=== PATIENT | female | born 1940 | race Caucasian/White ===

== ENCOUNTER → 2016-12-24 | Outpatient (CLI) | payer OTHER ==
[2016-02-04 18:23] VITALS: BP 144/59
--- NOTE | 2016-12-25 07:38 | VAS ---
HISTORY: Lower extremity cramps, restless leg syndrome Study: Bilateral ABIs Comparison: None Findings: MILE on the right 0.84. MILE on the left 0.82. These values are abnormal correlation with bilateral lo wer extremity arterial Doppler evaluation is recommended. IMPRESSION: Abnormal ABIs bilaterally. Correlation with bilateral lower extremity arterial Doppler evaluation is recommended. Reported By:
== END ==
LOC: RAD 14:42
PROVIDERS: ATTEND Nurse Practitioner Family
DX: R25.2 Cramp and spasm (principal); G25.81 Restless legs syndrome; G58.8 Other specified mononeuropathies
CPT/HCPCS: 93923

== ENCOUNTER 2017-02-03 12:54 | Observation (INO) | payer OTHER ==
[2017-02-03] MEDS ORDERED: ZOFRAN INJ 4 MG VIAL IVP PRN (13:28)
[2017-02-03] MEDS ORDERED: NS 1000 ML 1,000 ML IV SCH (14:00)
[2017-02-03 14:01] VITALS: BMI 26.4
[2017-02-03 14:14] LABS: BASOPHILS % (AUTO) 0.3 % (0.2-1.0); EOSINOPHILS # (AUTO) 0.3 x10^3/uL (0.0-0.2); EOSINOPHILS % (AUTO) 5.6 % (0.9-2.9); HEMATOCRIT 28.5 % (36.0-47.0); HEMOGLOBIN 9.4 g/dL (12.0-16.0); LYMPHOCYTES # (AUTO) 1.5 X10^3/uL (1.3-2.9); LYMPHOCYTES % (AUTO) 27.3 % (21.0-51.0); MEAN CORPUSCULAR HEMOGLOBIN 27.3 pg (27.0-34.0); MEAN CORPUSCULAR HGB CONC 33.1 g/dL (33.0-35.0); MEAN CORPUSCULAR VOLUME 82.4 fL (80.0-100.0); MEAN PLATELET VOLUME 7.2 fL (7.4-11.0); MONOCYTES # (AUTO) 0.5 x10^3/uL (0.3-0.8); MONOCYTES % (AUTO) 8.6 % (0.0-13.0); NEUTROPHILS # (AUTO) 3.2 x10^3/uL (2.2-4.8); NEUTROPHILS % (AUTO) 58.2 % (42.0-75.0); PLATELET COUNT 316 X10^3/uL (150.0-450.0); RED BLOOD COUNT 3.46 X10^6/uL (3.5-5.4); RED CELL DISTRIBUTION WIDTH 16.9 % (11.6-16.5); WHITE BLOOD COUNT 5.5 X10^3/uL (3.6-10.0)
[2017-02-03 14:25] LABS: ALANINE AMINOTRANSFERASE 20 Units/L (12-78); ALBUMIN 2.8 g/dL (3.4-5.0); ALKALINE PHOSPHATASE 85 Units/L (46-116); ASPARTATE AMINO TRANSFERASE 17 Units/L (15-37); BLOOD UREA NITROGEN 24 mg/dL (7-18); CALCIUM 8.9 mg/dL (8.5-10.1); CARBON DIOXIDE 28.5 mmol/L (21-32); CHLORIDE 105 mmol/L (98-107); COR CA(FOR HYPOALB) 9.9 mg/dL (8.5-10.1); CREATININE 1.12 mg/dL (0.55-1.02); SODIUM 140 mmol/L (136-145); TOTAL PROTEIN 6.4 g/dL (6.4-8.2); eGFR BLACK RACES > 60 (>60); eGFR NON BLACK RACES 51 (>60)
[2017-02-03] MEDS ORDERED: HumuLIN R SUBCUT PRN (14:41)
--- NOTE | 2017-02-03 14:46 | DR.H&P ---
H&P - History & Physical for Day of: H&P Date: 02/03/17 - Chief Complaint Chief Complaint: AMS, WEAKNESS, FALLS, N/V CANNOT EAT. INTRACTABLE LEFT HIP AND LOWER BACK PAIN - Allergies Allergies/Adverse Reactions: Allergies Allergy/AdvReac Type Severity Reaction Status Date / Time No Known Drug Allergies Allergy Verified 02/03/17 14:34 - History of Present Illness History of Present Illness: the patient is a 76-year-old white female who was a direct admit from Dr. Rodriguez's office after failing to improve with outpatient therapy for treatment of nausea and vomiting and for several weeks on and off. Patient also has increased weakness family reports dehydration and multiple falls. Patient presented to the office one day ago with intractable hip and back pain patient was treated with IM Toradol injection for pain without relief. Family members report patient has been confused with increased weakness visual and auditory hallucinations. Patient has a past medical history of diabetes coronary artery disease hypertension severe arthritis and neuropathy. Plan to admit patient for further evaluation of chronic nausea vomiting and treat with IV fluids for gentle hydration plan to obtain a CT of the head to rule out CVA and radiology studies to assess intractable lumbar spine pain and left hip pain following fall.the patient has bilateral lower extremity pitting edema despite taking HCTZ. Patient also reports increased shortness of breath on exertion. We will start patient on PPI therapy obtain chest x-ray and EKG on admission and repeat a.m. labs. Patient will receive sliding scale insulin coverage and blood pressure monitoring. - Past Medical History Past Medical History: Anxiety, Diabetes, Dyslipidemia, Hypertension, Hypothyroidism - Past Surgical History Surgical History: Angioplasty/Stents, , Hysterectomy - Family History Family Medical History: Diabetes Mellitus, Coronary Artery Disease, Heart Failure - Social History Does patient currently use any type of tobacco product: No Have you used tobacco products in the last 12 months: No Type of Tobacco Use: None Does any household member use tobacco: No Alcohol Use: None Drug Use: None - Medications Home Medications: Cyclobenzaprine HCl [Flexeril] 5 mg PO TID PRN 02/03/17 [History Confirmed 02/03] Folic Acid [Folic Acid Tab 1 mg] 1 mg PO DAILY 02/03/17 [History Confirmed 02/03] Gabapentin [Neurontin Tab 600 mg] 600 mg PO BID 02/03/17 [History Confirmed ] Hydrochlorothiazide [Hydrochlorothiazide 25 mg Tab] 25 mg PO QAM 02/03/17 [ History Confirmed 02/03/17] Hydrocodone-Acet 10/325 mg [Hawks 10/325 Tab] 1 tab PO Q6H PRN 02/03/17 [ History Confirmed 02/03/17] Hydroxyzine HCl 25 mg Tab [ATARAX *] 25 mg PO Q8H PRN 02/03/17 [History Confirmed 02/03/17] Levothyroxine Sodium [Levo-T] 1 tab PO DAILY 02/03/17 [History Confirmed ] Losartan Potassium 100 mg PO DAILY 02/03/17 [History Confirmed 02/03/17] Ropinirole HCl [Requip] 0.5 mg PO BID 02/03/17 [History Confirmed 02/03/17] - Review of Systems Constitutional: Weakness Eyes: No Symptoms Reported ENT: No Symptoms Reported Respiratory: Shortness of Breath Cardiovascular: Edema Gastrointestinal: Nausea, Vomiting Genitourinary: Frequency Musculoskeletal: Back Pain, Leg Pain Skin: Ecchymosis Neurological: Weakness, Confusion - Physical Exam Vital Signs: Blood Pressure 144/59 Oriented: Person Eyes: Normal Ear: Normal, Left Throat: Normal Respiratory: RLL Diminished, LLL Diminished Cardiovascular: Normal, Edema : Normal Auscultation: Bowel Sounds: Normal Tenderness: RUQ, Epigastric Skin: Decreased Turgur Musculoskeletal: Left, Hip, Back:Lumbar, Motor Deficit, Instability Speech Pattern: Clear, Appropriate - Assessment/Plan (1) Altered mental state Qualifiers: Altered mental status type: disorientation Qualified Code(s): R41.0 - Disorientation, unspecified Status: Acute Plan: ADMIT, EKG, CXR UA CBC CMP BLOOD CULTURES CT HEAD ON ADMISSION, CT ABD PELVIS. PPI therapy obtain chest x-ray and EKG on admission and repeat a.m. labs. Patient will receive sliding scale insulin coverage and blood pressure monitoring. (2) Falls Status: Acute (3) Hip pain Status: Acute (4) Lower back pain Status: Acute (5) N&V (nausea and vomiting) Status: Acute (6) Dehydration Status: Acute
--- NOTE | 2017-02-03 15:19 | RAD ---
HISTORY: Altered mental status and multiple falls Study: Portable AP chest Comparison: May 25, 2016 Findings: The trachea is midline. The cardiac silhouette is unremarkable. The lungs are clear without focal i nfiltrate or effusion. The bony thorax is unremarkable. IMPRESSION: 1. No acute cardiopulmonary disease. Reported By:
--- NOTE | 2017-02-03 15:19 | RAD ---
HISTORY: Fall, left hip pain Study: Left hip AP, frog-leg, AP pelvis Comparison: None Findings: A single frontal view of the pelvis demonstrates the pelvic ring to be intact. No evidence for acute cortical disruption or dislocation of the hip can be observed. Frog leg views of the hip fails to d emonstrate evidence for fracture or significant joint abnormality. Impression: 1. Negative exam. Reported By:
[2017-02-03] MEDS ORDERED: ATARAX SYRUP BTL 10MG/5ML PO PRN (19:40)
[2017-02-03] MEDS ORDERED: NORCO 10/325 TAB PO PRN (19:40)
[2017-02-03] MEDS ORDERED: FLEXERIL TAB 10 MG PO PRN (19:40)
[2017-02-03] MEDS ORDERED: SNACK - Diabetic Appropriate PO SCH (20:00)
[2017-02-03] MEDS ORDERED: NS 100 ML IV 100 ML IV ONE (20:16)
[2017-02-03] MEDS: NEURONTIN TAB 600 MG PO SCH ×2 (20:51→21:00)
[2017-02-03] MEDS: REQUIP PO SCH (20:52)
--- NOTE | 2017-02-03 22:27 | CT ---
CT abdomen and pelvis with contrast Indication: Abdominal pain with intractable nausea and vomiting Technique: Helical images through the abdomen and pelvis without contrast. Coronal and sagittal refor mats provided. Findings: Review of bone windows shows no destructive osseous lesion. Spine and pelvis DJD noted. Charles ited images through lower chest demonstrate no acute abnormality. Coronary artery calcifications and mild cardiomegaly noted. Abdomen: The gallbladder is collapsed. The liver, spleen and adrenal glands are within normal limits. No acute pancreas abnormality seen. Vascular plaque noted. The stomach and small bowel are normal. No acute colonic abnormality seen. Appendix is not visualized without pericecal inflammatory change. Pelvis: Urinary bladder is from normal. Trace free fluid in the pelvis noted. Uterus is absent. No ad nexal region lesion seen. The rectum is normal. Kidneys show no hydroureteronephrosis. Impression: No acute abnormality. Mild cardiomegaly, spine degenerative change, vascular plaque and o ther incidental findings as above. Reported By:
[2017-02-04 06:20] LABS: BASOPHILS % (AUTO) 0.4 % (0.2-1.0); EOSINOPHILS # (AUTO) 0.3 x10^3/uL (0.0-0.2); EOSINOPHILS % (AUTO) 5.1 % (0.9-2.9); HEMATOCRIT 27.4 % (36.0-47.0); HEMOGLOBIN 9.4 g/dL (12.0-16.0); LYMPHOCYTES # (AUTO) 1.7 X10^3/uL (1.3-2.9); LYMPHOCYTES % (AUTO) 31.8 % (21.0-51.0); MEAN CORPUSCULAR HEMOGLOBIN 27.9 pg (27.0-34.0); MEAN CORPUSCULAR HGB CONC 34.2 g/dL (33.0-35.0); MEAN CORPUSCULAR VOLUME 81.5 fL (80.0-100.0); MEAN PLATELET VOLUME 7.2 fL (7.4-11.0); MONOCYTES # (AUTO) 0.5 x10^3/uL (0.3-0.8); MONOCYTES % (AUTO) 9.3 % (0.0-13.0); NEUTROPHILS # (AUTO) 2.9 x10^3/uL (2.2-4.8); NEUTROPHILS % (AUTO) 53.4 % (42.0-75.0); PLATELET COUNT 300 X10^3/uL (150.0-450.0); RED BLOOD COUNT 3.36 X10^6/uL (3.5-5.4); RED CELL DISTRIBUTION WIDTH 16.6 % (11.6-16.5); WHITE BLOOD COUNT 5.3 X10^3/uL (3.6-10.0)
[2017-02-04 06:49] LABS: ALANINE AMINOTRANSFERASE 17 Units/L (12-78); ALBUMIN 2.3 g/dL (3.4-5.0); ALKALINE PHOSPHATASE 74 Units/L (46-116); ASPARTATE AMINO TRANSFERASE 16 Units/L (15-37); BLOOD UREA NITROGEN 15 mg/dL (7-18); CALCIUM 8.4 mg/dL (8.5-10.1); CARBON DIOXIDE 26.3 mmol/L (21-32); CHLORIDE 109 mmol/L (98-107); COR CA(FOR HYPOALB) 9.8 mg/dL (8.5-10.1); COR NA(FOR HYPERGLY) 143 mmol/L (136-145); CREATININE 0.99 mg/dL (0.55-1.02); MAGNESIUM 1.3 mg/dL (1.7-2.9); SODIUM 142 mmol/L (136-145); TOTAL PROTEIN 5.6 g/dL (6.4-8.2); eGFR BLACK RACES > 60 (>60); eGFR NON BLACK RACES 58 (>60)
[2017-02-04] MEDS: REQUIP PO SCH ×2 (07:58→11:23)
[2017-02-04] MEDS: HYDROCHLOROTHIAZIDE 25 MG TAB PO SCH ×2 (07:58→11:22)
[2017-02-04] MEDS: NEURONTIN TAB 600 MG PO SCH ×2 (07:58→11:22)
[2017-02-04] MEDS ORDERED: ATARAX TAB 25 MG PO PRN (08:53)
[2017-02-04] MEDS ORDERED: NORCO 10/325 TAB PO PRN (08:53)
[2017-02-04] MEDS ORDERED: PHARMACY CONSULT - DOSE _____ XX SCH (09:00)
[2017-02-04] MEDS ORDERED: SYNTHROID 75 mcg TAB PO SCH ×3 (09:00→16:30)
[2017-02-04] MEDS ORDERED: PATIENT'S HOME MEDICATION (Losartan Potassium [Losartan Potassium] 100 MG) PO SCH (09:00)
[2017-02-04] MEDS ORDERED: PATIENT'S HOME MEDICATION (Ropinirole Hcl [Requip] 0.5 MG) PO SCH (09:00)
[2017-02-04] MEDS ORDERED: COZAAR PO SCH ×2 (09:00→10:00)
[2017-02-04] MEDS ORDERED: DEXFERRUM or INFED 25 MG in NS 100 ML IV 100 ML IV ONE (09:00)
[2017-02-04] MEDS ORDERED: FOLIC ACID TAB 1 MG PO SCH ×2 (09:00)
--- NOTE | 2017-02-04 10:29 | RAD ---
History: Left knee pain after fall last week. Study: AP and lateral left knee Comparison: July 18, 2015 Findings: There is no interval change. There are moderate osteophyte formation about all of the joint space compartments, especially severe about the femoral patellar joint space. There is chondrocalcin osis. There is no fracture or dislocation. There is a moderate joint effusion. Impression: 1. Moderate joint effusion 2. Tricompartment osteoarthritis Reported By:
[2017-02-04] MEDS ORDERED: DEXFERRUM or INFED 975 MG in NS 500 ML IV 500 ML IV ONE (11:00)
--- NOTE | 2017-02-04 11:07 | MRI ---
STUDY: MRI OF THE LUMBAR SPINE HISTORY: Chronic low back pain. Recent fall. Comparison: Lumbar spine radiographs from April 27, 2016. CT abdomen and pelvis from January. Technique: Multiplanar multi-sequence MRI of the lumbar spine was performed. Sagittal T1, sagittal T 2, and STIR images, axial T1, and axial T2 images were obtained. Findings: Sagittal images: Vertebral body heights and alignment are within normal limits. There is multilevel d egenerative disk disease and degenerative endplate change. Marrow signal is otherwise age-appropriate . Several Schmorl's nodes are identified. The conus medullaris is normal appearance terminating at th e level of L1/2. Axial images: T11-- T12: Normal. T12 -- L1: Normal. L1 -- L2: There is a shallow disc bulge. There is bilateral facet arthropathy and ligamentum flavum i nfolding. The central canal and neural foramina are adequate at this level. L2 -- L3: There is a shallow disc bulge, bilateral facet arthropathy and ligamentum flavum infolding. The central canal and neural foramina are adequate at this level. L3 -- L4: There is a broad-based disc bulge, bilateral facet arthropathy and ligamentum flavum infold ing. The combination of these findings results in severe central canal stenosis. The right neural for amen is adequate. There is mild left neural foraminal stenosis. L4 -- L5: There is a broad-based disc bulge, bilateral facet arthropathy and ligamentum flavum infold ing. The combination of these findings results in severe central canal stenosis. The neural foramina are adequate at this level. L5 -- S1: There is a broad-based disc bulge, bilateral facet arthropathy and ligamentum flavum infold ing. Central canal and left neural foramina are adequate. There is mild right neural foraminal stenos is. IMPRESSION: 1. Multilevel lumbar spondylosis. 2. Severe central canal stenosis at L3/4 and L4/5. Reported By:
[2017-02-04] MEDS ORDERED: TORADOL 30 MG VIAL IVP NR (13:13)
[2017-02-04 15:32] VITALS: BP 139/66
[2017-02-04] MEDS ORDERED: REQUIP PO SCH (21:00)
== END 2017-02-04 16:30 | disposition home or self-care (01) | DRG 948 ==
LOC: MED/SURG 12:54 → OBS 13:19
PROVIDERS: ADMIT Internal Medicine; ATTEND Internal Medicine
DX: R41.0 Disorientation, unspecified (principal); E86.0 Dehydration; R29.6 Repeated falls; R11.2 Nausea with vomiting, unspecified; R53.1 Weakness; M54.5 Low back pain; M25.552 Pain in left hip; Z91.81 History of falling; I25.10 Atherosclerotic heart disease of native coronary artery without angina pectoris; I10 Essential (primary) hypertension; R06.02 Shortness of breath; W19.XXXA Unspecified fall, initial encounter; E03.8 Other specified hypothyroidism; M13.89 Other specified arthritis, multiple sites; M48.06 Spinal stenosis, lumbar region; M47.896 Other spondylosis, lumbar region; B95.1 Streptococcus, group B, as the cause of diseases classified elsewhere; D64.89 Other specified anemias; E11.65 Type 2 diabetes mellitus with hyperglycemia
CPT/HCPCS: 36415; 71010; 72148; 73501; 73560; 74177; 80053; 82607; 82728; 82746; 83540; 83735; 84466; 85025; 87040; 87086; 87088; 87186; 93005; 93010; A4222; G0378; J1750; J1885

== ENCOUNTER 2017-05-06 07:54 | Day surgery (SDC) | payer OTHER ==
[2017-05-06] MEDS ORDERED: D5 LR 1000 ML 1,000 ML IV ONE (07:58)
[2017-05-06] MEDS ORDERED: DIPRIVAN VIAL 20 ML ONE (10:28)
[2017-05-06 11:07] VITALS: BP 164/70
== END 2017-05-06 10:10 | disposition home or self-care (01) ==
LOC: SURG1 07:54
PROVIDERS: ATTEND Internal Medicine Gastroenterology
PROC: 0DB68ZX Excision of Stomach, Via Natural or Artificial Opening Endoscopic, Diagnostic (ICD-10-PCS; principal; 2017-05-06 11:00)
PROC: 0DB18ZX Excision of Upper Esophagus, Via Natural or Artificial Opening Endoscopic, Diagnostic (ICD-10-PCS; principal; 2017-05-06 11:00)
PROC: 0D757ZZ Dilation of Esophagus, Via Natural or Artificial Opening (ICD-10-PCS; principal; 2017-05-06 11:00)
PROC: 0DJ08ZZ Inspection of Upper Intestinal Tract, Via Natural or Artificial Opening Endoscopic (ICD-10-PCS; principal; 2017-05-06 11:00)
DX: R13.19 Other dysphagia (principal); R10.13 Epigastric pain; R11.2 Nausea with vomiting, unspecified; Z87.19 Personal history of other diseases of the digestive system; K22.2 Esophageal obstruction; K22.4 Dyskinesia of esophagus; K29.60 Other gastritis without bleeding
CPT/HCPCS: 99100; A4217; J3490; J7120

== ENCOUNTER → 2017-05-27 | Outpatient (CLI) | payer OTHER ==
[2017-05-06 11:07] VITALS: BP 164/70
== END ==
LOC: LAB 13:07
PROVIDERS: ATTEND Internal Medicine Gastroenterology
DX: K64.0 First degree hemorrhoids (principal)
CPT/HCPCS: 82270

== ENCOUNTER 2017-08-14 18:38 | Inpatient (IN) | payer OTHER ==
[2017-08-14 18:42] VITALS: BMI 24.3
[2017-08-14 19:08] LABS: BILIRUBIN,URINE NEGATIVE (NEGATIVE); BLOOD/HEMOGLOBIN,URINE 3+ (NEGATIVE); GLUCOSE, URINE NEGATIVE (NEGATIVE); KETONES,URINE NEGATIVE (NEGATIVE); LEUKOCYTE ESTERASE ,URINE 3+ (NEGATIVE); NITRITES,URINE NEGATIVE (NEGATIVE); PROTEIN,URINE 4+ (NEGATIVE); UROBILINOGEN,URINE NORMAL (NORMAL)
[2017-08-14 19:26] LABS: APPEARANCE,URINE CLOUDY (CLEAR); BACTERIA,URINE 2+ /HPF (NEGATIVE); COLOR,URINE YELLOW (YELLOW); SQUAMOUS EPITHELIAL CELL,UR RARE /HPF (NEGATIVE)
--- NOTE | 2017-08-14 19:36 | DR.GENAD ---
HPI - PCP Primary Care Physician: roxana - Complaint/Symptoms Chief Complaint Doctors Comments: Patient presents with a history of altered mental status and has been vomiting since this morning. She has been alternating between chills and cold. Chief Complaint:: patients family stated she has been having ams day and this morning she had been vomiting - Source History Provided: Patient - Mode of Arrival Mode of Arrival: Wheelchair - Timing Onset of Chief Complaint: 08/14/17 PMH - PMH Past Medical History: Yes Past Medical History: Anxiety, Diabetes, Dyslipidemia, Hypertension, Hypothyroidism Past Surgical History: Yes Surgical History: Unknown - Family History History of Family Medical Conditions: Yes Family Medical History: Diabetes Mellitus, Coronary Artery Disease, Heart Failure - Social History Does patient currently use any type of tobacco product: No Have you used tobacco products in the last 12 months: No Type of Tobacco Use: None Does any household member use tobacco: No Alcohol Use: None Do you use any recreational Drugs:: No Lives With: Alone Lives Where: Home - infectious screening In the last 2 months have you had wt loss of >10#?: NO Have you had fever, night sweats or hemotysis?: No Have you traveled outside the country in the last 6 months?: No Isolation: Standard ROS - Review of Systems Eyes: No Symptoms Reported ENTM: No Symptoms Reported Respiratoy: No Symptoms Reported Cardiovascular: No Symptoms Reported Gastrointestinal/Abdominal: No Symptoms Reported Genitourinary: No Symptoms Reported Neurological: No Symptoms Reported Musculoskeletal: No Symptoms Reported Integumentary: No Symptoms Reported Hematologic/Lymphatic: No Symptoms Reported Endocrine: No Symptoms Reported Psychiatric: No Symptoms Reported All Other Systems: Reviewed and Negative PE - Vital Signs Vitals: Temperature 102.8 F Pulse Rate [Left Brachial] 108 Pulse Rate 98 Respiratory Rate 16 Blood Pressure [Left Arm] 166/70 Blood Pressure [Right Arm] 139/66 Blood Pressure 141/70 O2 Sat by Pulse Oximetry 99 - General Limitations: No Limitations General Appearance: Alert, In No Apparent Distress - Head Head Exam: Normal Inspection, Atraumatic - Eyes Eye exam: Normal Appearance, PERRL, EOMI - ENT ENT Exam: Normal Exam External Ear Exam: Normal External Inspection TM/Canal Exam: Bilateral Normal Nose Exam: Normal Nose Exam Mouth Exam: Normal Inspection Throat Exam: Normal Inspection - Neck Neck Exam: Normal Inspection - Chest Chest Inspection: Normal Inspection - Respiratory Respiratory Exam: Normal Lung Sounds Bilat Respiratory Exam: Bilateral Clear to Auscultation - Cardiovascular Cardiovascular Exam: Regular Rate, Normal Rhythm - Abdominal Exam Abdominal Exam: Normal Inspection, Normal Bowel Sounds Abdominal Tenderness: negative: RUQ, RLQ, LUQ, LLQ, Epigastrium, Suprapubic, Diffuse, Mild, Moderate, Severe, Other - Extremities Extremities Exam: Normal Inspection, Full ROM - Back Back Exam: Normal Inspection, Tenderness - Neurologic Neurological Exam: Alert, Oriented X3, CN II-XII Intact - Psychiatric Psychiatric Exam: Normal Affect, Normal Mood - Skin Skin Exam: Warm, Dry, Intact Course - Reevaluation 1st: Unchanged - Consultation Called: 21:30 ROR - Labs Reviewed Result Diagrams: 08/14/17 20:05 08/14/17 20:05 Laboratory: WBC 9.2 X10^3/uL (3.6-10.0) 08/14/17 20:05 RBC 3.54 X10^6/uL (3.5-5.4) 08/14/17 20:05 Hgb 10.7 g/dL (12.0-16.0) L 08/14/17 20:05 Hct 31.0 % (36.0-47.0) L 08/14/17 20:05 MCV 87.6 fL (80.0-100.0) 08/14/17 20:05 MCH 30.3 pg (27.0-34.0) 08/14/17 20:05 MCHC 34.6 g/dL (33.0-35.0) 08/14/17 20:05 RDW 13.7 % (11.6-16.5) 08/14/17 20:05 Plt Count 253 X10^3/uL (150.0-450.0) 08/14/17 20:05 Plt Count Comment Adequate (ADEQUATE) 08/14/17 20:05 MPV 7.0 fL (7.4-11.0) L 08/14/17 20:05 Neut % (Auto) 91.0 % (42.0-75.0) H 08/14/17 20:05 Lymph % (Auto) 6.3 % (21.0-51.0) L 08/14/17 20:05 [place] % (Auto) 2.0 % (0.0-13.0) 08/14/17 20:05 Eos % (Auto) 0.2 % (0.9-2.9) L 08/14/17 20:05 Baso % (Auto) 0.5 % (0.2-1.0) 08/14/17 20:05 Neut # (Auto) 8.4 x10^3/uL (2.2-4.8) H 08/14/17 20:05 Lymph # (Auto) 0.6 X10^3/uL (1.3-2.9) L 08/14/17 20:05 [place] # (Auto) 0.2 x10^3/uL (0.3-0.8) L 08/14/17 20:05 Eos # (Auto) 0.0 x10^3/uL (0.0-0.2) 08/14/17 20:05 Baso # (Auto) 0.0 X10^3/uL (0.0-0.1) 08/14/17 20:05 Absolute Nucleated RBC 0.0 /100WBC 08/14/17 20:05 Total Counted 100 08/14/17 20:05 Neutrophils % (Manual) 84 % (39-76) H 08/14/17 20:05 Band Neutrophils % 6 % (0-10) 08/14/17 20:05 Lymphocytes % (Manual) 8 % (13-43) L 08/14/17 20:05 Monocytes % (Manual) 2 % (4-9) L 08/14/17 20:05 Plt Morphology Comment Normal (NORMAL) 08/14/17 20:05 RBC Morphology Normal (NORMAL) 08/14/17 20:05 Sodium 137 mmol/L (136-145) 08/14/17 20:05 Corrected Sodium 139 mmol/L (136-145) 08/14/17 20:05 Potassium 3.7 mmol/L (3.5-5.1) 08/14/17 20:05 Chloride 99 mmol/L (98-107) 08/14/17 20:05 Carbon Dioxide 28.1 mmol/L (21-32) 08/14/17 20:05 BUN 18 mg/dL (7-18) 08/14/17 20:05 Creatinine 1.51 mg/dL (0.55-1.02) H 08/14/17 20:05 Est GFR (MDRD) Af Amer 43 (>60) L 08/14/17 20:05 Est GFR (MDRD) Non-Af 36 (>60) L 08/14/17 20:05 Glucose 169 mg/dL (65-99) H 08/14/17 20:05 Lactic Acid 1.3 mmol/L (0.4-2.0) 08/14/17 20:05 Calcium 8.3 mg/dL (8.5-10.1) L 08/14/17 20:05 Corrected Calcium 8.9 mg/dL (8.5-10.1) 08/14/17 20:05 Total Bilirubin 0.50 mg/dL (0.2-1.0) 08/14/17 20:05 AST 19 Units/L (15-37) 08/14/17 20:05 ALT 21 Units/L (12-78) 08/14/17 20:05 Alkaline Phosphatase 93 Units/L (46-116) 08/14/17 20:05 C-Reactive Protein 70.20 mg/L (0-3.0) H 08/14/17 20:05 Total Protein 7.2 g/dL (6.4-8.2) 08/14/17 20:05 Albumin 3.3 g/dL (3.4-5.0) L 08/14/17 20:05 Globulin 3.9 g/dL (2.5-4.5) 08/14/17 20:05 Albumin/Globulin Ratio 0.8 Ratio (1.1-2.1) L 08/14/17 20:05 Specimen Type Clean catch urine 08/14/17 19:00 Urine Color Yellow (YELLOW) 08/14/17 19:00 Urine Appearance Cloudy (CLEAR) 08/14/17 19:00 Urine pH 6.0 (5.0 - 8.0) 08/14/17 19:00 Ur Specific [place] 1.015 (1.000-1.030) 08/14/17 19:00 Urine Protein 4+ (NEGATIVE) 08/14/17 19:00 Urine Glucose (UA) Negative (NEGATIVE) 08/14/17 19:00 Urine Ketones Negative (NEGATIVE) 08/14/17 19:00 Urine Occult Blood 3+ (NEGATIVE) 08/14/17 19:00 Urine Nitrite Negative (NEGATIVE) 03/31/18 19:00 Urine Bilirubin Negative (NEGATIVE) 08/14/17 19:00 Urine Urobilinogen Normal (NORMAL) 08/14/17 19:00 Ur Leukocyte Esterase 3+ (NEGATIVE) 08/14/17 19:00 Urine RBC 10-20 /HPF (NONE SEEN) 08/14/17 19:00 Urine WBC Tntc /HPF (NONE SEEN) 08/14/17 19:00 Ur Squamous Epith Cells Rare /HPF (NEGATIVE) 08/14/17 19:00 Urine Bacteria 2+ /HPF (NEGATIVE) 08/14/17 19:00 Ur Culture Indicated? Yes/culture set up 08/14/17 19:00 - Diagnosis Discharge Problem: Pyelonephritis - Discharge Plan Condition: Stable - Follow ups/Referrals Follow ups/Referrals: CHRISTOPHER GONZALEZ [Primary Care Provider] - 3 days - Instructions
[2017-08-14] MEDS ORDERED: NS 1000 ML 1,000 ML IV ONE (19:53)
[2017-08-14] MEDS ORDERED: TORADOL 30 MG VIAL IVP ONE (19:53)
[2017-08-14] MEDS ORDERED: NS 1000 ML 1,000 ML ONE ×2 (19:55→22:23)
[2017-08-14] MEDS ORDERED: TORADOL 30 MG VIAL ONE (19:55)
[2017-08-14] MEDS ORDERED: ZOFRAN INJ 4 MG VIAL IVP ONE (20:10)
[2017-08-14] MEDS ORDERED: AMPICILLIN VIAL 1 GM ONE (20:14)
[2017-08-14] MEDS ORDERED: NS 100 ML IV + SPIKE MINIBAG* 100 ML IV ONE (20:14)
[2017-08-14] MEDS ORDERED: ZOFRAN INJ 4 MG VIAL ONE (20:14)
[2017-08-14 20:19] LABS: BASOPHILS % (AUTO) 0.5 % (0.2-1.0); EOSINOPHILS % (AUTO) 0.2 % (0.9-2.9); HEMOGLOBIN 10.7 g/dL (12.0-16.0); LYMPHOCYTES # (AUTO) 0.6 X10^3/uL (1.3-2.9); LYMPHOCYTES % (AUTO) 6.3 % (21.0-51.0); MEAN CORPUSCULAR HEMOGLOBIN 30.3 pg (27.0-34.0); MEAN CORPUSCULAR HGB CONC 34.6 g/dL (33.0-35.0); MEAN CORPUSCULAR VOLUME 87.6 fL (80.0-100.0); MONOCYTES # (AUTO) 0.2 x10^3/uL (0.3-0.8); NEUTROPHILS # (AUTO) 8.4 x10^3/uL (2.2-4.8); PLATELET COUNT 253 X10^3/uL (150.0-450.0); RED BLOOD COUNT 3.54 X10^6/uL (3.5-5.4); RED CELL DISTRIBUTION WIDTH 13.7 % (11.6-16.5); WHITE BLOOD COUNT 9.2 X10^3/uL (3.6-10.0)
[2017-08-14 20:29] LABS: ALBUMIN 3.3 g/dL (3.4-5.0); C-REACTIVE PROTEIN 70.2 mg/L (0-3.0); CALCIUM 8.3 mg/dL (8.5-10.1); CARBON DIOXIDE 28.1 mmol/L (21-32); COR CA(FOR HYPOALB) 8.9 mg/dL (8.5-10.1); CREATININE 1.51 mg/dL (0.55-1.02); TOTAL PROTEIN 7.2 g/dL (6.4-8.2)
[2017-08-14 20:36] LABS: LACTIC ACID 1.3 mmol/L (0.4-2.0)
[2017-08-14 20:52] LABS: BAND NEUTROPHILS % 6 % (0-10); PLATELET MORPHOLOGY COMMENT NORMAL (NORMAL)
[2017-08-14] MEDS ORDERED: AMPICILLIN VIAL 1 GM 1 GM in NS 50 ML IV + SPIKE MINIBAG* 50 ML IV SCH (21:00)
--- NOTE | 2017-08-14 21:36 | RAD ---
Chest AP portable Indication: Vomiting. Altered mental status. Findings: There is no pneumothorax or effusion. There is no consolidation. Heart size is prominent. Impression: Cardiomegaly without other acute chest process. Reported By:
[2017-08-14] MEDS ORDERED: TYLENOL 325 MG TAB PO PRN (21:47)
[2017-08-14] MEDS ORDERED: GENTAMICIN INJ 80 MG in NS 100 ML IV 100 ML IV ONE (22:06)
[2017-08-14] MEDS ORDERED: TYLENOL 500 MG TAB EXTRA STRENGTH PO PRN (22:06)
[2017-08-14] MEDS ORDERED: ATARAX TAB 25 MG PO PRN (22:23)
[2017-08-14] MEDS ORDERED: GENTAMICIN INJ ONE (22:23)
[2017-08-14] MEDS ORDERED: NEURONTIN TAB 600 MG PO PRN (22:23)
[2017-08-14] MEDS ORDERED: NS 100 ML IV 100 ML IV ONE (22:24)
[2017-08-14] MEDS: NS 1000 ML 1,000 ML IV SCH (22:31)
[2017-08-14] MEDS: GENTAMICIN INJ 80 MG in NS 100 ML IV 100 ML IV SCH (22:32)
[2017-08-15] MEDS ORDERED: GENTAMICIN INJ ONE ×2 (04:14→20:47)
[2017-08-15] MEDS ORDERED: NS 100 ML IV + SPIKE MINIBAG* 100 ML IV ONE ×4 (04:21→20:57)
[2017-08-15] MEDS ORDERED: AMPICILLIN VIAL 1 GM ONE ×4 (04:21→20:48)
[2017-08-15] MEDS: NORCO 10/325 TAB PO PRN ×3 (04:22→20:26)
[2017-08-15] MEDS: AMPICILLIN VIAL 1 GM 1 GM in NS 50 ML IV + SPIKE MINIBAG* 50 ML IV SCH ×4 (04:32→21:22)
[2017-08-15] MEDS ORDERED: GLUCOPHAGE ONE ×2 (05:33→16:04)
[2017-08-15] MEDS: REGLAN TAB 5 MG PO SCH ×4 (06:42→20:26)
[2017-08-15] MEDS: GLUCOPHAGE PO SCH ×2 (06:43→16:08)
[2017-08-15] MEDS: SYNTHROID 75 mcg TAB PO SCH (06:43)
[2017-08-15] MEDS: NS 1000 ML 1,000 ML IV SCH ×2 (06:43→15:08)
[2017-08-15 07:34] LABS: BASOPHILS % (AUTO) 0.3 % (0.2-1.0); EOSINOPHILS % (AUTO) 0.1 % (0.9-2.9); HEMATOCRIT 27.4 % (36.0-47.0); HEMOGLOBIN 9.6 g/dL (12.0-16.0); LYMPHOCYTES # (AUTO) 0.6 X10^3/uL (1.3-2.9); LYMPHOCYTES % (AUTO) 6.4 % (21.0-51.0); MEAN CORPUSCULAR HEMOGLOBIN 30.7 pg (27.0-34.0); MEAN CORPUSCULAR VOLUME 87.5 fL (80.0-100.0); MEAN PLATELET VOLUME 7.1 fL (7.4-11.0); MONOCYTES # (AUTO) 0.8 x10^3/uL (0.3-0.8); MONOCYTES % (AUTO) 8.3 % (0.0-13.0); NEUTROPHILS # (AUTO) 7.7 x10^3/uL (2.2-4.8); NEUTROPHILS % (AUTO) 84.9 % (42.0-75.0); PLATELET COUNT 204 X10^3/uL (150.0-450.0); RED BLOOD COUNT 3.13 X10^6/uL (3.5-5.4); RED CELL DISTRIBUTION WIDTH 13.6 % (11.6-16.5); WHITE BLOOD COUNT 9.1 X10^3/uL (3.6-10.0)
[2017-08-15 07:45] LABS: ALBUMIN 2.5 g/dL (3.4-5.0); CALCIUM 7.4 mg/dL (8.5-10.1); CARBON DIOXIDE 25.8 mmol/L (21-32); COR CA(FOR HYPOALB) 8.6 mg/dL (8.5-10.1); CREATININE 1.36 mg/dL (0.55-1.02); TOTAL PROTEIN 5.7 g/dL (6.4-8.2)
[2017-08-15] MEDS ORDERED: POTASSIUM CHL 40 MEQ/NS 0.45% 500 ML IV PRN (07:54)
[2017-08-15] MEDS ORDERED: POTASSIUM CHLORIDE LIQ 20 MEQ UDC PO PRN (07:54)
[2017-08-15] MEDS ORDERED: POTASSIUM CHL 60 MEQ/NS 0.45% 500 ML IV PRN (07:54)
[2017-08-15] MEDS ORDERED: K-RIDER 10 MEQ/NS 100 ML 10 MEQ/100 ML BAG IV PRN (07:54)
[2017-08-15] MEDS ORDERED: PATIENT'S HOME MEDICATION (Metformin Hcl [Metformin Hcl] 1 TAB) PO SCH (09:00)
[2017-08-15] MEDS ORDERED: PATIENT'S HOME MEDICATION (Losartan Potassium [Losartan Potassium] 100 MG) PO SCH (09:00)
[2017-08-15] MEDS: COZAAR PO SCH (09:47)
[2017-08-15] MEDS: FOLIC ACID TAB 1 MG PO SCH (09:47)
[2017-08-15] MEDS: NORVASC TAB 5 MG PO SCH (09:48)
[2017-08-15] MEDS: ZANTAC PO SCH (09:48)
[2017-08-15] MEDS: LASIX PO SCH (09:48)
[2017-08-15] MEDS: LIPITOR TAB 20 MG PO SCH (09:48)
[2017-08-15] MEDS: HYDROCHLOROTHIAZIDE 25 MG TAB PO SCH (09:48)
[2017-08-15] MEDS: PROzac PO SCH (09:49)
[2017-08-15] MEDS: TERBINAFINE HCL PO SCH (10:00)
--- NOTE | 2017-08-15 10:14 | DR.H&P ---
H&P - History & Physical for Day of: H&P Date: 08/14/17 - Chief Complaint Chief Complaint: AMS, N/V - Allergies Allergies/Adverse Reactions: Allergies Allergy/AdvReac Type Severity Reaction Status Date / Time No Known Drug Allergies Allergy Verified 02/03/17 14:34 - History of Present Illness History of Present Illness: 76 WF ER ADMISSION, WITH CO AMS, CONFUSION, GENERALIZED WEAKNESS. 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 PT HAS HAD N/V. PT FAMILY STATES SHE HAS BEEN HAVING CO INTRACTABLE LOWER BACK PAIN, LOWER BACK PAIN LAST NIGHT WAS INTRACTABLE. PT HAS PMH, OA, GERD, DM, CAD. - Past Medical History Past Medical History: Anxiety, Diabetes, Dyslipidemia, Hypertension, Hypothyroidism - Past Surgical History Surgical History: , Hysterectomy - Family History Family Medical History: Diabetes Mellitus, Coronary Artery Disease, Heart Failure - Social History Does patient currently use any type of tobacco product: No Have you used tobacco products in the last 12 months: No Type of Tobacco Use: None Does any household member use tobacco: No Alcohol Use: None Drug Use: None - Medications Home Medications: Amlodipine Besylate [NORVASC 5 MG *] 1 tab PO DAILY 08/14/17 [History Confirmed 08/14/17] Atorvastatin Calcium 20 mg PO DAILY 08/14/17 [History Confirmed 08/14/17] Fluoxetine HCl [FLUOXETINE 10 MG *] 1 cap PO DAILY 08/14/17 [History Confirmed 08/14/17] Furosemide [Furosemide] 1 tab PO DAILY 08/14/17 [History Confirmed 08/14/17] Metformin HCl [Metformin HCl] 1 tab PO BID 08/14/17 [History Confirmed 08/14/17] Metoclopramide HCl [Metoclopramide HCl] 1 tab PO ACHS 08/14/17 [History Confirmed 08/14/17] Ranitidine HCl [Ranitidine HCl] 1 tab PO BID 08/14/17 [History Confirmed ] Terbinafine HCl [Terbinafine HCl] 1 tab PO DAILY 08/14/17 [History Confirmed ] - Review of Systems Constitutional: Weakness, Malaise Eyes: No Symptoms Reported ENT: No Symptoms Reported Respiratory: SOB with Excertion Cardiovascular: Light Headedness Gastrointestinal: Nausea, Vomiting, Abdominal Pain Genitourinary: No Symptoms Reported Musculoskeletal: Back Pain Skin: No Symptoms Reported Neurological: Weakness, Confusion - Physical Exam Vital Signs: Temperature 100.5 F Pulse Rate [Left Brachial] 85 Pulse Rate 98 Respiratory Rate 18 Blood Pressure [Left Arm] 115/57 Blood Pressure [Right Arm] 139/66 Blood Pressure 141/70 O2 Sat by Pulse Oximetry 94 Oriented: Person Eyes: Normal Ear: Normal Nose: Normal Throat: Normal Respiratory: RLL Diminished, LLL Diminished Cardiovascular: Normal : Normal Auscultation: Bowel Sounds: Normal Palpation: Normal Tenderness: RLQ, LUQ, LLQ, Other (BILATERAL CVA TENDERNESS) Skin: Decreased Turgur, Wound Musculoskeletal: Back:Thoracic, Back:Lumbar Psychiatric: Anxiety Affect: Anxious Speech Pattern: Clear - Assessment/Plan (1) Altered mental state Qualifiers: Altered mental status type: disorientation Qualified Code(s): R41.0 - Disorientation, unspecified Status: Acute Plan: ADMIT, CT BRAIN, MONITOR. ADMISSION, LABS, IV ATBX, CULTURES. CT ABD PELVIS, IV HYDRATION, ELECTROLYTE REPLACEMENT. RESUME HOME MEDS. SSI, BS MONITORING (2) Pyelonephritis Status: Acute (3) Dehydration Status: Acute (4) N&V (nausea and vomiting) Status: Acute (5) Dehydration Status: Acute
[2017-08-15] MEDS ORDERED: K-DUR TAB 20 MEQ PO ONE (11:00)
[2017-08-15] MEDS: MAGNESIUM SULFATE 1 GM/100 mL PREMIX 1 GM/100 ML BAG IV PRN ×5 (11:35→23:57)
--- NOTE | 2017-08-15 12:26 | CT ---
CT HEAD WITHOUT CONTRAST CLINICAL HISTORY: 76-year-old female with altered mental status. COMPARISON: CT head 02/04/2016. TECHNIQUE: Multiple, non-contrasted axial CT images were obtained from the skull base to the cranial vertex. Coronal and sagittal reformats were performed. FINDINGS: There are no abnormal intra- or extra-axial fluid collections, midline shift, or mass effec t. Phan-white differentiation is normal. Global cortical involutional changes are present that are ad vanced for the patient's stated age. The ventricular system is mildly enlarged but commensurate with the degree of sulcal prominence. Periventricular and supraventricular white matter hypodensity is pre sent that is nonspecific in appearance, but most likely to represent microvascular ischemic changes. Atherosclerotic vascular calcification is present within the carotid siphons and distal vertebral art eries. The imaged paranasal sinuses, mastoid air cells, and tympanic spaces are clear. Bilateral lens implan ts IMPRESSION: 1. No definite evidence of an acute intracranial process. If clinical concern persists for acute str fernie, consider MRI/MRA brain. 2. Moderate microvascular white matter ischemic changes, with associated volume loss. Reported By:
--- NOTE | 2017-08-15 13:11 | CT ---
CT ABDOMEN AND PELVIS WITHOUT CONTRAST CLINICAL HISTORY: 76-year-old female with altered mental status. COMPARISON: None. TECHNIQUE: Multiple contiguous computed tomographic axial images of the abdomen and pelvis were obtai shandra without the use of oral or intravenous contrast. Images were reformatted in the coronal and sagit dennis planes. FINDINGS: The lung bases demonstrate no evidence of focal air-space opacification, pleural effusion, pneumothor ax, or suspicious pulmonary nodules. The imaged inferior mediastinum and heart are normal in appeara nce without evidence of pericardial effusion. The liver, gallbladder, pancreas, and spleen are within normal limits for noncontrast imaging. Adrenal glands are unremarkable bilaterally. Mild right renal edema with moderate perinephric stranding and trace non organized fluid with mild pr oximal hydroureter with mild dilatation of the remaining ureter with a small focal region of strictur e/peristalsis just distal to the UPJ. Mildly atrophic left kidney with mild perinephric stranding. There are no nephroureteral stones or or ganized perinephric fluid collections. Ureters follow a normal course to a partially distended urinar y bladder. Status post hysterectomy. Vaginal cuff and adnexa are unremarkable. Pelvic phleboliths are present. The appendix is normal in appearance. The bowel is without obstruction or inflammation and there is no free fluid or free air within the peritoneal cavity. There are no pathologically enlarged lymph n odes in the abdomen or pelvis. Moderate atherosclerotic calcification of the aorta and its branches. Soft tissues are normal. The osseous structures are intact without fracture or malalignment. IMPRESSION: 1. Mildly edematous right kidney with moderate perinephric stranding and scattered non organized nadeen nephric fluid. There is peristalsis versus stricture of the proximal ureter just distal to the UVJ wi th mild proximal hydroureter and mild dilatation of the remaining ureter. Correlate clinically for ur inary tract infection/pyelonephritis. Neoplastic process not excluded. Consider urologic consultation . 2. No other acute intra-abdominal or intrapelvic process. Reported By:
[2017-08-15] MEDS ORDERED: NS 100 ML IV 100 ML IV ONE (20:47)
[2017-08-15] MEDS: GENTAMICIN INJ 80 MG in NS 100 ML IV 100 ML IV SCH (22:42)
[2017-08-16] MEDS: NS 1000 ML 1,000 ML IV SCH ×3 (00:08→15:54)
[2017-08-16] MEDS: MAGNESIUM SULFATE 1 GM/100 mL PREMIX 1 GM/100 ML BAG IV PRN (01:30)
[2017-08-16] MEDS ORDERED: GLUCOPHAGE ONE ×2 (05:00→15:51)
[2017-08-16 05:27] LABS: BASOPHILS % (AUTO) 0.3 % (0.2-1.0); EOSINOPHILS # (AUTO) 0.1 x10^3/uL (0.0-0.2); EOSINOPHILS % (AUTO) 0.9 % (0.9-2.9); HEMATOCRIT 29.2 % (36.0-47.0); HEMOGLOBIN 9.8 g/dL (12.0-16.0); LYMPHOCYTES % (AUTO) 8.7 % (21.0-51.0); MEAN CORPUSCULAR HEMOGLOBIN 29.8 pg (27.0-34.0); MEAN CORPUSCULAR HGB CONC 33.7 g/dL (33.0-35.0); MEAN CORPUSCULAR VOLUME 88.6 fL (80.0-100.0); MEAN PLATELET VOLUME 7.4 fL (7.4-11.0); MONOCYTES # (AUTO) 0.7 x10^3/uL (0.3-0.8); MONOCYTES % (AUTO) 6.4 % (0.0-13.0); NEUTROPHILS # (AUTO) 9.2 x10^3/uL (2.2-4.8); NEUTROPHILS % (AUTO) 83.7 % (42.0-75.0); PLATELET COUNT 203 X10^3/uL (150.0-450.0); RED CELL DISTRIBUTION WIDTH 13.8 % (11.6-16.5)
[2017-08-16 05:36] LABS: ALBUMIN 2.4 g/dL (3.4-5.0); CALCIUM 7.6 mg/dL (8.5-10.1); CARBON DIOXIDE 26.3 mmol/L (21-32); COR CA(FOR HYPOALB) 8.9 mg/dL (8.5-10.1); CREATININE 1.32 mg/dL (0.55-1.02); TOTAL PROTEIN 6.1 g/dL (6.4-8.2)
[2017-08-16] MEDS: REGLAN TAB 5 MG PO SCH ×4 (05:51→20:40)
[2017-08-16] MEDS: SYNTHROID 75 mcg TAB PO SCH (06:05)
[2017-08-16] MEDS: GLUCOPHAGE PO SCH ×2 (06:05→16:12)
[2017-08-16] MEDS ORDERED: NS 100 ML IV 0 ML IV ONE (06:09)
[2017-08-16] MEDS: TOBRAMYCIN SULFATE 100 MG in NS 100 ML IV 97.5 ML IV SCH (06:31)
[2017-08-16] MEDS: FOLIC ACID TAB 1 MG PO SCH (08:01)
[2017-08-16] MEDS: NORVASC TAB 5 MG PO SCH (08:01)
[2017-08-16] MEDS: HYDROCHLOROTHIAZIDE 25 MG TAB PO SCH (08:01)
[2017-08-16] MEDS: LASIX PO SCH (08:01)
[2017-08-16] MEDS: LIPITOR TAB 20 MG PO SCH (08:01)
[2017-08-16] MEDS: COZAAR PO SCH (08:01)
[2017-08-16] MEDS: ROCEPHIN 1 GM IV PREMIX 1 GM/50 ML IV.SOLN. IV SCH (08:01)
[2017-08-16] MEDS: PROzac PO SCH (08:01)
[2017-08-16] MEDS ORDERED: COLACE CAP 100 MG PO PRN (08:03)
[2017-08-16] MEDS ORDERED: MILK OF MAGNESIA PO PRN (08:03)
[2017-08-16] MEDS: NORCO 10/325 TAB PO PRN ×2 (08:04→17:06)
[2017-08-16] MEDS: TERBINAFINE HCL PO SCH (09:29)
[2017-08-16] MEDS: ZANTAC PO SCH (09:30)
[2017-08-16] MEDS ORDERED: ZOFRAN INJ 4 MG VIAL IVP PRN (12:36)
[2017-08-16 14:09] LABS: AMYLASE 31 Units/L (25-115); LIPASE 64 Units/L (73-393)
[2017-08-16] MEDS: PEPCID 20 MG IV PREMIX* 20 MG/50 ML BAG IV SCH (20:41)
[2017-08-17] MEDS: NS 1000 ML 1,000 ML IV SCH ×3 (00:15→14:33)
[2017-08-17] MEDS: NORCO 10/325 TAB PO PRN ×3 (02:15→20:20)
[2017-08-17 05:29] LABS: BASOPHILS % (AUTO) 0.3 % (0.2-1.0); EOSINOPHILS # (AUTO) 0.2 x10^3/uL (0.0-0.2); EOSINOPHILS % (AUTO) 2.3 % (0.9-2.9); HEMATOCRIT 26.1 % (36.0-47.0); HEMOGLOBIN 9.1 g/dL (12.0-16.0); LYMPHOCYTES # (AUTO) 1.1 X10^3/uL (1.3-2.9); LYMPHOCYTES % (AUTO) 14.3 % (21.0-51.0); MEAN CORPUSCULAR HEMOGLOBIN 30.8 pg (27.0-34.0); MEAN CORPUSCULAR HGB CONC 34.9 g/dL (33.0-35.0); MEAN CORPUSCULAR VOLUME 88.2 fL (80.0-100.0); MEAN PLATELET VOLUME 7.7 fL (7.4-11.0); MONOCYTES # (AUTO) 0.8 x10^3/uL (0.3-0.8); MONOCYTES % (AUTO) 9.8 % (0.0-13.0); NEUTROPHILS # (AUTO) 5.7 x10^3/uL (2.2-4.8); NEUTROPHILS % (AUTO) 73.3 % (42.0-75.0); PLATELET COUNT 180 X10^3/uL (150.0-450.0); RED BLOOD COUNT 2.96 X10^6/uL (3.5-5.4); RED CELL DISTRIBUTION WIDTH 13.8 % (11.6-16.5); WHITE BLOOD COUNT 7.8 X10^3/uL (3.6-10.0)
[2017-08-17] MEDS ORDERED: GLUCOPHAGE ONE ×2 (05:32→17:08)
[2017-08-17 05:45] LABS: ALANINE AMINOTRANSFERASE 16 Units/L (12-78); ALBUMIN 2.2 g/dL (3.4-5.0); ALKALINE PHOSPHATASE 84 Units/L (46-116); ASPARTATE AMINO TRANSFERASE 20 Units/L (15-37); BLOOD UREA NITROGEN 18 mg/dL (7-18); CALCIUM 7.1 mg/dL (8.5-10.1); CARBON DIOXIDE 23.4 mmol/L (21-32); CHLORIDE 105 mmol/L (98-107); COR CA(FOR HYPOALB) 8.5 mg/dL (8.5-10.1); CREATININE 1.17 mg/dL (0.55-1.02); SODIUM 137 mmol/L (136-145); TOTAL PROTEIN 5.7 g/dL (6.4-8.2); eGFR BLACK RACES 58 (>60); eGFR NON BLACK RACES 48 (>60)
[2017-08-17] MEDS: REGLAN TAB 5 MG PO SCH ×4 (05:51→20:19)
[2017-08-17] MEDS: SYNTHROID 75 mcg TAB PO SCH (06:01)
[2017-08-17] MEDS: GLUCOPHAGE PO SCH ×2 (06:01→17:17)
[2017-08-17] MEDS: COZAAR PO SCH (08:43)
[2017-08-17] MEDS: FOLIC ACID TAB 1 MG PO SCH (08:43)
[2017-08-17] MEDS: LIPITOR TAB 20 MG PO SCH (08:44)
[2017-08-17] MEDS: HYDROCHLOROTHIAZIDE 25 MG TAB PO SCH (08:44)
[2017-08-17] MEDS: LASIX PO SCH (08:44)
[2017-08-17] MEDS: TERBINAFINE HCL PO SCH (08:45)
[2017-08-17] MEDS: PEPCID 20 MG IV PREMIX* 20 MG/50 ML BAG IV SCH ×2 (08:45→20:19)
[2017-08-17] MEDS: TOBRAMYCIN SULFATE 100 MG in NS 100 ML IV 97.5 ML IV SCH (08:45)
[2017-08-17] MEDS: PROzac PO SCH (08:45)
[2017-08-17] MEDS: ROCEPHIN 1 GM IV PREMIX 1 GM/50 ML IV.SOLN. IV SCH (08:45)
[2017-08-17] MEDS: NORVASC TAB 5 MG PO SCH (08:45)
[2017-08-17] MEDS: ZANTAC PO SCH (08:46)
--- NOTE | 2017-08-17 10:31 | US ---
HISTORY: Abdominal pain. Study: Right upper quadrant abdominal ultrasound. Comparison: CT dated 08/15/2017. Technique: Multiple zheng scale and color flow Doppler images of the right upper quadrant were obtaine d. Findings: The liver is normal in echotexture and size. No focal intraparenchymal mass or intrahepati c biliary ductal dilatation can be observed. There is a tiny echogenic focus without posterior shado wing in the gallbladder neck region possibly reflecting a gallbladder polyp or small stone.. The comm on bile duct is unremarkable measuring 5 mm in diameter. No pericholecystic fluid or gallbladder wal l thickening can be observed. The right kidney appears normal in size without focal parenchymal mass or nephrolithiasis. The right kidney measures 11.1 x 5.0 x 5.4 cm. No hydronephrosis or perirenal fluid can be observed. The inc luded portions of the pancreas and IVC are grossly unremarkable. IMPRESSION: There is a 4 mm polyp versus stone within the region of the gallbladder neck. There is no sonographic evidence of acute cholecystitis. Reported By:
--- NOTE | 2017-08-17 13:07 | NM ---
HISTORY: Abdominal pain Study: Nuclear medicine biliary scan with ejection fraction Comparison: None Technique: Patient received intravenous injection of 5.5 mCi technetium 99 M Choletec. Findings: Sequential images of the right upper quadrant demonstrated good visualization of the hepatic parenchy ma, visualization of the biliary tree and gallbladder, and passage of tracer into the duodenum. The p atient received a fatty meal. After the fatty meal the upper abdomen was image and a gallbladder ejec tion fraction calculated. Gallbladder ejection fraction was slightly low at 32%. IMPRESSION: Gallbladder ejection fraction 32% (normal greater than 35%) Reported By:
--- NOTE | 2017-08-17 13:51 | PCM.PROG ---
Progress Note - Progress Note for Day of Date: 08/17/17 - Subjective Subjective: 76 WF ER ADMISSION ON 08/14 WITH ABDOMINAL PAIN, N/V AND LOWER BACK PAIN. PT HAD UTI, CT REVEALED ACUTE PYELONEPHRITIS, PT CURRENTLY ON IV ATBX, PT BLOOD CULTURES POSITIVE FOR ECOLI. PT NPO FOR HIDA SCAN AND GB US THIS. PT HAD POOR APPETITE AND WAVES OF NAUSEA FOR SEVERAL WEEKS WITH RANDOM VOIMTING AND WEIGHT LOSS PER PT AND FAMILY. PT CO WEAKNESS THIS AM AND FEELING VERY SLEEPY. - Past Medical Family Social History Past Med/Fam/Surg Hx: No changes since H&P Allergies: Allergies No Known Drug Allergies Allergy (Verified 02/03/17 14:34) - Review of Systems ROS: No change since H&P - Vital Signs and I&O's Vital Signs: Temperature 98.6 F Pulse Rate [Left Brachial] 78 Pulse Rate 98 Respiratory Rate 20 Blood Pressure [Left Arm] 139/65 Blood Pressure [Right Arm] 139/66 Blood Pressure 141/70 O2 Sat by Pulse Oximetry 95 Intake and Output: Intake & Output 08/15/17 08/16/17 08/17/17 08/18/17 11:59 11:59 11:59 11:59 Intake Total [phone] Balance [phone] - Physical Exam Oriented: Person Eyes: Normal Ear: Normal Nose: Normal Throat: Normal Respiratory: Diminished Cardiovascular: Normal : Normal Auscultation: Bowel Sounds: Increased Tenderness: RUQ, RLQ, Epigastric, Other (BILATERAL CVA TENDERNESS) Skin: Decreased Turgur, Wound Musculoskeletal: Back:Thoracic, Back:Lumbar Psychiatric: Anxiety Affect: Anxious Speech Pattern: Clear, Appropriate - Laboratory and Diagnostics Result Diagrams: 08/17/17 05:05 08/17/17 05:05 Labs: 08/14/17 20:05 Blood Blood Culture - Final Escherichia Coli 08/14/17 20:00 Blood Blood Culture - Final Escherichia Coli 08/14/17 19:00 Urine,Clean Catch Urine Culture - Final Escherichia Coli Laboratory WBC 7.8 X10^3/uL (3.6-10.0) 08/17/17 05:05 RBC 2.96 X10^6/uL (3.5-5.4) L 08/17/17 05:05 Hgb 9.1 g/dL (12.0-16.0) L 08/17/17 05:05 Hct 26.1 % (36.0-47.0) L 08/17/17 05:05 MCV 88.2 fL (80.0-100.0) 08/17/17 05:05 MCH 30.8 pg (27.0-34.0) 08/17/17 05:05 MCHC 34.9 g/dL (33.0-35.0) 08/17/17 05:05 RDW 13.8 % (11.6-16.5) 08/17/17 05:05 Plt Count 180 X10^3/uL (150.0-450.0) 08/17/17 05:05 Plt Count Comment Adequate (ADEQUATE) 08/14/17 20:05 MPV 7.7 fL (7.4-11.0) 08/17/17 05:05 Neut % (Auto) 73.3 % (42.0-75.0) 08/17/17 05:05 Lymph % (Auto) 14.3 % (21.0-51.0) L 08/17/17 05:05 [place] % (Auto) 9.8 % (0.0-13.0) 08/17/17 05:05 Eos % (Auto) 2.3 % (0.9-2.9) 08/17/17 05:05 Baso % (Auto) 0.3 % (0.2-1.0) 08/17/17 05:05 Neut # (Auto) 5.7 x10^3/uL (2.2-4.8) H 08/17/17 05:05 Lymph # (Auto) 1.1 X10^3/uL (1.3-2.9) L 08/17/17 05:05 [place] # (Auto) 0.8 x10^3/uL (0.3-0.8) 08/17/17 05:05 Eos # (Auto) 0.2 x10^3/uL (0.0-0.2) 08/17/17 05:05 Baso # (Auto) 0.0 X10^3/uL (0.0-0.1) 08/17/17 05:05 Absolute Nucleated RBC 0.1 /100WBC 08/17/17 05:05 Total Counted 100 08/14/17 20:05 Neutrophils % (Manual) 84 % (39-76) H 08/14/17 20:05 Band Neutrophils % 6 % (0-10) 08/14/17 20:05 Lymphocytes % (Manual) 8 % (13-43) L 08/14/17 20:05 Monocytes % (Manual) 2 % (4-9) L 08/14/17 20:05 Plt Morphology Comment Normal (NORMAL) 08/14/17 20:05 RBC Morphology Normal (NORMAL) 08/14/17 20:05 Sodium 137 mmol/L (136-145) 08/17/17 05:05 Corrected Sodium TNP 08/17/17 05:05 Potassium 3.5 mmol/L (3.5-5.1) 08/17/17 05:05 Chloride 105 mmol/L (98-107) 08/17/17 05:05 Carbon Dioxide 23.4 mmol/L (21-32) 08/17/17 05:05 BUN 18 mg/dL (7-18) 08/17/17 05:05 Creatinine 1.17 mg/dL (0.55-1.02) H 08/17/17 05:05 Est GFR (MDRD) Af Amer 58 (>60) L 08/17/17 05:05 Est GFR (MDRD) Non-Af 48 (>60) L 08/17/17 05:05 Glucose 100 mg/dL (65-99) H 08/17/17 05:05 Lactic Acid 1.3 mmol/L (0.4-2.0) 08/14/17 20:05 Calcium 7.1 mg/dL (8.5-10.1) L 08/17/17 05:05 Corrected Calcium 8.5 mg/dL (8.5-10.1) 08/17/17 05:05 Magnesium 3.1 mg/dL (1.7-2.9) H 08/16/17 04:44 Iron 6 ug/dL (50-175) L 08/15/17 07:20 Transferrin 129 mg/dL (202-364) L 08/15/17 07:20 Ferritin 325 ng/mL (8-252) H 08/15/17 07:20 Total Bilirubin 0.10 mg/dL (0.2-1.0) L 08/17/17 05:05 AST 20 Units/L (15-37) 08/17/17 05:05 ALT 16 Units/L (12-78) 08/17/17 05:05 Alkaline Phosphatase 84 Units/L (46-116) 08/17/17 05:05 C-Reactive Protein 70.20 mg/L (0-3.0) H 08/14/17 20:05 Total Protein 5.7 g/dL (6.4-8.2) L 08/17/17 05:05 Albumin 2.2 g/dL (3.4-5.0) L 08/17/17 05:05 Globulin 3.5 g/dL (2.5-4.5) 08/17/17 05:05 Albumin/Globulin Ratio 0.6 Ratio (1.1-2.1) L 08/17/17 05:05 Amylase 31 Units/L (25-115) 08/16/17 04:44 Lipase 64 Units/L (73-393) L 08/16/17 04:44 Vitamin B12 926 pg/mL (193-986) 08/15/17 07:20 Folate 19.0 ng/mL (>8.6) 08/15/17 07:20 Specimen Type Clean catch urine 08/14/17 19:00 Urine Color Yellow (YELLOW) 08/14/17 19:00 Urine Appearance Cloudy (CLEAR) 08/14/17 19:00 Urine pH 6.0 (5.0 - 8.0) 08/14/17 19:00 Ur Specific [place] 1.015 (1.000-1.030) 08/14/17 19:00 Urine Protein 4+ (NEGATIVE) 08/14/17 19:00 Urine Glucose (UA) Negative (NEGATIVE) 08/14/17 19:00 Urine Ketones Negative (NEGATIVE) 08/14/17 19:00 Urine Occult Blood 3+ (NEGATIVE) 08/14/17 19:00 Urine Nitrite Negative (NEGATIVE) 08/14/17 19:00 Urine Bilirubin Negative (NEGATIVE) 08/14/17 19:00 Urine Urobilinogen Normal (NORMAL) 08/14/17 19:00 Ur Leukocyte Esterase 3+ (NEGATIVE) 08/14/17 19:00 Urine RBC 10-20 /HPF (NONE SEEN) 08/14/17 19:00 Urine WBC Tntc /HPF (NONE SEEN) 08/14/17 19:00 Ur Squamous Epith Cells Rare /HPF (NEGATIVE) 08/14/17 19:00 Urine Bacteria 2+ /HPF (NEGATIVE) 08/14/17 19:00 Ur Culture Indicated? Yes/culture set up 08/14/17 19:00 - Plan (1) Pyelonephritis Status: Acute Plan: CONTINUE GENTLE HYDRATION, ENCOURAGE PO HYDRATION. BLOOD SUGAR CONTROL. REPEAT BC X 2, CONTINUE IV ATBX. NPO FOR GB STUDIES TODAY, PAIN AND NAUSEA CONTROL. RESUME PO MEDICATION POST DIAGNOSTIC TEST, REPEAT AM LABS. I & OS, BP MONITORING (2) Bacteremia due to Escherichia coli Status: Acute (3) Altered mental state Status: Acute Qualifiers: Altered mental status type: disorientation Qualified Code(s): R41.0 - Disorientation, unspecified Plan: DUE TO INFECTIOUS PROCESS, AMS RESOLVED (4) Dehydration Status: Acute (5) N&V (nausea and vomiting) Status: Acute (6) Dehydration Status: Acute (7) UTI (urinary tract infection) Status: Acute
[2017-08-18] MEDS: NS 1000 ML 1,000 ML IV SCH ×4 (00:41→16:39)
[2017-08-18 05:30] LABS: BASOPHILS % (AUTO) 0.5 % (0.2-1.0); EOSINOPHILS # (AUTO) 0.2 x10^3/uL (0.0-0.2); EOSINOPHILS % (AUTO) 2.9 % (0.9-2.9); HEMATOCRIT 27.3 % (36.0-47.0); HEMOGLOBIN 9.4 g/dL (12.0-16.0); LYMPHOCYTES # (AUTO) 1.2 X10^3/uL (1.3-2.9); LYMPHOCYTES % (AUTO) 22.5 % (21.0-51.0); MEAN CORPUSCULAR HEMOGLOBIN 30.2 pg (27.0-34.0); MEAN CORPUSCULAR HGB CONC 34.3 g/dL (33.0-35.0); MEAN CORPUSCULAR VOLUME 87.9 fL (80.0-100.0); MEAN PLATELET VOLUME 7.5 fL (7.4-11.0); MONOCYTES # (AUTO) 0.7 x10^3/uL (0.3-0.8); MONOCYTES % (AUTO) 13.3 % (0.0-13.0); NEUTROPHILS # (AUTO) 3.3 x10^3/uL (2.2-4.8); NEUTROPHILS % (AUTO) 60.8 % (42.0-75.0); PLATELET COUNT 191 X10^3/uL (150.0-450.0); RED CELL DISTRIBUTION WIDTH 14.1 % (11.6-16.5); WHITE BLOOD COUNT 5.3 X10^3/uL (3.6-10.0)
[2017-08-18 05:36] LABS: ALANINE AMINOTRANSFERASE 18 Units/L (12-78); ALBUMIN 2.1 g/dL (3.4-5.0); ALKALINE PHOSPHATASE 100 Units/L (46-116); ASPARTATE AMINO TRANSFERASE 18 Units/L (15-37); BLOOD UREA NITROGEN 12 mg/dL (7-18); CALCIUM 7.7 mg/dL (8.5-10.1); CARBON DIOXIDE 27.5 mmol/L (21-32); CHLORIDE 105 mmol/L (98-107); COR CA(FOR HYPOALB) 9.2 mg/dL (8.5-10.1); SODIUM 141 mmol/L (136-145); TOTAL PROTEIN 5.8 g/dL (6.4-8.2); eGFR BLACK RACES > 60 (>60); eGFR NON BLACK RACES 52 (>60)
[2017-08-18] MEDS ORDERED: GLUCOPHAGE ONE ×2 (06:16→16:25)
[2017-08-18] MEDS: REGLAN TAB 5 MG PO SCH ×4 (06:19→20:52)
[2017-08-18] MEDS: GLUCOPHAGE PO SCH ×2 (06:19→16:39)
[2017-08-18] MEDS: SYNTHROID 75 mcg TAB PO SCH (06:20)
[2017-08-18] MEDS: K-LYTE EFFERVESCENT PO PRN (06:41)
[2017-08-18] MEDS ORDERED: PHARMACY CONSULT - DOSE _____ XX SCH (09:00)
[2017-08-18] MEDS: LIPITOR TAB 20 MG PO SCH (09:39)
[2017-08-18] MEDS: ROCEPHIN 1 GM IV PREMIX 1 GM/50 ML IV.SOLN. IV SCH (09:39)
[2017-08-18] MEDS: LASIX PO SCH (09:39)
[2017-08-18] MEDS: PEPCID 20 MG IV PREMIX* 20 MG/50 ML BAG IV SCH ×2 (09:40→20:50)
[2017-08-18] MEDS: PROzac PO SCH (09:40)
[2017-08-18] MEDS: ZANTAC PO SCH (09:40)
[2017-08-18] MEDS: FOLIC ACID TAB 1 MG PO SCH (09:40)
[2017-08-18] MEDS: COZAAR PO SCH (09:40)
[2017-08-18] MEDS: NORVASC TAB 5 MG PO SCH (09:41)
[2017-08-18] MEDS: HYDROCHLOROTHIAZIDE 25 MG TAB PO SCH (09:41)
[2017-08-18] MEDS: TOBRAMYCIN SULFATE 100 MG in NS 100 ML IV 97.5 ML IV SCH (09:43)
[2017-08-18] MEDS: TERBINAFINE HCL PO SCH (09:43)
[2017-08-18] MEDS ORDERED: DEXFERRUM or INFED 25 MG in NS 100 ML IV 100 ML IV ONE (10:00)
[2017-08-18] MEDS ORDERED: DEXFERRUM or INFED 1,000 MG in NS 500 ML IV 500 ML IV ONE (11:00)
[2017-08-18] MEDS ORDERED: NS 500 ML IV 500 ML IV ONE (11:25)
--- NOTE | 2017-08-18 17:08 | PCM.PROG ---
Progress Note - Progress Note for Day of Date: 08/18/17 - Subjective Subjective: 76 WF ER ADMISSION ON 08/14 WITH ABDOMINAL PAIN, N/V AND LOWER BACK PAIN. PT HAD UTI, CT REVEALED ACUTE PYELONEPHRITIS, PT CURRENTLY ON IV ATBX, PT BLOOD CULTURES POSITIVE FOR ECOLI. PT HAS IMPROVING APPETITE AND IMPROVING NAUSEA. WILL REPEAT AM LABS AND CONTINUE CURRENT MEDICATION REGIMEN. - Past Medical Family Social History Past Med/Fam/Surg Hx: No changes since H&P Allergies: Allergies No Known Drug Allergies Allergy (Verified 02/03/17 14:34) - Review of Systems ROS: No change since H&P - Vital Signs and I&O's Vital Signs: Temperature 99.3 F Pulse Rate [Left Brachial] 79 Pulse Rate 98 Respiratory Rate 20 Blood Pressure [Left Arm] 169/78 Blood Pressure [Right Arm] 142/63 Blood Pressure 141/70 O2 Sat by Pulse Oximetry 97 Intake and Output: Intake & Output 08/16/17 08/17/17 08/18/17 08/19/17 11:59 11:59 11:59 11:59 Intake Total 580 3140 2160 480 Balance 580 3140 2160 480 - Physical Exam Oriented: Person Eyes: Normal Ear: Normal Nose: Normal Throat: Normal Respiratory: Diminished Cardiovascular: Normal : Normal Auscultation: Bowel Sounds: Increased Tenderness: RUQ, RLQ, Epigastric, Other (BILATERAL CVA TENDERNESS) Skin: Decreased Turgur, Wound Musculoskeletal: Back:Thoracic, Back:Lumbar Psychiatric: Anxiety Affect: Anxious Speech Pattern: Clear, Appropriate - Laboratory and Diagnostics Result Diagrams: 08/18/17 04:57 08/18/17 04:57 Labs: 08/14/17 20:05 Blood Blood Culture - Final Escherichia Coli 08/14/17 20:00 Blood Blood Culture - Final Escherichia Coli 08/14/17 19:00 Urine,Clean Catch Urine Culture - Final Escherichia Coli Laboratory WBC 5.3 X10^3/uL (3.6-10.0) 08/18/17 04:57 RBC 3.10 X10^6/uL (3.5-5.4) L 08/18/17 04:57 Hgb 9.4 g/dL (12.0-16.0) L 08/18/17 04:57 Hct 27.3 % (36.0-47.0) L 08/18/17 04:57 MCV 87.9 fL (80.0-100.0) 08/18/17 04:57 MCH 30.2 pg (27.0-34.0) 08/18/17 04:57 MCHC 34.3 g/dL (33.0-35.0) 08/18/17 04:57 RDW 14.1 % (11.6-16.5) 08/18/17 04:57 Plt Count 191 X10^3/uL (150.0-450.0) 08/18/17 04:57 Plt Count Comment Adequate (ADEQUATE) 08/14/17 20:05 MPV 7.5 fL (7.4-11.0) 08/18/17 04:57 Neut % (Auto) 60.8 % (42.0-75.0) 08/18/17 04:57 Lymph % (Auto) 22.5 % (21.0-51.0) 08/18/17 04:57 [place] % (Auto) 13.3 % (0.0-13.0) H 08/18/17 04:57 Eos % (Auto) 2.9 % (0.9-2.9) 08/18/17 04:57 Baso % (Auto) 0.5 % (0.2-1.0) 08/18/17 04:57 Neut # (Auto) 3.3 x10^3/uL (2.2-4.8) 08/18/17 04:57 Lymph # (Auto) 1.2 X10^3/uL (1.3-2.9) L 08/18/17 04:57 [place] # (Auto) 0.7 x10^3/uL (0.3-0.8) 08/18/17 04:57 Eos # (Auto) 0.2 x10^3/uL (0.0-0.2) 08/18/17 04:57 Baso # (Auto) 0.0 X10^3/uL (0.0-0.1) 08/18/17 04:57 Absolute Nucleated RBC 0.1 /100WBC 08/18/17 04:57 Total Counted 100 08/14/17 20:05 Neutrophils % (Manual) 84 % (39-76) H 08/14/17 20:05 Band Neutrophils % 6 % (0-10) 08/14/17 20:05 Lymphocytes % (Manual) 8 % (13-43) L 08/14/17 20:05 Monocytes % (Manual) 2 % (4-9) L 08/14/17 20:05 Plt Morphology Comment Normal (NORMAL) 08/14/17 20:05 RBC Morphology Normal (NORMAL) 08/14/17 20:05 Sodium 141 mmol/L (136-145) 08/18/17 04:57 Corrected Sodium TNP 08/18/17 04:57 Potassium 3.4 mmol/L (3.5-5.1) L 08/18/17 04:57 Chloride 105 mmol/L (98-107) 08/18/17 04:57 Carbon Dioxide 27.5 mmol/L (21-32) 08/18/17 04:57 BUN 12 mg/dL (7-18) 08/18/17 04:57 Creatinine 1.10 mg/dL (0.55-1.02) H 08/18/17 04:57 Est GFR (MDRD) Af Amer > 60 (>60) 08/18/17 04:57 Est GFR (MDRD) Non-Af 52 (>60) L 08/18/17 04:57 Glucose 91 mg/dL (65-99) 08/18/17 04:57 Lactic Acid 1.3 mmol/L (0.4-2.0) 08/14/17 20:05 Calcium 7.7 mg/dL (8.5-10.1) L 08/18/17 04:57 Corrected Calcium 9.2 mg/dL (8.5-10.1) 08/18/17 04:57 Magnesium 3.1 mg/dL (1.7-2.9) H 08/16/17 04:44 Iron 6 ug/dL (50-175) L 08/15/17 07:20 Transferrin 129 mg/dL (202-364) L 08/15/17 07:20 Ferritin 325 ng/mL (8-252) H 08/15/17 07:20 Total Bilirubin 0.20 mg/dL (0.2-1.0) 08/18/17 04:57 AST 18 Units/L (15-37) 08/18/17 04:57 ALT 18 Units/L (12-78) 08/18/17 04:57 Alkaline Phosphatase 100 Units/L (46-116) 08/18/17 04:57 C-Reactive Protein 70.20 mg/L (0-3.0) H 08/14/17 20:05 Total Protein 5.8 g/dL (6.4-8.2) L 08/18/17 04:57 Albumin 2.1 g/dL (3.4-5.0) L 08/18/17 04:57 Globulin 3.7 g/dL (2.5-4.5) 08/18/17 04:57 Albumin/Globulin Ratio 0.6 Ratio (1.1-2.1) L 08/18/17 04:57 Amylase 31 Units/L (25-115) 08/16/17 04:44 Lipase 64 Units/L (73-393) L 08/16/17 04:44 Vitamin B12 926 pg/mL (193-986) 08/15/17 07:20 Folate 19.0 ng/mL (>8.6) 08/15/17 07:20 Specimen Type Clean catch urine 08/14/17 19:00 Urine Color Yellow (YELLOW) 08/14/17 19:00 Urine Appearance Cloudy (CLEAR) 08/14/17 19:00 Urine pH 6.0 (5.0 - 8.0) 08/14/17 19:00 Ur Specific [place] 1.015 (1.000-1.030) 08/14/17 19:00 Urine Protein 4+ (NEGATIVE) 08/14/17 19:00 Urine Glucose (UA) Negative (NEGATIVE) 08/14/17 19:00 Urine Ketones Negative (NEGATIVE) 08/14/17 19:00 Urine Occult Blood 3+ (NEGATIVE) 08/14/17 19:00 Urine Nitrite Negative (NEGATIVE) 08/14/17 19:00 Urine Bilirubin Negative (NEGATIVE) 08/14/17 19:00 Urine Urobilinogen Normal (NORMAL) 08/14/17 19:00 Ur Leukocyte Esterase 3+ (NEGATIVE) 08/14/17 19:00 Urine RBC 10-20 /HPF (NONE SEEN) 08/14/17 19:00 Urine WBC Tntc /HPF (NONE SEEN) 08/14/17 19:00 Ur Squamous Epith Cells Rare /HPF (NEGATIVE) 03/31/18 19:00 Urine Bacteria 2+ /HPF (NEGATIVE) 08/14/17 19:00 Ur Culture Indicated? Yes/culture set up 08/14/17 19:00 - Plan (1) Pyelonephritis Status: Acute Plan: CONTINUE GENTLE HYDRATION, ENCOURAGE PO HYDRATION. BLOOD SUGAR CONTROL. REPEAT BC X 2, CONTINUE IV ATBX. PAIN AND NAUSEA CONTROL. REPEAT AM LABS. I & OS, BP MONITORING (2) Bacteremia due to Escherichia coli Status: Acute (3) Altered mental state Status: Acute Qualifiers: Altered mental status type: disorientation Qualified Code(s): R41.0 - Disorientation, unspecified Plan: DUE TO INFECTIOUS PROCESS, AMS RESOLVED (4) Dehydration Status: Acute (5) N&V (nausea and vomiting) Status: Acute (6) Dehydration Status: Acute (7) UTI (urinary tract infection) Status: Acute
[2017-08-18] MEDS: NORCO 10/325 TAB PO PRN (17:46)
[2017-08-18] MEDS ORDERED: RESTORIL CAP 15 MG PO PRN (22:01)
[2017-08-19] MEDS ORDERED: GLUCOPHAGE ONE ×2 (04:55→08:12)
[2017-08-19] MEDS: NORCO 10/325 TAB PO PRN ×2 (05:10→13:02)
[2017-08-19 05:39] LABS: BASOPHILS % (AUTO) 0.6 % (0.2-1.0); EOSINOPHILS # (AUTO) 0.3 x10^3/uL (0.0-0.2); EOSINOPHILS % (AUTO) 3.3 % (0.9-2.9); HEMATOCRIT 30.2 % (36.0-47.0); HEMOGLOBIN 10.4 g/dL (12.0-16.0); LYMPHOCYTES # (AUTO) 1.4 X10^3/uL (1.3-2.9); LYMPHOCYTES % (AUTO) 18.8 % (21.0-51.0); MEAN CORPUSCULAR HEMOGLOBIN 30.2 pg (27.0-34.0); MEAN CORPUSCULAR HGB CONC 34.5 g/dL (33.0-35.0); MEAN CORPUSCULAR VOLUME 87.5 fL (80.0-100.0); MEAN PLATELET VOLUME 7.8 fL (7.4-11.0); MONOCYTES % (AUTO) 12.9 % (0.0-13.0); NEUTROPHILS # (AUTO) 4.9 x10^3/uL (2.2-4.8); NEUTROPHILS % (AUTO) 64.4 % (42.0-75.0); PLATELET COUNT 249 X10^3/uL (150.0-450.0); RED BLOOD COUNT 3.45 X10^6/uL (3.5-5.4); RED CELL DISTRIBUTION WIDTH 13.8 % (11.6-16.5); WHITE BLOOD COUNT 7.6 X10^3/uL (3.6-10.0)
[2017-08-19 05:55] LABS: ALBUMIN 2.3 g/dL (3.4-5.0); ALKALINE PHOSPHATASE 114 Units/L (46-116); CARBON DIOXIDE 24.6 mmol/L (21-32); CHLORIDE 105 mmol/L (98-107); CREATININE 1.08 mg/dL (0.55-1.02); SODIUM 142 mmol/L (136-145); TOTAL PROTEIN 6.7 g/dL (6.4-8.2); eGFR BLACK RACES > 60 (>60); eGFR NON BLACK RACES 53 (>60)
[2017-08-19] MEDS: SYNTHROID 75 mcg TAB PO SCH (06:12)
[2017-08-19] MEDS: REGLAN TAB 5 MG PO SCH ×2 (06:12→13:02)
[2017-08-19] MEDS: GLUCOPHAGE PO SCH (06:12)
[2017-08-19] MEDS: NS 1000 ML 1,000 ML IV SCH ×2 (06:13→06:35)
[2017-08-19 06:30] LABS: BLOOD UREA NITROGEN 10 mg/dL (7-18)
[2017-08-19 06:31] LABS: COR CA(FOR HYPOALB) 9.4 mg/dL (8.5-10.1)
[2017-08-19 06:32] LABS: ALANINE AMINOTRANSFERASE 20 Units/L (12-78)
[2017-08-19 06:35] LABS: ASPARTATE AMINO TRANSFERASE 29 Units/L (15-37)
[2017-08-19] MEDS: LASIX PO SCH (08:28)
[2017-08-19] MEDS: PROzac PO SCH (08:28)
[2017-08-19] MEDS: LIPITOR TAB 20 MG PO SCH (08:28)
[2017-08-19] MEDS: ZANTAC PO SCH (08:29)
[2017-08-19] MEDS: HYDROCHLOROTHIAZIDE 25 MG TAB PO SCH (08:29)
[2017-08-19] MEDS: COZAAR PO SCH (08:29)
[2017-08-19] MEDS: NORVASC TAB 5 MG PO SCH (08:30)
[2017-08-19] MEDS: FOLIC ACID TAB 1 MG PO SCH (08:30)
[2017-08-19] MEDS: PEPCID 20 MG IV PREMIX* 20 MG/50 ML BAG IV SCH (08:31)
[2017-08-19] MEDS: TERBINAFINE HCL PO SCH (08:31)
[2017-08-19] MEDS: TOBRAMYCIN SULFATE 100 MG in NS 100 ML IV 97.5 ML IV SCH (08:31)
[2017-08-19] MEDS: ROCEPHIN 1 GM IV PREMIX 1 GM/50 ML IV.SOLN. IV SCH (08:32)
[2017-08-19] MEDS: K-LYTE EFFERVESCENT PO PRN (08:36)
[2017-08-19 13:02] VITALS: BP 143/68
== END 2017-08-19 14:15 | disposition home or self-care (01) | DRG 690 ==
LOC: ER 18:51 → OBSVTOIN 21:58 → MED/SURG 21:58
PROVIDERS: ADMIT Internal Medicine; ATTEND Internal Medicine
DX: N10 Acute pyelonephritis (principal); R78.81 Bacteremia; N39.0 Urinary tract infection, site not specified; B96.29 Other Escherichia coli [E. coli] as the cause of diseases classified elsewhere; R41.0 Disorientation, unspecified; E86.0 Dehydration; E11.65 Type 2 diabetes mellitus with hyperglycemia; E03.8 Other specified hypothyroidism; I10 Essential (primary) hypertension; E78.2 Mixed hyperlipidemia; I25.10 Atherosclerotic heart disease of native coronary artery without angina pectoris; F41.8 Other specified anxiety disorders; R11.2 Nausea with vomiting, unspecified; M54.5 Low back pain
CPT/HCPCS: 36415; 70450; 71045; 74176; 76705; 78227; 80053; 81001; 82150; 82607; 82728; 82746; 83540; 83605; 83690; 83735; 84466; 85025; 86140; 87040; 87077; 87086; 87088; 87186; 96365; 96367; 96374; 96375; 99221; 99231; 99282; 99283; 99284; A4222; A9537; S0028; G0378; J0290; J0696; J1580; J1750; J1885; J2405; J3260

== ENCOUNTER 2017-09-01 04:07 | Emergency (ER) | payer OTHER ==
[2017-09-01 04:23] VITALS: BMI 24.3
[2017-09-01] MEDS ORDERED: TORADOL 60 MG VIAL IM ONE (04:23)
[2017-09-01] MEDS ORDERED: DECADRON INJ IM ONE (04:23)
[2017-09-01] MEDS ORDERED: TORADOL 60 MG VIAL ONE (04:24)
[2017-09-01] MEDS ORDERED: DECADRON INJ ONE (04:25)
[2017-09-01 04:48] LABS: BASOPHILS # (AUTO) 0.1 X10^3/uL (0.0-0.1); BASOPHILS % (AUTO) 0.6 % (0.2-1.0); EOSINOPHILS # (AUTO) 0.2 x10^3/uL (0.0-0.2); EOSINOPHILS % (AUTO) 1.6 % (0.9-2.9); HEMATOCRIT 32.2 % (36.0-47.0); HEMOGLOBIN 10.9 g/dL (12.0-16.0); LYMPHOCYTES # (AUTO) 1.4 X10^3/uL (1.3-2.9); LYMPHOCYTES % (AUTO) 14.1 % (21.0-51.0); MEAN CORPUSCULAR HGB CONC 33.8 g/dL (33.0-35.0); MEAN CORPUSCULAR VOLUME 88.7 fL (80.0-100.0); MEAN PLATELET VOLUME 6.9 fL (7.4-11.0); MONOCYTES % (AUTO) 10.3 % (0.0-13.0); NEUTROPHILS # (AUTO) 7.2 x10^3/uL (2.2-4.8); NEUTROPHILS % (AUTO) 73.4 % (42.0-75.0); PLATELET COUNT 312 X10^3/uL (150.0-450.0); RED BLOOD COUNT 3.63 X10^6/uL (3.5-5.4); RED CELL DISTRIBUTION WIDTH 14.3 % (11.6-16.5); WHITE BLOOD COUNT 9.8 X10^3/uL (3.6-10.0)
[2017-09-01 04:56] LABS: ALBUMIN 2.8 g/dL (3.4-5.0); CALCIUM 8.4 mg/dL (8.5-10.1); COR CA(FOR HYPOALB) 9.4 mg/dL (8.5-10.1); CREATININE 1.51 mg/dL (0.55-1.02); TOTAL PROTEIN 7.2 g/dL (6.4-8.2)
--- NOTE | 2017-09-01 05:00 | RAD ---
Left shoulder-three views Indication: Left shoulder pain Findings: Acromioclavicular and glenohumeral joints are intact. There is mild AC joint degenerative change Impression: No acute fracture Reported By:
--- NOTE | 2017-09-01 05:06 | DR.EXTPAIN ---
HPI - Time seen Time seen: 04:55 - PCP Primary Care Physician: CHRISTOPHER GONZALEZ - HPI Comment HPI Comment: HISTORY BELOW. - Complaint/Symptoms Chief Complaint Doctor Comments: FELL, INJURY LEFT SHOULDER AND CLAVICLE. LEFT SHOULDER WAS HURTING BEFORE FALL. PAIN WORSE SINCE FALL. Chief Complaint:: "I WAS GETTING UP FROM MY CHAIR AND JUST LOST MY BALANCE AND SLID DOWN INTO THE FLOOR. I LANDED ON MY LEFT SHOULDER, WHICH I AM ALREADY HAVING PAIN THERE." PATIENT DENIES ANY DIZZINESS, OR ANY OTHER PAIN. - Nurses notes reviewed Nurses Notes Review: Yes - Source History Provided: Patient, EMS - Mode of arrival Mode of Arrival: EMS - Timing Onset of Chief Complaint: 09/01/17 - Context History of: Arthritis - Associated signs and symptoms Associated Signs and Symptoms: Pain, Swelling PMH - PMH Past Medical History: Yes Past Medical History: Anxiety, Diabetes, Dyslipidemia, Hypertension, Hypothyroidism Past Surgical History: Yes Surgical History: , Hysterectomy - Family History History of Family Medical Conditions: Yes Family Medical History: Diabetes Mellitus, Coronary Artery Disease, Heart Failure - Social History Type of Tobacco Use: None Does any household member use tobacco: No Alcohol Use: None Do you use any recreational Drugs:: No Lives Where: Home - infectious screening Have you traveled outside the country in the last 6 months?: No Isolation: Standard ROS - Review of Systems Constitutional: Weakness, Fatigue, Loss of Appetite Eyes: No Symptoms Reported. negative: Eye Pain, Discharge ENTM: negative: Ear Pain, Nose Discharge, Nose Congestion, Throat Pain Respiratoy: Non-Productive Cough. negative: Productive Cough, Short of Breath, Wheezing, Hemoptysis Cardiovascular: Chest Pain, Edema Gastrointestinal/Abdominal: Nausea. negative: Abdominal Pain, Diarrhea, Vomiting Genitourinary: No Symptoms Reported. negative: Dysuria, Frequency, Hematuria Neurological: Headache, Weakness Musculoskeletal: Joint Pain, Joint Swelling, Muscle Pain, Left, Shoulder Integumentary: No Symptoms Reported Hematologic/Lymphatic: Easy Bleeding, Easy Bruising Endocrine: No Symptoms Reported All Other Systems: Reviewed and Negative PE - Vital Signs Vitals: Temperature 98.1 F Pulse Rate [Right] 86 Pulse Rate 88 Respiratory Rate 20 Blood Pressure [Left Arm] 115/59 Blood Pressure [Right Arm] 142/63 Blood Pressure 131/63 O2 Sat by Pulse Oximetry 98 - General Limitations: No Limitations General Appearance: Alert - Head Head Exam: Normal Inspection - Eyes Eye exam: Normal Appearance - ENT ENT Exam: Normal External Ear Exam - Neck Neck Exam: Trachea Midline - Chest Chest Inspection: Symmetric Chest Wall Rise - Respiratory Respiratory Exam: Normal Lung Sounds Bilat Respiratory Exam: Bilateral Clear to Auscultation - Cardiovascular Cardiovascular Exam: Regular Rate, Normal Rhythm, Normal Heart Sounds - Abdominal Exam Abdominal Exam: Normal Bowel Sounds, Soft. negative: Tenderness - Extremities Extremities Exam: Tenderness (LEFT SHOULDER), Normal Capillary Refill. negative : Full ROM (ROM DECREASE.) - Upper Extremities Shoulder Exam: Tenderness, Swelling, Tenderness over AC Joint Arm Exam: Normal Inspection Elbow Exam: Normal Inspection Forearm Exam: Normal Inspection Hand Exam: Normal Inspection - Lower Extremities Gait Exam: Observed and Normal - Back Back Exam: Normal Inspection - Neurological Neurological Exam: Alert, Oriented X3 - Psychiatric Psychiatric Exam: Normal Affect, Normal Mood - Skin Skin Exam: Erythema MDM - Differential Diagnosis Differential Diagnosis: Contusion, Fracture, Sprain, Other (GENERALIZE WEAKNESS. ) Course - Treatment Treatment: SEE ORDERS. - Education/Counseling Education/Counseling: Patient, Education Educated On: Treatment, Diagnosis, Needs for Follow Up ROR - Labs Reviewed Laboratory Results Reviewed?: Yes Result Diagrams: 09/01/17 04:42 09/01/17 04:42 Laboratory: WBC 9.8 X10^3/uL (3.6-10.0) 09/01/17 04:42 RBC 3.63 X10^6/uL (3.5-5.4) 09/01/17 04:42 Hgb 10.9 g/dL (12.0-16.0) L 09/01/17 04:42 Hct 32.2 % (36.0-47.0) L 09/01/17 04:42 MCV 88.7 fL (80.0-100.0) 09/01/17 04:42 MCH 30.0 pg (27.0-34.0) 09/01/17 04:42 MCHC 33.8 g/dL (33.0-35.0) 09/01/17 04:42 RDW 14.3 % (11.6-16.5) 09/01/17 04:42 Plt Count 312 X10^3/uL (150.0-450.0) 09/01/17 04:42 MPV 6.9 fL (7.4-11.0) L 09/01/17 04:42 Neut % (Auto) 73.4 % (42.0-75.0) 09/01/17 04:42 Lymph % (Auto) 14.1 % (21.0-51.0) L 09/01/17 04:42 [place] % (Auto) 10.3 % (0.0-13.0) 09/01/17 04:42 Eos % (Auto) 1.6 % (0.9-2.9) 09/01/17 04:42 Baso % (Auto) 0.6 % (0.2-1.0) 09/01/17 04:42 Neut # (Auto) 7.2 x10^3/uL (2.2-4.8) H 09/01/17 04:42 Lymph # (Auto) 1.4 X10^3/uL (1.3-2.9) 09/01/17 04:42 [place] # (Auto) 1.0 x10^3/uL (0.3-0.8) H 09/01/17 04:42 Eos # (Auto) 0.2 x10^3/uL (0.0-0.2) 09/01/17 04:42 Baso # (Auto) 0.1 X10^3/uL (0.0-0.1) 09/01/17 04:42 Absolute Nucleated RBC 0.0 /100WBC 09/01/17 04:42 Sodium 135 mmol/L (136-145) L 09/01/17 04:42 Corrected Sodium 136 mmol/L (136-145) 09/01/17 04:42 Potassium 3.4 mmol/L (3.5-5.1) L 09/01/17 04:42 Chloride 99 mmol/L (98-107) 09/01/17 04:42 Carbon Dioxide 26.0 mmol/L (21-32) 09/01/17 04:42 BUN 24 mg/dL (7-18) H 09/01/17 04:42 Creatinine 1.51 mg/dL (0.55-1.02) H 09/01/17 04:42 Est GFR (MDRD) Af Amer 43 (>60) L 09/01/17 04:42 Est GFR (MDRD) Non-Af 36 (>60) L 09/01/17 04:42 Glucose 149 mg/dL (65-99) H 09/01/17 04:42 Calcium 8.4 mg/dL (8.5-10.1) L 09/01/17 04:42 Corrected Calcium 9.4 mg/dL (8.5-10.1) 09/01/17 04:42 Total Bilirubin 0.50 mg/dL (0.2-1.0) 09/01/17 04:42 AST 13 Units/L (15-37) L 09/01/17 04:42 ALT 17 Units/L (12-78) 09/01/17 04:42 Alkaline Phosphatase 77 Units/L (46-116) 09/01/17 04:42 Total Protein 7.2 g/dL (6.4-8.2) 09/01/17 04:42 Albumin 2.8 g/dL (3.4-5.0) L 09/01/17 04:42 Globulin 4.4 g/dL (2.5-4.5) 09/01/17 04:42 Albumin/Globulin Ratio 0.6 Ratio (1.1-2.1) L 09/01/17 04:42 Specimen Type Clean catch urine 09/01/17 05:21 Urine Color Yellow (YELLOW) 09/01/17 05:21 Urine Appearance Clear (CLEAR) 09/01/17 05:21 Urine pH 5.0 (5.0 - 8.0) 09/01/17 05:21 Ur Specific [place] 1.015 (1.000-1.030) 09/01/17 05:21 Urine Protein 1+ (NEGATIVE) 09/01/17 05:21 Urine Glucose (UA) Negative (NEGATIVE) 09/01/17 05:21 Urine Ketones Negative (NEGATIVE) 09/01/17 05:21 Urine Occult Blood 1+ (NEGATIVE) 09/01/17 05:21 Urine Nitrite Negative (NEGATIVE) 09/01/17 05:21 Urine Bilirubin Negative (NEGATIVE) 09/01/17 05:21 Urine Urobilinogen Normal (NORMAL) 09/01/17 05:21 Ur Leukocyte Esterase 2+ (NEGATIVE) 09/01/17 05:21 Urine RBC 3-5 /HPF (NONE SEEN) 09/01/17 05:21 Urine WBC 3-5 /HPF (NONE SEEN) 09/01/17 05:21 Ur Squamous Epith Cells Many /HPF (NEGATIVE) 09/01/17 05:21 Urine Bacteria Negative /HPF (NEGATIVE) 09/01/17 05:21 - XRAY XRAY Interpreted by: Radiologist XRAY Findings: REPORT DISCUSS WITH PATIENT AND FAMILY. - Diagnosis Discharge Problem: Sprain of left shoulder, Generalized weakness, Hypokalemia - Discharge Plan Disposition: 01 HOME, SELF-CARE Condition: Stable - Follow ups/Referrals Follow ups/Referrals: CHRISTOPHER GONZALEZ [Primary Care Provider] - 3 days - Instructions Instructions: Shoulder Sprain, Hypokalemia, Weakness, Bnrv-[id number] Additional Instructions: RETURN TO ED IF WORSE,
[2017-09-01 05:31] LABS: BILIRUBIN,URINE NEGATIVE (NEGATIVE); BLOOD/HEMOGLOBIN,URINE 1+ (NEGATIVE); GLUCOSE, URINE NEGATIVE (NEGATIVE); KETONES,URINE NEGATIVE (NEGATIVE); LEUKOCYTE ESTERASE ,URINE 2+ (NEGATIVE); NITRITES,URINE NEGATIVE (NEGATIVE); PROTEIN,URINE 1+ (NEGATIVE); UROBILINOGEN,URINE NORMAL (NORMAL)
[2017-09-01 05:50] LABS: APPEARANCE,URINE CLEAR (CLEAR); BACTERIA,URINE NEGATIVE /HPF (NEGATIVE); COLOR,URINE YELLOW (YELLOW); SQUAMOUS EPITHELIAL CELL,UR MANY /HPF (NEGATIVE)
[2017-09-01 06:05] VITALS: BP 115/59
== END 2017-09-01 06:08 | disposition home or self-care (01) ==
LOC: ER 04:07
DX: S43.402A Unspecified sprain of left shoulder joint, initial encounter (principal); R53.1 Weakness; E87.6 Hypokalemia; W19.XXXA Unspecified fall, initial encounter; Y92.9 Unspecified place or not applicable
CPT/HCPCS: 36415; 73030; 80053; 81001; 85025; 96372; 99282; 99283; J1100; J1885

== ENCOUNTER 2017-09-02 16:02 | Observation (INO) | payer OTHER ==
[2017-09-02 17:43] VITALS: BMI 23.5
[2017-09-02] MEDS ORDERED: LEVAQUIN PREMIX IV 500 MG 500 MG/100 ML BAG IV ONE (18:43)
--- NOTE | 2017-09-02 18:49 | DR.H&P ---
H&P - History & Physical for Day of: H&P Date: 09/02/17 - Chief Complaint Chief Complaint: very weak, unsteady gait, falling, confusion per family. vomiting - Allergies Allergies/Adverse Reactions: Allergies Allergy/AdvReac Type Severity Reaction Status Date / Time No Known Drug Allergies Allergy Verified 09/01/17 04:24 - History of Present Illness History of Present Illness: 76 WF DIRECT ADMIT FROM DR GARCIA OFFICE AFTER PRESENTING WITH FAMILY MEMBERS [place] PT VERY WEAK AND UNSTEADY. PT VERY LETHARGIC IN OFFICE, APPEARED SEDATED, SLOW TO RESPOND. PT WAS RECENTLY INPT FOR UROSEPSIS WITH ECOLI POSITIVE BLOOD CULTURES. PT WAS D/C HOME ON [place] BUT EXPERIENCED VOMITING DAILY WHILE TAKING. FAMILY REPORTS SHE HAS BEEN FALLING WITH RECENT LEFT SHOULDER INJURY. PT WAS SEEN IN ED ON 09/01 AND D/C HOME. PT HAS PMH OF DM, HTN, CAD, OA, NEUROPATHY. PT ADMITTED R/O SEPSIS, IV ATBX THERAPY, CT ABD PELVIS AND CT HEAD R/O CVA. BS CONTROL, HYDRATION - Past Medical History Past Medical History: Anxiety, Arthritis, Coronary Artery Disease, Diabetes, Dyslipidemia, GERD, Hypertension, Hypothyroidism - Past Surgical History Surgical History: , Hysterectomy - Family History Family Medical History: Diabetes Mellitus, Coronary Artery Disease, Heart Failure - Social History Does patient currently use any type of tobacco product: No Have you used tobacco products in the last 12 months: No Type of Tobacco Use: None Does any household member use tobacco: No Alcohol Use: None Drug Use: None - Review of Systems Constitutional: Chills, Weakness, Malaise Eyes: No Symptoms Reported ENT: No Symptoms Reported Respiratory: SOB with Excertion Cardiovascular: Edema Gastrointestinal: Abdominal Pain Genitourinary: Frequency Musculoskeletal: Shoulder Pain, Back Pain, Leg Pain Skin: Bruising Neurological: Weakness, Change in Speech (SLOW), Confusion - Physical Exam Vital Signs: Blood Pressure [Left Arm] 115/59 Blood Pressure [Right Arm] 142/63 Blood Pressure 115/59 Oriented: Person Eyes: Normal Ear: Normal Nose: Normal Throat: Normal Respiratory: RLL Diminished, LLL Diminished Cardiovascular: Tachycardia, Edema : Normal Auscultation: Bowel Sounds: Normal Palpation: Normal Tenderness: Moderate Skin: Decreased Turgur, Bruising Musculoskeletal: Back:Thoracic, Back:Lumbar Psychiatric: Anxiety Speech Pattern: Delayed, Slurred - Assessment/Plan (1) Altered mental state Qualifiers: Altered mental status type: disorientation Qualified Code(s): R41.0 - Disorientation, unspecified Status: Acute Plan: ADMIT, R/O CVA, SEPSIS. CT ABD PELVIS, IV ATBX, BLOOD CULTURES. UA AND UC, CBC CMP, MAG AND LACTIC ACID. CXR ON ADMISSION. EKG ON ADMISSION (2) Diabetes Status: Acute (3) Hypertension Status: Acute (4) Dehydration Status: Acute (5) Generalized weakness Status: Acute (6) Pyelonephritis Status: Acute
[2017-09-02 18:56] LABS: BASOPHILS % (AUTO) 0.4 % (0.2-1.0); EOSINOPHILS % (AUTO) 0.6 % (0.9-2.9); HEMATOCRIT 26.9 % (36.0-47.0); HEMOGLOBIN 9.2 g/dL (12.0-16.0); LYMPHOCYTES # (AUTO) 1.9 X10^3/uL (1.3-2.9); MEAN CORPUSCULAR HEMOGLOBIN 30.7 pg (27.0-34.0); MEAN CORPUSCULAR HGB CONC 34.3 g/dL (33.0-35.0); MEAN CORPUSCULAR VOLUME 89.5 fL (80.0-100.0); MEAN PLATELET VOLUME 7.3 fL (7.4-11.0); MONOCYTES # (AUTO) 0.8 x10^3/uL (0.3-0.8); MONOCYTES % (AUTO) 10.6 % (0.0-13.0); NEUTROPHILS # (AUTO) 4.6 x10^3/uL (2.2-4.8); NEUTROPHILS % (AUTO) 62.4 % (42.0-75.0); PLATELET COUNT 332 X10^3/uL (150.0-450.0); RED BLOOD COUNT 3.01 X10^6/uL (3.5-5.4); RED CELL DISTRIBUTION WIDTH 14.5 % (11.6-16.5); WHITE BLOOD COUNT 7.3 X10^3/uL (3.6-10.0)
[2017-09-02 19:07] LABS: ALANINE AMINOTRANSFERASE 18 Units/L (12-78); ALBUMIN 2.7 g/dL (3.4-5.0); ALKALINE PHOSPHATASE 66 Units/L (46-116); ASPARTATE AMINO TRANSFERASE 19 Units/L (15-37); BLOOD UREA NITROGEN 47 mg/dL (7-18); CALCIUM 8.5 mg/dL (8.5-10.1); CARBON DIOXIDE 24.2 mmol/L (21-32); CHLORIDE 102 mmol/L (98-107); COR CA(FOR HYPOALB) 9.5 mg/dL (8.5-10.1); CREATININE 2.33 mg/dL (0.55-1.02); SODIUM 138 mmol/L (136-145); eGFR BLACK RACES 26 (>60); eGFR NON BLACK RACES 22 (>60)
[2017-09-02 19:13] LABS: MAGNESIUM 1.8 mg/dL (1.7-2.9)
[2017-09-02 19:32] LABS: LACTIC ACID 2.7 mmol/L (0.4-2.0)
--- NOTE | 2017-09-02 20:10 | RAD ---
HISTORY: 76-year-old female with altered mental status, sepsis and dehydration. Study: Frontal view of the chest. Comparison: Chest radiograph 08/14/2017 Findings: The trachea is midline. The cardiac silhouette is stably enlarged with low lung volumes and chronic prominence of the interstitium and perihilar lung markings. The lungs are clear without focal consol idation, effusion or pneumothorax. Soft tissues are unremarkable. Osseous structures are unremarkabl e. IMPRESSION: 1. No acute cardiopulmonary disease. Reported By:
--- NOTE | 2017-09-02 20:10 | CT ---
CT HEAD WITHOUT CONTRAST CLINICAL HISTORY: 76-year-old female with altered mental status. COMPARISON: CT head 08/15/2017. TECHNIQUE: Multiple, non-contrasted axial CT images were obtained from the skull base to the cranial vertex. Coronal and sagittal reformats were performed. FINDINGS: There are no abnormal intra- or extra-axial fluid collections, midline shift, or mass effec t. Phan-white differentiation is normal. Global cortical involutional changes are present that are ad vanced for the patient's stated age. The ventricular system is mildly enlarged but commensurate with the degree of sulcal prominence. Periventricular and supraventricular white matter hypodensity is pre sent that is nonspecific in appearance, but most likely to represent microvascular ischemic changes. Atherosclerotic vascular calcification is present within the carotid siphons and distal vertebral art eries. The imaged paranasal sinuses, mastoid air cells, and tympanic spaces are clear. IMPRESSION: 1. No definite evidence of an acute intracranial process. If clinical concern persists for acute str fernie, consider MRI/MRA brain. 2. Moderate microvascular white matter ischemic changes, with associated volume loss. Reported By:
[2017-09-02] MEDS: NS 1000 ML 1,000 ML IV SCH (20:22)
[2017-09-02] MEDS: SNACK - Diabetic Appropriate PO SCH (20:23)
[2017-09-02] MEDS: MILK OF MAGNESIA PO SCH (20:23)
[2017-09-02] MEDS: PROTONIX INJ 40 MG VIAL IVP SCH (20:23)
[2017-09-02] MEDS: COLACE CAP 100 MG PO SCH (20:23)
[2017-09-02 22:54] LABS: BILIRUBIN,URINE NEGATIVE (NEGATIVE); BLOOD/HEMOGLOBIN,URINE 2+ (NEGATIVE); GLUCOSE, URINE NEGATIVE (NEGATIVE); KETONES,URINE NEGATIVE (NEGATIVE); LEUKOCYTE ESTERASE ,URINE 1+ (NEGATIVE); NITRITES,URINE NEGATIVE (NEGATIVE); PROTEIN,URINE NEGATIVE (NEGATIVE); UROBILINOGEN,URINE NORMAL (NORMAL)
[2017-09-02 23:04] LABS: APPEARANCE,URINE SLIGHTLY HAZY (CLEAR); COLOR,URINE YELLOW (YELLOW)
[2017-09-02 23:05] LABS: AMORPHOUS SEDIMENT,UR TRACE /HPF (NEGATIVE); BACTERIA,URINE TRACE /HPF (NEGATIVE); HYALINE CASTS, URINE RARE /LPF (NEGATIVE); MUCUS,URINE RARE /HPF (NEGATIVE); SQUAMOUS EPITHELIAL CELL,UR MODERATE /HPF (NEGATIVE)
[2017-09-03 06:21] LABS: BASOPHILS % (AUTO) 0.4 % (0.2-1.0); EOSINOPHILS # (AUTO) 0.1 x10^3/uL (0.0-0.2); EOSINOPHILS % (AUTO) 2.3 % (0.9-2.9); HEMATOCRIT 26.9 % (36.0-47.0); HEMOGLOBIN 9.2 g/dL (12.0-16.0); LYMPHOCYTES # (AUTO) 2.5 X10^3/uL (1.3-2.9); LYMPHOCYTES % (AUTO) 38.4 % (21.0-51.0); MEAN CORPUSCULAR HEMOGLOBIN 30.7 pg (27.0-34.0); MEAN CORPUSCULAR HGB CONC 34.3 g/dL (33.0-35.0); MEAN CORPUSCULAR VOLUME 89.5 fL (80.0-100.0); MEAN PLATELET VOLUME 7.2 fL (7.4-11.0); MONOCYTES # (AUTO) 0.7 x10^3/uL (0.3-0.8); MONOCYTES % (AUTO) 10.1 % (0.0-13.0); NEUTROPHILS # (AUTO) 3.1 x10^3/uL (2.2-4.8); NEUTROPHILS % (AUTO) 48.8 % (42.0-75.0); PLATELET COUNT 307 X10^3/uL (150.0-450.0); WHITE BLOOD COUNT 6.4 X10^3/uL (3.6-10.0)
[2017-09-03 06:30] LABS: ALANINE AMINOTRANSFERASE 18 Units/L (12-78); ALBUMIN 2.4 g/dL (3.4-5.0); ALKALINE PHOSPHATASE 58 Units/L (46-116); ASPARTATE AMINO TRANSFERASE 18 Units/L (15-37); BLOOD UREA NITROGEN 45 mg/dL (7-18); CALCIUM 8.3 mg/dL (8.5-10.1); CARBON DIOXIDE 24.9 mmol/L (21-32); CHLORIDE 104 mmol/L (98-107); COR CA(FOR HYPOALB) 9.6 mg/dL (8.5-10.1); CREATININE 1.88 mg/dL (0.55-1.02); SODIUM 139 mmol/L (136-145); TOTAL PROTEIN 6.4 g/dL (6.4-8.2); eGFR BLACK RACES 34 (>60); eGFR NON BLACK RACES 28 (>60)
[2017-09-03] MEDS: PROTONIX INJ 40 MG VIAL IVP SCH (09:23)
[2017-09-03] MEDS: NORCO 7.5/325 MG TAB PO PRN ×2 (09:23→19:29)
[2017-09-03] MEDS: MILK OF MAGNESIA PO SCH ×2 (09:23→21:10)
--- NOTE | 2017-09-03 10:03 | CT ---
History: Bilateral flank pain for some time Study: CT abdomen and pelvis without contrast. Sagittal and coronal reformations were provided. Comparison . August 15, 2017 Findings: The visualized lung bases are grossly clear. The kidneys are unremarkable. There is no hydr onephrosis or calculus. The ureters are nondistended. The liver and spleen and pancreas and adrenal g lands are normal. The appendix is normal. The gallbladder is unremarkable. There is no bowel distenti on or inflammation. There is no ascites or adenopathy. The uterus is apparently absent. No adnexal ma ss is demonstrated. There are degenerative changes in the spine. Impression: No acute abdominal or pelvic disease demonstrated Reported By:
[2017-09-03] MEDS: NS 1000 ML 1,000 ML IV SCH ×2 (16:17→23:08)
[2017-09-03] MEDS: COLACE CAP 100 MG PO SCH (21:10)
[2017-09-03] MEDS: SNACK - Diabetic Appropriate PO SCH (21:11)
[2017-09-04] MEDS: RESTORIL CAP 15 MG PO PRN ×2 (01:32→20:20)
[2017-09-04 06:29] LABS: BASOPHILS % (AUTO) 0.6 % (0.2-1.0); EOSINOPHILS # (AUTO) 0.3 x10^3/uL (0.0-0.2); EOSINOPHILS % (AUTO) 4.1 % (0.9-2.9); HEMATOCRIT 25.8 % (36.0-47.0); HEMOGLOBIN 8.9 g/dL (12.0-16.0); LYMPHOCYTES # (AUTO) 2.9 X10^3/uL (1.3-2.9); LYMPHOCYTES % (AUTO) 38.9 % (21.0-51.0); MEAN CORPUSCULAR HEMOGLOBIN 30.7 pg (27.0-34.0); MEAN CORPUSCULAR HGB CONC 34.7 g/dL (33.0-35.0); MEAN CORPUSCULAR VOLUME 88.5 fL (80.0-100.0); MEAN PLATELET VOLUME 7.3 fL (7.4-11.0); MONOCYTES # (AUTO) 0.8 x10^3/uL (0.3-0.8); MONOCYTES % (AUTO) 10.9 % (0.0-13.0); NEUTROPHILS # (AUTO) 3.4 x10^3/uL (2.2-4.8); NEUTROPHILS % (AUTO) 45.5 % (42.0-75.0); PLATELET COUNT 312 X10^3/uL (150.0-450.0); RED BLOOD COUNT 2.91 X10^6/uL (3.5-5.4); WHITE BLOOD COUNT 7.4 X10^3/uL (3.6-10.0)
[2017-09-04 06:37] LABS: ALANINE AMINOTRANSFERASE 19 Units/L (12-78); ALBUMIN 2.4 g/dL (3.4-5.0); ALKALINE PHOSPHATASE 57 Units/L (46-116); ASPARTATE AMINO TRANSFERASE 22 Units/L (15-37); BLOOD UREA NITROGEN 31 mg/dL (7-18); CALCIUM 8.2 mg/dL (8.5-10.1); CARBON DIOXIDE 26.2 mmol/L (21-32); CHLORIDE 105 mmol/L (98-107); COR CA(FOR HYPOALB) 9.5 mg/dL (8.5-10.1); CREATININE 1.26 mg/dL (0.55-1.02); SODIUM 140 mmol/L (136-145); TOTAL PROTEIN 6.1 g/dL (6.4-8.2); eGFR BLACK RACES 53 (>60); eGFR NON BLACK RACES 44 (>60)
[2017-09-04] MEDS: PROTONIX INJ 40 MG VIAL IVP SCH (09:00)
[2017-09-04] MEDS: MILK OF MAGNESIA PO SCH ×2 (09:01→20:53)
[2017-09-04] MEDS: NORCO 7.5/325 MG TAB PO PRN (12:13)
[2017-09-04] MEDS: NS 1000 ML 1,000 ML IV SCH (13:43)
[2017-09-04] MEDS: SOLU-Medrol 40 MG VIAL IVP SCH ×2 (14:17→22:19)
[2017-09-04] MEDS: HumuLIN R SUBCUT PRN ×2 (18:06→20:53)
[2017-09-04] MEDS: COLACE CAP 100 MG PO SCH (20:51)
[2017-09-04] MEDS: SNACK - Diabetic Appropriate PO SCH (20:56)
[2017-09-05] MEDS: NS 1000 ML 1,000 ML IV SCH (03:23)
[2017-09-05] MEDS: SOLU-Medrol 40 MG VIAL IVP SCH (05:41)
[2017-09-05] MEDS: HumuLIN R SUBCUT PRN ×2 (06:23→11:51)
[2017-09-05 06:26] LABS: BASOPHILS % (AUTO) 0.2 % (0.2-1.0); HEMATOCRIT 27.9 % (36.0-47.0); HEMOGLOBIN 9.6 g/dL (12.0-16.0); LYMPHOCYTES # (AUTO) 0.8 X10^3/uL (1.3-2.9); LYMPHOCYTES % (AUTO) 16.5 % (21.0-51.0); MEAN CORPUSCULAR HEMOGLOBIN 30.6 pg (27.0-34.0); MEAN CORPUSCULAR HGB CONC 34.5 g/dL (33.0-35.0); MEAN CORPUSCULAR VOLUME 88.7 fL (80.0-100.0); MEAN PLATELET VOLUME 7.3 fL (7.4-11.0); MONOCYTES # (AUTO) 0.1 x10^3/uL (0.3-0.8); MONOCYTES % (AUTO) 1.2 % (0.0-13.0); NEUTROPHILS # (AUTO) 3.9 x10^3/uL (2.2-4.8); NEUTROPHILS % (AUTO) 82.1 % (42.0-75.0); PLATELET COUNT 338 X10^3/uL (150.0-450.0); RED BLOOD COUNT 3.15 X10^6/uL (3.5-5.4); RED CELL DISTRIBUTION WIDTH 13.9 % (11.6-16.5); WHITE BLOOD COUNT 4.8 X10^3/uL (3.6-10.0)
[2017-09-05 06:45] LABS: ALANINE AMINOTRANSFERASE 20 Units/L (12-78); ALBUMIN 2.6 g/dL (3.4-5.0); ALKALINE PHOSPHATASE 66 Units/L (46-116); ASPARTATE AMINO TRANSFERASE 16 Units/L (15-37); BLOOD UREA NITROGEN 24 mg/dL (7-18); CALCIUM 8.7 mg/dL (8.5-10.1); CARBON DIOXIDE 24.1 mmol/L (21-32); CHLORIDE 104 mmol/L (98-107); COR CA(FOR HYPOALB) 9.8 mg/dL (8.5-10.1); COR NA(FOR HYPERGLY) 141 mmol/L (136-145); SODIUM 138 mmol/L (136-145); TOTAL PROTEIN 6.7 g/dL (6.4-8.2); eGFR BLACK RACES > 60 (>60); eGFR NON BLACK RACES 52 (>60)
[2017-09-05] MEDS: MILK OF MAGNESIA PO SCH (08:36)
[2017-09-05] MEDS: PROTONIX INJ 40 MG VIAL IVP SCH (08:37)
[2017-09-05] MEDS ORDERED: MARCAINE 0.25% INJ ONE (08:47)
[2017-09-05] MEDS ORDERED: KENALOG INJ 40 MG IM ONE (08:47)
[2017-09-05 12:49] VITALS: BP 191/86
== END 2017-09-05 12:30 | disposition home or self-care (01) ==
LOC: MED/SURG 16:02
PROVIDERS: ADMIT Internal Medicine; ATTEND Internal Medicine
DX: R41.82 Altered mental status, unspecified (principal); E86.0 Dehydration; R26.81 Unsteadiness on feet; E11.65 Type 2 diabetes mellitus with hyperglycemia; I10 Essential (primary) hypertension; R53.1 Weakness; N10 Acute pyelonephritis; W18.39XA Other fall on same level, initial encounter; N28.89 Other specified disorders of kidney and ureter; I25.10 Atherosclerotic heart disease of native coronary artery without angina pectoris; M19.90 Unspecified osteoarthritis, unspecified site; S49.82XA Other specified injuries of left shoulder and upper arm, initial encounter
CPT/HCPCS: 36415; 70450; 71045; 74176; 80053; 81001; 83605; 83735; 85025; 87040; 93005; 93010; A4222; C9113; G8978; G8979; S0020; G0378; J1815; J1956; J2920; J3301

== ENCOUNTER 2018-03-07 14:31 | Inpatient (IN) ==
[2018-03-07 17:04] LABS: BASOPHILS % (AUTO) 0.3 % (0.2-1.0); EOSINOPHILS # (AUTO) 0.1 x10^3/uL (0.0-0.2); EOSINOPHILS % (AUTO) 0.5 % (0.9-2.9); HEMATOCRIT 29.6 % (36.0-47.0); HEMOGLOBIN 9.9 g/dL (12.0-16.0); LYMPHOCYTES # (AUTO) 0.9 X10^3/uL (1.3-2.9); LYMPHOCYTES % (AUTO) 6.4 % (21.0-51.0); MEAN CORPUSCULAR HEMOGLOBIN 29.7 pg (27.0-34.0); MEAN CORPUSCULAR HGB CONC 33.6 g/dL (33.0-35.0); MEAN CORPUSCULAR VOLUME 88.5 fL (80.0-100.0); MEAN PLATELET VOLUME 8.6 fL (7.4-11.0); MONOCYTES # (AUTO) 0.9 x10^3/uL (0.3-0.8); MONOCYTES % (AUTO) 6.3 % (0.0-13.0); NEUTROPHILS # (AUTO) 12.1 x10^3/uL (2.2-4.8); NEUTROPHILS % (AUTO) 86.5 % (42.0-75.0); PLATELET COUNT 176 X10^3/uL (150.0-450.0); RED BLOOD COUNT 3.35 X10^6/uL (3.5-5.4); RED CELL DISTRIBUTION WIDTH 14.3 % (11.6-16.5); WHITE BLOOD COUNT 13.9 X10^3/uL (3.6-10.0)
[2018-03-07 17:06] VITALS: BMI 22.3
[2018-03-07 17:18] LABS: ALBUMIN 2.8 g/dL (3.4-5.0); CALCIUM 7.6 mg/dL (8.5-10.1); CARBON DIOXIDE 23.9 mmol/L (21-32); COR CA(FOR HYPOALB) 8.6 mg/dL (8.5-10.1); CREATININE 2.3 mg/dL (0.55-1.02); TOTAL PROTEIN 7.1 g/dL (6.4-8.2)
[2018-03-07 17:25] LABS: LACTIC ACID 1.4 mmol/L (0.4-2.0)
[2018-03-07] MEDS ORDERED: REGLAN INJ 10 MG VIAL IVP PRN (17:31)
--- NOTE | 2018-03-07 17:38 | DR.H&P ---
H&P - History & Physical for Day of: H&P Date: 03/07/18 - Chief Complaint Chief Complaint: AMS, FEVER, CHILLS, UTI - History of Present Illness History of Present Illness: 77 WF DIRECT ADMIT FROM DR GARCIA OFFICE AFTER PRESENTING WITH FAMILY MEMBERS [place] PT VERY WEAK AND UNSTEADY. PT VERY LETHARGIC IN OFFICE, APPEARED SEDATED, SLOW TO RESPOND. - Past Medical History Past Medical History: Coronary Artery Disease, Hypertension, Dyslipidemia, Diabetes, Anxiety, Hypothyroidism, GERD, Arthritis - Past Surgical History Surgical History: Cholecystectomy, , Hysterectomy - Family History Family Medical History: Diabetes Mellitus, Coronary Artery Disease, Heart Failure - Social History Does patient currently use any type of tobacco product: No Have you used tobacco products in the last 12 months: No Type of Tobacco Use: None Does any household member use tobacco: No Alcohol Use: None Drug Use: None - Medications Home Medications: No Known Drug Allergies Allergy (Verified 09/01/17 04:24) CONTINUE taking the following medications ropinirole 0.5 mg PO DAILY 03/07/18 [History] - Physical Exam Vital Signs: Temperature 99.9 F Pulse Rate [Right Brachial] 101 Respiratory Rate 18 Blood Pressure [Left Arm] 159/77 Blood Pressure [Right Arm] 122/58 Blood Pressure 108/55 - Allergies Allergies/Adverse Reactions: Allergies Allergy/AdvReac Type Severity Reaction Status Date / Time No Known Drug Allergies Allergy Verified 09/01/17 04:24
[2018-03-07] MEDS: ROCEPHIN VIAL 1 GRAM IVP SCH (17:48)
[2018-03-07] MEDS: MAGNESIUM SULFATE 1 GRAM/100 mL PREMIX 1 GM/100 ML BAG IV PRN ×5 (17:48→23:19)
[2018-03-07] MEDS: NS 1000 ML 1,000 ML IV SCH (17:48)
[2018-03-07 18:21] LABS: IRON 9 ug/dL (50-175)
[2018-03-07] MEDS: HumuLIN R SUBCUT PRN (20:47)
[2018-03-07] MEDS: SNACK - Diabetic Appropriate PO SCH (20:49)
[2018-03-07] MEDS: NORCO 5/325 MG TAB PO PRN (21:00)
[2018-03-07 21:57] LABS: BILIRUBIN,URINE NEGATIVE (NEGATIVE); BLOOD/HEMOGLOBIN,URINE 3+ (NEGATIVE); GLUCOSE, URINE NEGATIVE (NEGATIVE); KETONES,URINE NEGATIVE (NEGATIVE); LEUKOCYTE ESTERASE ,URINE 3+ (NEGATIVE); NITRITES,URINE NEGATIVE (NEGATIVE); PROTEIN,URINE 2+ (NEGATIVE); UROBILINOGEN,URINE NORMAL (NORMAL)
[2018-03-07 22:05] LABS: APPEARANCE,URINE HAZY (CLEAR); BACTERIA,URINE TRACE /HPF (NEGATIVE); COLOR,URINE YELLOW (YELLOW); RENAL EPITHELIAL CELLS,URINE RARE /HPF (NEGATIVE); SQUAMOUS EPITHELIAL CELL,UR RARE /HPF (NEGATIVE)
[2018-03-08] MEDS: MAGNESIUM SULFATE 1 GRAM/100 mL PREMIX 1 GM/100 ML BAG IV PRN (00:23)
[2018-03-08] MEDS: NORCO 5/325 MG TAB PO PRN ×4 (02:45→22:22)
[2018-03-08 05:20] LABS: BASOPHILS % (AUTO) 0.1 % (0.2-1.0); EOSINOPHILS # (AUTO) 0.1 x10^3/uL (0.0-0.2); EOSINOPHILS % (AUTO) 0.8 % (0.9-2.9); HEMATOCRIT 25.7 % (36.0-47.0); HEMOGLOBIN 8.5 g/dL (12.0-16.0); LYMPHOCYTES # (AUTO) 0.7 X10^3/uL (1.3-2.9); LYMPHOCYTES % (AUTO) 6.2 % (21.0-51.0); MEAN CORPUSCULAR HEMOGLOBIN 29.3 pg (27.0-34.0); MEAN CORPUSCULAR HGB CONC 33.3 g/dL (33.0-35.0); MEAN CORPUSCULAR VOLUME 88.1 fL (80.0-100.0); MEAN PLATELET VOLUME 8.4 fL (7.4-11.0); MONOCYTES # (AUTO) 0.9 x10^3/uL (0.3-0.8); MONOCYTES % (AUTO) 7.6 % (0.0-13.0); NEUTROPHILS # (AUTO) 9.8 x10^3/uL (2.2-4.8); NEUTROPHILS % (AUTO) 85.3 % (42.0-75.0); PLATELET COUNT 154 X10^3/uL (150.0-450.0); RED BLOOD COUNT 2.91 X10^6/uL (3.5-5.4); RED CELL DISTRIBUTION WIDTH 14.2 % (11.6-16.5); WHITE BLOOD COUNT 11.5 X10^3/uL (3.6-10.0)
[2018-03-08] MEDS: NS 1000 ML 1,000 ML IV SCH ×4 (05:20→22:21)
[2018-03-08 05:30] LABS: ALBUMIN 2.1 g/dL (3.4-5.0); CALCIUM 7.4 mg/dL (8.5-10.1); CARBON DIOXIDE 23.5 mmol/L (21-32); COR CA(FOR HYPOALB) 8.9 mg/dL (8.5-10.1); CREATININE 1.89 mg/dL (0.55-1.02); MAGNESIUM 3.3 mg/dL (1.7-2.9); TOTAL PROTEIN 5.8 g/dL (6.4-8.2)
[2018-03-08] MEDS ORDERED: POTASSIUM CHLORIDE LIQ 20 MEQ UDC PO PRN (05:36)
[2018-03-08] MEDS ORDERED: POTASSIUM CHL 60 MEQ/NS 0.45% 500 ML IV PRN (05:36)
[2018-03-08] MEDS ORDERED: MICRO K EXTEN CAP 10 MEQ PO PRN (05:36)
[2018-03-08] MEDS ORDERED: K-RIDER 10 MEQ/NS 100 ML 10 MEQ/100 ML BAG IV PRN (05:36)
[2018-03-08] MEDS ORDERED: POTASSIUM CHL 40 MEQ/NS 0.45% 500 ML IV PRN (05:36)
[2018-03-08] MEDS: HumuLIN R SUBCUT PRN ×3 (05:57→21:03)
[2018-03-08] MEDS: K-DUR TAB 20 MEQ PO PRN (05:58)
--- NOTE | 2018-03-08 08:20 | RAD ---
HISTORY: Altered mental status, fever Study: Single-view chest Comparison: March 06, 2018 Findings: The trachea is midline. The cardiac silhouette is mildly enlarged when considering AP technique. Th e lungs are clear without focal mass or consolidation. There is no effusion or pneumothorax. The erma ny thorax is grossly unremarkable. IMPRESSION: No acute cardiopulmonary disease. Reported By:
[2018-03-08] MEDS: PROTONIX INJ 40 MG VIAL IVP SCH (08:52)
[2018-03-08] MEDS: ROCEPHIN VIAL 1 GRAM IVP SCH (08:53)
[2018-03-08] MEDS ORDERED: CONSULT PHARMACY - ANTIBIOTIC XX SCH (11:00)
[2018-03-08] MEDS: MORPHINE SULFATE INJ 2 MG INJ IVP PRN ×2 (14:08→18:10)
--- NOTE | 2018-03-08 14:14 | CT ---
HISTORY: UTI, flank pain, fever, suspected pyelonephritis. Prior history of diabetes and hypertensio n. Prior surgical history of bladder tack, and hysterectomy. Study: CT scan of the abdomen and pelvis without IV or oral contrast. Comparison: 09/03/2017. Technique: Non contrasted CT images of the abdomen and pelvis are reviewed in axial, coronal and sagi ttal planes. Dose reduction techniques utilized automatic exposure control. Findings: Lung bases are clear. The liver, spleen and adrenal glands are normal. The pancreas is unremarkable. Gallbladder surgically absent. There is mild bilateral perinephric stranding, more pronounced on the left. Findings are nonspecific. No evidence of renal mass, stone or hydronephrosis is seen. Atheroscl erotic calcifications are present involving the miranda of the abdominal aorta without aneurysm formati on. No evidence of bowel wall thickening, obstruction or perforation is seen. Urinary bladder region is unremarkable. Uterus and ovaries are surgically absent. There is multilevel degenerative change pr esent involving the lumbar spine. IMPRESSION: Mild bilateral perinephric stranding. These findings are nonspecific. No renal mass, stone or hydrone phrosis is seen. Unremarkable urinary bladder. Reported By:
--- NOTE | 2018-03-08 15:46 | RAD ---
HISTORY: Fall with low back pain Study: 5 views of the lumbar spine Comparison: None. Findings: Normal alignment without subluxation or listhesis. Severe multilevel degenerative disc disease.. Chris tebral body heights are normal. Sacroiliac joints are unremarkable. No evidence for acute fracture c an be identified. IMPRESSION: 1. No acute abnormality of the lumbar spine. 2. Multilevel degenerative disc disease. Reported By:
--- NOTE | 2018-03-08 15:55 | RAD ---
HISTORY: Back pain Study: 3 views of the thoracic spine. Comparison: None Findings: Grossly normal alignment of the thoracic spine. Multilevel degenerative disc disease. Vertebral body heights are grossly maintained. IMPRESSION: 1. No acute findings. Multilevel degenerative disc disease. Reported By:
--- NOTE | 2018-03-08 17:35 | PCM.PROG ---
Progress Note - Progress Note for Day of Date of Exam: 03/08/18 - Subjective Subjective: 77 WF DIRECT ADMIT FOR UTI, DEHYDRATION, ACUTE PYELONEPHRITIS. PT CURRENTLY ON GENTLE IV HYDRATION, IV ROCEPHIN, BLOOD AND URINE CULTURES PENDING. PT CO LEFT FLANK PAIN, CT W/O ORDERED FOR THIS AM, ADDED PRN MORPHINE - Past Medical Family Social History Past Med/Fam/Surg Hx: No changes since H&P Allergies: Allergies No Known Drug Allergies Allergy (Verified 09/01/17 04:24) - Review of Systems ROS: No change since H&P - Vital Signs and I&O's Vital Signs: Temperature 98.4 F Pulse Rate [Right Brachial] 87 Respiratory Rate 18 Blood Pressure [Left Arm] 159/77 Blood Pressure [Right Arm] 130/63 Blood Pressure 108/55 O2 Sat by Pulse Oximetry 97 Intake and Output: Intake & Output 03/06/18 03/07/18 03/08/18 03/09/18 11:59 11:59 11:59 11:59 Intake Total 2079 1633 / 1633 Balance 2079 1633 / 1633 - Physical Exam Oriented: Normal Eyes: Normal Ear: Normal Nose: Normal Cardiovascular: Normal : Normal Auscultation: Bowel Sounds: Normal Palpation: Normal Tenderness: Moderate (RIGHT FLANK) Skin: Decreased Turgur Musculoskeletal: Back:Thoracic, Back:Lumbar Psychiatric: Normal Speech Pattern: Clear, Delayed - Laboratory and Diagnostics Result Diagrams: 03/08/18 04:55 03/08/18 08:15 Labs: Laboratory WBC 11.5 X10^3/uL (3.6-10.0) H 03/08/18 04:55 RBC 2.91 X10^6/uL (3.5-5.4) L 03/08/18 04:55 Hgb 8.5 g/dL (12.0-16.0) L 03/08/18 04:55 Hct 25.7 % (36.0-47.0) L 03/08/18 04:55 MCV 88.1 fL (80.0-100.0) 03/08/18 04:55 MCH 29.3 pg (27.0-34.0) 03/08/18 04:55 MCHC 33.3 g/dL (33.0-35.0) 03/08/18 04:55 RDW 14.2 % (11.6-16.5) 03/08/18 04:55 Plt Count 154 X10^3/uL (150.0-450.0) 03/08/18 04:55 MPV 8.4 fL (7.4-11.0) 03/08/18 04:55 Neut % (Auto) 85.3 % (42.0-75.0) H 03/08/18 04:55 Lymph % (Auto) 6.2 % (21.0-51.0) L 03/08/18 04:55 [place] % (Auto) 7.6 % (0.0-13.0) 03/08/18 04:55 Eos % (Auto) 0.8 % (0.9-2.9) L 03/08/18 04:55 Baso % (Auto) 0.1 % (0.2-1.0) L 03/08/18 04:55 Neut # (Auto) 9.8 x10^3/uL (2.2-4.8) H 03/08/18 04:55 Lymph # (Auto) 0.7 X10^3/uL (1.3-2.9) L 03/08/18 04:55 [place] # (Auto) 0.9 x10^3/uL (0.3-0.8) H 03/08/18 04:55 Eos # (Auto) 0.1 x10^3/uL (0.0-0.2) 03/08/18 04:55 Baso # (Auto) 0.0 X10^3/uL (0.0-0.1) 03/08/18 04:55 Absolute Nucleated RBC 0.0 /100WBC 03/08/18 04:55 Sodium 132 mmol/L (136-145) L 03/08/18 04:55 Corrected Sodium 134 mmol/L (136-145) L 03/08/18 04:55 Potassium 3.5 mmol/L (3.5-5.1) 03/08/18 08:15 Chloride 99 mmol/L (98-107) 03/08/18 04:55 Carbon Dioxide 23.5 mmol/L (21-32) 03/08/18 04:55 BUN 30 mg/dL (7-18) H 03/08/18 04:55 Creatinine 1.89 mg/dL (0.55-1.02) H 03/08/18 04:55 Est GFR (MDRD) Af Amer 33 (>60) L 03/08/18 04:55 Est GFR (MDRD) Non-Af 28 (>60) L 03/08/18 04:55 Glucose 181 mg/dL (65-99) H 03/08/18 04:55 POC Glucose (mg/dL) 152 mg/dL (65-99) H 03/08/18 16:32 Lactic Acid 1.4 mmol/L (0.4-2.0) 03/07/18 16:47 Calcium 7.4 mg/dL (8.5-10.1) L 03/08/18 04:55 Corrected Calcium 8.9 mg/dL (8.5-10.1) 03/08/18 04:55 Magnesium 3.3 mg/dL (1.7-2.9) H 03/08/18 04:55 Iron 9 ug/dL (50-175) L 03/07/18 16:47 Transferrin 133 mg/dL (202-364) L 03/07/18 16:47 Ferritin 1604 ng/mL (8-252) H 03/07/18 16:47 Total Bilirubin 0.30 mg/dL (0.2-1.0) 03/08/18 04:55 AST 29 Units/L (15-37) 03/08/18 04:55 ALT 30 Units/L (12-78) 03/08/18 04:55 Alkaline Phosphatase 114 Units/L (46-116) 03/08/18 04:55 C-Reactive Protein 308.90 mg/L (0-3.0) H 03/07/18 16:47 Total Protein 5.8 g/dL (6.4-8.2) L 03/08/18 04:55 Albumin 2.1 g/dL (3.4-5.0) L 03/08/18 04:55 Globulin 3.7 g/dL (2.5-4.5) 03/08/18 04:55 Albumin/Globulin Ratio 0.6 Ratio (1.1-2.1) L 03/08/18 04:55 Vitamin B12 730 pg/mL (193-986) 03/07/18 16:47 Folate > 20.0 ng/mL (>8.6) 03/07/18 16:47 Specimen Type Clean catch urine 03/07/18 21:39 Urine Color Yellow (YELLOW) 03/07/18 21:39 Urine Appearance Hazy (CLEAR) 03/07/18 21:39 Urine pH 6.0 (5.0 - 8.0) 03/07/18 21:39 Ur Specific [place] 1.010 (1.000-1.030) 03/07/18 21:39 Urine Protein 2+ (NEGATIVE) 03/07/18 21:39 Urine Glucose (UA) Negative (NEGATIVE) 03/07/18 21:39 Urine Ketones Negative (NEGATIVE) 03/07/18 21:39 Urine Occult Blood 3+ (NEGATIVE) 03/07/18 21:39 Urine Nitrite Negative (NEGATIVE) 03/07/18 21:39 Urine Bilirubin Negative (NEGATIVE) 03/07/18 21:39 Urine Urobilinogen Normal (NORMAL) 03/07/18 21:39 Ur Leukocyte Esterase 3+ (NEGATIVE) 03/07/18 21:39 Urine RBC 5-10 /HPF (NONE SEEN) 03/07/18 21:39 Urine WBC Tntc /HPF (NONE SEEN) 03/07/18 21:39 Ur Squamous Epith Cells Rare /HPF (NEGATIVE) 03/07/18 21:39 Ur Renal Epithelial Cell Rare /HPF (NEGATIVE) 03/07/18 21:39 Urine Bacteria Trace /HPF (NEGATIVE) 03/07/18 21:39 Ur Culture Indicated? Yes/culture set up 03/07/18 21:39 - Plan (1) Urinary tract infection Status: Acute Qualifiers: Urinary tract infection type: acute cystitis Hematuria presence: without hematuria Qualified Code(s): N30.00 - Acute cystitis without hematuria Plan: CONTINUE IV ATBX, PAIN CONTROL. GENTLE IV HYDRATION, CULTURES PENDING. CT ABD/PELVIS THIS AM (2) Altered mental state Status: Acute Qualifiers: Altered mental status type: disorientation Qualified Code(s): R41.0 - Disorientation, unspecified (3) Pyelonephritis Status: Acute (4) Dehydration Status: Acute (5) Diabetes Status: Acute (6) Hypertension Status: Acute
[2018-03-08] MEDS: SNACK - Diabetic Appropriate PO SCH (20:27)
[2018-03-09] MEDS: MORPHINE SULFATE INJ 2 MG INJ IVP PRN ×2 (02:26→11:55)
[2018-03-09] MEDS: NORCO 5/325 MG TAB PO PRN ×3 (04:20→21:15)
[2018-03-09 05:18] LABS: BASOPHILS % (AUTO) 0.4 % (0.2-1.0); EOSINOPHILS # (AUTO) 0.3 x10^3/uL (0.0-0.2); EOSINOPHILS % (AUTO) 4.7 % (0.9-2.9); HEMATOCRIT 26.9 % (36.0-47.0); HEMOGLOBIN 9.1 g/dL (12.0-16.0); LYMPHOCYTES # (AUTO) 0.9 X10^3/uL (1.3-2.9); LYMPHOCYTES % (AUTO) 12.3 % (21.0-51.0); MEAN CORPUSCULAR HEMOGLOBIN 29.5 pg (27.0-34.0); MEAN CORPUSCULAR HGB CONC 33.8 g/dL (33.0-35.0); MEAN CORPUSCULAR VOLUME 87.3 fL (80.0-100.0); MEAN PLATELET VOLUME 8.4 fL (7.4-11.0); MONOCYTES # (AUTO) 0.8 x10^3/uL (0.3-0.8); MONOCYTES % (AUTO) 11.3 % (0.0-13.0); NEUTROPHILS % (AUTO) 71.3 % (42.0-75.0); PLATELET COUNT 159 X10^3/uL (150.0-450.0); RED BLOOD COUNT 3.08 X10^6/uL (3.5-5.4); RED CELL DISTRIBUTION WIDTH 14.5 % (11.6-16.5)
[2018-03-09 05:32] LABS: ALBUMIN 1.8 g/dL (3.4-5.0); CALCIUM 7.3 mg/dL (8.5-10.1); CARBON DIOXIDE 24.2 mmol/L (21-32); COR CA(FOR HYPOALB) 9.1 mg/dL (8.5-10.1); CREATININE 1.45 mg/dL (0.55-1.02); TOTAL PROTEIN 5.6 g/dL (6.4-8.2)
[2018-03-09] MEDS: NS 1000 ML 1,000 ML IV SCH (06:13)
[2018-03-09] MEDS ORDERED: MILK OF MAGNESIA PO PRN (07:27)
[2018-03-09] MEDS: ROCEPHIN VIAL 1 GRAM IVP SCH (09:30)
[2018-03-09] MEDS: PROTONIX INJ 40 MG VIAL IVP SCH (09:30)
--- NOTE | 2018-03-09 15:29 | PCM.PROG ---
Progress Note - Progress Note for Day of Date of Exam: 03/09/18 - Subjective Subjective: 77 WF DIRECT ADMIT FOR UTI, DEHYDRATION, ACUTE PYELONEPHRITIS. PT CURRENTLY ON GENTLE IV HYDRATION, IV ROCEPHIN, BLOOD AND URINE CULTURES PENDING. PT CO LEFT FLANK PAIN, CT WITH BILATERAL PERNEPHRIC STRANDING. PT WBC IMPROVING 7.0 NA 134, BUN 20 CREAT 1.45. STARTING CIPRO IV, PT CONTINUED WITH LOW GRADE FEVER AND CHILLS. AMYLASE AND LIPASE AND REPEAT CRP TODAY. PT CONTINUES WITH MILD NAUSEA. PT MORE AWAKE AND ALERT TODAY. FAMILY AT BEDSIDE, STATES SHE RESTED BETTER AFTER STARTING IV MORPHINE FOR PAIN RELIEF. - Past Medical Family Social History Past Med/Fam/Surg Hx: No changes since H&P Allergies: Allergies No Known Drug Allergies Allergy (Verified 09/01/17 04:24) - Review of Systems ROS: No change since H&P - Vital Signs and I&O's Vital Signs: Temperature 98.7 F Pulse Rate [Right Brachial] 72 Respiratory Rate 20 Blood Pressure [Left Arm] 159/77 Blood Pressure [Right Arm] 115/68 Blood Pressure 108/55 O2 Sat by Pulse Oximetry 95 Intake and Output: Intake & Output 03/07/18 03/08/18 03/09/18 03/10/18 11:59 11:59 11:59 11:59 Intake Total 2079 3453 / 3453 600 / 600 Balance 2079 3453 / 3453 600 / 600 - Physical Exam Oriented: Normal Eyes: Normal Ear: Normal Nose: Normal Cardiovascular: Normal : Normal Auscultation: Bowel Sounds: Normal Tenderness: Moderate (RIGHT FLANK) Skin: Decreased Turgur Musculoskeletal: Back:Thoracic, Back:Lumbar Psychiatric: Normal Speech Pattern: Clear, Delayed - Laboratory and Diagnostics Result Diagrams: 03/09/18 04:39 03/09/18 04:39 Labs: 03/07/18 16:47 Blood Blood Culture - Preliminary 03/07/18 16:54 Blood Blood Culture - Preliminary 03/07/18 21:39 Urine,Clean Catch Urine Culture - Final Laboratory WBC 7.0 X10^3/uL (3.6-10.0) 03/09/18 04:39 RBC 3.08 X10^6/uL (3.5-5.4) L 03/09/18 04:39 Hgb 9.1 g/dL (12.0-16.0) L 03/09/18 04:39 Hct 26.9 % (36.0-47.0) L 03/09/18 04:39 MCV 87.3 fL (80.0-100.0) 03/09/18 04:39 MCH 29.5 pg (27.0-34.0) 03/09/18 04:39 MCHC 33.8 g/dL (33.0-35.0) 03/09/18 04:39 RDW 14.5 % (11.6-16.5) 03/09/18 04:39 Plt Count 159 X10^3/uL (150.0-450.0) 03/09/18 04:39 MPV 8.4 fL (7.4-11.0) 03/09/18 04:39 Neut % (Auto) 71.3 % (42.0-75.0) 03/09/18 04:39 Lymph % (Auto) 12.3 % (21.0-51.0) L 03/09/18 04:39 [place] % (Auto) 11.3 % (0.0-13.0) 03/09/18 04:39 Eos % (Auto) 4.7 % (0.9-2.9) H 03/09/18 04:39 Baso % (Auto) 0.4 % (0.2-1.0) 03/09/18 04:39 Neut # (Auto) 5.0 x10^3/uL (2.2-4.8) H 03/09/18 04:39 Lymph # (Auto) 0.9 X10^3/uL (1.3-2.9) L 03/09/18 04:39 [place] # (Auto) 0.8 x10^3/uL (0.3-0.8) 03/09/18 04:39 Eos # (Auto) 0.3 x10^3/uL (0.0-0.2) H 03/09/18 04:39 Baso # (Auto) 0.0 X10^3/uL (0.0-0.1) 03/09/18 04:39 Absolute Nucleated RBC 0.0 /100WBC 03/09/18 04:39 Sodium 134 mmol/L (136-145) L 03/09/18 04:39 Corrected Sodium 135 mmol/L (136-145) L 03/09/18 04:39 Potassium 3.6 mmol/L (3.5-5.1) 03/09/18 04:39 Chloride 103 mmol/L (98-107) 03/09/18 04:39 Carbon Dioxide 24.2 mmol/L (21-32) 03/09/18 04:39 BUN 20 mg/dL (7-18) H 03/09/18 04:39 Creatinine 1.45 mg/dL (0.55-1.02) H 03/09/18 04:39 Est GFR (MDRD) Af Amer 45 (>60) L 03/09/18 04:39 Est GFR (MDRD) Non-Af 37 (>60) L 03/09/18 04:39 Glucose 152 mg/dL (65-99) H 03/09/18 04:39 POC Glucose (mg/dL) 157 mg/dL (65-99) H 03/09/18 11:44 Lactic Acid 1.4 mmol/L (0.4-2.0) 03/07/18 16:47 Calcium 7.3 mg/dL (8.5-10.1) L 03/09/18 04:39 Corrected Calcium 9.1 mg/dL (8.5-10.1) 03/09/18 04:39 Magnesium 3.3 mg/dL (1.7-2.9) H 03/08/18 04:55 Iron 9 ug/dL (50-175) L 03/07/18 16:47 Transferrin 133 mg/dL (202-364) L 03/07/18 16:47 Ferritin 1604 ng/mL (8-252) H 03/07/18 16:47 Total Bilirubin 0.40 mg/dL (0.2-1.0) 03/09/18 04:39 AST 20 Units/L (15-37) 03/09/18 04:39 ALT 25 Units/L (12-78) 03/09/18 04:39 Alkaline Phosphatase 130 Units/L (46-116) H 03/09/18 04:39 C-Reactive Protein 235.40 mg/L (0-3.0) H 03/09/18 04:39 Total Protein 5.6 g/dL (6.4-8.2) L 03/09/18 04:39 Albumin 1.8 g/dL (3.4-5.0) L 03/09/18 04:39 Globulin 3.8 g/dL (2.5-4.5) 03/09/18 04:39 Albumin/Globulin Ratio 0.5 Ratio (1.1-2.1) L 03/09/18 04:39 Vitamin B12 730 pg/mL (193-986) 03/07/18 16:47 Folate > 20.0 ng/mL (>8.6) 03/07/18 16:47 Specimen Type Clean catch urine 03/07/18 21:39 Urine Color Yellow (YELLOW) 03/07/18 21:39 Urine Appearance Hazy (CLEAR) 03/07/18 21:39 Urine pH 6.0 (5.0 - 8.0) 03/07/18 21:39 Ur Specific [place] 1.010 (1.000-1.030) 03/07/18 21:39 Urine Protein 2+ (NEGATIVE) 03/07/18 21:39 Urine Glucose (UA) Negative (NEGATIVE) 03/07/18 21:39 Urine Ketones Negative (NEGATIVE) 03/07/18 21:39 Urine Occult Blood 3+ (NEGATIVE) 03/07/18 21:39 Urine Nitrite Negative (NEGATIVE) 03/07/18 21:39 Urine Bilirubin Negative (NEGATIVE) 03/07/18 21:39 Urine Urobilinogen Normal (NORMAL) 03/07/18 21:39 Ur Leukocyte Esterase 3+ (NEGATIVE) 03/07/18 21:39 Urine RBC 5-10 /HPF (NONE SEEN) 03/07/18 21:39 Urine WBC Tntc /HPF (NONE SEEN) 03/07/18 21:39 Ur Squamous Epith Cells Rare /HPF (NEGATIVE) 03/07/18 21:39 Ur Renal Epithelial Cell Rare /HPF (NEGATIVE) 03/07/18 21:39 Urine Bacteria Trace /HPF (NEGATIVE) 03/07/18 21:39 Ur Culture Indicated? Yes/culture set up 03/07/18 21:39 - Plan (1) Urinary tract infection Status: Acute Qualifiers: Urinary tract infection type: acute cystitis Hematuria presence: without hematuria Qualified Code(s): N30.00 - Acute cystitis without hematuria Plan: CONTINUE IV ATBX, PAIN CONTROL. GENTLE IV HYDRATION, CULTURES PENDING. IV ROCEPHIN AND CIPRO. FEVER CONTROL (2) Altered mental state Status: Resolved Qualifiers: Altered mental status type: disorientation Qualified Code(s): R41.0 - Disorientation, unspecified (3) Pyelonephritis Status: Acute Plan: SEE ABOVE (4) Dehydration Status: Acute (5) Diabetes Status: Acute (6) Hypertension Status: Acute
[2018-03-09] MEDS: CIPRO IV 400 MG PREMIX* 400 MG/200 ML IV.SOLN. IV SCH ×2 (15:39→21:15)
[2018-03-09] MEDS: COLACE CAP 100 MG PO SCH (21:22)
[2018-03-09] MEDS: SNACK - Diabetic Appropriate PO SCH (21:30)
[2018-03-10] MEDS: NS 1000 ML 1,000 ML IV SCH ×2 (00:01→15:15)
[2018-03-10] MEDS ORDERED: MAALOX or MYLANTA PO PRN (00:10)
[2018-03-10] MEDS: MORPHINE SULFATE INJ 2 MG INJ IVP PRN ×2 (03:16→09:28)
[2018-03-10 05:21] LABS: BASOPHILS % (AUTO) 0.4 % (0.2-1.0); EOSINOPHILS # (AUTO) 0.5 x10^3/uL (0.0-0.2); EOSINOPHILS % (AUTO) 5.1 % (0.9-2.9); HEMATOCRIT 26.9 % (36.0-47.0); HEMOGLOBIN 9.3 g/dL (12.0-16.0); LYMPHOCYTES # (AUTO) 1.2 X10^3/uL (1.3-2.9); LYMPHOCYTES % (AUTO) 13.1 % (21.0-51.0); MEAN CORPUSCULAR HEMOGLOBIN 30.5 pg (27.0-34.0); MEAN CORPUSCULAR HGB CONC 34.5 g/dL (33.0-35.0); MEAN CORPUSCULAR VOLUME 88.5 fL (80.0-100.0); MEAN PLATELET VOLUME 8.2 fL (7.4-11.0); MONOCYTES # (AUTO) 1.2 x10^3/uL (0.3-0.8); MONOCYTES % (AUTO) 13.4 % (0.0-13.0); PLATELET COUNT 170 X10^3/uL (150.0-450.0); RED BLOOD COUNT 3.04 X10^6/uL (3.5-5.4); RED CELL DISTRIBUTION WIDTH 14.7 % (11.6-16.5); WHITE BLOOD COUNT 8.8 X10^3/uL (3.6-10.0)
[2018-03-10 05:26] LABS: ALBUMIN 1.8 g/dL (3.4-5.0); CALCIUM 7.4 mg/dL (8.5-10.1); CARBON DIOXIDE 23.2 mmol/L (21-32); COR CA(FOR HYPOALB) 9.2 mg/dL (8.5-10.1); CREATININE 1.27 mg/dL (0.55-1.02); TOTAL PROTEIN 5.7 g/dL (6.4-8.2)
[2018-03-10] MEDS: CIPRO IV 400 MG PREMIX* 400 MG/200 ML IV.SOLN. IV SCH ×2 (09:27→20:43)
[2018-03-10] MEDS: PROTONIX INJ 40 MG VIAL IVP SCH (09:27)
[2018-03-10] MEDS: ROCEPHIN VIAL 1 GRAM IVP SCH (09:28)
[2018-03-10] MEDS: NORCO 5/325 MG TAB PO PRN ×2 (11:37→17:00)
[2018-03-10] MEDS: NORVASC TAB 5 MG PO SCH (14:05)
[2018-03-10] MEDS: LIPITOR TAB 20 MG PO SCH (14:05)
[2018-03-10] MEDS: SNACK - Diabetic Appropriate PO SCH (20:42)
[2018-03-10] MEDS: COLACE CAP 100 MG PO SCH (20:42)
[2018-03-11 02:05] LABS: BILIRUBIN,URINE NEGATIVE (NEGATIVE); BLOOD/HEMOGLOBIN,URINE 1+ (NEGATIVE); GLUCOSE, URINE NEGATIVE (NEGATIVE); KETONES,URINE NEGATIVE (NEGATIVE); LEUKOCYTE ESTERASE ,URINE 1+ (NEGATIVE); NITRITES,URINE NEGATIVE (NEGATIVE); PROTEIN,URINE 2+ (NEGATIVE); UROBILINOGEN,URINE NORMAL (NORMAL)
[2018-03-11 02:09] LABS: APPEARANCE,URINE CLEAR (CLEAR); COLOR,URINE YELLOW (YELLOW)
[2018-03-11 02:10] LABS: BACTERIA,URINE 1+ /HPF (NEGATIVE); SQUAMOUS EPITHELIAL CELL,UR FEW /HPF (NEGATIVE)
[2018-03-11] MEDS: NS 1000 ML 1,000 ML IV SCH ×3 (04:42→20:37)
[2018-03-11 05:29] LABS: BASOPHILS % (AUTO) 0.5 % (0.2-1.0); EOSINOPHILS # (AUTO) 0.4 x10^3/uL (0.0-0.2); EOSINOPHILS % (AUTO) 4.6 % (0.9-2.9); HEMATOCRIT 27.2 % (36.0-47.0); HEMOGLOBIN 9.4 g/dL (12.0-16.0); LYMPHOCYTES # (AUTO) 1.7 X10^3/uL (1.3-2.9); MEAN CORPUSCULAR HEMOGLOBIN 30.4 pg (27.0-34.0); MEAN CORPUSCULAR HGB CONC 34.5 g/dL (33.0-35.0); MEAN CORPUSCULAR VOLUME 88.1 fL (80.0-100.0); MEAN PLATELET VOLUME 7.8 fL (7.4-11.0); MONOCYTES # (AUTO) 1.3 x10^3/uL (0.3-0.8); MONOCYTES % (AUTO) 13.7 % (0.0-13.0); NEUTROPHILS # (AUTO) 5.8 x10^3/uL (2.2-4.8); NEUTROPHILS % (AUTO) 63.2 % (42.0-75.0); PLATELET COUNT 253 X10^3/uL (150.0-450.0); RED BLOOD COUNT 3.09 X10^6/uL (3.5-5.4); RED CELL DISTRIBUTION WIDTH 14.5 % (11.6-16.5); WHITE BLOOD COUNT 9.2 X10^3/uL (3.6-10.0)
[2018-03-11 05:51] LABS: ALBUMIN 1.8 g/dL (3.4-5.0); CALCIUM 7.5 mg/dL (8.5-10.1); CARBON DIOXIDE 26.1 mmol/L (21-32); COR CA(FOR HYPOALB) 9.3 mg/dL (8.5-10.1); CREATININE 1.22 mg/dL (0.55-1.02); TOTAL PROTEIN 5.9 g/dL (6.4-8.2)
[2018-03-11] MEDS: CIPRO IV 400 MG PREMIX* 400 MG/200 ML IV.SOLN. IV SCH ×2 (08:42→20:33)
[2018-03-11] MEDS: REQUIP PO SCH (08:42)
[2018-03-11] MEDS: NORVASC TAB 5 MG PO SCH (08:43)
[2018-03-11] MEDS: ROCEPHIN VIAL 1 GRAM IVP SCH (08:43)
[2018-03-11] MEDS: PROTONIX INJ 40 MG VIAL IVP SCH (08:43)
[2018-03-11] MEDS: PROzac PO SCH (08:43)
[2018-03-11] MEDS: SYNTHROID 75 mcg TAB PO SCH (08:43)
[2018-03-11] MEDS: LIPITOR TAB 20 MG PO SCH (08:43)
[2018-03-11] MEDS ORDERED: LEVSIN/MAALOX/LIDOC VISC PO PRN (11:07)
[2018-03-11] MEDS: LASIX PO SCH (12:31)
--- NOTE | 2018-03-11 14:47 | PCM.PROG ---
Progress Note - Progress Note for Day of Date of Exam: 03/10/18 - Subjective Subjective: 77 WF DIRECT ADMIT FOR UTI, DEHYDRATION, ACUTE PYELONEPHRITIS. PT CURRENTLY ON GENTLE IV HYDRATION, IV ROCEPHIN, BLOOD AND URINE CULTURES PENDING. PT CO LEFT FLANK PAIN, CT WITH BILATERAL PERNEPHRIC STRANDING. PT WBC IMPROVING 8.8 NA 135, BUN 14 CREAT 1.27. PT BLOOD CULTURES POSITIVE FOR ECOLI, CURRENTLY ON IV CIPRO AND ROCEPHIN. PT CONTINUES WITH GENERALIZED WEAKNESS, DISCUSSED PLAN FOR SWING BED REHAB WHEN MEDICALLY STABLE. STARTING CIPRO IV, PT CONTINUED WITH LOW GRADE FEVER AND CHILLS. AMYLASE AND LIPASE AND REPEAT CRP TODAY. PT CONTINUES WITH MILD NAUSEA. PT MORE AWAKE AND ALERT TODAY. FAMILY AT BEDSIDE, STATES SHE RESTED BETTER AFTER STARTING IV MORPHINE FOR PAIN RELIEF. - Past Medical Family Social History Past Med/Fam/Surg Hx: No changes since H&P Allergies: Allergies No Known Drug Allergies Allergy (Verified 09/01/17 04:24) - Review of Systems ROS: No change since H&P - Vital Signs and I&O's Vital Signs: Temperature 98.6 F Pulse Rate [Right Brachial] 74 Respiratory Rate 18 Blood Pressure [Left Arm] 159/77 Blood Pressure [Right Arm] 185/77 Blood Pressure 108/55 O2 Sat by Pulse Oximetry 94 Intake and Output: Intake & Output 03/09/18 03/10/18 03/11/18 03/12/18 11:59 11:59 11:59 11:59 Intake Total 3453 / 3453 1235 / 1235 2700 / 2700 Balance 3453 / 3453 1235 / 1235 2700 / 2700 - Physical Exam Oriented: Normal Eyes: Normal Ear: Normal Nose: Normal Respiratory: Normal Cardiovascular: Normal : Normal Auscultation: Bowel Sounds: Normal Tenderness: Moderate (RIGHT FLANK) Skin: Decreased Turgur Musculoskeletal: Back:Thoracic, Back:Lumbar Psychiatric: Normal Speech Pattern: Clear, Appropriate - Laboratory and Diagnostics Result Diagrams: 03/11/18 04:50 03/11/18 04:50 Labs: 03/07/18 16:54 Blood Blood Culture - Final Escherichia Coli 03/07/18 16:47 Blood Blood Culture - Final Escherichia Coli 03/07/18 21:39 Urine,Clean Catch Urine Culture - Final Laboratory WBC 9.2 X10^3/uL (3.6-10.0) 03/11/18 04:50 RBC 3.09 X10^6/uL (3.5-5.4) L 03/11/18 04:50 Hgb 9.4 g/dL (12.0-16.0) L 03/11/18 04:50 Hct 27.2 % (36.0-47.0) L 03/11/18 04:50 MCV 88.1 fL (80.0-100.0) 03/11/18 04:50 MCH 30.4 pg (27.0-34.0) 03/11/18 04:50 MCHC 34.5 g/dL (33.0-35.0) 03/11/18 04:50 RDW 14.5 % (11.6-16.5) 03/11/18 04:50 Plt Count 253 X10^3/uL (150.0-450.0) 03/11/18 04:50 MPV 7.8 fL (7.4-11.0) 03/11/18 04:50 Neut % (Auto) 63.2 % (42.0-75.0) 03/11/18 04:50 Lymph % (Auto) 18.0 % (21.0-51.0) L 03/11/18 04:50 [place] % (Auto) 13.7 % (0.0-13.0) H 03/11/18 04:50 Eos % (Auto) 4.6 % (0.9-2.9) H 03/11/18 04:50 Baso % (Auto) 0.5 % (0.2-1.0) 03/11/18 04:50 Neut # (Auto) 5.8 x10^3/uL (2.2-4.8) H 03/11/18 04:50 Lymph # (Auto) 1.7 X10^3/uL (1.3-2.9) 03/11/18 04:50 [place] # (Auto) 1.3 x10^3/uL (0.3-0.8) H 03/11/18 04:50 Eos # (Auto) 0.4 x10^3/uL (0.0-0.2) H 03/11/18 04:50 Baso # (Auto) 0.0 X10^3/uL (0.0-0.1) 03/11/18 04:50 Absolute Nucleated RBC 0.0 /100WBC 03/11/18 04:50 Sodium 138 mmol/L (136-145) 03/11/18 04:50 Corrected Sodium 139 mmol/L (136-145) 03/11/18 04:50 Potassium 4.0 mmol/L (3.5-5.1) 03/11/18 04:50 Chloride 105 mmol/L (98-107) 03/11/18 04:50 Carbon Dioxide 26.1 mmol/L (21-32) 03/11/18 04:50 BUN 10 mg/dL (7-18) 03/11/18 04:50 Creatinine 1.22 mg/dL (0.55-1.02) H 03/11/18 04:50 Est GFR (MDRD) Af Amer 55 (>60) L 03/11/18 04:50 Est GFR (MDRD) Non-Af 46 (>60) L 03/11/18 04:50 Glucose 130 mg/dL (65-99) H 03/11/18 04:50 POC Glucose (mg/dL) 129 mg/dL (65-99) H 03/09/18 21:19 Lactic Acid 1.4 mmol/L (0.4-2.0) 03/07/18 16:47 Calcium 7.5 mg/dL (8.5-10.1) L 03/11/18 04:50 Corrected Calcium 9.3 mg/dL (8.5-10.1) 03/11/18 04:50 Magnesium 3.3 mg/dL (1.7-2.9) H 03/08/18 04:55 Iron 9 ug/dL (50-175) L 03/07/18 16:47 Transferrin 133 mg/dL (202-364) L 03/07/18 16:47 Ferritin 1604 ng/mL (8-252) H 03/07/18 16:47 Total Bilirubin 0.30 mg/dL (0.2-1.0) 03/11/18 04:50 AST 20 Units/L (15-37) 03/11/18 04:50 ALT 23 Units/L (12-78) 03/11/18 04:50 Alkaline Phosphatase 171 Units/L (46-116) H 03/11/18 04:50 C-Reactive Protein 218.50 mg/L (0-3.0) H 03/09/18 15:36 Total Protein 5.9 g/dL (6.4-8.2) L 03/11/18 04:50 Albumin 1.8 g/dL (3.4-5.0) L 03/11/18 04:50 Globulin 4.1 g/dL (2.5-4.5) 03/11/18 04:50 Albumin/Globulin Ratio 0.4 Ratio (1.1-2.1) L 03/11/18 04:50 Amylase 33 Units/L (25-115) 03/09/18 15:36 Lipase 71 Units/L (73-393) L 03/09/18 15:36 Vitamin B12 730 pg/mL (193-986) 03/07/18 16:47 Folate > 20.0 ng/mL (>8.6) 03/07/18 16:47 Specimen Type Clean catch urine 03/11/18 01:36 Urine Color Yellow (YELLOW) 03/11/18 01:36 Urine Appearance Clear (CLEAR) 03/11/18 01:36 Urine pH 6.0 (5.0 - 8.0) 03/11/18 01:36 Ur Specific [place] 1.015 (1.000-1.030) 03/11/18 01:36 Urine Protein 2+ (NEGATIVE) 03/11/18 01:36 Urine Glucose (UA) Negative (NEGATIVE) 03/11/18 01:36 Urine Ketones Negative (NEGATIVE) 03/11/18 01:36 Urine Occult Blood 1+ (NEGATIVE) 03/11/18 01:36 Urine Nitrite Negative (NEGATIVE) 03/11/18 01:36 Urine Bilirubin Negative (NEGATIVE) 03/11/18 01:36 Urine Urobilinogen Normal (NORMAL) 03/11/18 01:36 Ur Leukocyte Esterase 1+ (NEGATIVE) 03/11/18 01:36 Urine RBC 5-10 /HPF (NONE SEEN) 03/11/18 01:36 Urine WBC 10-20 /HPF (NONE SEEN) 03/11/18 01:36 Ur Squamous Epith Cells Few /HPF (NEGATIVE) 03/11/18 01:36 Ur Renal Epithelial Cell Rare /HPF (NEGATIVE) 03/07/18 21:39 Urine Bacteria 1+ /HPF (NEGATIVE) 03/11/18 01:36 Ur Culture Indicated? Yes/culture set up 03/11/18 01:36 - Plan (1) Bacteremia, escherichia coli Status: Acute Plan: GENTLE IV HYDRATION, BC POSITIVE FOR ECOLI. IV ROCEPHIN AND CIPRO (2) Urinary tract infection Status: Acute Qualifiers: Urinary tract infection type: acute cystitis Hematuria presence: without hematuria Qualified Code(s): N30.00 - Acute cystitis without hematuria Plan: CONTINUE IV ATBX, PAIN CONTROL. GENTLE IV HYDRATION, BC POSITIVE FOR ECOLI. IV ROCEPHIN AND CIPRO. FEVER CONTROL (3) Altered mental state Status: Resolved Qualifiers: Altered mental status type: disorientation Qualified Code(s): R41.0 - Disorientation, unspecified (4) Pyelonephritis Status: Acute Plan: SEE ABOVE (5) Dehydration Status: Acute (6) Diabetes Status: Acute (7) Hypertension Status: Acute
--- NOTE | 2018-03-11 14:51 | PCM.PROG ---
Progress Note - Progress Note for Day of Date of Exam: 03/11/18 - Subjective Subjective: 77 WF DIRECT ADMIT FOR UTI, DEHYDRATION, ACUTE PYELONEPHRITIS. PT CURRENTLY ON GENTLE IV HYDRATION, IV ROCEPHIN AND IV CIPRO FOR TREAMENT OF ECOLI BACTEREMIA. PT CONTINUES TO CO GENERALIZED WEAKNESS. GRADUAL IMPROVEMENT IN RENAL FUNCTION. PT CO CHEST BURNING/ PRESSURE THIS AM, CO INDIGESTION AND BURPING. EKG, CXR ORDRED, RESTARTED HOME LASIX, GI COCKTAIL AND IV PROTONIX ORDERED. POOR IV ACCESS, CONSULTED DR JOHNSON FOR CENTRAL LINE PLACEMENT FOR IV ABTX THERAPY, DISCUSSED SWING BED FOR REHAB THERAPY AND IV ATBX TREATMENT. - Past Medical Family Social History Past Med/Fam/Surg Hx: No changes since H&P Allergies: Allergies No Known Drug Allergies Allergy (Verified 09/01/17 04:24) - Review of Systems ROS: No change since H&P - Vital Signs and I&O's Vital Signs: Temperature 98.6 F Pulse Rate [Right Brachial] 74 Respiratory Rate 18 Blood Pressure [Left Arm] 159/77 Blood Pressure [Right Arm] 185/77 Blood Pressure 108/55 O2 Sat by Pulse Oximetry 94 Intake and Output: Intake & Output 03/09/18 03/10/18 03/11/18 03/12/18 11:59 11:59 11:59 11:59 Intake Total 3453 / 3453 1235 / 1235 2700 / 2700 Balance 3453 / 3453 1235 / 1235 2700 / 2700 - Physical Exam Oriented: Normal Eyes: Normal Ear: Normal Nose: Normal Respiratory: Diminished Cardiovascular: Normal : Normal Auscultation: Bowel Sounds: Normal Tenderness: Moderate (RIGHT FLANK) Skin: Decreased Turgur Musculoskeletal: Back:Thoracic, Back:Lumbar Psychiatric: Normal Speech Pattern: Clear, Appropriate - Laboratory and Diagnostics Result Diagrams: 03/11/18 04:50 03/11/18 04:50 Labs: 03/07/18 16:54 Blood Blood Culture - Final Escherichia Coli 03/07/18 16:47 Blood Blood Culture - Final Escherichia Coli 03/07/18 21:39 Urine,Clean Catch Urine Culture - Final Laboratory WBC 9.2 X10^3/uL (3.6-10.0) 03/11/18 04:50 RBC 3.09 X10^6/uL (3.5-5.4) L 03/11/18 04:50 Hgb 9.4 g/dL (12.0-16.0) L 03/11/18 04:50 Hct 27.2 % (36.0-47.0) L 03/11/18 04:50 MCV 88.1 fL (80.0-100.0) 03/11/18 04:50 MCH 30.4 pg (27.0-34.0) 03/11/18 04:50 MCHC 34.5 g/dL (33.0-35.0) 03/11/18 04:50 RDW 14.5 % (11.6-16.5) 03/11/18 04:50 Plt Count 253 X10^3/uL (150.0-450.0) 03/11/18 04:50 MPV 7.8 fL (7.4-11.0) 03/11/18 04:50 Neut % (Auto) 63.2 % (42.0-75.0) 03/11/18 04:50 Lymph % (Auto) 18.0 % (21.0-51.0) L 03/11/18 04:50 [place] % (Auto) 13.7 % (0.0-13.0) H 03/11/18 04:50 Eos % (Auto) 4.6 % (0.9-2.9) H 03/11/18 04:50 Baso % (Auto) 0.5 % (0.2-1.0) 03/11/18 04:50 Neut # (Auto) 5.8 x10^3/uL (2.2-4.8) H 03/11/18 04:50 Lymph # (Auto) 1.7 X10^3/uL (1.3-2.9) 03/11/18 04:50 [place] # (Auto) 1.3 x10^3/uL (0.3-0.8) H 03/11/18 04:50 Eos # (Auto) 0.4 x10^3/uL (0.0-0.2) H 03/11/18 04:50 Baso # (Auto) 0.0 X10^3/uL (0.0-0.1) 03/11/18 04:50 Absolute Nucleated RBC 0.0 /100WBC 03/11/18 04:50 Sodium 138 mmol/L (136-145) 03/11/18 04:50 Corrected Sodium 139 mmol/L (136-145) 03/11/18 04:50 Potassium 4.0 mmol/L (3.5-5.1) 03/11/18 04:50 Chloride 105 mmol/L (98-107) 03/11/18 04:50 Carbon Dioxide 26.1 mmol/L (21-32) 03/11/18 04:50 BUN 10 mg/dL (7-18) 03/11/18 04:50 Creatinine 1.22 mg/dL (0.55-1.02) H 03/11/18 04:50 Est GFR (MDRD) Af Amer 55 (>60) L 03/11/18 04:50 Est GFR (MDRD) Non-Af 46 (>60) L 03/11/18 04:50 Glucose 130 mg/dL (65-99) H 03/11/18 04:50 POC Glucose (mg/dL) 129 mg/dL (65-99) H 03/09/18 21:19 Lactic Acid 1.4 mmol/L (0.4-2.0) 03/07/18 16:47 Calcium 7.5 mg/dL (8.5-10.1) L 03/11/18 04:50 Corrected Calcium 9.3 mg/dL (8.5-10.1) 03/11/18 04:50 Magnesium 3.3 mg/dL (1.7-2.9) H 03/08/18 04:55 Iron 9 ug/dL (50-175) L 03/07/18 16:47 Transferrin 133 mg/dL (202-364) L 03/07/18 16:47 Ferritin 1604 ng/mL (8-252) H 03/07/18 16:47 Total Bilirubin 0.30 mg/dL (0.2-1.0) 03/11/18 04:50 AST 20 Units/L (15-37) 03/11/18 04:50 ALT 23 Units/L (12-78) 03/11/18 04:50 Alkaline Phosphatase 171 Units/L (46-116) H 03/11/18 04:50 C-Reactive Protein 218.50 mg/L (0-3.0) H 03/09/18 15:36 Total Protein 5.9 g/dL (6.4-8.2) L 03/11/18 04:50 Albumin 1.8 g/dL (3.4-5.0) L 03/11/18 04:50 Globulin 4.1 g/dL (2.5-4.5) 03/11/18 04:50 Albumin/Globulin Ratio 0.4 Ratio (1.1-2.1) L 03/11/18 04:50 Amylase 33 Units/L (25-115) 03/09/18 15:36 Lipase 71 Units/L (73-393) L 03/09/18 15:36 Vitamin B12 730 pg/mL (193-986) 03/07/18 16:47 Folate > 20.0 ng/mL (>8.6) 03/07/18 16:47 Specimen Type Clean catch urine 03/11/18 01:36 Urine Color Yellow (YELLOW) 03/11/18 01:36 Urine Appearance Clear (CLEAR) 03/11/18 01:36 Urine pH 6.0 (5.0 - 8.0) 03/11/18 01:36 Ur Specific [place] 1.015 (1.000-1.030) 03/11/18 01:36 Urine Protein 2+ (NEGATIVE) 03/11/18 01:36 Urine Glucose (UA) Negative (NEGATIVE) 03/11/18 01:36 Urine Ketones Negative (NEGATIVE) 03/11/18 01:36 Urine Occult Blood 1+ (NEGATIVE) 03/11/18 01:36 Urine Nitrite Negative (NEGATIVE) 03/11/18 01:36 Urine Bilirubin Negative (NEGATIVE) 03/11/18 01:36 Urine Urobilinogen Normal (NORMAL) 03/11/18 01:36 Ur Leukocyte Esterase 1+ (NEGATIVE) 03/11/18 01:36 Urine RBC 5-10 /HPF (NONE SEEN) 03/11/18 01:36 Urine WBC 10-20 /HPF (NONE SEEN) 03/11/18 01:36 Ur Squamous Epith Cells Few /HPF (NEGATIVE) 03/11/18 01:36 Ur Renal Epithelial Cell Rare /HPF (NEGATIVE) 03/07/18 21:39 Urine Bacteria 1+ /HPF (NEGATIVE) 03/11/18 01:36 Ur Culture Indicated? Yes/culture set up 03/11/18 01:36 - Plan (1) Bacteremia, escherichia coli Status: Acute Plan: GENTLE IV HYDRATION, BC POSITIVE FOR ECOLI. IV ROCEPHIN AND CIPRO (2) Urinary tract infection Status: Acute Qualifiers: Urinary tract infection type: acute cystitis Hematuria presence: without hematuria Qualified Code(s): N30.00 - Acute cystitis without hematuria Plan: CONTINUE IV ATBX, PAIN CONTROL. GENTLE IV HYDRATION, BC POSITIVE FOR ECOLI. IV ROCEPHIN AND CIPRO. FEVER CONTROL (3) Altered mental state Status: Resolved Qualifiers: Altered mental status type: disorientation Qualified Code(s): R41.0 - Disorientation, unspecified (4) Pyelonephritis Status: Acute Plan: SEE ABOVE (5) Dehydration Status: Acute (6) Diabetes Status: Acute (7) Hypertension Status: Acute (8) Indigestion Status: Acute Plan: CXR, GI COCKTAIL. IV PROTONIX
[2018-03-11] MEDS ORDERED: XYLOCAINE 2 % (PLAIN) ONE (14:57)
[2018-03-11] MEDS ORDERED: XYLOCAINE 1 % (PLAIN) ONE (14:58)
[2018-03-11] MEDS: COLACE CAP 100 MG PO SCH (20:32)
[2018-03-11] MEDS: NORCO 5/325 MG TAB PO PRN ×2 (20:40)
[2018-03-11] MEDS: HumuLIN R SUBCUT PRN (21:41)
[2018-03-11] MEDS: SNACK - Diabetic Appropriate PO SCH (21:42)
--- NOTE | 2018-03-11 22:29 | RAD ---
HISTORY: Central line placement. Study: Portable chest. Comparison: Chest x-ray dated same day at 11:26 a.m. Findings: Interval placement of a right subclavian central venous catheter whose tip overlies the expected area of the cavoatrial junction. The trachea is midline. The cardiac silhouette is stably enlarged witho ut overt signs of failure. Bibasilar atelectasis versus early infiltrate. No obvious focal consolidat ion, pleural effusion, or pneumothorax. The bony thorax is unremarkable. IMPRESSION: 1. Right subclavian line that appears to be in good position. 2. Bibasilar atelectasis versus early infiltrate. Reported By:
[2018-03-12] MEDS: MORPHINE SULFATE INJ 2 MG INJ IVP PRN ×2 (01:26→20:05)
[2018-03-12 05:22] LABS: ALANINE AMINOTRANSFERASE 23 Units/L (12-78); ALKALINE PHOSPHATASE 150 Units/L (46-116); ASPARTATE AMINO TRANSFERASE 24 Units/L (15-37); BLOOD UREA NITROGEN 7 mg/dL (7-18); CARBON DIOXIDE 26.2 mmol/L (21-32); CHLORIDE 106 mmol/L (98-107); COR CA(FOR HYPOALB) 9.6 mg/dL (8.5-10.1); COR NA(FOR HYPERGLY) 140 mmol/L (136-145); CREATININE 1.09 mg/dL (0.55-1.02); SODIUM 140 mmol/L (136-145); TOTAL PROTEIN 5.9 g/dL (6.4-8.2); eGFR NON BLACK RACES 52 (>60)
[2018-03-12 05:30] LABS: BASOPHILS % (AUTO) 0.3 % (0.2-1.0); EOSINOPHILS # (AUTO) 0.5 x10^3/uL (0.0-0.2); EOSINOPHILS % (AUTO) 5.6 % (0.9-2.9); HEMATOCRIT 26.4 % (36.0-47.0); HEMOGLOBIN 9.2 g/dL (12.0-16.0); LYMPHOCYTES % (AUTO) 20.8 % (21.0-51.0); MEAN CORPUSCULAR HEMOGLOBIN 30.6 pg (27.0-34.0); MEAN CORPUSCULAR HGB CONC 34.9 g/dL (33.0-35.0); MEAN CORPUSCULAR VOLUME 87.7 fL (80.0-100.0); MEAN PLATELET VOLUME 7.5 fL (7.4-11.0); MONOCYTES # (AUTO) 1.2 x10^3/uL (0.3-0.8); MONOCYTES % (AUTO) 12.2 % (0.0-13.0); NEUTROPHILS % (AUTO) 61.1 % (42.0-75.0); PLATELET COUNT 310 X10^3/uL (150.0-450.0); RED BLOOD COUNT 3.01 X10^6/uL (3.5-5.4); RED CELL DISTRIBUTION WIDTH 14.8 % (11.6-16.5); WHITE BLOOD COUNT 9.8 X10^3/uL (3.6-10.0)
[2018-03-12] MEDS: K-DUR TAB 20 MEQ PO PRN (06:03)
[2018-03-12] MEDS: NORCO 5/325 MG TAB PO PRN ×2 (06:11→16:45)
[2018-03-12] MEDS: NORVASC TAB 5 MG PO SCH (08:26)
[2018-03-12] MEDS: LIPITOR TAB 20 MG PO SCH (08:26)
[2018-03-12] MEDS: SYNTHROID 75 mcg TAB PO SCH (08:26)
[2018-03-12] MEDS: REQUIP PO SCH (08:26)
[2018-03-12] MEDS: LASIX PO SCH (08:26)
[2018-03-12] MEDS: PROzac PO SCH (08:27)
[2018-03-12] MEDS: PROTONIX INJ 40 MG VIAL IVP SCH (08:27)
[2018-03-12] MEDS: CIPRO IV 400 MG PREMIX* 400 MG/200 ML IV.SOLN. IV SCH ×2 (08:27→20:06)
[2018-03-12] MEDS: ROCEPHIN VIAL 1 GRAM IVP SCH (08:27)
[2018-03-12] MEDS: MAGNESIUM SULFATE 1 GRAM/100 mL PREMIX 1 GM/100 ML BAG IV PRN ×4 (08:28→15:04)
[2018-03-12] MEDS: NS 1000 ML 1,000 ML IV SCH ×2 (10:50→20:07)
[2018-03-12] MEDS: HumuLIN R SUBCUT PRN ×2 (11:31→16:52)
[2018-03-12] MEDS ORDERED: ROBITUSSIN DM PO PRN (11:43)
[2018-03-12 12:21] LABS: CREATINE KINASE 74 Units/L (26-192); CREATINE KINASE MB 1.5 ng/mL (0-4.0); TROPONIN I < 0.02 ng/mL (0-1.5)
[2018-03-12 12:27] LABS: ABG BASE EXCESS 1.5 mmol/L (-2.0-2.0); ABG HCO3 24.6 mmol/L (22-26); FRACTIONATED INSPIRED OXYGEN 21
[2018-03-12 12:28] LABS: ABG ALLEN TEST pos
[2018-03-12] MEDS: DUONEB 0.5 MG/3 MG NEB SCH ×3 (12:35→21:43)
[2018-03-12] MEDS: COLACE CAP 100 MG PO SCH (20:06)
[2018-03-12] MEDS: SNACK - Diabetic Appropriate PO SCH (20:30)
[2018-03-13] MEDS: DUONEB 0.5 MG/3 MG NEB SCH ×7 (01:30→20:18)
[2018-03-13 05:31] LABS: BASOPHILS # (AUTO) 0.1 X10^3/uL (0.0-0.1); BASOPHILS % (AUTO) 0.6 % (0.2-1.0); EOSINOPHILS # (AUTO) 0.2 x10^3/uL (0.0-0.2); EOSINOPHILS % (AUTO) 1.9 % (0.9-2.9); HEMATOCRIT 25.4 % (36.0-47.0); HEMOGLOBIN 8.6 g/dL (12.0-16.0); LYMPHOCYTES # (AUTO) 1.6 X10^3/uL (1.3-2.9); MEAN CORPUSCULAR HEMOGLOBIN 29.7 pg (27.0-34.0); MEAN CORPUSCULAR HGB CONC 33.7 g/dL (33.0-35.0); MEAN CORPUSCULAR VOLUME 88.3 fL (80.0-100.0); MEAN PLATELET VOLUME 7.5 fL (7.4-11.0); MONOCYTES # (AUTO) 0.8 x10^3/uL (0.3-0.8); NEUTROPHILS # (AUTO) 8.8 x10^3/uL (2.2-4.8); NEUTROPHILS % (AUTO) 76.5 % (42.0-75.0); PLATELET COUNT 368 X10^3/uL (150.0-450.0); RED BLOOD COUNT 2.88 X10^6/uL (3.5-5.4); RED CELL DISTRIBUTION WIDTH 14.5 % (11.6-16.5); WHITE BLOOD COUNT 11.5 X10^3/uL (3.6-10.0)
[2018-03-13 05:44] LABS: ALANINE AMINOTRANSFERASE 24 Units/L (12-78); ALBUMIN 2.1 g/dL (3.4-5.0); ALKALINE PHOSPHATASE 136 Units/L (46-116); ASPARTATE AMINO TRANSFERASE 22 Units/L (15-37); BLOOD UREA NITROGEN 4 mg/dL (7-18); CALCIUM 7.7 mg/dL (8.5-10.1); CARBON DIOXIDE 24.7 mmol/L (21-32); CHLORIDE 104 mmol/L (98-107); COR CA(FOR HYPOALB) 9.2 mg/dL (8.5-10.1); COR NA(FOR HYPERGLY) 139 mmol/L (136-145); CREATININE 1.08 mg/dL (0.55-1.02); MAGNESIUM 1.8 mg/dL (1.7-2.9); SODIUM 138 mmol/L (136-145); TOTAL PROTEIN 6.1 g/dL (6.4-8.2); eGFR NON BLACK RACES 53 (>60)
[2018-03-13] MEDS: NS 1000 ML 1,000 ML IV SCH ×2 (05:57→22:19)
[2018-03-13] MEDS: KLOR-CON PO PRN (06:13)
[2018-03-13] MEDS: MAGNESIUM SULFATE 1 GRAM/100 mL PREMIX 1 GM/100 ML BAG IV PRN (06:14)
[2018-03-13] MEDS: ROCEPHIN VIAL 1 GRAM IVP SCH (08:45)
[2018-03-13] MEDS: CIPRO IV 400 MG PREMIX* 400 MG/200 ML IV.SOLN. IV SCH ×2 (08:45→20:02)
[2018-03-13] MEDS: REQUIP PO SCH (08:45)
[2018-03-13] MEDS: LIPITOR TAB 20 MG PO SCH (08:45)
[2018-03-13] MEDS: PROTONIX INJ 40 MG VIAL IVP SCH (08:45)
[2018-03-13] MEDS: LASIX PO SCH (08:46)
[2018-03-13] MEDS: NORVASC TAB 5 MG PO SCH (08:46)
[2018-03-13] MEDS: PROzac PO SCH (08:46)
[2018-03-13] MEDS ORDERED: VISTARIL PO PRN (11:12)
[2018-03-13] MEDS ORDERED: NS 100 ML IV 100 ML IV ONE (11:15)
[2018-03-13] MEDS: SYNTHROID 75 mcg TAB PO SCH (11:15)
[2018-03-13] MEDS ORDERED: TUMS PO PRN (18:01)
[2018-03-13] MEDS ORDERED: RESTORIL CAP 15 MG PO PRN (19:22)
[2018-03-13] MEDS: SNACK - Diabetic Appropriate PO SCH (20:00)
[2018-03-13] MEDS: COLACE CAP 100 MG PO SCH (20:02)
[2018-03-13] MEDS: NORCO 5/325 MG TAB PO PRN (20:03)
[2018-03-13] MEDS: MEGACE PO SCH (22:37)
[2018-03-13] MEDS: NYSTATIN SUSP PO SCH (22:37)
[2018-03-14] MEDS: DUONEB 0.5 MG/3 MG NEB SCH (00:29)
[2018-03-14] MEDS: MORPHINE SULFATE INJ 2 MG INJ IVP PRN (02:08)
[2018-03-14] MEDS ORDERED: CARDIZEM INJ 125 MG VIAL 125 MG in NS 100 ML IV 100 ML IV PRN (04:23)
[2018-03-14] MEDS ORDERED: NS 100 ML IV 100 ML IV ONE (04:43)
[2018-03-14] MEDS ORDERED: CARDIZEM INJ 125 MG VIAL ONE (04:43)
[2018-03-14] MEDS ORDERED: CARDIZEM INJ 50 MG VIAL ONE (04:55)
[2018-03-14 05:23] LABS: BASOPHILS % (AUTO) 0.4 % (0.2-1.0); EOSINOPHILS # (AUTO) 0.4 x10^3/uL (0.0-0.2); EOSINOPHILS % (AUTO) 3.7 % (0.9-2.9); HEMOGLOBIN 8.5 g/dL (12.0-16.0); LYMPHOCYTES # (AUTO) 2.3 X10^3/uL (1.3-2.9); LYMPHOCYTES % (AUTO) 21.1 % (21.0-51.0); MEAN CORPUSCULAR HGB CONC 34.1 g/dL (33.0-35.0); MEAN PLATELET VOLUME 7.4 fL (7.4-11.0); MONOCYTES # (AUTO) 0.7 x10^3/uL (0.3-0.8); MONOCYTES % (AUTO) 6.7 % (0.0-13.0); NEUTROPHILS # (AUTO) 7.5 x10^3/uL (2.2-4.8); NEUTROPHILS % (AUTO) 68.1 % (42.0-75.0); PLATELET COUNT 424 X10^3/uL (150.0-450.0); RED BLOOD COUNT 2.84 X10^6/uL (3.5-5.4); RED CELL DISTRIBUTION WIDTH 14.6 % (11.6-16.5)
[2018-03-14 05:36] LABS: CKMB % 1.8 % (<4); CREATINE KINASE 99 Units/L (26-192); CREATINE KINASE MB 1.8 ng/mL (0-4.0); TROPONIN I < 0.02 ng/mL (0-1.5)
[2018-03-14 05:39] LABS: ALBUMIN 2.3 g/dL (3.4-5.0); CARBON DIOXIDE 28.3 mmol/L (21-32); COR CA(FOR HYPOALB) 9.4 mg/dL (8.5-10.1); CREATININE 1.18 mg/dL (0.55-1.02); TOTAL PROTEIN 6.5 g/dL (6.4-8.2)
[2018-03-14] MEDS: KLOR-CON PO PRN (06:56)
[2018-03-14] MEDS: XOPENEX 1.25 MG/3 ML NEBULE NEB SCH ×2 (08:20→12:04)
[2018-03-14] MEDS: CIPRO IV 400 MG PREMIX* 400 MG/200 ML IV.SOLN. IV SCH (08:24)
[2018-03-14] MEDS: PROTONIX INJ 40 MG VIAL IVP SCH (08:24)
[2018-03-14] MEDS: NYSTATIN SUSP PO SCH (08:32)
[2018-03-14] MEDS: LIPITOR TAB 20 MG PO SCH (08:33)
[2018-03-14] MEDS: LASIX PO SCH (08:33)
[2018-03-14] MEDS: NORVASC TAB 5 MG PO SCH (08:33)
[2018-03-14] MEDS: MEGACE PO SCH (08:33)
[2018-03-14] MEDS: PROzac PO SCH (08:33)
[2018-03-14] MEDS: SYNTHROID 75 mcg TAB PO SCH (08:34)
[2018-03-14] MEDS ORDERED: XOPENEX 1.25 MG/3 ML NEBULE NEB SCH (09:00)
[2018-03-14 09:01] LABS: CKMB % 2.1 % (<4); CREATINE KINASE MB 1.9 ng/mL (0-4.0); TROPONIN I 0.05 ng/mL (0-1.5)
[2018-03-14] MEDS: REQUIP PO SCH (09:05)
[2018-03-14] MEDS ORDERED: HEPARIN SODIUM IN D5W 25,000 UNITS/500 ML BAG IV PRN (09:36)
[2018-03-14] MEDS ORDERED: LASIX IVP SCH (10:00)
[2018-03-14] MEDS ORDERED: HEMOCYTE-PLUS PO ONE (11:19)
[2018-03-14] MEDS: HumuLIN R SUBCUT PRN (11:32)
[2018-03-14 11:34] LABS: BILIRUBIN,URINE NEGATIVE (NEGATIVE); BLOOD/HEMOGLOBIN,URINE NEGATIVE (NEGATIVE); GLUCOSE, URINE NEGATIVE (NEGATIVE); KETONES,URINE NEGATIVE (NEGATIVE); LEUKOCYTE ESTERASE ,URINE 1+ (NEGATIVE); NITRITES,URINE NEGATIVE (NEGATIVE); PH,URINE 6.5 (5.0 - 8.0); PROTEIN,URINE NEGATIVE (NEGATIVE); UROBILINOGEN,URINE NORMAL (NORMAL)
[2018-03-14] MEDS ORDERED: HEPARIN SODIUM INJ 5000 UNITS IVP ONE (11:39)
[2018-03-14 11:44] LABS: APPEARANCE,URINE CLEAR (CLEAR); COLOR,URINE YELLOW (YELLOW)
[2018-03-14 11:45] LABS: BACTERIA,URINE TRACE /HPF (NEGATIVE); RBC,URINE 0-2 /HPF (NONE SEEN); RENAL EPITHELIAL CELLS,URINE RARE /HPF (NEGATIVE); SQUAMOUS EPITHELIAL CELL,UR FEW /HPF (NEGATIVE)
[2018-03-14 12:39] VITALS: BP 143/73
[2018-03-14 13:03] LABS: CKMB % 1.7 % (<4); CREATINE KINASE MB 1.6 ng/mL (0-4.0); TROPONIN I 0.03 ng/mL (0-1.5)
== END 2018-03-14 12:55 | disposition short-term general hospital (02) | DRG 689 ==
LOC: ICU → MED/SURG 15:41 → ICU 03-14 04:19
PROVIDERS: ADMIT Internal Medicine; ATTEND Internal Medicine
DX: I10 Essential (primary) hypertension; N10 Acute pyelonephritis; A41.51 Sepsis due to Escherichia coli [E. coli]; R10.84 Generalized abdominal pain; E78.2 Mixed hyperlipidemia; N28.89 Other specified disorders of kidney and ureter; I87.2 Venous insufficiency (chronic) (peripheral); E87.6 Hypokalemia; E86.0 Dehydration; J90 Pleural effusion, not elsewhere classified; E11.65 Type 2 diabetes mellitus with hyperglycemia; N30.00 Acute cystitis without hematuria; I25.10 Atherosclerotic heart disease of native coronary artery without angina pectoris; R06.02 Shortness of breath; D50.8 Other iron deficiency anemias; I48.91 Unspecified atrial fibrillation; K21.9 Gastro-esophageal reflux disease without esophagitis; R41.0 Disorientation, unspecified; R79.82 Elevated C-reactive protein (CRP); F41.8 Other specified anxiety disorders; E03.8 Other specified hypothyroidism; K30 Functional dyspepsia; R53.1 Weakness
CPT/HCPCS: 36415; 36556; 36600; 71010; 71045; 71275; 72072; 72110; 74176; 80053; 81001; 82150; 82550; 82553; 82607; 82728; 82746; 82803; 83540; 83605; 83690; 83735; 84132; 84466; 84484; 85025; 85610; 85730; 86140; 87040; 87070; 87077; 87086; 87186; 87205; 93005; 93010; 93306; 94640; 94760; 99231; A4222; C9113; S0179; G0378; J0696; J0744; J1644; J1815; J1940; J2270; J2765; J3475; J3490; J7030; J7050; J7620

== ENCOUNTER 2018-03-21 19:05 | Observation (INO) ==
--- NOTE | 2018-03-21 19:25 | DR.CP ---
HPI Time Seen Time Seen by Provider: 03/21/18 19:15 Complaint Chief Complaint Doctor Comments: Patient presents with complaint of dyspnea for a couple hours. She cardiac stents (2) days ago.. She denies chest pain. Just admits to dyspnea. PMH PMH Past Medical History: Anxiety, Arthritis, Coronary Artery Disease, Diabetes, Dyslipidemia, GERD, Hypertension and Hypothyroidism Surgical History: , Cholecystectomy and Hysterectomy Family History Family Medical History: Diabetes Mellitus, Coronary Artery Disease and Heart Failure Social History Do you use any recreational Drugs:: No PE Vitals Vitals: Temperature 97.9 F Pulse Rate [Apical] 65 Pulse Rate 58 Respiratory Rate 20 Blood Pressure [Left Arm] 144/63 Blood Pressure [Right Arm] 145/68 Blood Pressure 147/67 O2 Sat by Pulse Oximetry 100 General General Appearance: Alert and In No Apparent Distress Head Head Exam: Normal Inspection, Atraumatic and Normocephalic Eyes Eye exam: Normal Appearance, PERRL and EOMI ENT ENT Exam: Normal Exam, Normal Oropharynx and Normal External Ear Exam Chest Chest Inspection: Normal Inspection and Symmetric Chest Wall Rise Respiratory Respiratory Exam: Normal Lung Sounds Bilat Respiratory Exam: Bilateral: Clear to Auscultation Cardiovascular Cardiovascular Exam: Regular Rate, Normal Rhythm and Normal Heart Sounds Pulse: Normal and Radial Edema: Normal Abdominal Exam Abdominal Exam: Normal Inspection, Normal Bowel Sounds and Soft Back Back Exam: Normal Inspection and Full ROM Neurologic Neurological Exam: Alert, Oriented X3 and CN II-XII Intact Psychiatric Psychiatric Exam: Normal Affect and Normal Mood Skin Skin Exam: Warm, Dry and Intact COURSE Treatment Treatment: BMP, Chest CTA, elevated D Dimer Consultation Called: 10:10 Consultation Comments: Dr. Rodriguez agreed to admit for further evaluation and treatment ROR Labs Reviewed Laboratory Results Reviewed?: Yes Result Diagrams: 03/21/18 19:40 03/21/18 19:40 Laboratory: WBC 8.4 X10^3/uL (3.6-10.0) 03/21/18 19:40 RBC 3.36 X10^6/uL (3.5-5.4) L 03/21/18 19:40 Hgb 10.0 g/dL (12.0-16.0) L 03/21/18 19:40 Hct 29.4 % (36.0-47.0) L 03/21/18 19:40 MCV 87.7 fL (80.0-100.0) 03/21/18 19:40 MCH 29.7 pg (27.0-34.0) 03/21/18 19:40 MCHC 33.8 g/dL (33.0-35.0) 03/21/18 19:40 RDW 14.2 % (11.6-16.5) 03/21/18 19:40 Plt Count 593 X10^3/uL (150.0-450.0) H 03/21/18 19:40 MPV 7.4 fL (7.4-11.0) 03/21/18 19:40 Neut % (Auto) 54.5 % (42.0-75.0) 03/21/18 19:40 Lymph % (Auto) 29.2 % (21.0-51.0) 03/21/18 19:40 [place] % (Auto) 9.9 % (0.0-13.0) 03/21/18 19:40 Eos % (Auto) 5.5 % (0.9-2.9) H 03/21/18 19:40 Baso % (Auto) 0.9 % (0.2-1.0) 03/21/18 19:40 Neut # (Auto) 4.6 x10^3/uL (2.2-4.8) 03/21/18 19:40 Lymph # (Auto) 2.5 X10^3/uL (1.3-2.9) 03/21/18 19:40 [place] # (Auto) 0.8 x10^3/uL (0.3-0.8) 03/21/18 19:40 Eos # (Auto) 0.5 x10^3/uL (0.0-0.2) H 03/21/18 19:40 Baso # (Auto) 0.1 X10^3/uL (0.0-0.1) 03/21/18 19:40 Absolute Nucleated RBC 0.0 /100WBC 03/21/18 19:40 D-Dimer 976 ng/mL (0-400) H* 03/21/18 19:40 Sodium 132 mmol/L (136-145) L 03/21/18 19:40 Corrected Sodium 133 mmol/L (136-145) L 11/05/18 19:40 Potassium 4.1 mmol/L (3.5-5.1) 03/21/18 19:40 Chloride 99 mmol/L (98-107) 03/21/18 19:40 Carbon Dioxide 20.9 mmol/L (21-32) L 03/21/18 19:40 BUN 29 mg/dL (7-18) H 03/21/18 19:40 Creatinine 2.02 mg/dL (0.55-1.02) H 03/21/18 19:40 Est GFR (MDRD) Af Amer 31 (>60) L 03/21/18 19:40 Est GFR (MDRD) Non-Af 26 (>60) L 03/21/18 19:40 Glucose 136 mg/dL (65-99) H 03/21/18 19:40 Calcium 8.6 mg/dL (8.5-10.1) 03/21/18 19:40 Corrected Calcium 9.4 mg/dL (8.5-10.1) 03/21/18 19:40 Total Bilirubin 0.30 mg/dL (0.2-1.0) 03/21/18 19:40 AST 23 Units/L (15-37) 03/21/18 19:40 ALT 27 Units/L (12-78) 03/21/18 19:40 Alkaline Phosphatase 125 Units/L (46-116) H 03/21/18 19:40 Creatine Kinase 64 Units/L (26-192) 03/21/18 19:40 CK-MB (CK-2) 1.0 ng/mL (0-4.0) 03/21/18 19:40 CK/CKMB % Calc 1.6 % (<4) 03/21/18 19:40 Troponin I < 0.02 ng/mL (0-1.5) 03/21/18 19:40 B-Natriuretic Peptide 54.7 pg/mL (0-79) 03/21/18 19:40 Total Protein 7.7 g/dL (6.4-8.2) 03/21/18 19:40 Albumin 3.0 g/dL (3.4-5.0) L 03/21/18 19:40 Globulin 4.7 g/dL (2.5-4.5) H 03/21/18 19:40 Albumin/Globulin Ratio 0.6 Ratio (1.1-2.1) L 03/21/18 19:40 Other Results Comments: Chest: Stable mild left ventricular enlargement. No pulmonary abnormality Diagnosis Discharge Problem: Elevated d-dimer, Acute hyponatremia, Thrombocytosis, Acute prerenal azotemia
[2018-03-21 19:33] VITALS: BMI 23.0
[2018-03-21 20:17] LABS: B-TYPE NATRIURETIC PEPTIDE 54.7 pg/mL (0-79)
--- NOTE | 2018-03-21 20:23 | RAD ---
Indication: Pain Exam: Portable chest Comparison: 09/02/2017 Findings: The left ventricle is borderline enlarged but unchanged. The pulmonary vessels are normal. There is overlying EKG lead artifact. No consolidation or effusion is seen . The bones are intact. Impression: Stable mild left ventricular enlargement. Overlying EKG lead artifact with no acute pulmonary abnormality. Reported By:
[2018-03-21 20:59] LABS: BASOPHILS # (AUTO) 0.1 X10^3/uL (0.0-0.1); BASOPHILS % (AUTO) 0.9 % (0.2-1.0); EOSINOPHILS # (AUTO) 0.5 x10^3/uL (0.0-0.2); EOSINOPHILS % (AUTO) 5.5 % (0.9-2.9); HEMATOCRIT 29.4 % (36.0-47.0); LYMPHOCYTES # (AUTO) 2.5 X10^3/uL (1.3-2.9); LYMPHOCYTES % (AUTO) 29.2 % (21.0-51.0); MEAN CORPUSCULAR HEMOGLOBIN 29.7 pg (27.0-34.0); MEAN CORPUSCULAR HGB CONC 33.8 g/dL (33.0-35.0); MEAN CORPUSCULAR VOLUME 87.7 fL (80.0-100.0); MEAN PLATELET VOLUME 7.4 fL (7.4-11.0); MONOCYTES # (AUTO) 0.8 x10^3/uL (0.3-0.8); MONOCYTES % (AUTO) 9.9 % (0.0-13.0); NEUTROPHILS # (AUTO) 4.6 x10^3/uL (2.2-4.8); NEUTROPHILS % (AUTO) 54.5 % (42.0-75.0); PLATELET COUNT 593 X10^3/uL (150.0-450.0); RED BLOOD COUNT 3.36 X10^6/uL (3.5-5.4); RED CELL DISTRIBUTION WIDTH 14.2 % (11.6-16.5); WHITE BLOOD COUNT 8.4 X10^3/uL (3.6-10.0)
[2018-03-21 21:06] LABS: CALCIUM 8.6 mg/dL (8.5-10.1); CARBON DIOXIDE 20.9 mmol/L (21-32); COR CA(FOR HYPOALB) 9.4 mg/dL (8.5-10.1); CREATININE 2.02 mg/dL (0.55-1.02); TOTAL PROTEIN 7.7 g/dL (6.4-8.2)
[2018-03-21 21:51] LABS: CKMB % 1.6 % (<4); CREATINE KINASE 64 Units/L (26-192); TROPONIN I < 0.02 ng/mL (0-1.5)
[2018-03-21] MEDS: NS 1000 ML 1,000 ML IV SCH (23:52)
[2018-03-22] MEDS ORDERED: NORCO 10/325 TAB PO PRN (00:26)
[2018-03-22] MEDS ORDERED: ZOFRAN TAB 4 MG PO PRN (00:26)
[2018-03-22 06:21] LABS: BASOPHILS # (AUTO) 0.1 X10^3/uL (0.0-0.1); BASOPHILS % (AUTO) 0.7 % (0.2-1.0); EOSINOPHILS # (AUTO) 0.6 x10^3/uL (0.0-0.2); EOSINOPHILS % (AUTO) 7.4 % (0.9-2.9); HEMATOCRIT 27.8 % (36.0-47.0); HEMOGLOBIN 9.4 g/dL (12.0-16.0); LYMPHOCYTES # (AUTO) 2.3 X10^3/uL (1.3-2.9); LYMPHOCYTES % (AUTO) 30.9 % (21.0-51.0); MEAN CORPUSCULAR HEMOGLOBIN 29.8 pg (27.0-34.0); MEAN CORPUSCULAR HGB CONC 33.9 g/dL (33.0-35.0); MEAN CORPUSCULAR VOLUME 87.9 fL (80.0-100.0); MEAN PLATELET VOLUME 7.4 fL (7.4-11.0); MONOCYTES # (AUTO) 0.6 x10^3/uL (0.3-0.8); MONOCYTES % (AUTO) 8.6 % (0.0-13.0); NEUTROPHILS % (AUTO) 52.4 % (42.0-75.0); PLATELET COUNT 504 X10^3/uL (150.0-450.0); RED BLOOD COUNT 3.16 X10^6/uL (3.5-5.4); RED CELL DISTRIBUTION WIDTH 14.4 % (11.6-16.5); WHITE BLOOD COUNT 7.5 X10^3/uL (3.6-10.0)
[2018-03-22] MEDS: REGLAN TAB 5 MG PO SCH ×4 (06:25→21:57)
[2018-03-22] MEDS: SYNTHROID 75 mcg TAB PO SCH (06:26)
[2018-03-22 06:43] LABS: ALBUMIN 2.8 g/dL (3.4-5.0); CALCIUM 8.1 mg/dL (8.5-10.1); CARBON DIOXIDE 22.5 mmol/L (21-32); COR CA(FOR HYPOALB) 9.1 mg/dL (8.5-10.1); CREATININE 1.75 mg/dL (0.55-1.02); TOTAL PROTEIN 7.1 g/dL (6.4-8.2)
[2018-03-22] MEDS ORDERED: HumuLIN R SC PRN (07:07)
[2018-03-22] MEDS ORDERED: BRILINTA PO SCH (09:00)
[2018-03-22] MEDS ORDERED: NIFEDIPINE 60 MG PO SCH (09:00)
[2018-03-22] MEDS ORDERED: GLUCOPHAGE ONE (09:24)
[2018-03-22] MEDS: REQUIP PO SCH (09:33)
[2018-03-22] MEDS: FOLIC ACID TAB 1 MG PO SCH (09:33)
[2018-03-22] MEDS: MICRO K EXTEN CAP 10 MEQ PO SCH (09:34)
[2018-03-22] MEDS: LASIX PO SCH (09:34)
[2018-03-22] MEDS: PROCARDIA XL PO SCH (09:34)
[2018-03-22] MEDS: GLUCOPHAGE PO SCH (09:35)
[2018-03-22] MEDS: HYDROCHLOROTHIAZIDE 25 MG TAB PO SCH (09:35)
[2018-03-22] MEDS: LIPITOR TAB 40 MG PO SCH (09:35)
[2018-03-22] MEDS: PROzac PO SCH (09:35)
[2018-03-22] MEDS: ASPIRIN 81 MG CHEWTAB PO SCH (09:36)
[2018-03-22] MEDS: BETAPACE AF PO SCH (09:36)
[2018-03-22] MEDS: ELIQUIS PO SCH ×2 (09:36→21:56)
[2018-03-22] MEDS: OMNICEF CAP 300 MG PO SCH (09:37)
[2018-03-22] MEDS: COZAAR PO SCH (09:37)
[2018-03-22 10:14] LABS: ABG ALLEN TEST POS; ABG BASE EXCESS -2.7 mmol/L (-2.0-2.0); ABG HCO3 19.7 mmol/L (22-26); FRACTIONATED INSPIRED OXYGEN 21
--- NOTE | 2018-03-22 12:53 | DR.H&P ---
H&P - History & Physical for Day of: H&P Date: 03/21/18 - Chief Complaint Chief Complaint: SOB - History of Present Illness History of Present Illness: 77 WF ER ADMISSON AFTER PRESENTIND TO ED WITH CO SOB. PT IS ONE WEEK S/P 2 STENT PLACEMENT AT [facility]. FAMILY REPORTS PT CANNOT WALK 10 FT WITHOUT SEVERE SOB, EVEN SOB WHILE CARRYING ON EXTENDED CONVERSATION. PT HAS NO HX OF ASTHMA OR COPD. DENIES COUGH OR WHEEZING. PT WAS RECENTLY DX WITH AFIB, CONTROLLED AT THIS TIME. PT REPORTS NEW MEDICATION, WORSE SOB WITH BRILLINTA. PT HAS PMH OF CAD, CHF, DM, HTN, OA, GERD AND ANEMIA. PT ADMITTED FOR TREATMENT AND EVALUATION OF SOB - Past Medical History Past Medical History: Coronary Artery Disease, Hypertension, Dyslipidemia, Diabetes, Anxiety, Hypothyroidism, GERD, Arthritis - Past Surgical History Surgical History: Cholecystectomy, , Hysterectomy - Family History Family Medical History: Diabetes Mellitus, Coronary Artery Disease, Heart Failure - Social History Does patient currently use any type of tobacco product: No Have you used tobacco products in the last 12 months: No Type of Tobacco Use: None Does any household member use tobacco: No Alcohol Use: None Drug Use: None - Medications Home Medications: No Known Drug Allergies Allergy (Verified 09/01/17 04:24) CONTINUE taking the following medications Lactobacillus acidophilus 1 cap PO DAILY 03/21/18 [History] aspirin 81 mg PO DAILY 03/21/18 [History] cefdinir 300 mg PO BID 03/21/18 [History] metformin 500 mg PO DAILY 03/21/18 [History] nifedipine 60 mg PO DAILY 03/21/18 [History] sotalol 80 mg PO DAILY 03/21/18 [History] apixaban [Eliquis] 5 mg PO BID 03/22/18 [History] ticagrelor [Brilinta] 90 mg PO BID 03/22/18 [History] - Review of Systems Constitutional: Weakness Eyes: No Symptoms Reported ENT: No Symptoms Reported Respiratory: Shortness of Breath, SOB with Excertion Gastrointestinal: No Symptoms Reported Genitourinary: No Symptoms Reported Musculoskeletal: Back Pain Skin: No Symptoms Reported Neurological: Weakness - Physical Exam Vital Signs: Temperature 98.2 F Pulse Rate [Apical] 54 Pulse Rate 58 Respiratory Rate 20 Blood Pressure [Left Arm] 144/63 Blood Pressure [Right Arm] 132/58 Blood Pressure 147/67 O2 Sat by Pulse Oximetry 100 Oriented: Normal Eyes: Normal Ear: Normal Nose: Normal Throat: Normal Respiratory: RLL Diminished, LLL Diminished Cardiovascular: Normal. negative: Murmur, Edema : Normal Auscultation: Bowel Sounds: Normal Palpation: Normal Tenderness: Normal Skin: Normal Musculoskeletal: Normal Psychiatric: Anxiety Affect: Anxious Speech Pattern: Clear, Appropriate - Assessment/Plan (1) SOB (shortness of breath) Status: Acute Plan: CXR ON ADMISSION, SUPPLEMENTAL O2. ELEVATED D DIMER IN ER, VQ SCAN ORDERED FROM ER R/O PE. CONTINUE ELIQUIS. VERIFY HOME MEDICATION. BP AND LIPID CONTROL. EKG AND CE ON ADMISSION, BS CONTROL, RESP CONSULT PRN, I& OS (2) CAD (coronary artery disease) Status: Acute (3) Diabetes Status: Acute (4) Hypertension Status: Acute (5) Elevated d-dimer Status: Acute - Allergies Allergies/Adverse Reactions: Allergies Allergy/AdvReac Type Severity Reaction Status Date / Time No Known Drug Allergies Allergy Verified 09/01/17 04:24
--- NOTE | 2018-03-22 13:00 | PCM.PROG ---
Progress Note - Progress Note for Day of Date of Exam: 03/22/18 - Subjective Subjective: 77 WM ER ADMISSION ON 03/21 WITH SOB, WORSE ON EXERTION. PT IS ONE WEEK S/P CARDIAC STENT PLACEMENT AND WAS STARTED ON NEW MEDICATION. PT AND FAMILY REPORTS SHE CANNOT WALK 5-6 STEPS WITHOUT EXTREME SOB. PT HAD CXR ON ADMISSION, ADDED ABG THIS AM, EKG NSR WITH NORMAL CE. PT IS WAITING NUCLEAR MED VQ LUNG SCAN TO R/O PE. PT IS CURRENTLY ON ELIQUIS DUE TO AFIB, WILL CONTINUE HOME MEDS - Past Medical Family Social History Past Med/Fam/Surg Hx: No changes since H&P Allergies: Allergies No Known Drug Allergies Allergy (Verified 09/01/17 04:24) - Review of Systems ROS: No change since H&P - Vital Signs and I&O's Vital Signs: Temperature 98.2 F Pulse Rate [Apical] 54 Pulse Rate 58 Respiratory Rate 20 Blood Pressure [Left Arm] 144/63 Blood Pressure [Right Arm] 132/58 Blood Pressure 147/67 O2 Sat by Pulse Oximetry 100 Intake and Output: Intake & Output 03/20/18 03/21/18 03/22/18 03/23/18 11:59 11:59 11:59 11:59 Intake Total 480 / 480 Output Total 500 / 500 Balance -20 / -20 - Physical Exam Oriented: Normal Eyes: Normal Ear: Normal Nose: Normal Throat: Normal Respiratory: Diminished Cardiovascular: Normal. negative: Murmur, Edema : Normal Auscultation: Bowel Sounds: Normal Tenderness: Normal Skin: Normal Musculoskeletal: Normal Psychiatric: Anxiety Affect: Anxious Speech Pattern: Clear, Appropriate - Laboratory and Diagnostics Result Diagrams: 03/22/18 05:12 03/22/18 05:12 Labs: Laboratory WBC 7.5 X10^3/uL (3.6-10.0) 03/22/18 05:12 RBC 3.16 X10^6/uL (3.5-5.4) L 03/22/18 05:12 Hgb 9.4 g/dL (12.0-16.0) L 03/22/18 05:12 Hct 27.8 % (36.0-47.0) L 03/22/18 05:12 MCV 87.9 fL (80.0-100.0) 03/22/18 05:12 MCH 29.8 pg (27.0-34.0) 03/22/18 05:12 MCHC 33.9 g/dL (33.0-35.0) 03/22/18 05:12 RDW 14.4 % (11.6-16.5) 03/22/18 05:12 Plt Count 504 X10^3/uL (150.0-450.0) H 03/22/18 05:12 MPV 7.4 fL (7.4-11.0) 03/22/18 05:12 Neut % (Auto) 52.4 % (42.0-75.0) 03/22/18 05:12 Lymph % (Auto) 30.9 % (21.0-51.0) 03/22/18 05:12 Rice % (Auto) 8.6 % (0.0-13.0) 03/22/18 05:12 Eos % (Auto) 7.4 % (0.9-2.9) H 03/22/18 05:12 Baso % (Auto) 0.7 % (0.2-1.0) 03/22/18 05:12 Neut # (Auto) 4.0 x10^3/uL (2.2-4.8) 03/22/18 05:12 Lymph # (Auto) 2.3 X10^3/uL (1.3-2.9) 03/22/18 05:12 Rice # (Auto) 0.6 x10^3/uL (0.3-0.8) 03/22/18 05:12 Eos # (Auto) 0.6 x10^3/uL (0.0-0.2) H 03/22/18 05:12 Baso # (Auto) 0.1 X10^3/uL (0.0-0.1) 03/22/18 05:12 Absolute Nucleated RBC 0.0 /100WBC 03/22/18 05:12 D-Dimer 976 ng/mL (0-400) H* 03/21/18 19:40 Sample Site Lrad 03/22/18 10:00 ABG pH 7.470 (7.35-7.45) H 03/22/18 10:00 ABG pCO2 27.0 mmHg (35.0-45.0) L 03/22/18 10:00 ABG pO2 109.0 mmHg (80.0-100.0) H 03/22/18 10:00 ABG HCO3 19.7 mmol/L (22-26) L 03/22/18 10:00 ABG O2 Saturation 99.0 % (90-100) 03/22/18 10:00 ABG Base Excess -2.7 mmol/L (-2.0-2.0) L 03/22/18 10:00 Florian Test Pos 03/22/18 10:00 A-a Gradient 7.0 mmHg 03/22/18 10:00 FiO2 21 03/22/18 10:00 Blood Gas Comments Demetrius well ah 03/22/18 10:00 Sodium 136 mmol/L (136-145) 03/22/18 05:12 Corrected Sodium 136 mmol/L (136-145) 03/22/18 05:12 Potassium 3.9 mmol/L (3.5-5.1) 03/22/18 05:12 Chloride 102 mmol/L (98-107) 03/22/18 05:12 Carbon Dioxide 22.5 mmol/L (21-32) 03/22/18 05:12 BUN 26 mg/dL (7-18) H 03/22/18 05:12 Creatinine 1.75 mg/dL (0.55-1.02) H 03/22/18 05:12 Est GFR (MDRD) Af Amer 36 (>60) L 03/22/18 05:12 Est GFR (MDRD) Non-Af 30 (>60) L 03/22/18 05:12 Glucose 116 mg/dL (65-99) H 03/22/18 05:12 POC Glucose (mg/dL) 122 mg/dL (65-99) H 03/22/18 12:26 Calcium 8.1 mg/dL (8.5-10.1) L 03/22/18 05:12 Corrected Calcium 9.1 mg/dL (8.5-10.1) 03/22/18 05:12 Total Bilirubin 0.30 mg/dL (0.2-1.0) 03/22/18 05:12 AST 21 Units/L (15-37) 03/22/18 05:12 ALT 25 Units/L (12-78) 03/22/18 05:12 Alkaline Phosphatase 113 Units/L (46-116) 03/22/18 05:12 Creatine Kinase 64 Units/L (26-192) 03/21/18 19:40 CK-MB (CK-2) 1.0 ng/mL (0-4.0) 03/21/18 19:40 CK/CKMB % Calc 1.6 % (<4) 03/21/18 19:40 Troponin I < 0.02 ng/mL (0-1.5) 03/21/18 19:40 B-Natriuretic Peptide 54.7 pg/mL (0-79) 03/21/18 19:40 Total Protein 7.1 g/dL (6.4-8.2) 03/22/18 05:12 Albumin 2.8 g/dL (3.4-5.0) L 03/22/18 05:12 Globulin 4.3 g/dL (2.5-4.5) 03/22/18 05:12 Albumin/Globulin Ratio 0.7 Ratio (1.1-2.1) L 03/22/18 05:12 - Plan (1) SOB (shortness of breath) Status: Acute Plan: CXR ON ADMISSION, SUPPLEMENTAL O2. ELEVATED D DIMER IN ER, VQ SCAN ORDERED FROM ER R/O PE. CONTINUE ELIQUIS. BP AND LIPID CONTROL. EKG AND CE ON ADMISSION, BS CONTROL,. STRICT I & OS, ABG ON ROOM AIR (2) CAD (coronary artery disease) Status: Acute (3) Diabetes Status: Acute (4) Hypertension Status: Acute (5) Elevated d-dimer Status: Acute
[2018-03-22] MEDS ORDERED: XOPENEX 1.25 MG/3 ML NEBULE NEB PRN (13:46)
[2018-03-22] MEDS: NS 1000 ML 1,000 ML IV SCH (15:22)
[2018-03-22] MEDS: PLAVIX PO SCH (15:50)
[2018-03-22 22:17] LABS: BILIRUBIN,URINE NEGATIVE (NEGATIVE); BLOOD/HEMOGLOBIN,URINE NEGATIVE (NEGATIVE); GLUCOSE, URINE NEGATIVE (NEGATIVE); KETONES,URINE NEGATIVE (NEGATIVE); LEUKOCYTE ESTERASE ,URINE NEGATIVE (NEGATIVE); NITRITES,URINE NEGATIVE (NEGATIVE); PH,URINE 6.5 (5.0 - 8.0); PROTEIN,URINE NEGATIVE (NEGATIVE); UROBILINOGEN,URINE NORMAL (NORMAL)
[2018-03-22 22:23] LABS: APPEARANCE,URINE CLEAR (CLEAR); COLOR,URINE YELLOW (YELLOW)
[2018-03-23] MEDS: NS 1000 ML 1,000 ML IV SCH ×2 (02:10→16:43)
[2018-03-23 05:11] LABS: BASOPHILS % (AUTO) 0.7 % (0.2-1.0); EOSINOPHILS # (AUTO) 0.5 x10^3/uL (0.0-0.2); EOSINOPHILS % (AUTO) 7.5 % (0.9-2.9); HEMATOCRIT 27.6 % (36.0-47.0); HEMOGLOBIN 9.4 g/dL (12.0-16.0); LYMPHOCYTES # (AUTO) 2.4 X10^3/uL (1.3-2.9); LYMPHOCYTES % (AUTO) 34.9 % (21.0-51.0); MEAN CORPUSCULAR HEMOGLOBIN 29.6 pg (27.0-34.0); MEAN CORPUSCULAR HGB CONC 33.9 g/dL (33.0-35.0); MEAN CORPUSCULAR VOLUME 87.2 fL (80.0-100.0); MEAN PLATELET VOLUME 7.3 fL (7.4-11.0); MONOCYTES # (AUTO) 0.8 x10^3/uL (0.3-0.8); MONOCYTES % (AUTO) 11.5 % (0.0-13.0); NEUTROPHILS # (AUTO) 3.1 x10^3/uL (2.2-4.8); NEUTROPHILS % (AUTO) 45.4 % (42.0-75.0); PLATELET COUNT 446 X10^3/uL (150.0-450.0); RED BLOOD COUNT 3.17 X10^6/uL (3.5-5.4); RED CELL DISTRIBUTION WIDTH 14.2 % (11.6-16.5); WHITE BLOOD COUNT 6.9 X10^3/uL (3.6-10.0)
[2018-03-23 05:25] LABS: ALBUMIN 2.6 g/dL (3.4-5.0); CALCIUM 8.1 mg/dL (8.5-10.1); CARBON DIOXIDE 20.4 mmol/L (21-32); COR CA(FOR HYPOALB) 9.2 mg/dL (8.5-10.1); CREATININE 1.32 mg/dL (0.55-1.02); TOTAL PROTEIN 6.7 g/dL (6.4-8.2)
[2018-03-23] MEDS: REGLAN TAB 5 MG PO SCH ×3 (05:45→17:10)
--- NOTE | 2018-03-23 06:00 | VAS ---
HISTORY: Shortness of breath elevated D-dimer Study: Bilateral lower extremity venous Doppler Comparison: None Technique: Multiple grayscale sonographic images were obtained. Color duplex Doppler evaluation was performed. Findings: Bilaterally the common femoral vein, superficial femoral vein, popliteal vein, and tibial veins are patent demonstrating normal flow, compression, phasicity, and augmentation. The examination is negative for deep venous thrombosis in both lower extremities. IMPRESSION: Exam negative for deep venous thrombosis in the lower extremities bilaterally Reported By:
[2018-03-23] MEDS: SYNTHROID 75 mcg TAB PO SCH (06:23)
[2018-03-23] MEDS ORDERED: GLUCOPHAGE ONE (09:06)
[2018-03-23] MEDS: LASIX PO SCH (09:23)
[2018-03-23] MEDS: ELIQUIS PO SCH (09:23)
[2018-03-23] MEDS: PLAVIX PO SCH (09:23)
[2018-03-23] MEDS: FOLIC ACID TAB 1 MG PO SCH (09:23)
[2018-03-23] MEDS: HYDROCHLOROTHIAZIDE 25 MG TAB PO SCH (09:23)
[2018-03-23] MEDS: LIPITOR TAB 40 MG PO SCH (09:24)
[2018-03-23] MEDS: PROCARDIA XL PO SCH (09:24)
[2018-03-23] MEDS: GLUCOPHAGE PO SCH (09:24)
[2018-03-23] MEDS: MICRO K EXTEN CAP 10 MEQ PO SCH (09:24)
[2018-03-23] MEDS: BETAPACE AF PO SCH (09:24)
[2018-03-23] MEDS: PROzac PO SCH (09:24)
[2018-03-23] MEDS: ASPIRIN 81 MG CHEWTAB PO SCH (09:24)
[2018-03-23] MEDS: OMNICEF CAP 300 MG PO SCH (09:24)
[2018-03-23] MEDS: REQUIP PO SCH (09:24)
[2018-03-23] MEDS: COZAAR PO SCH (09:25)
--- NOTE | 2018-03-23 14:01 | RAD ---
HISTORY: Shortness of breath, stent placement last week Study: Single-view chest Comparison: 03/21/2018. Findings: Trachea is midline. Heart size is normal. There is atherosclerotic calcification and uncoiling of the aortic arch. Lungs and pleural spaces are clear. Osseous structures are intact. IMPRESSION: No acute cardiopulmonary disease. Reported By:
--- NOTE | 2018-03-23 15:44 | NM ---
HISTORY: Shortness of breath, elevated D-dimer Study: Nuclear Medicine Ventilation Perfusion Study Comparison: Radiograph from today. V/Q scan from Technique: After the administration of 5.5 mCi of technetium 99m MAA followed by inhalation of 30.5 mCi of technetium 99m DTPA, anterior, posterior, and lateral perfusion and ventilation images were submitted. Findings: Evaluation of perfusion physiology demonstrates no significant segmental or subsegmental defect to suggest pulmonary embolus. Likewise, ventilation physiology is unremarkable with homogeneous radiotracer throughout the right and left hemithorax. IMPRESSION: 1. Low probability V/Q Scan. Reported By:
[2018-03-23 16:28] VITALS: BP 132/87
== END 2018-03-23 17:05 | disposition home health service (06) ==
LOC: MED/SURG 19:05 → ER 19:05 → MED/SURG 03-22 00:06
PROVIDERS: ADMIT Internal Medicine; ATTEND Internal Medicine
DX: I25.10 Atherosclerotic heart disease of native coronary artery without angina pectoris; R79.89 Other specified abnormal findings of blood chemistry; R79.1 Abnormal coagulation profile; E78.2 Mixed hyperlipidemia; R26.89 Other abnormalities of gait and mobility; E03.8 Other specified hypothyroidism; N28.89 Other specified disorders of kidney and ureter; M19.90 Unspecified osteoarthritis, unspecified site; I12.9 Hypertensive chronic kidney disease with stage 1 through stage 4 chronic kidney disease, or unspecified chronic kidney disease; R94.31 Abnormal electrocardiogram [ECG] [EKG]; R06.02 Shortness of breath; E87.1 Hypo-osmolality and hyponatremia; K21.9 Gastro-esophageal reflux disease without esophagitis; D47.3 Essential (hemorrhagic) thrombocythemia; I48.91 Unspecified atrial fibrillation
CPT/HCPCS: 36415; 36600; 71010; 71045; 78582; 80053; 81003; 82550; 82553; 82803; 83880; 84484; 85025; 85378; 93005; 93010; 93970; 94760; 96365; 96367; 97116; 97162; 99284; A4216; A4222; G0378; J7030

== ENCOUNTER 2019-04-17 17:07 | Observation (INO) ==
[2019-04-17] MEDS ORDERED: NS 1000 ML 1,000 ML ONE (21:39)
[2019-04-17] MEDS: SNACK - Diabetic Appropriate PO SCH (21:42)
[2019-04-17 22:02] LABS: BASOPHILS % (AUTO) 0.5 % (0.2-1.0); EOSINOPHILS # (AUTO) 0.6 x10^3/uL (0.0-0.2); EOSINOPHILS % (AUTO) 8.3 % (0.9-2.9); HEMOGLOBIN 10.9 g/dL (12.0-16.0); LYMPHOCYTES # (AUTO) 2.3 X10^3/uL (1.3-2.9); LYMPHOCYTES % (AUTO) 29.9 % (21.0-51.0); MEAN CORPUSCULAR HEMOGLOBIN 28.4 pg (27.0-34.0); MEAN PLATELET VOLUME 7.1 fL (7.4-11.0); MONOCYTES # (AUTO) 0.5 x10^3/uL (0.3-0.8); MONOCYTES % (AUTO) 6.3 % (0.0-13.0); NEUTROPHILS # (AUTO) 4.2 x10^3/uL (2.2-4.8); PLATELET COUNT 334 X10^3/uL (150.0-450.0); RED BLOOD COUNT 3.84 X10^6/uL (3.5-5.4); RED CELL DISTRIBUTION WIDTH 15.2 % (11.6-16.5); WHITE BLOOD COUNT 7.7 X10^3/uL (3.6-10.0)
[2019-04-17 22:22] LABS: ALANINE AMINOTRANSFERASE 34 Units/L (12-78); ALBUMIN 3.2 g/dL (3.4-5.0); ALKALINE PHOSPHATASE 122 Units/L (46-116); ASPARTATE AMINO TRANSFERASE 33 Units/L (15-37); BLOOD UREA NITROGEN 20 mg/dL (7-18); CALCIUM 8.8 mg/dL (8.5-10.1); CHLORIDE 103 mmol/L (98-107); CKMB % 2.4 % (<4); COR CA(FOR HYPOALB) 9.4 mg/dL (8.5-10.1); COR NA(FOR HYPERGLY) 137 mmol/L (136-145); CREATINE KINASE 41 Units/L (26-192); CREATINE KINASE MB < 1.0 ng/mL (0-4.0); CREATININE 1.49 mg/dL (0.55-1.02); SODIUM 137 mmol/L (136-145); TOTAL PROTEIN 7.4 g/dL (6.4-8.2); TROPONIN I < 0.02 ng/mL (0-1.5); eGFR NON BLACK RACES 36 (>60)
[2019-04-17 22:24] VITALS: BMI 22.7
[2019-04-17] MEDS ORDERED: PROTONIX INJ 40 MG VIAL ONE (22:43)
[2019-04-17] MEDS ORDERED: ELIQUIS ONE (22:43)
[2019-04-17] MEDS: NS 1000 ML 1,000 ML IV SCH (22:45)
[2019-04-17] MEDS: PROTONIX INJ 40 MG VIAL IVP SCH (22:50)
[2019-04-17] MEDS: NORCO 10/325 TAB PO PRN (22:51)
[2019-04-17] MEDS: ELIQUIS PO SCH (23:19)
[2019-04-18] MEDS: ROCEPHIN VIAL 1 GRAM 1 G in NS 100 ML IV + SPIKE MINIBAG* 100 ML IV SCH ×2 (00:32→22:00)
[2019-04-18 03:42] LABS: CKMB % 2.7 % (<4); CREATINE KINASE 37 Units/L (26-192); CREATINE KINASE MB < 1.0 ng/mL (0-4.0); TROPONIN I < 0.02 ng/mL (0-1.5)
[2019-04-18 06:40] LABS: BLOOD UREA NITROGEN 18 mg/dL (7-18); CALCIUM 8.5 mg/dL (8.5-10.1); CARBON DIOXIDE 26.9 mmol/L (21-32); CHLORIDE 106 mmol/L (98-107); CREATININE 1.11 mg/dL (0.55-1.02); SODIUM 139 mmol/L (136-145); eGFR NON BLACK RACES 51 (>60)
[2019-04-18 07:02] LABS: BILIRUBIN,URINE NEGATIVE (NEGATIVE); BLOOD/HEMOGLOBIN,URINE 2+ (NEGATIVE); GLUCOSE, URINE NEGATIVE (NEGATIVE); KETONES,URINE NEGATIVE (NEGATIVE); LEUKOCYTE ESTERASE ,URINE 3+ (NEGATIVE); NITRITES,URINE NEGATIVE (NEGATIVE); PROTEIN,URINE 1+ (NEGATIVE); UROBILINOGEN,URINE NORMAL (NORMAL)
[2019-04-18 07:08] LABS: APPEARANCE,URINE CLOUDY (CLEAR); COLOR,URINE YELLOW (YELLOW)
[2019-04-18 07:21] LABS: BACTERIA,URINE TRACE /HPF (NEGATIVE); SQUAMOUS EPITHELIAL CELL,UR RARE /HPF (NEGATIVE)
[2019-04-18] MEDS: PROTONIX INJ 40 MG VIAL IVP SCH ×2 (08:21→21:07)
[2019-04-18] MEDS: ELIQUIS PO SCH ×2 (08:21→21:08)
[2019-04-18] MEDS ORDERED: NORCO 10/325 TAB PO PRN (08:25)
--- NOTE | 2019-04-18 08:42 | RAD ---
HISTORY: Shortness of breath Study: Chest PA and lateral Comparison: 04/02/2019 Findings: The heart is within normal limits in size. The saulo are normal. The lung jenkins are clear. No pleural effusions are identified. The bony thorax is unremarkable. IMPRESSION: No significant abnormality identified Reported By:
[2019-04-18 08:54] LABS: ABG BASE EXCESS 0.2 mmol/L (-2.0-2.0); ABG HCO3 23.3 mmol/L (22-26)
[2019-04-18 08:55] LABS: ABG ALLEN TEST POS
[2019-04-18 09:14] LABS: IRON 31 ug/dL (50-175)
[2019-04-18 09:57] LABS: CKMB % 2.7 % (<4); CREATINE KINASE 37 Units/L (26-192); CREATINE KINASE MB < 1.0 ng/mL (0-4.0); TROPONIN I < 0.02 ng/mL (0-1.5)
[2019-04-18] MEDS ORDERED: NS 250 ML IV 250 ML IV ONE (10:07)
[2019-04-18] MEDS: BETAPACE AF PO SCH (10:49)
[2019-04-18] MEDS: PROCARDIA XL PO SCH ×2 (10:50→21:08)
[2019-04-18] MEDS: COZAAR PO SCH (10:50)
[2019-04-18] MEDS: PLAVIX PO SCH (10:51)
[2019-04-18] MEDS: SYNTHROID 75 mcg TAB PO SCH (10:51)
[2019-04-18] MEDS: EFFEXOR XR 37.5 MG CAP PO SCH (10:51)
--- NOTE | 2019-04-18 11:03 | CT ---
CTA chest Indication: Shortness of breath Technique: Helical CT images of the chest were obtained with IV contrast. Reformatted images in the coronal and sagittal planes and 3D MIP images were also generated for review. Comparison: 03/13/2018 Findings: Contrast bolus timing is adequate for detection of PTE. No pulmonary thromboembolus is identified. There is no pulmonary arterial dilatation or evidence of right heart strain. No significant pericardial effusion. There is mild coronary atherosclerotic disease and mild calcification of the thoracic aorta and proximal great vessels without aneurysm. Central airways are patent. There is no mediastinal or bulky hilar lymphadenopathy. The lungs are clear without focal consolidation. No pleural effusion or pneumothorax. Limited images through the upper abdomen demonstrate no acute abnormality. No aggressive osseous lesions. Impression: No PTE or acute cardiopulmonary abnormality. Reported By:
[2019-04-18] MEDS: NORCO 10/325 TAB PO PRN ×2 (12:21→22:14)
--- NOTE | 2019-04-18 13:28 | DR.H&P ---
H&P - History & Physical for Day of: H&P Date: 04/17/19 - Chief Complaint Chief Complaint: SOB - History of Present Illness History of Present Illness: 78 WF DIRECT ADMIT FROM DR GARCIA OFFICE WITH CO SOB. PT AND FAMILY REPORTS SHE HAS BEEN VERY WEAK, "NO ENERGY". PT HAD PMH OF AFIB AND ANEMIA. PT'S SON REPORTS PT HAS HAD POOR APPETITE. PT IS DIABETIC AND STATES BS HAD BEEN NORMAL. PT DENIES ANY CHEST PAIN OR PALPITATION, REPORTS DIZZINESS. PT WAS SEEN IN ER 3 WEEKS AGO, THEN FOLLOWED UP IN OFFICE WITH SAME COMPLAINTS. PT ADMITTED FOR TREATMENT AND EVALUATION OF SOB. - Past Medical History Past Medical History: Coronary Artery Disease, Hypertension, Dyslipidemia, Diabetes, Anxiety, Hypothyroidism, GERD, Arthritis - Past Surgical History Surgical History: Angioplasty/Stents, , Cholecystectomy, Hysterectomy, Ortho Surgery - Family History Family Medical History: Diabetes Mellitus, Coronary Artery Disease, Heart Failure - Social History Does patient currently use any type of tobacco product: No Have you used tobacco products in the last 12 months: No Type of Tobacco Use: None Alcohol Use: None Drug Use: None - Medications Home Medications: Penicillins Allergy (Verified 04/17/19 22:35) CONTINUE taking the following medications atorvastatin 40 mg PO HS 04/17/19 [History] sotalol 80 mg PO HS 04/17/19 [History] venlafaxine 37.5 mg PO DAILY 04/17/19 [History] - Review of Systems Constitutional: Weakness Eyes: No Symptoms Reported ENT: No Symptoms Reported Respiratory: Shortness of Breath, SOB with Excertion Cardiovascular: Light Headedness. denies: Edema Gastrointestinal: Nausea Genitourinary: No Symptoms Reported Musculoskeletal: Shoulder Pain, Back Pain, Hand Pain, Leg Pain Skin: No Symptoms Reported Neurological: Weakness, Other (DIZZINESS ) - Physical Exam Vital Signs: Temperature 98.9 F Pulse Rate [Right Brachial] 66 Respiratory Rate 20 Blood Pressure [Right Arm] 186/99 Blood Pressure [Left Arm] 127/69 Blood Pressure 193/74 O2 Sat by Pulse Oximetry 100 Oriented: Normal Eyes: Normal Ear: Normal Nose: Normal Throat: Normal Respiratory: RLL Diminished, LLL Diminished Cardiovascular: negative: Edema : Normal Auscultation: Bowel Sounds: Normal Palpation: Normal Tenderness: Normal Skin: Decreased Turgur Musculoskeletal: Right, Left, Shoulder, Hip, Knee, Back:Lumbar, Tender Psychiatric: Anxiety Affect: Anxious Speech Pattern: Clear, Appropriate - Assessment/Plan (1) SOB (shortness of breath) Status: Acute Plan: ADMIT, SERIAL CE AND EKG. CXR ON ADMISSION, NPO AFTER MIDNIGHT FOR AM CTA. HOLD METFORMIN. BP CONTROL, SUPPLEMENTAL O2. ABG ON ADMISSION, RESUME ELIQUIS. ADMISSION LABS, VERIFY HOME MEDICATION (2) UTI (urinary tract infection) Status: Acute (3) Generalized weakness Status: Acute (4) CAD (coronary artery disease) Status: Acute (5) Diabetes Status: Acute (6) Hypertension Status: Acute - Allergies Allergies/Adverse Reactions: Allergies Allergy/AdvReac Type Severity Reaction Status Date / Time Penicillins Allergy Verified 04/17/19 22:35
--- NOTE | 2019-04-18 13:40 | PCM.PROG ---
Progress Note - Progress Note for Day of Date of Exam: 04/18/19 - Subjective Subjective: PT IS 78 WF ADMITTED ON 04/17 WITH SOB. PT REPORTS WEAKNESS AND WORSENING SOB ON EXERTION. PT DENIES ANY CHEST PAIN OR PALPITATIONS. PT HAD PMH OF AFIB, EKG SINUS RHYTHM. PT IS NPO FOR CTA CHEST THIS AM. PT HGB 10.9 ON ADMISSION WITH FE 31. PT STARTED ON IRON REPLACEMENT, OCCULT STOOL NEGATIVE. PT IS ON ROCEPHIN IV FOR UTI, WILL CONTINUE ATBX TREATMENT WITH CULTURE PENDING. - Past Medical Family Social History Past Med/Fam/Surg Hx: No changes since H&P Allergies: Allergies Penicillins Allergy (Verified 04/17/19 22:35) - Review of Systems ROS: No change since H&P - Vital Signs and I&O's Vital Signs: Temperature 98.9 F Pulse Rate [Right Brachial] 66 Respiratory Rate 20 Blood Pressure [Right Arm] 186/99 Blood Pressure [Left Arm] 127/69 Blood Pressure 193/74 O2 Sat by Pulse Oximetry 100 Intake and Output: Intake & Output 04/16/19 04/17/19 04/18/19 04/19/19 11:59 11:59 11:59 11:59 Intake Total 130 / 130 Balance 130 / 130 - Physical Exam Oriented: Normal Eyes: Normal Ear: Normal Nose: Normal Throat: Normal Respiratory: Diminished Cardiovascular: negative: Edema : Normal Auscultation: Bowel Sounds: Normal Tenderness: Normal Skin: Decreased Turgur Musculoskeletal: Right, Left, Shoulder, Hip, Knee, Back:Lumbar, Tender Psychiatric: Anxiety Affect: Anxious Speech Pattern: Clear, Appropriate - Laboratory and Diagnostics Result Diagrams: 04/17/19 21:42 04/18/19 05:44 Labs: Laboratory WBC 7.7 X10^3/uL (3.6-10.0) 04/17/19 21:42 RBC 3.84 X10^6/uL (3.5-5.4) 04/17/19 21:42 Hgb 10.9 g/dL (12.0-16.0) L 04/17/19 21:42 Hct 33.0 % (36.0-47.0) L 04/17/19 21:42 MCV 86.0 fL (80.0-100.0) 04/17/19 21:42 MCH 28.4 pg (27.0-34.0) 04/17/19 21:42 MCHC 33.0 g/dL (33.0-35.0) 04/17/19 21:42 RDW 15.2 % (11.6-16.5) 04/17/19 21:42 Plt Count 334 X10^3/uL (150.0-450.0) 04/17/19 21:42 MPV 7.1 fL (7.4-11.0) L 04/17/19 21:42 Neut % (Auto) 55.0 % (42.0-75.0) 04/17/19 21:42 Lymph % (Auto) 29.9 % (21.0-51.0) 04/17/19 21:42 [place] % (Auto) 6.3 % (0.0-13.0) 04/17/19 21:42 Eos % (Auto) 8.3 % (0.9-2.9) H 04/17/19 21:42 Baso % (Auto) 0.5 % (0.2-1.0) 04/17/19 21:42 Neut # (Auto) 4.2 x10^3/uL (2.2-4.8) 04/17/19 21:42 Lymph # (Auto) 2.3 X10^3/uL (1.3-2.9) 04/17/19 21:42 [place] # (Auto) 0.5 x10^3/uL (0.3-0.8) 04/17/19 21:42 Eos # (Auto) 0.6 x10^3/uL (0.0-0.2) H 04/17/19 21:42 Baso # (Auto) 0.0 X10^3/uL (0.0-0.1) 04/17/19 21:42 Absolute Nucleated RBC 0.0 /100WBC 04/17/19 21:42 Sample Site Lrad 04/18/19 08:45 ABG pH 7.470 (7.35-7.45) H 04/18/19 08:45 ABG pCO2 32.0 mmHg (35.0-45.0) L 04/18/19 08:45 ABG pO2 102.0 mmHg (80.0-100.0) H 04/18/19 08:45 ABG HCO3 23.3 mmol/L (22-26) 04/18/19 08:45 ABG O2 Saturation 98.0 % (90-100) 04/18/19 08:45 ABG Base Excess 0.2 mmol/L (-2.0-2.0) 04/18/19 08:45 Florian Test Pos 04/18/19 08:45 A-a Gradient 8.0 mmHg 04/18/19 08:45 FiO2 21.0 04/18/19 08:45 Blood Gas Comments Pt boy well elj 04/18/19 08:45 Sodium 139 mmol/L (136-145) 04/18/19 05:44 Corrected Sodium TNP 04/18/19 05:44 Potassium 4.0 mmol/L (3.5-5.1) 04/18/19 05:44 Chloride 106 mmol/L (98-107) 04/18/19 05:44 Carbon Dioxide 26.9 mmol/L (21-32) 04/18/19 05:44 BUN 18 mg/dL (7-18) 04/18/19 05:44 Creatinine 1.11 mg/dL (0.55-1.02) H 04/18/19 05:44 Est GFR (MDRD) Af Amer > 60 (>60) 04/18/19 05:44 Est GFR (MDRD) Non-Af 51 (>60) L 04/18/19 05:44 Glucose 87 mg/dL (65-99) 04/18/19 05:44 Calcium 8.5 mg/dL (8.5-10.1) 04/18/19 05:44 Corrected Calcium 9.4 mg/dL (8.5-10.1) 04/17/19 21:42 Iron 31 ug/dL (50-175) L 04/18/19 03:10 Transferrin 136 mg/dL (202-364) L 04/18/19 03:10 Ferritin 492 ng/mL (8-252) H 04/18/19 03:10 Total Bilirubin 0.20 mg/dL (0.2-1.0) 04/17/19 21:42 AST 33 Units/L (15-37) 04/17/19 21:42 ALT 34 Units/L (12-78) 04/17/19 21:42 Alkaline Phosphatase 122 Units/L (46-116) H 04/17/19 21:42 Creatine Kinase 37 Units/L (26-192) 04/18/19 09:27 CK-MB (CK-2) < 1.0 ng/mL (0-4.0) 04/18/19 09:27 CK/CKMB % Calc 2.7 % (<4) 04/18/19 09:27 Troponin I < 0.02 ng/mL (0-1.5) 04/18/19 09:27 Total Protein 7.4 g/dL (6.4-8.2) 04/17/19 21:42 Albumin 3.2 g/dL (3.4-5.0) L 04/17/19 21:42 Globulin 4.2 g/dL (2.5-4.5) 04/17/19 21:42 Albumin/Globulin Ratio 0.8 Ratio (1.1-2.1) L 04/17/19 21:42 Vitamin B12 582 pg/mL (193-986) 04/18/19 03:10 Folate > 20.0 ng/mL (>8.6) 04/18/19 03:10 Specimen Type Clean catch urine 04/18/19 06:30 Urine Color Yellow (YELLOW) 04/18/19 06:30 Urine Appearance Cloudy (CLEAR) 04/18/19 06:30 Urine pH 6.0 (5.0 - 8.0) 04/18/19 06:30 Ur Specific [place] 1.010 (1.000-1.030) 04/18/19 06:30 Urine Protein 1+ (NEGATIVE) 04/18/19 06:30 Urine Glucose (UA) Negative (NEGATIVE) 04/18/19 06:30 Urine Ketones Negative (NEGATIVE) 04/18/19 06:30 Urine Occult Blood 2+ (NEGATIVE) 04/18/19 06:30 Urine Nitrite Negative (NEGATIVE) 04/18/19 06:30 Urine Bilirubin Negative (NEGATIVE) 04/18/19 06:30 Urine Urobilinogen Normal (NORMAL) 04/18/19 06:30 Ur Leukocyte Esterase 3+ (NEGATIVE) 04/18/19 06:30 Urine RBC 3-5 /HPF (0-3) A 04/18/19 06:30 Urine WBC Tntc /HPF (0-5) A 04/18/19 06:30 Ur Squamous Epith Cells Rare /HPF (NEGATIVE) 04/18/19 06:30 Urine Bacteria Trace /HPF (NEGATIVE) 04/18/19 06:30 Ur Culture Indicated? Yes/culture set up 04/18/19 06:30 Stool Description 60 g. unformed brn s 04/18/19 12:35 Stl Occult Blood (IFOB) Negative (NEGATIVE) 04/18/19 12:35 - Plan (1) SOB (shortness of breath) Status: Acute Plan: SERIAL CE AND EKG ON ADMISSION. CXR, NPO FOR AM CTA. HOLD METFORMIN. BP CONTROL, SUPPLEMENTAL O2. ABG ON ADMISSION, RESUME ELIQUIS. ADMISSION LABS, SSI (2) UTI (urinary tract infection) Status: Acute Plan: UC PENDING, IV ROCEPHIN (3) Osteoarthritis involving joints of upper arms, bilateral Status: Acute Plan: SOLU MEDROL 40MG IV X 2 DOSES, PAIN CONTROL (4) Generalized weakness Status: Acute (5) CAD (coronary artery disease) Status: Acute (6) Diabetes Status: Acute (7) Hypertension Status: Acute
[2019-04-18] MEDS ORDERED: NS 100 ML IV 100 ML with VENOFER 400 MG IV NR ×2 (14:00)
[2019-04-18] MEDS: SOLU-Medrol 40 MG VIAL IVP SCH ×2 (14:11→21:07)
[2019-04-18] MEDS: NS 1000 ML 1,000 ML IV SCH (14:12)
[2019-04-18] MEDS: HEMOCYTE-PLUS PO SCH (14:12)
[2019-04-18] MEDS ORDERED: DUONEB 0.5 MG/3 MG NEB PRN (14:24)
[2019-04-18 14:35] LABS: BASOPHILS % (AUTO) 0.3 % (0.2-1.0); EOSINOPHILS # (AUTO) 0.6 x10^3/uL (0.0-0.2); EOSINOPHILS % (AUTO) 8.2 % (0.9-2.9); HEMATOCRIT 33.3 % (36.0-47.0); HEMOGLOBIN 10.9 g/dL (12.0-16.0); LYMPHOCYTES # (AUTO) 1.3 X10^3/uL (1.3-2.9); LYMPHOCYTES % (AUTO) 16.9 % (21.0-51.0); MEAN CORPUSCULAR HEMOGLOBIN 28.5 pg (27.0-34.0); MEAN CORPUSCULAR HGB CONC 32.8 g/dL (33.0-35.0); MEAN CORPUSCULAR VOLUME 86.7 fL (80.0-100.0); MEAN PLATELET VOLUME 6.9 fL (7.4-11.0); MONOCYTES # (AUTO) 0.4 x10^3/uL (0.3-0.8); MONOCYTES % (AUTO) 5.4 % (0.0-13.0); NEUTROPHILS # (AUTO) 5.1 x10^3/uL (2.2-4.8); NEUTROPHILS % (AUTO) 69.2 % (42.0-75.0); PLATELET COUNT 338 X10^3/uL (150.0-450.0); RED BLOOD COUNT 3.84 X10^6/uL (3.5-5.4); WHITE BLOOD COUNT 7.4 X10^3/uL (3.6-10.0)
[2019-04-18] MEDS: REGLAN TAB 5 MG PO SCH ×2 (16:57→21:08)
[2019-04-18] MEDS: HumuLIN R SUBCUT PRN ×2 (18:10→21:09)
[2019-04-18] MEDS: SNACK - Diabetic Appropriate PO SCH (20:11)
[2019-04-18] MEDS ORDERED: LIPITOR TAB 40 MG PO SCH (21:00)
[2019-04-18] MEDS ORDERED: BETAPACE AF PO SCH ×2 (21:00)
[2019-04-19] MEDS: REGLAN TAB 5 MG PO SCH ×2 (05:38→11:54)
[2019-04-19] MEDS: NS 1000 ML 1,000 ML IV SCH (05:38)
[2019-04-19 07:59] LABS: BASOPHILS % (AUTO) 0.2 % (0.2-1.0); HEMATOCRIT 33.4 % (36.0-47.0); LYMPHOCYTES # (AUTO) 0.9 X10^3/uL (1.3-2.9); LYMPHOCYTES % (AUTO) 16.1 % (21.0-51.0); MEAN CORPUSCULAR HEMOGLOBIN 28.3 pg (27.0-34.0); MEAN CORPUSCULAR HGB CONC 32.8 g/dL (33.0-35.0); MEAN CORPUSCULAR VOLUME 86.4 fL (80.0-100.0); MEAN PLATELET VOLUME 7.2 fL (7.4-11.0); MONOCYTES # (AUTO) 0.1 x10^3/uL (0.3-0.8); MONOCYTES % (AUTO) 1.5 % (0.0-13.0); NEUTROPHILS # (AUTO) 4.5 x10^3/uL (2.2-4.8); NEUTROPHILS % (AUTO) 82.2 % (42.0-75.0); PLATELET COUNT 328 X10^3/uL (150.0-450.0); RED BLOOD COUNT 3.87 X10^6/uL (3.5-5.4); RED CELL DISTRIBUTION WIDTH 14.8 % (11.6-16.5); WHITE BLOOD COUNT 5.4 X10^3/uL (3.6-10.0)
[2019-04-19] MEDS: PROTONIX INJ 40 MG VIAL IVP SCH (09:32)
[2019-04-19] MEDS: PROCARDIA XL PO SCH (09:34)
[2019-04-19] MEDS: BETAPACE AF PO SCH (09:35)
[2019-04-19] MEDS: COZAAR PO SCH (09:37)
[2019-04-19] MEDS: HEMOCYTE-PLUS PO SCH (09:37)
[2019-04-19] MEDS: EFFEXOR XR 37.5 MG CAP PO SCH (09:37)
[2019-04-19] MEDS: SYNTHROID 75 mcg TAB PO SCH (09:38)
[2019-04-19] MEDS: ELIQUIS PO SCH (09:40)
[2019-04-19] MEDS: PLAVIX PO SCH (09:40)
[2019-04-19] MEDS: HumuLIN R SUBCUT PRN (12:15)
[2019-04-19 14:11] VITALS: BP 137/73
== END 2019-04-19 16:20 | disposition home or self-care (01) ==
LOC: MED/SURG
PROVIDERS: ADMIT Internal Medicine; ATTEND Internal Medicine
DX: E78.2 Mixed hyperlipidemia; R06.02 Shortness of breath; Z79.01 Long term (current) use of anticoagulants; E11.65 Type 2 diabetes mellitus with hyperglycemia; I10 Essential (primary) hypertension; E03.8 Other specified hypothyroidism; R94.31 Abnormal electrocardiogram [ECG] [EKG]; I25.10 Atherosclerotic heart disease of native coronary artery without angina pectoris; F41.8 Other specified anxiety disorders; K21.9 Gastro-esophageal reflux disease without esophagitis; N39.0 Urinary tract infection, site not specified; R26.89 Other abnormalities of gait and mobility; I48.91 Unspecified atrial fibrillation; D64.89 Other specified anemias; M19.90 Unspecified osteoarthritis, unspecified site; R53.1 Weakness
CPT/HCPCS: 36415; 36600; 71020; 71046; 71275; 80048; 80053; 81001; 82270; 82550; 82553; 82607; 82728; 82746; 82803; 83540; 84466; 84484; 85025; 87040; 87086; 93005; 93306; 94760; 96360; 96361; 96372; 96374; 97162; 97166; A4222; C9113; G0378; J0696; J1756; J1815; J2920; J7030; J7050

== ENCOUNTER 2019-05-22 12:19 | Observation (INO) ==
[2019-05-22] MEDS ORDERED: MORPHINE SULFATE INJ 2 MG INJ IVP PRN (13:10)
[2019-05-22] MEDS ORDERED: ZOFRAN INJ 4 MG VIAL IVP PRN (13:10)
[2019-05-22] MEDS ORDERED: NORCO 10/325 TAB PO PRN (13:12)
--- NOTE | 2019-05-22 16:00 | RAD ---
HISTORYDOESTUDYCHEST, 1 [id number]/02/2019FINDINGSThe heart is normal. The pulmonary vessels are normal. The lungs are mildly hyperinflated. No consolidation or effusion is seen. The bones are intact.IMPRESSIONStable chest with no acute abnormality seen.Electronically signed by: KYLEE NEWTON (May 22, 2019 15:58:59)
[2019-05-22 16:23] LABS: BASOPHILS % (AUTO) 0.3 % (0.2-1.0); EOSINOPHILS # (AUTO) 0.1 x10^3/uL (0.0-0.2); EOSINOPHILS % (AUTO) 1.1 % (0.9-2.9); HEMATOCRIT 34.3 % (36.0-47.0); HEMOGLOBIN 11.3 g/dL (12.0-16.0); LYMPHOCYTES # (AUTO) 1.1 X10^3/uL (1.3-2.9); LYMPHOCYTES % (AUTO) 23.3 % (21.0-51.0); MEAN CORPUSCULAR HGB CONC 32.9 g/dL (33.0-35.0); MEAN CORPUSCULAR VOLUME 85.1 fL (80.0-100.0); MEAN PLATELET VOLUME 7.3 fL (7.4-11.0); MONOCYTES # (AUTO) 0.2 x10^3/uL (0.3-0.8); MONOCYTES % (AUTO) 4.7 % (0.0-13.0); NEUTROPHILS # (AUTO) 3.4 x10^3/uL (2.2-4.8); NEUTROPHILS % (AUTO) 70.6 % (42.0-75.0); PLATELET COUNT 283 X10^3/uL (150.0-450.0); RED BLOOD COUNT 4.02 X10^6/uL (3.5-5.4); RED CELL DISTRIBUTION WIDTH 15.5 % (11.6-16.5); WHITE BLOOD COUNT 4.9 X10^3/uL (3.6-10.0)
[2019-05-22 16:30] VITALS: BMI 21.9
[2019-05-22 16:34] LABS: ALANINE AMINOTRANSFERASE 22 Units/L (12-78); ALKALINE PHOSPHATASE 107 Units/L (46-116); ASPARTATE AMINO TRANSFERASE 24 Units/L (15-37); BLOOD UREA NITROGEN 17 mg/dL (7-18); CALCIUM 8.5 mg/dL (8.5-10.1); CARBON DIOXIDE 22.4 mmol/L (21-32); CHLORIDE 102 mmol/L (98-107); COR CA(FOR HYPOALB) 9.3 mg/dL (8.5-10.1); CREATININE 1.47 mg/dL (0.55-1.02); MAGNESIUM 1.3 mg/dL (1.7-2.9); SODIUM 138 mmol/L (136-145); TOTAL PROTEIN 7.1 g/dL (6.4-8.2); eGFR NON BLACK RACES 37 (>60)
[2019-05-22] MEDS: NS 1000 ML 1,000 ML IV SCH (17:13)
--- NOTE | 2019-05-22 17:58 | DR.H&P ---
H&P - History & Physical for Day of: H&P Date: 05/22/19 - Chief Complaint Chief Complaint: SEVERE LOWER BACK PAIN, RADIATES DOWN LEGS, LEG WEAKNESS - History of Present Illness History of Present Illness: PT IS 78 WF DIRECT ADMIT FROM DR GARCIA OFFICE WITH CO INTRACTABLE LOWER BACK PAIN, RADIATES TO HIPS AND LEGS. PT REPORTS WEAKNESS IN BOTH LEGS. FAMILY STATES PT HAD NOT BEEN EATING, CONCERNED SHE IS DEHYDRATED. PT FAMILY REPORTS SHE CANT MOVE OFF HER COUCH. PT HAS PMH OF CAD, COPD, HTN, AFIB, OA, L SPINE DDD, DM PT IS CURRENTLY ON NORCO AND GABAPENTIN FOR PAIN CONTROL WITHOUT RELIEF. - Past Medical History Past Medical History: Coronary Artery Disease, Hypertension, Dyslipidemia, Diabetes, Anxiety, Hypothyroidism, GERD, Arthritis - Past Surgical History Surgical History: Angioplasty/Stents, , Cholecystectomy, Hysterectomy, Ortho Surgery, Other - Family History Family Medical History: Diabetes Mellitus, Coronary Artery Disease, Heart Failure - Social History Does patient currently use any type of tobacco product: No Have you used tobacco products in the last 12 months: No Type of Tobacco Use: None Does any household member use tobacco: No Alcohol Use: None Drug Use: None Prescription drug monitoring program results: PDMP reviewed and no concerns identified - Medications Home Medications: Penicillins Allergy (Verified 04/17/19 22:35) CONTINUE taking the following medications aspirin [Aspir-81] 81 mg PO DAILY 05/22/19 [History] sotalol 80 mg PO HS 05/22/19 [History] - Review of Systems Constitutional: Weakness Eyes: No Symptoms Reported ENT: No Symptoms Reported Respiratory: SOB with Excertion Cardiovascular: No Symptoms Reported Gastrointestinal: Nausea Genitourinary: No Symptoms Reported Musculoskeletal: Back Pain, Leg Pain Skin: No Symptoms Reported Neurological: Weakness - Physical Exam Vital Signs: Temperature 98.3 F Pulse Rate [Left Brachial] 69 Respiratory Rate 20 Blood Pressure [Left Arm] 180/77 Blood Pressure [Right Arm] 137/73 O2 Sat by Pulse Oximetry 100 Oriented: Normal Eyes: Normal Ear: Normal Nose: Normal Throat: Normal Respiratory: RLL Diminished, LLL Diminished Cardiovascular: Normal : Normal Auscultation: Bowel Sounds: Normal Palpation: Normal Tenderness: Normal Skin: Decreased Turgur Musculoskeletal: Right, Left, Back:Thoracic, Back:Lumbar, Sensory Deficit Psychiatric: Anxiety, Depression Mood Description: Depressed Speech Pattern: Clear, Appropriate - Assessment/Plan (1) Intractable neuropathic pain of lumbosacral origin Status: Acute Plan: ADMIT, PAIN CONTROL. LOW DOSE IV SOLU MEDROL. GENTLE IV HYDRATION, ADMISSION LABS. CBC CMP UA MAG ON ADMISSION. VERIFY AND RESUME HOME MEDICATION. MRI LSPINE W/O CONTRAST (2) Degenerative lumbar spinal stenosis Status: Acute (3) Weakness of lower extremity Status: Acute (4) Afib Status: Acute (5) CAD (coronary artery disease) Status: Acute (6) Dehydration Status: Acute (7) Hypertension Status: Acute - Allergies Allergies/Adverse Reactions: Allergies Allergy/AdvReac Type Severity Reaction Status Date / Time Penicillins Allergy Verified 04/17/19 22:35
[2019-05-22] MEDS ORDERED: MAGNESIUM SULFATE 1 GRAM/100 mL PREMIX 1 GM/100 ML BAG IV PRN (18:02)
[2019-05-22] MEDS ORDERED: MICRO K EXTEN CAP 10 MEQ PO PRN (18:02)
[2019-05-22] MEDS ORDERED: POTASSIUM CHLORIDE LIQ 20 MEQ UDC PO PRN (18:02)
[2019-05-22] MEDS ORDERED: KLOR-CON PO PRN (18:02)
[2019-05-22] MEDS ORDERED: POTASSIUM CHL 40 MEQ/NS 0.45% 500 ML IV PRN (18:02)
[2019-05-22] MEDS ORDERED: POTASSIUM CHL 60 MEQ/NS 0.45% 500 ML IV PRN (18:02)
[2019-05-22] MEDS ORDERED: K-DUR TAB 20 MEQ PO PRN (18:02)
[2019-05-22] MEDS ORDERED: K-RIDER 10 MEQ/NS 100 ML 10 MEQ/100 ML BAG IV PRN (18:02)
--- NOTE | 2019-05-22 18:27 | MRI ---
HISTORYINTRACTABLE LBP, LOWER EXT WEAKNESSSTUDYMRI L SPINE W/O CONTRASTCOMPARISONNoneTECHNIQUEMultiplanar multi-sequence MRI of the lumbar spine was obtained utiliz ing standard departmental protocol.FINDINGSThe lumbar vertebral well aligned. There is a transitional vertebral body at S1 which for the purpose of this body be considered a partially lumbarized S1 vert ebra. There is moderate disc space narrowing throughout with diffuse moderate disc desiccation. No fr acture or subluxation is seen. The vertebral body height is well maintained throughout. The conus is normal. There are no pars defects. There is a small disc bulge at L2-3 causing mild dural sac effacem ent.There is a moderate central disc bulge at L3-4 causing moderate anterior dural sac effacement and mild neural foraminal narrowing. There is a small central disc bulge at L4-5 causing mild dural sac effacement. There are moderate hypertrophic changes of the facets throughout with ligamentum flavum h ypertrophy causing diffuse mild spinal stenosis. The sacrum and SI joints are intact. The paravertebr al soft tissues are normal with no pars defects.IMPRESSIONModic degenerative disc changes throughout with no acute abnormality seen.Transitional vertebral body at [id number] central disc bulge at L3-4.S mall central disc bulges at L2-3 and L4-5.Moderate osteoarthritic changes of the facets throughout ca using diffuse mild spinal stenosis.Electronically signed by: KYLEE NEWTON (May 22, 2019 17:42:38)
[2019-05-22] MEDS: SOLU-Medrol 40 MG VIAL IVP SCH (18:36)
[2019-05-22] MEDS: MAGNESIUM SULFATE 1 GRAM/100 mL PREMIX 1 GM/100 ML BAG IV PRN ×2 (18:36→23:00)
[2019-05-22] MEDS: ELIQUIS PO SCH (21:02)
[2019-05-22] MEDS: LIPITOR TAB 40 MG PO SCH (21:02)
[2019-05-22] MEDS: PROCARDIA XL PO SCH (21:03)
[2019-05-23] MEDS: MAGNESIUM SULFATE 1 GRAM/100 mL PREMIX 1 GM/100 ML BAG IV PRN (00:44)
[2019-05-23] MEDS: SOLU-Medrol 40 MG VIAL IVP SCH ×2 (00:46→06:02)
[2019-05-23] MEDS: NS 1000 ML 1,000 ML IV SCH ×2 (05:16→18:21)
[2019-05-23 06:08] LABS: BILIRUBIN,URINE NEGATIVE (NEGATIVE); BLOOD/HEMOGLOBIN,URINE 3+ (NEGATIVE); GLUCOSE, URINE NEGATIVE (NEGATIVE); KETONES,URINE NEGATIVE (NEGATIVE); LEUKOCYTE ESTERASE ,URINE 3+ (NEGATIVE); NITRITES,URINE POSITIVE (NEGATIVE); PROTEIN,URINE 2+ (NEGATIVE); UROBILINOGEN,URINE NORMAL (NORMAL)
[2019-05-23 06:23] LABS: APPEARANCE,URINE CLOUDY (CLEAR); BACTERIA,URINE 3+ /HPF (NEGATIVE); COLOR,URINE PALE YELLOW (YELLOW); RBC,URINE TNTC /HPF (0-3); SQUAMOUS EPITHELIAL CELL,UR RARE /HPF (NEGATIVE)
[2019-05-23 06:24] LABS: ALBUMIN 2.9 g/dL (3.4-5.0); CALCIUM 8.5 mg/dL (8.5-10.1); CARBON DIOXIDE 23.8 mmol/L (21-32); COR CA(FOR HYPOALB) 9.4 mg/dL (8.5-10.1); CREATININE 1.29 mg/dL (0.55-1.02); MAGNESIUM 3.2 mg/dL (1.7-2.9); TOTAL PROTEIN 7.2 g/dL (6.4-8.2)
[2019-05-23 06:28] LABS: BASOPHILS % (AUTO) 0.1 % (0.2-1.0); EOSINOPHILS % (AUTO) 0.1 % (0.9-2.9); HEMATOCRIT 33.2 % (36.0-47.0); HEMOGLOBIN 11.1 g/dL (12.0-16.0); LYMPHOCYTES # (AUTO) 0.8 X10^3/uL (1.3-2.9); LYMPHOCYTES % (AUTO) 25.9 % (21.0-51.0); MEAN CORPUSCULAR HEMOGLOBIN 28.4 pg (27.0-34.0); MEAN CORPUSCULAR HGB CONC 33.3 g/dL (33.0-35.0); MEAN CORPUSCULAR VOLUME 85.1 fL (80.0-100.0); MEAN PLATELET VOLUME 7.3 fL (7.4-11.0); MONOCYTES # (AUTO) 0.1 x10^3/uL (0.3-0.8); MONOCYTES % (AUTO) 1.7 % (0.0-13.0); NEUTROPHILS # (AUTO) 2.3 x10^3/uL (2.2-4.8); NEUTROPHILS % (AUTO) 72.2 % (42.0-75.0); PLATELET COUNT 284 X10^3/uL (150.0-450.0); RED CELL DISTRIBUTION WIDTH 15.6 % (11.6-16.5); WHITE BLOOD COUNT 3.2 X10^3/uL (3.6-10.0)
[2019-05-23] MEDS ORDERED: PLAVIX PO SCH (09:00)
[2019-05-23] MEDS: SYNTHROID 75 mcg TAB PO SCH (09:07)
[2019-05-23] MEDS: EFFEXOR XR 37.5 MG CAP PO SCH (09:07)
[2019-05-23] MEDS: FOLIC ACID TAB 1 MG PO SCH (09:07)
[2019-05-23] MEDS: COZAAR PO SCH (09:07)
[2019-05-23] MEDS: PROCARDIA XL PO SCH ×2 (09:08→21:08)
[2019-05-23] MEDS: ELIQUIS PO SCH ×2 (09:08→21:08)
[2019-05-23 10:31] LABS: IRON 33 ug/dL (50-175)
[2019-05-23] MEDS: ROCEPHIN VIAL 1 GRAM 1 G in NS 100 ML IV + SPIKE MINIBAG* 100 ML IV SCH (11:39)
[2019-05-23 12:45] LABS: URIC ACID 4.5 mg/dL (2.6-6.0)
[2019-05-23 13:24] LABS: RHEUMATOID FACTOR POSITIVE (NEGATIVE)
[2019-05-23] MEDS: LIPITOR TAB 40 MG PO SCH (21:08)
[2019-05-24 05:47] LABS: BASOPHILS % (AUTO) 0.1 % (0.2-1.0); EOSINOPHILS % (AUTO) 0.1 % (0.9-2.9); HEMATOCRIT 29.2 % (36.0-47.0); HEMOGLOBIN 9.8 g/dL (12.0-16.0); LYMPHOCYTES # (AUTO) 1.5 X10^3/uL (1.3-2.9); LYMPHOCYTES % (AUTO) 21.2 % (21.0-51.0); MEAN CORPUSCULAR HEMOGLOBIN 28.6 pg (27.0-34.0); MEAN CORPUSCULAR HGB CONC 33.4 g/dL (33.0-35.0); MEAN CORPUSCULAR VOLUME 85.6 fL (80.0-100.0); MEAN PLATELET VOLUME 7.6 fL (7.4-11.0); MONOCYTES # (AUTO) 0.8 x10^3/uL (0.3-0.8); MONOCYTES % (AUTO) 10.5 % (0.0-13.0); NEUTROPHILS # (AUTO) 4.9 x10^3/uL (2.2-4.8); NEUTROPHILS % (AUTO) 68.1 % (42.0-75.0); PLATELET COUNT 297 X10^3/uL (150.0-450.0); RED BLOOD COUNT 3.41 X10^6/uL (3.5-5.4); RED CELL DISTRIBUTION WIDTH 15.4 % (11.6-16.5); WHITE BLOOD COUNT 7.2 X10^3/uL (3.6-10.0)
[2019-05-24 05:58] LABS: ALANINE AMINOTRANSFERASE 26 Units/L (12-78); ALBUMIN 2.6 g/dL (3.4-5.0); ALKALINE PHOSPHATASE 97 Units/L (46-116); ASPARTATE AMINO TRANSFERASE 24 Units/L (15-37); BLOOD UREA NITROGEN 17 mg/dL (7-18); CALCIUM 8.1 mg/dL (8.5-10.1); CHLORIDE 106 mmol/L (98-107); COR CA(FOR HYPOALB) 9.2 mg/dL (8.5-10.1); COR NA(FOR HYPERGLY) 142 mmol/L (136-145); SODIUM 140 mmol/L (136-145); TOTAL PROTEIN 6.6 g/dL (6.4-8.2); eGFR NON BLACK RACES 57 (>60)
[2019-05-24] MEDS: ROCEPHIN VIAL 1 GRAM 1 G in NS 100 ML IV + SPIKE MINIBAG* 100 ML IV SCH (09:34)
[2019-05-24] MEDS: COZAAR PO SCH (09:36)
[2019-05-24] MEDS: EFFEXOR XR 37.5 MG CAP PO SCH (09:36)
[2019-05-24] MEDS: FOLIC ACID TAB 1 MG PO SCH (09:36)
[2019-05-24] MEDS: SYNTHROID 75 mcg TAB PO SCH (09:36)
[2019-05-24] MEDS: ELIQUIS PO SCH ×2 (09:36→20:44)
[2019-05-24] MEDS: PROCARDIA XL PO SCH ×2 (09:36→20:43)
[2019-05-24] MEDS: HEMOCYTE-PLUS PO SCH (10:43)
[2019-05-24] MEDS: NS 1000 ML 1,000 ML IV SCH ×2 (14:08→23:00)
[2019-05-24] MEDS: LIPITOR TAB 40 MG PO SCH (20:44)
[2019-05-25] MEDS: ZANAFLEX PO PRN ×2 (00:26→23:00)
[2019-05-25] MEDS: SYNTHROID 75 mcg TAB PO SCH (08:31)
[2019-05-25] MEDS: COZAAR PO SCH (08:31)
[2019-05-25] MEDS: ELIQUIS PO SCH ×2 (08:32→21:51)
[2019-05-25] MEDS: FOLIC ACID TAB 1 MG PO SCH (08:32)
[2019-05-25] MEDS: HEMOCYTE-PLUS PO SCH (08:32)
[2019-05-25] MEDS: PROCARDIA XL PO SCH ×2 (08:32→21:50)
[2019-05-25] MEDS: EFFEXOR XR 37.5 MG CAP PO SCH (08:32)
[2019-05-25] MEDS: ROCEPHIN VIAL 1 GRAM 1 G in NS 100 ML IV + SPIKE MINIBAG* 100 ML IV SCH (08:32)
[2019-05-25] MEDS: ASPIRIN EC 81 MG PO SCH (16:07)
[2019-05-25] MEDS ORDERED: PREDNISONE 5 MG PO SCH (18:00)
[2019-05-25] MEDS ORDERED: BETAPACE AF PO SCH (21:00)
[2019-05-25] MEDS: PROTONIX INJ 40 MG VIAL IVP SCH (21:50)
[2019-05-25] MEDS: LIPITOR TAB 40 MG PO SCH (21:51)
[2019-05-25] MEDS: BETAPACE AF PO SCH (21:51)
[2019-05-25] MEDS: NS 1000 ML 1,000 ML IV SCH (21:52)
[2019-05-26] MEDS: NS 1000 ML 1,000 ML IV SCH (05:00)
[2019-05-26 06:23] LABS: BASOPHILS % (AUTO) 0.2 % (0.2-1.0); EOSINOPHILS # (AUTO) 0.1 x10^3/uL (0.0-0.2); EOSINOPHILS % (AUTO) 2.4 % (0.9-2.9); HEMATOCRIT 32.3 % (36.0-47.0); HEMOGLOBIN 10.7 g/dL (12.0-16.0); LYMPHOCYTES # (AUTO) 1.2 X10^3/uL (1.3-2.9); LYMPHOCYTES % (AUTO) 26.3 % (21.0-51.0); MEAN CORPUSCULAR HEMOGLOBIN 28.3 pg (27.0-34.0); MEAN CORPUSCULAR HGB CONC 33.1 g/dL (33.0-35.0); MEAN CORPUSCULAR VOLUME 85.6 fL (80.0-100.0); MEAN PLATELET VOLUME 7.6 fL (7.4-11.0); MONOCYTES # (AUTO) 0.3 x10^3/uL (0.3-0.8); MONOCYTES % (AUTO) 7.3 % (0.0-13.0); NEUTROPHILS # (AUTO) 2.8 x10^3/uL (2.2-4.8); NEUTROPHILS % (AUTO) 63.8 % (42.0-75.0); PLATELET COUNT 283 X10^3/uL (150.0-450.0); RED BLOOD COUNT 3.77 X10^6/uL (3.5-5.4); RED CELL DISTRIBUTION WIDTH 15.4 % (11.6-16.5); WHITE BLOOD COUNT 4.4 X10^3/uL (3.6-10.0)
[2019-05-26 06:49] LABS: ALANINE AMINOTRANSFERASE 43 Units/L (12-78); ALBUMIN 2.4 g/dL (3.4-5.0); ALKALINE PHOSPHATASE 100 Units/L (46-116); ASPARTATE AMINO TRANSFERASE 28 Units/L (15-37); BLOOD UREA NITROGEN 10 mg/dL (7-18); CALCIUM 7.8 mg/dL (8.5-10.1); CARBON DIOXIDE 23.6 mmol/L (21-32); CHLORIDE 107 mmol/L (98-107); COR CA(FOR HYPOALB) 9.1 mg/dL (8.5-10.1); COR NA(FOR HYPERGLY) 142 mmol/L (136-145); CREATININE 0.84 mg/dL (0.55-1.02); SODIUM 140 mmol/L (136-145); eGFR NON BLACK RACES > 60 (>60)
[2019-05-26] MEDS ORDERED: PREDNISONE 5 MG PO NR (09:00)
[2019-05-26] MEDS: PROTONIX INJ 40 MG VIAL IVP SCH (10:15)
[2019-05-26] MEDS: ROCEPHIN VIAL 1 GRAM 1 G in NS 100 ML IV + SPIKE MINIBAG* 100 ML IV SCH (10:34)
[2019-05-26] MEDS: ASPIRIN EC 81 MG PO SCH (10:39)
[2019-05-26] MEDS: BETAPACE AF PO SCH (10:39)
[2019-05-26] MEDS: HEMOCYTE-PLUS PO SCH (10:40)
[2019-05-26] MEDS: SYNTHROID 75 mcg TAB PO SCH (10:41)
[2019-05-26] MEDS: EFFEXOR XR 37.5 MG CAP PO SCH (10:41)
[2019-05-26] MEDS: PROCARDIA XL PO SCH (10:41)
[2019-05-26] MEDS: ELIQUIS PO SCH (10:41)
[2019-05-26] MEDS: COZAAR PO SCH (10:42)
[2019-05-26] MEDS: FOLIC ACID TAB 1 MG PO SCH (10:42)
[2019-05-26] MEDS ORDERED: SOLU-Medrol 40 MG VIAL IVP ONE (10:48)
[2019-05-26 11:05] VITALS: BP 133/61
[2019-05-26 20:29] LABS: ANTI-NUCLEAR ANTIBODY TEST Detected (None Detected)
[2019-05-27 20:30] LABS: HEPATITIS B SURFACE ANTIGEN Negative (Negative)
[2019-05-31 09:46] LABS: ANA PATTERN HOMOGENEOUS
== END 2019-05-26 12:10 | disposition home health service (06) ==
LOC: MED/SURG
PROVIDERS: ADMIT Internal Medicine; ATTEND Internal Medicine
DX: B96.29 Other Escherichia coli [E. coli] as the cause of diseases classified elsewhere; K21.9 Gastro-esophageal reflux disease without esophagitis; R70.0 Elevated erythrocyte sedimentation rate; E86.0 Dehydration; M51.36 Other intervertebral disc degeneration, lumbar region; E03.8 Other specified hypothyroidism; N39.0 Urinary tract infection, site not specified; M79.18 Myalgia, other site; R94.4 Abnormal results of kidney function studies; R26.89 Other abnormalities of gait and mobility; I25.10 Atherosclerotic heart disease of native coronary artery without angina pectoris; M48.061 Spinal stenosis, lumbar region without neurogenic claudication; R79.82 Elevated C-reactive protein (CRP); M06.9 Rheumatoid arthritis, unspecified; R53.1 Weakness; E11.65 Type 2 diabetes mellitus with hyperglycemia; I48.91 Unspecified atrial fibrillation; I10 Essential (primary) hypertension
CPT/HCPCS: 36415; 71010; 71045; 72148; 80053; 80074; 81001; 82607; 82728; 82746; 83540; 83735; 84466; 84550; 85025; 85652; 86038; 86039; 86140; 86308; 86430; 87086; 87088; 87186; 97116; 97162; 97165; 97530; A4222; C9113; G0378; J0696; J2920; J3475; J7030; J7050

== ENCOUNTER 2019-06-20 14:58 | Inpatient (IN) ==
[2019-06-20] MEDS ORDERED: ZOFRAN INJ 4 MG VIAL IVP PRN (16:34)
[2019-06-20 16:39] LABS: BASOPHILS % (AUTO) 0.2 % (0.2-1.0); EOSINOPHILS % (AUTO) 0.6 % (0.9-2.9); HEMOGLOBIN 11.2 g/dL (12.0-16.0); LYMPHOCYTES # (AUTO) 1.5 X10^3/uL (1.3-2.9); LYMPHOCYTES % (AUTO) 23.3 % (21.0-51.0); MEAN CORPUSCULAR HEMOGLOBIN 28.4 pg (27.0-34.0); MEAN CORPUSCULAR HGB CONC 32.8 g/dL (33.0-35.0); MEAN CORPUSCULAR VOLUME 86.5 fL (80.0-100.0); MEAN PLATELET VOLUME 7.4 fL (7.4-11.0); MONOCYTES # (AUTO) 0.3 x10^3/uL (0.3-0.8); MONOCYTES % (AUTO) 5.1 % (0.0-13.0); NEUTROPHILS # (AUTO) 4.5 x10^3/uL (2.2-4.8); NEUTROPHILS % (AUTO) 70.8 % (42.0-75.0); PLATELET COUNT 331 X10^3/uL (150.0-450.0); RED BLOOD COUNT 3.93 X10^6/uL (3.5-5.4); RED CELL DISTRIBUTION WIDTH 17.1 % (11.6-16.5); WHITE BLOOD COUNT 6.4 X10^3/uL (3.6-10.0)
[2019-06-20 16:54] LABS: ALANINE AMINOTRANSFERASE 37 Units/L (12-78); ALBUMIN 2.9 g/dL (3.4-5.0); ALKALINE PHOSPHATASE 144 Units/L (46-116); ASPARTATE AMINO TRANSFERASE 91 Units/L (15-37); BLOOD UREA NITROGEN 18 mg/dL (7-18); CALCIUM 8.6 mg/dL (8.5-10.1); CARBON DIOXIDE 20.1 mmol/L (21-32); CHLORIDE 102 mmol/L (98-107); COR CA(FOR HYPOALB) 9.5 mg/dL (8.5-10.1); COR NA(FOR HYPERGLY) 139 mmol/L (136-145); CREATININE 1.53 mg/dL (0.55-1.02); SODIUM 138 mmol/L (136-145); TOTAL PROTEIN 7.6 g/dL (6.4-8.2); eGFR NON BLACK RACES 35 (>60)
[2019-06-20 17:07] VITALS: BMI 21.7
--- NOTE | 2019-06-20 17:10 | CT ---
ABDOMEN/PELVIS W/O CONHISTORY: HEMATURIA. LEFT FLANK PAINComparison:NoneTechnique:Multiple non contrast axial images of the abdomen and pelvis were obtained from the lung bases to the pubic symphysis.. Dose reduction techniques including Automated Exposure Control (AEC) and adjustment of mA and kV were utlized.Findings:The sensitivity for focal lesion detection within the solid abdominal viscera is diminished without the use of IV contrast.The heart is normal in size. There is no pericardial effusion. Lung bases are clear without focal consolidation, pleural effusion or pneumothorax.Liver and spleen are normal in size, contour. No focal lesions. No ductal dilitation. Gallbladder absent the pancreas is unremarkable. Adrenal glands are normal. Kidneys are without hydronephrosis or nephrolithiasis.No bowel obstruction or inflammation. Normal appendix. No abnormal appearing mesenteric or retroperitoneal lymph nodes. . No free fluid or fluid collections.The bladder is normal in appearance. Uterus not well seen. No free fluid or abnormal pelvic lymph nodes.No aggressive osseous lesions.IMPRESSION:1. No source of hematuria or left flank pain identified on this limited noncontrast examination.Electronically signed by: RENETTA GABRIEL (Jun 20, 2019 17:08:57)
[2019-06-20 17:54] LABS: IRON 23 ug/dL (50-175)
--- NOTE | 2019-06-20 18:19 | RAD ---
HISTORY:Shortness of breathStudy: Single view chestComparison:05/22/2019Findings:No infiltrate, effusion, or pneumothorax identified .Cardiac and mediastinal contours are within normal limits .The soft tissues are intact .IMPRESSION:1. No acute cardiopulmonary abnormality.Electronically signed by: REINA MCKEON (Jun 20, 2019 18:18:10)
[2019-06-20] MEDS ORDERED: MORPHINE SULFATE INJ 2 MG INJ IVP PRN (18:23)
--- NOTE | 2019-06-20 18:39 | DR.H&P ---
H&P - History & Physical for Day of: H&P Date: 06/20/19 - Chief Complaint Chief Complaint: left lower abdominal pain, weakness, shortness of breath - History of Present Illness History of Present Illness: PT IS 78 WF DIRECT ADMIT FROM DR GARCIA OFFICE WITH CO SEVERE SOB ON EXAM WITH DIFFUSE PALLOR, LLQ TENDERNESS. PT HAD EPISODE OF CONFUSION IN OFFICE WITH CO PAIN IN LEFT SIDE, HAD GROSS HEMATURIA IN OFFICE FOLLOWED BY UNCONTROLLED BOWELS. NO VISIBLE BLOOD IN STOOL. PT HAS PMH OF ANEMIA. SUSPECTED PT HGB TO BE LOW. PT ADMITTED FOR TREATMENT AND EVALUATION OF SOB, LLQ PAIN AND UTI. PT HAS PMH OF AFIB, RA, CAD, HTN, OA, GERD. - Past Medical History Past Medical History: Coronary Artery Disease, Hypertension, Dyslipidemia, Diabetes, Anxiety, Hypothyroidism, GERD, Arthritis - Past Surgical History Surgical History: Angioplasty/Stents, , Cholecystectomy, Hysterectomy, Ortho Surgery, Other - Family History Family Medical History: Diabetes Mellitus, Coronary Artery Disease, Heart Failure - Social History Does patient currently use any type of tobacco product: No Have you used tobacco products in the last 12 months: No Type of Tobacco Use: None Does any household member use tobacco: No Alcohol Use: None Drug Use: None Risks, benefits, and alternatives of opioids discussed: No Prescription drug monitoring program results: PDMP reviewed and no concerns identified - Medications Home Medications: Penicillins Allergy (Verified 04/17/19 22:35) - Review of Systems Constitutional: Weakness Eyes: No Symptoms Reported ENT: No Symptoms Reported Respiratory: Shortness of Breath, SOB with Excertion Cardiovascular: Light Headedness Gastrointestinal: Nausea, Vomiting, Abdominal Pain Genitourinary: Hematuria Musculoskeletal: Back Pain, Leg Pain Skin: No Symptoms Reported Neurological: Weakness, Confusion - Physical Exam Vital Signs: Temperature 97.5 F Pulse Rate [Right Brachial] 77 Respiratory Rate 18 Blood Pressure [Right Arm] 186/84 Blood Pressure [Left Arm] 133/61 O2 Sat by Pulse Oximetry 100 Oriented: Person Eyes: Normal, Diplopia Nose: Normal Throat: Dry Respiratory: RLL Diminished, LLL Diminished Cardiovascular: Tachycardia. negative: Edema : Normal Auscultation: Bowel Sounds: Normal Palpation: Normal Tenderness: LLQ Skin: Decreased Turgur Musculoskeletal: Back:Thoracic, Back:Lumbar Psychiatric: Anxiety Mood Description: Anxious Affect: Anxious Speech Pattern: Appropriate (EPISODE OF CONFUSION WITNESSED ON EXAM, BOTH APPROPRIATE AND INAPPROPRIATE RESPONES), Delayed - Assessment/Plan (1) SOB (shortness of breath) Status: Acute Plan: ADMIT, SERIAL CE, EKG. CXR ON ADMISSION. ADMISSION LABS, IV HYDRATION. PAIN CONTROL, STRICT I & OS. BP CONTROL. CARDIAC MONITORING, OCCULT STOOL. ANEMIA PANEL, ABG SUPPLEMENTAL O2 (2) Acute prerenal azotemia Status: Acute (3) Dehydration Status: Acute (4) Afib Status: Acute (5) UTI (urinary tract infection) Status: Acute (6) Anemia Status: Acute (7) Altered mental state Qualifiers: Altered mental status type: disorientation Qualified Code(s): R41.0 - Disorientation, unspecified Status: Resolved - Allergies Allergies/Adverse Reactions: Allergies Allergy/AdvReac Type Severity Reaction Status Date / Time Penicillins Allergy Verified 04/17/19 22:35
[2019-06-20 19:18] LABS: AMYLASE 47 Units/L (25-115); LIPASE 125 Units/L (73-393)
[2019-06-20 19:42] LABS: ABG BASE EXCESS 1.6 mmol/L (-2.0-2.0); ABG HCO3 24.4 mmol/L (22-26)
[2019-06-20 19:44] LABS: ABG ALLEN TEST POS
[2019-06-20 19:49] LABS: TROPONIN I 0.03 ng/mL (0-1.5)
[2019-06-20 19:52] LABS: CKMB % 0.4 % (<4); CREATINE KINASE MB 5.4 ng/mL (0-4.0)
[2019-06-20] MEDS: NS 1000 ML 1,000 ML IV SCH (21:01)
[2019-06-20] MEDS: BETAPACE AF PO SCH (21:02)
[2019-06-20] MEDS: ELIQUIS PO SCH (21:03)
[2019-06-20] MEDS: LIPITOR TAB 40 MG PO SCH (21:03)
[2019-06-20] MEDS: PROCARDIA XL PO SCH (21:03)
[2019-06-20] MEDS: MICRO K EXTEN CAP 10 MEQ PO SCH (21:03)
[2019-06-20] MEDS: COLACE CAP 100 MG PO SCH (21:03)
[2019-06-20] MEDS: PROTONIX INJ 40 MG VIAL IVP SCH (22:00)
[2019-06-20 23:23] LABS: BILIRUBIN,URINE NEGATIVE (NEGATIVE); BLOOD/HEMOGLOBIN,URINE 5+ (NEGATIVE); GLUCOSE, URINE NEGATIVE (NEGATIVE); KETONES,URINE 1+ (NEGATIVE); LEUKOCYTE ESTERASE ,URINE 2+ (NEGATIVE); NITRITES,URINE NEGATIVE (NEGATIVE); PROTEIN,URINE 2+ (NEGATIVE); UROBILINOGEN,URINE NORMAL (NORMAL)
[2019-06-20 23:26] LABS: APPEARANCE,URINE CLEAR (CLEAR); COLOR,URINE YELLOW (YELLOW)
[2019-06-20 23:27] LABS: BACTERIA,URINE 1+ /HPF (NEGATIVE); RBC,URINE 0-2 /HPF (0-3); SQUAMOUS EPITHELIAL CELL,UR RARE /HPF (NEGATIVE)
[2019-06-21 01:28] LABS: CKMB % 0.3 % (<4); CREATINE KINASE 995 Units/L (26-192); CREATINE KINASE MB 3.3 ng/mL (0-4.0); TROPONIN I < 0.02 ng/mL (0-1.5)
[2019-06-21 05:44] LABS: BASOPHILS % (AUTO) 0.4 % (0.2-1.0); EOSINOPHILS # (AUTO) 0.1 x10^3/uL (0.0-0.2); EOSINOPHILS % (AUTO) 0.9 % (0.9-2.9); HEMATOCRIT 29.1 % (36.0-47.0); HEMOGLOBIN 9.8 g/dL (12.0-16.0); LYMPHOCYTES # (AUTO) 1.9 X10^3/uL (1.3-2.9); LYMPHOCYTES % (AUTO) 34.1 % (21.0-51.0); MEAN CORPUSCULAR HEMOGLOBIN 29.1 pg (27.0-34.0); MEAN CORPUSCULAR HGB CONC 33.8 g/dL (33.0-35.0); MEAN CORPUSCULAR VOLUME 86.1 fL (80.0-100.0); MEAN PLATELET VOLUME 7.5 fL (7.4-11.0); MONOCYTES # (AUTO) 0.3 x10^3/uL (0.3-0.8); MONOCYTES % (AUTO) 4.9 % (0.0-13.0); NEUTROPHILS # (AUTO) 3.3 x10^3/uL (2.2-4.8); NEUTROPHILS % (AUTO) 59.7 % (42.0-75.0); PLATELET COUNT 280 X10^3/uL (150.0-450.0); RED BLOOD COUNT 3.38 X10^6/uL (3.5-5.4); RED CELL DISTRIBUTION WIDTH 16.7 % (11.6-16.5); WHITE BLOOD COUNT 5.5 X10^3/uL (3.6-10.0)
[2019-06-21 06:03] LABS: ALANINE AMINOTRANSFERASE 31 Units/L (12-78); ALBUMIN 2.3 g/dL (3.4-5.0); ALKALINE PHOSPHATASE 115 Units/L (46-116); ASPARTATE AMINO TRANSFERASE 79 Units/L (15-37); BLOOD UREA NITROGEN 13 mg/dL (7-18); CALCIUM 7.7 mg/dL (8.5-10.1); CARBON DIOXIDE 26.8 mmol/L (21-32); CHLORIDE 106 mmol/L (98-107); CKMB % 0.3 % (<4); COR CA(FOR HYPOALB) 9.1 mg/dL (8.5-10.1); CREATINE KINASE 831 Units/L (26-192); CREATINE KINASE MB 2.2 ng/mL (0-4.0); CREATININE 0.99 mg/dL (0.55-1.02); SODIUM 140 mmol/L (136-145); TOTAL PROTEIN 6.3 g/dL (6.4-8.2); TROPONIN I < 0.02 ng/mL (0-1.5); eGFR NON BLACK RACES 58 (>60)
[2019-06-21] MEDS: ELIQUIS PO SCH ×2 (08:56→21:14)
[2019-06-21] MEDS: PROTONIX INJ 40 MG VIAL IVP SCH (08:56)
[2019-06-21] MEDS: PROCARDIA XL PO SCH ×2 (08:56→21:14)
[2019-06-21] MEDS: FOLIC ACID TAB 1 MG PO SCH (08:56)
[2019-06-21] MEDS: BETAPACE AF PO SCH ×2 (08:57→21:14)
[2019-06-21] MEDS: ROCEPHIN VIAL 1 GRAM 1 G in NS 100 ML IV + SPIKE MINIBAG* 100 ML IV SCH (11:16)
[2019-06-21] MEDS: NS 1000 ML 1,000 ML IV SCH ×2 (11:16→23:18)
[2019-06-21 14:57] LABS: CKMB % 0.3 % (<4); CREATINE KINASE 616 Units/L (26-192); CREATINE KINASE MB 1.6 ng/mL (0-4.0); TROPONIN I < 0.02 ng/mL (0-1.5)
[2019-06-21] MEDS: SYNTHROID 75 mcg TAB PO SCH (16:43)
[2019-06-21 20:30] LABS: CKMB % 0.2 % (<4); CREATINE KINASE 552 Units/L (26-192); CREATINE KINASE MB < 1.0 ng/mL (0-4.0); TROPONIN I < 0.02 ng/mL (0-1.5)
[2019-06-21] MEDS: LIPITOR TAB 40 MG PO SCH (21:14)
[2019-06-21] MEDS: COLACE CAP 100 MG PO SCH (21:14)
[2019-06-21] MEDS: MICRO K EXTEN CAP 10 MEQ PO SCH (21:14)
[2019-06-21] MEDS: NORCO 7.5/325 MG TAB PO PRN (21:14)
[2019-06-22] MEDS ORDERED: MAGIC MOUTHWASH ONE (01:00)
[2019-06-22] MEDS: MAGIC MOUTHWASH MT PRN ×2 (01:05→05:41)
[2019-06-22 02:25] LABS: CKMB % 0.2 % (<4); CREATINE KINASE 486 Units/L (26-192); TROPONIN I < 0.02 ng/mL (0-1.5)
[2019-06-22] MEDS: NORCO 7.5/325 MG TAB PO PRN ×3 (04:03→21:52)
[2019-06-22 06:06] LABS: BASOPHILS % (AUTO) 0.2 % (0.2-1.0); EOSINOPHILS # (AUTO) 0.1 x10^3/uL (0.0-0.2); EOSINOPHILS % (AUTO) 2.5 % (0.9-2.9); HEMATOCRIT 28.3 % (36.0-47.0); HEMOGLOBIN 9.6 g/dL (12.0-16.0); LYMPHOCYTES # (AUTO) 1.5 X10^3/uL (1.3-2.9); LYMPHOCYTES % (AUTO) 35.4 % (21.0-51.0); MEAN CORPUSCULAR HEMOGLOBIN 28.7 pg (27.0-34.0); MEAN CORPUSCULAR HGB CONC 33.8 g/dL (33.0-35.0); MEAN CORPUSCULAR VOLUME 84.8 fL (80.0-100.0); MEAN PLATELET VOLUME 7.1 fL (7.4-11.0); MONOCYTES # (AUTO) 0.2 x10^3/uL (0.3-0.8); MONOCYTES % (AUTO) 5.3 % (0.0-13.0); NEUTROPHILS # (AUTO) 2.3 x10^3/uL (2.2-4.8); NEUTROPHILS % (AUTO) 56.6 % (42.0-75.0); PLATELET COUNT 291 X10^3/uL (150.0-450.0); RED BLOOD COUNT 3.34 X10^6/uL (3.5-5.4); RED CELL DISTRIBUTION WIDTH 16.9 % (11.6-16.5); WHITE BLOOD COUNT 4.1 X10^3/uL (3.6-10.0)
[2019-06-22 06:19] LABS: ALANINE AMINOTRANSFERASE 34 Units/L (12-78); ALBUMIN 2.3 g/dL (3.4-5.0); ALKALINE PHOSPHATASE 107 Units/L (46-116); ASPARTATE AMINO TRANSFERASE 68 Units/L (15-37); BLOOD UREA NITROGEN 10 mg/dL (7-18); CALCIUM 7.6 mg/dL (8.5-10.1); CARBON DIOXIDE 24.4 mmol/L (21-32); CHLORIDE 105 mmol/L (98-107); CREATININE 0.87 mg/dL (0.55-1.02); SODIUM 138 mmol/L (136-145); TOTAL PROTEIN 6.2 g/dL (6.4-8.2); eGFR NON BLACK RACES > 60 (>60)
[2019-06-22] MEDS ORDERED: MICRO K EXTEN CAP 10 MEQ PO PRN (08:24)
[2019-06-22] MEDS ORDERED: POTASSIUM CHLORIDE LIQ 20 MEQ UDC PO PRN (08:24)
[2019-06-22] MEDS ORDERED: POTASSIUM CHL 60 MEQ/NS 0.45% 500 ML IV PRN (08:24)
[2019-06-22] MEDS ORDERED: POTASSIUM CHL 40 MEQ/NS 0.45% 500 ML IV PRN (08:24)
[2019-06-22] MEDS ORDERED: KLOR-CON PO PRN (08:24)
[2019-06-22] MEDS ORDERED: K-RIDER 10 MEQ/NS 100 ML 10 MEQ/100 ML BAG IV PRN (08:24)
[2019-06-22] MEDS ORDERED: K-DUR TAB 20 MEQ PO PRN (08:24)
[2019-06-22] MEDS: PROCARDIA XL PO SCH ×2 (09:36→21:52)
[2019-06-22] MEDS: FOLIC ACID TAB 1 MG PO SCH (09:36)
[2019-06-22] MEDS: BETAPACE AF PO SCH ×2 (09:36→21:52)
[2019-06-22] MEDS: ELIQUIS PO SCH ×2 (09:36→21:51)
[2019-06-22] MEDS: ROCEPHIN VIAL 1 GRAM 1 G in NS 100 ML IV + SPIKE MINIBAG* 100 ML IV SCH (09:37)
[2019-06-22] MEDS: PROTONIX INJ 40 MG VIAL IVP SCH (09:37)
[2019-06-22] MEDS: MAGNESIUM SULFATE 1 GRAM/100 mL PREMIX 1 GM/100 ML BAG IV PRN ×4 (10:35→15:44)
[2019-06-22] MEDS: MAGIC MOUTHWASH MT SCH ×3 (13:52→21:54)
[2019-06-22] MEDS: K-LYTE EFFERVESCENT PO SCH ×2 (13:52→21:54)
[2019-06-22] MEDS: NYSTATIN SUSP MT SCH ×3 (13:53→21:52)
[2019-06-22] MEDS: NS 1000 ML 1,000 ML IV SCH (17:09)
[2019-06-22] MEDS: SYNTHROID 75 mcg TAB PO SCH (17:09)
[2019-06-22] MEDS: COLACE CAP 100 MG PO SCH (21:51)
[2019-06-22] MEDS: LIPITOR TAB 40 MG PO SCH (21:52)
[2019-06-23] MEDS: NS 1000 ML 1,000 ML IV SCH ×3 (04:09→18:09)
[2019-06-23 06:35] LABS: BASOPHILS % (AUTO) 0.2 % (0.2-1.0); EOSINOPHILS # (AUTO) 0.1 x10^3/uL (0.0-0.2); EOSINOPHILS % (AUTO) 1.6 % (0.9-2.9); HEMATOCRIT 30.9 % (36.0-47.0); HEMOGLOBIN 10.3 g/dL (12.0-16.0); LYMPHOCYTES # (AUTO) 1.2 X10^3/uL (1.3-2.9); LYMPHOCYTES % (AUTO) 31.7 % (21.0-51.0); MEAN CORPUSCULAR HEMOGLOBIN 28.4 pg (27.0-34.0); MEAN CORPUSCULAR HGB CONC 33.4 g/dL (33.0-35.0); MEAN CORPUSCULAR VOLUME 84.9 fL (80.0-100.0); MONOCYTES # (AUTO) 0.3 x10^3/uL (0.3-0.8); MONOCYTES % (AUTO) 7.2 % (0.0-13.0); NEUTROPHILS # (AUTO) 2.3 x10^3/uL (2.2-4.8); NEUTROPHILS % (AUTO) 59.3 % (42.0-75.0); PLATELET COUNT 313 X10^3/uL (150.0-450.0); RED BLOOD COUNT 3.63 X10^6/uL (3.5-5.4); RED CELL DISTRIBUTION WIDTH 17.3 % (11.6-16.5); WHITE BLOOD COUNT 3.9 X10^3/uL (3.6-10.0)
[2019-06-23 07:16] LABS: ALANINE AMINOTRANSFERASE 35 Units/L (12-78); ALBUMIN 2.2 g/dL (3.4-5.0); ALKALINE PHOSPHATASE 110 Units/L (46-116); ASPARTATE AMINO TRANSFERASE 49 Units/L (15-37); BLOOD UREA NITROGEN 8 mg/dL (7-18); CALCIUM 7.5 mg/dL (8.5-10.1); CARBON DIOXIDE 23.6 mmol/L (21-32); CHLORIDE 104 mmol/L (98-107); COR CA(FOR HYPOALB) 8.9 mg/dL (8.5-10.1); COR NA(FOR HYPERGLY) 136 mmol/L (136-145); CREATININE 0.87 mg/dL (0.55-1.02); MAGNESIUM 2.3 mg/dL (1.7-2.9); SODIUM 136 mmol/L (136-145); TOTAL PROTEIN 6.2 g/dL (6.4-8.2); eGFR NON BLACK RACES > 60 (>60)
[2019-06-23] MEDS: K-LYTE EFFERVESCENT PO SCH ×2 (08:50→20:43)
[2019-06-23] MEDS: NYSTATIN SUSP MT SCH ×4 (08:50→20:43)
[2019-06-23] MEDS: ROCEPHIN VIAL 1 GRAM 1 G in NS 100 ML IV + SPIKE MINIBAG* 100 ML IV SCH (08:50)
[2019-06-23] MEDS: BETAPACE AF PO SCH ×2 (08:51→20:43)
[2019-06-23] MEDS: HEMOCYTE-PLUS PO SCH (08:51)
[2019-06-23] MEDS: PROCARDIA XL PO SCH ×2 (08:51→20:43)
[2019-06-23] MEDS: ELIQUIS PO SCH ×2 (08:51→20:42)
[2019-06-23] MEDS: FOLIC ACID TAB 1 MG PO SCH (08:51)
[2019-06-23] MEDS ORDERED: NS 100 ML IV + SPIKE MINIBAG* 100 ML IV ONE (08:53)
[2019-06-23] MEDS: MAGIC MOUTHWASH MT SCH ×4 (09:00→20:51)
[2019-06-23] MEDS: PROTONIX INJ 40 MG VIAL IVP SCH (09:00)
[2019-06-23] MEDS: NORCO 7.5/325 MG TAB PO PRN ×2 (09:03→20:45)
[2019-06-23] MEDS ORDERED: NS 100 ML IV 100 ML IV ONE (13:15)
--- NOTE | 2019-06-23 14:29 | CT ---
HISTORYSOB, WEAKNESS, R/O PESTUDYCTA chest after intravenous infusion of 75 milliliters Omniscan. Sagittal and coronal and axial MIPS of the pulmonary arteries were displayed. Dose reduction techniques were utilized.COMPARISONDecember 2018FINDINGSThe lungs are clear. There is no pleural or pericardial effusion. No mediastinal or hilar adenopathy is demonstrated. The partially visualized upper abdomen is unremarkable status post cholecystectomy. No pulmonary embolus is demonstrated. There are prominent lymph nodes in the left axilla. There are diffuse degenerative osteophytes in the dorsal spine.IMPRESSIONNo evidence for pulmonary embolus or acute cardiopulmonary diseaseElectronically signed by: SUZIE LOVELACE (Jun 23, 2019 14:28:26)
[2019-06-23] MEDS: SYNTHROID 75 mcg TAB PO SCH (18:08)
[2019-06-23] MEDS: COLACE CAP 100 MG PO SCH (20:42)
[2019-06-23] MEDS: LIPITOR TAB 40 MG PO SCH (20:43)
[2019-06-24 06:51] LABS: BASOPHILS % (AUTO) 0.4 % (0.2-1.0); EOSINOPHILS # (AUTO) 0.2 x10^3/uL (0.0-0.2); EOSINOPHILS % (AUTO) 4.9 % (0.9-2.9); HEMATOCRIT 27.1 % (36.0-47.0); LYMPHOCYTES # (AUTO) 0.8 X10^3/uL (1.3-2.9); MEAN CORPUSCULAR HEMOGLOBIN 28.2 pg (27.0-34.0); MEAN CORPUSCULAR HGB CONC 33.3 g/dL (33.0-35.0); MEAN CORPUSCULAR VOLUME 84.7 fL (80.0-100.0); MONOCYTES # (AUTO) 0.1 x10^3/uL (0.3-0.8); MONOCYTES % (AUTO) 4.5 % (0.0-13.0); NEUTROPHILS # (AUTO) 2.2 x10^3/uL (2.2-4.8); NEUTROPHILS % (AUTO) 66.2 % (42.0-75.0); PLATELET COUNT 286 X10^3/uL (150.0-450.0); RED CELL DISTRIBUTION WIDTH 17.2 % (11.6-16.5); WHITE BLOOD COUNT 3.3 X10^3/uL (3.6-10.0)
[2019-06-24 07:02] LABS: ALANINE AMINOTRANSFERASE 32 Units/L (12-78); ALKALINE PHOSPHATASE 110 Units/L (46-116); ASPARTATE AMINO TRANSFERASE 37 Units/L (15-37); BLOOD UREA NITROGEN 8 mg/dL (7-18); CALCIUM 7.6 mg/dL (8.5-10.1); CARBON DIOXIDE 26.5 mmol/L (21-32); CHLORIDE 104 mmol/L (98-107); COR CA(FOR HYPOALB) 9.2 mg/dL (8.5-10.1); CREATININE 0.82 mg/dL (0.55-1.02); SODIUM 137 mmol/L (136-145); TOTAL PROTEIN 5.9 g/dL (6.4-8.2); eGFR NON BLACK RACES > 60 (>60)
[2019-06-24] MEDS: ROCEPHIN VIAL 1 GRAM 1 G in NS 100 ML IV + SPIKE MINIBAG* 100 ML IV SCH (09:34)
[2019-06-24] MEDS: MAGIC MOUTHWASH MT SCH ×5 (09:35→20:53)
[2019-06-24] MEDS: PROTONIX INJ 40 MG VIAL IVP SCH (09:35)
[2019-06-24] MEDS: ELIQUIS PO SCH ×2 (09:50→20:53)
[2019-06-24] MEDS: PROCARDIA XL PO SCH ×2 (09:50→20:54)
[2019-06-24] MEDS: FOLIC ACID TAB 1 MG PO SCH (09:50)
[2019-06-24] MEDS: HEMOCYTE-PLUS PO SCH (09:50)
[2019-06-24] MEDS: BETAPACE AF PO SCH ×2 (09:52→20:54)
[2019-06-24] MEDS: NYSTATIN SUSP MT SCH ×4 (09:52→20:52)
[2019-06-24] MEDS: K-LYTE EFFERVESCENT PO SCH ×2 (09:52→20:56)
[2019-06-24] MEDS: NORCO 7.5/325 MG TAB PO PRN (10:02)
--- NOTE | 2019-06-24 10:28 | PCM.PROG ---
Progress Note Progress Note for Day of Date of Exam: 06/24/19 Subjective Subjective: Patient seen at bedside, she reports feeling better. She states her energy level and weakness has improved. She has some discomfort with eating but reports improvement. Her hgb is 9 this AM, down from 10.3. Denies active bleeding. Urine culture showing E.coli, currently on Rocephin. CASSIE has resolved, on gentle hydration due to rhabdomyolysis. Patient had elevated d-dimer, CT PE negative for embolism, CTAP negative for acute process. CXR negative. FOBT positive, hx of fissures. Continue Rocephin, monitor Hgb, transfuse if < 8 due to cardiac history. Past Medical Family Social History Past Med/Fam/Surg Hx: No changes since H&P Allergies: Allergies Penicillins Allergy (Verified 04/17/19 22:35) Review of Systems ROS: No change since H&P Vital Signs and I&O's Vital Signs: Temperature 99.3 F Pulse Rate [Right Brachial] 75 Respiratory Rate 20 Blood Pressure [Right Arm] 150/66 Blood Pressure [Left Arm] 133/61 O2 Sat by Pulse Oximetry 99 Intake and Output: Intake & Output 06/21/19 06/22/19 06/23/19 06/24/19 23:59 23:59 23:59 23:59 Intake Total 2180 / 2180 1680 / 1680 1550 / 1550 100 / 100 Output Total 375 / 375 Balance 1805 / 1805 1680 / 1680 1550 / 1550 100 / 100 Physical Exam Oriented: Normal Eyes: Normal and Diplopia Nose: Normal Throat: Dry Respiratory: Normal Cardiovascular: Normal Auscultation: Bowel Sounds: Normal Palpation: Normal Tenderness: Normal Skin: Decreased Turgur Musculoskeletal: Back:Thoracic and Back:Lumbar Psychiatric: Anxiety Mood Description: Anxious Affect: Anxious Speech Pattern: Clear and Appropriate Laboratory and Diagnostics Result Diagrams: 06/24/19 06:27 06/24/19 06:27 Labs: 06/20/19 23:15 Urine,Clean Catch Urine Culture - Final Escherichia Coli Laboratory WBC 3.3 X10^3/uL (3.6-10.0) L 06/24/19 06:27 RBC 3.20 X10^6/uL (3.5-5.4) L 06/24/19 06:27 Hgb 9.0 g/dL (12.0-16.0) L 06/24/19 06: Hct 27.1 % (36.0-47.0) L 06/24/19 06: MCV 84.7 fL (80.0-100.0) 06/24/19 06: MCH 28.2 pg (27.0-34.0) 06/24/19 06: MCHC 33.3 g/dL (33.0-35.0) 06/24/19 06: RDW 17.2 % (11.6-16.5) H 06/24/19 06: Plt Count 286 X10^3/uL (150.0-450.0) 06/24/19: MPV 7.0 fL (7.4-11.0) L 06/24/19 06: Neut % (Auto) 66.2 % (42.0-75.0) 06/24/19 06: Lymph % (Auto) 24.0 % (21.0-51.0) 06/24/19: [place] % (Auto) 4.5 % (0.0-13.0) 06/24/19 06: Eos % (Auto) 4.9 % (0.9-2.9) H 06/24/19 06: Baso % (Auto) 0.4 % (0.2-1.0) 06/24/19 06: Neut # (Auto) 2.2 x10^3/uL (2.2-4.8) 06/24/19 06: Lymph # (Auto) 0.8 X10^3/uL (1.3-2.9) L 06/24/19 06:27 [place] # (Auto) 0.1 x10^3/uL (0.3-0.8) L 06/24/19 06: Eos # (Auto) 0.2 x10^3/uL (0.0-0.2) 06/24/19 06: Baso # (Auto) 0.0 X10^3/uL (0.0-0.1) 06/24/19 06: Absolute Nucleated RBC 0.1 /100WBC 06/24/19 06: D-Dimer 2060 ng/mL (0-400) H* 06/20/19 18:54 Sample Site Rra 06/20/19 19:38 ABG pH 7.490 (7.35-7.45) H 06/20/19 19:38 ABG pCO2 32.0 mmHg (35.0-45.0) L 06/20/19 19:38 ABG pO2 102.0 mmHg (80.0-100.0) H 06/20/19 19:38 ABG HCO3 24.4 mmol/L (22-26) 06/20/19 19:38 ABG O2 Saturation 98.0 % (90-100) 06/20/19 19:38 ABG Base Excess 1.6 mmol/L (-2.0-2.0) 06/20/19 19:38 Florian Test Pos 06/20/19 19:38 A-a Gradient 8.0 mmHg 06/20/19 19:38 FiO2 21.0 06/20/19 19:38 Blood Gas Comments Pt toll well eb 06/20/19 19:38 Sodium 137 mmol/L (136-145) 06/24/19 06:27 Corrected Sodium TNP 06/24/19 06:27 Potassium 4.1 mmol/L (3.5-5.1) 06/24/19 06:27 Chloride 104 mmol/L (98-107) 06/24/19 06:27 Carbon Dioxide 26.5 mmol/L (21-32) 06/24/19 06:27 BUN 8 mg/dL (7-18) 06/24/19 06:27 Creatinine 0.82 mg/dL (0.55-1.02) 06/24/19 06:27 Est GFR (MDRD) Af Amer > 60 (>60) 06/24/19 06:27 Est GFR (MDRD) Non-Af > 60 (>60) 06/24/19 06:27 Glucose 82 mg/dL (65-99) 06/24/19 06:27 Calcium 7.6 mg/dL (8.5-10.1) L 06/24/19 06:27 Corrected Calcium 9.2 mg/dL (8.5-10.1) 06/24/19 06:27 Magnesium 2.3 mg/dL (1.7-2.9) 06/23/19 06:11 Iron 23 ug/dL (50-175) L 06/20/19 16:24 Transferrin 114 mg/dL (202-364) L 06/20/19 16:24 Ferritin 1726 ng/mL (8-252) H 06/20/19 16:24 Total Bilirubin 0.20 mg/dL (0.2-1.0) 06/24/19 06:27 AST 37 Units/L (15-37) 06/24/19 06:27 ALT 32 Units/L (12-78) 06/24/19 06:27 Alkaline Phosphatase 110 Units/L (46-116) 06/24/19 06:27 Creatine Kinase 203 Units/L (26-192) H 06/23/19 06:11 CK-MB (CK-2) 1.0 ng/mL (0-4.0) 06/22/19 01:46 CK/CKMB % Calc 0.2 % (<4) 06/22/19 01:46 Troponin I < 0.02 ng/mL (0-1.5) 06/22/19 01:46 B-Natriuretic Peptide 112 pg/mL (0-79) H 06/20/19 18:54 Total Protein 5.9 g/dL (6.4-8.2) L 06/24/19 06:27 Albumin 2.0 g/dL (3.4-5.0) L 06/24/19 06:27 Globulin 3.9 g/dL (2.5-4.5) 06/24/19 06:27 Albumin/Globulin Ratio 0.5 Ratio (1.1-2.1) L 06/24/19 06:27 Amylase 47 Units/L (25-115) 06/20/19 18:54 Lipase 125 Units/L (73-393) 06/20/19 18:54 Vitamin B12 873 pg/mL (193-986) 06/20/19 16:24 Folate > 20.0 ng/mL (>8.6) 06/20/19 16:24 Specimen Type Clean catch urine 06/20/19 23:12 Urine Color Yellow (YELLOW) 06/20/19 23:12 Urine Appearance Clear (CLEAR) 06/20/19 23:12 Urine pH 6.0 (5.0 - 8.0) 06/20/19 23:12 Ur Specific [place] 1.005 (1.000-1.030) 06/20/19 23:12 Urine Protein 2+ (NEGATIVE) 06/20/19 23:12 Urine Glucose (UA) Negative (NEGATIVE) 06/20/19 23:12 Urine Ketones 1+ (NEGATIVE) 06/20/19 23:12 Urine Occult Blood 5+ (NEGATIVE) 06/20/19 23:12 Urine Nitrite Negative (NEGATIVE) 06/20/19 23:12 Urine Bilirubin Negative (NEGATIVE) 06/20/19 23:12 Urine Urobilinogen Normal (NORMAL) 06/20/19 23:12 Ur Leukocyte Esterase 2+ (NEGATIVE) 06/20/19 23:12 Urine RBC 0-2 /HPF (0-3) 06/20/19 23:12 Urine WBC 5-10 /HPF (0-5) A 06/20/19 23:12 Ur Squamous Epith Cells Rare /HPF (NEGATIVE) 06/20/19 23:12 Urine Bacteria 1+ /HPF (NEGATIVE) 06/20/19 23:12 Ur Culture Indicated? Yes/culture set up 06/20/19 23:12 Stool Description 250g,brown,unformed 06/21/19 19:37 Stl Occult Blood (IFOB) Positive (NEGATIVE) A 06/21/19 19:37 Plan (1) SOB (shortness of breath): Status: Acute Plan: Currently on RA, CXR negative, CT PE negative Continue to monitor, O2 as needed (2) Acute prerenal azotemia: Status: Acute Plan: Resolved, Cr: 0.8 (3) Dehydration: Status: Acute Plan: Continue gentle hydration (4) Afib: Status: Acute Qualifiers: Atrial fibrillation type: unspecified Qualified Code(s): I48.91 - Unspecified atrial fibrillation Plan: Continue home medications: Sotalol and Eliquis (5) UTI (urinary tract infection): Status: Acute Qualifiers: Hematuria presence: with hematuria Urinary tract infection type: acute cystitis Qualified Code(s): N30.01 - Acute cystitis with hematuria Plan: Urine culture: E.coli Continue Rocephin (6) Anemia: Status: Acute Qualifiers: Anemia type: iron deficiency Iron deficiency anemia type: chronic blood loss Qualified Code(s): D50.0 - Iron deficiency anemia secondary to blood loss (chronic) Plan: Hgb: 9, down from 10.3 yesterday. Denies active bleeding. FOBT positive on admission, hx of fissures. Low iron: on supplements Monitor Hgb, transfuse if < 8 (7) Rhabdomyolysis: Status: Acute Qualifiers: Rhabdomyolysis type: non-traumatic Qualified Code(s): M62.82 - Rhabdomyolysis Plan: CK trending down, continue gentle hydration (8) Rheumatoid arthritis: Status: Acute Qualifiers: Rheumatoid arthritis location: multiple sites Rheumatoid factor presence: unspecified presence Qualified Code(s): M06.9 - Rheumatoid arthritis, unspecified Plan: recently diagnosed, on methotrexate. Sees Rheum outpatient (9) Stomatitis and mucositis: Status: Acute Plan: continue nystatin and magic mouthwash
[2019-06-24] MEDS: SYNTHROID 75 mcg TAB PO SCH (17:00)
[2019-06-24] MEDS: COLACE CAP 100 MG PO SCH (20:54)
[2019-06-24] MEDS: LIPITOR TAB 40 MG PO SCH (20:54)
[2019-06-24] MEDS: NS 1000 ML 1,000 ML IV SCH (22:16)
[2019-06-25] MEDS: NORCO 7.5/325 MG TAB PO PRN ×2 (01:24→23:08)
[2019-06-25] MEDS: NS 1000 ML 1,000 ML IV SCH (03:16)
[2019-06-25 05:02] LABS: BASOPHILS % (AUTO) 0.2 % (0.2-1.0); EOSINOPHILS # (AUTO) 0.1 x10^3/uL (0.0-0.2); EOSINOPHILS % (AUTO) 3.6 % (0.9-2.9); HEMATOCRIT 26.1 % (36.0-47.0); HEMOGLOBIN 8.8 g/dL (12.0-16.0); LYMPHOCYTES # (AUTO) 1.1 X10^3/uL (1.3-2.9); LYMPHOCYTES % (AUTO) 36.6 % (21.0-51.0); MEAN CORPUSCULAR HEMOGLOBIN 28.8 pg (27.0-34.0); MEAN CORPUSCULAR HGB CONC 33.7 g/dL (33.0-35.0); MEAN CORPUSCULAR VOLUME 85.4 fL (80.0-100.0); MEAN PLATELET VOLUME 7.2 fL (7.4-11.0); MONOCYTES # (AUTO) 0.2 x10^3/uL (0.3-0.8); MONOCYTES % (AUTO) 5.3 % (0.0-13.0); NEUTROPHILS # (AUTO) 1.7 x10^3/uL (2.2-4.8); NEUTROPHILS % (AUTO) 54.3 % (42.0-75.0); PLATELET COUNT 287 X10^3/uL (150.0-450.0); RED BLOOD COUNT 3.05 X10^6/uL (3.5-5.4); RED CELL DISTRIBUTION WIDTH 16.9 % (11.6-16.5); WHITE BLOOD COUNT 3.1 X10^3/uL (3.6-10.0)
[2019-06-25 05:03] LABS: BLOOD UREA NITROGEN 9 mg/dL (7-18); CALCIUM 7.6 mg/dL (8.5-10.1); CARBON DIOXIDE 27.5 mmol/L (21-32); CHLORIDE 104 mmol/L (98-107); CREATININE 0.89 mg/dL (0.55-1.02); MAGNESIUM 1.6 mg/dL (1.7-2.9); SODIUM 137 mmol/L (136-145); eGFR NON BLACK RACES > 60 (>60)
[2019-06-25] MEDS: MAGNESIUM SULFATE 1 GRAM/100 mL PREMIX 1 GM/100 ML BAG IV PRN (05:58)
[2019-06-25] MEDS: PROTONIX INJ 40 MG VIAL IVP SCH (08:32)
[2019-06-25] MEDS: HEMOCYTE-PLUS PO SCH (08:36)
[2019-06-25] MEDS: PROCARDIA XL PO SCH ×2 (08:38→21:13)
[2019-06-25] MEDS: FOLIC ACID TAB 1 MG PO SCH (08:38)
[2019-06-25] MEDS: BETAPACE AF PO SCH ×2 (08:40→21:13)
[2019-06-25] MEDS: NYSTATIN SUSP MT SCH ×4 (08:41→21:14)
[2019-06-25] MEDS: ELIQUIS PO SCH ×2 (08:41→21:13)
[2019-06-25] MEDS: MAGIC MOUTHWASH MT SCH ×4 (08:42→21:14)
[2019-06-25] MEDS: K-LYTE EFFERVESCENT PO SCH ×2 (08:43→21:14)
[2019-06-25] MEDS: ROCEPHIN VIAL 1 GRAM 1 G in NS 100 ML IV + SPIKE MINIBAG* 100 ML IV SCH (10:00)
--- NOTE | 2019-06-25 11:04 | PCM.PROG ---
Progress Note Progress Note for Day of Date of Exam: 06/25/19 Subjective Subjective: Patient seen at bedside, no events overnight. Patient reports feeling better, weakness improving. She sat in the recliner yesterday, denies dizziness with ambulation. Hgb 8.8 this AM. Mg 1.6. She is getting Rocephin for E.coli UTI. Will stop IVF, repeat H/H this evening, transfuse if less than 8. Replace Mg as per protocol. Add miralax and Colace for constipation. Past Medical Family Social History Past Med/Fam/Surg Hx: No changes since H&P Allergies: Allergies Penicillins Allergy (Verified 04/17/19 22:35) Review of Systems ROS: No change since H&P Vital Signs and I&O's Vital Signs: Temperature 98.8 F Pulse Rate [Right Brachial] 62 Respiratory Rate 18 Blood Pressure [Right Arm] 137/64 Blood Pressure [Left Arm] 133/61 O2 Sat by Pulse Oximetry 100 Intake and Output: Intake & Output 06/22/19 06/23/19 06/24/19 06/25/19 23:59 23:59 23:59 23:59 Intake Total 1680 / 1680 1550 / 1550 1560 / 1560 440 / 440 Balance 1680 / 1680 1550 / 1550 1560 / 1560 440 / 440 Physical Exam Oriented: Normal Eyes: Normal and Diplopia Nose: Normal Respiratory: Normal Cardiovascular: Normal Auscultation: Bowel Sounds: Normal Tenderness: Normal Skin: Decreased Turgur Musculoskeletal: Back:Thoracic and Back:Lumbar Psychiatric: Anxiety Mood Description: Anxious Affect: Anxious Speech Pattern: Clear and Appropriate Laboratory and Diagnostics Result Diagrams: 06/25/19 04:44 06/25/19 04:44 Labs: 06/20/19 23:15 Urine,Clean Catch Urine Culture - Final Escherichia Coli Laboratory WBC 3.1 X10^3/uL (3.6-10.0) L 06/25/19 04:44 RBC 3.05 X10^6/uL (3.5-5.4) L 06/25/19 04:44 Hgb 8.8 g/dL (12.0-16.0) L 06/25/19 04:44 Hct 26.1 % (36.0-47.0) L 06/25/19 04:44 MCV 85.4 fL (80.0-100.0) 06/25/19 04:44 MCH 28.8 pg (27.0-34.0) 06/25/19 04:44 MCHC 33.7 g/dL (33.0-35.0) 06/25/19 04:44 RDW 16.9 % (11.6-16.5) H 06/25/19 04:44 Plt Count 287 X10^3/uL (150.0-450.0) 06/25/19 04:44 MPV 7.2 fL (7.4-11.0) L 06/25/19 04:44 Neut % (Auto) 54.3 % (42.0-75.0) 06/25/19 04:44 Lymph % (Auto) 36.6 % (21.0-51.0) 06/25/19 04:44 [place] % (Auto) 5.3 % (0.0-13.0) 06/25/19 04:44 Eos % (Auto) 3.6 % (0.9-2.9) H 06/25/19 04:44 Baso % (Auto) 0.2 % (0.2-1.0) 06/25/19 04:44 Neut # (Auto) 1.7 x10^3/uL (2.2-4.8) L 06/25/19 04:44 Lymph # (Auto) 1.1 X10^3/uL (1.3-2.9) L 06/25/19 04:44 [place] # (Auto) 0.2 x10^3/uL (0.3-0.8) L 06/25/19 04:44 Eos # (Auto) 0.1 x10^3/uL (0.0-0.2) 06/25/19 04:44 Baso # (Auto) 0.0 X10^3/uL (0.0-0.1) 06/25/19 04:44 Absolute Nucleated RBC 0.1 /100WBC 06/25/19 04:44 D-Dimer 2060 ng/mL (0-400) H* 06/20/19 18:54 Sample Site Rra 06/20/19 19:38 ABG pH 7.490 (7.35-7.45) H 06/20/19 19:38 ABG pCO2 32.0 mmHg (35.0-45.0) L 06/20/19 19:38 ABG pO2 102.0 mmHg (80.0-100.0) H 06/20/19 19:38 ABG HCO3 24.4 mmol/L (22-26) 06/20/19 19:38 ABG O2 Saturation 98.0 % (90-100) 06/20/19 19:38 ABG Base Excess 1.6 mmol/L (-2.0-2.0) 06/20/19 19:38 Florian Test Pos 06/20/19 19:38 A-a Gradient 8.0 mmHg 06/20/19 19:38 FiO2 21.0 06/20/19 19:38 Blood Gas Comments Pt toll well eb 06/20/19 19:38 Sodium 137 mmol/L (136-145) 06/25/19 04:44 Corrected Sodium TNP 06/25/19 04:44 Potassium 4.3 mmol/L (3.5-5.1) 06/25/19 04:44 Chloride 104 mmol/L (98-107) 06/25/19 04:44 Carbon Dioxide 27.5 mmol/L (21-32) 06/25/19 04:44 BUN 9 mg/dL (7-18) 06/25/19 04:44 Creatinine 0.89 mg/dL (0.55-1.02) 06/25/19 04:44 Est GFR (MDRD) Af Amer > 60 (>60) 06/25/19 04:44 Est GFR (MDRD) Non-Af > 60 (>60) 06/25/19 04:44 Glucose 93 mg/dL (65-99) 06/25/19 04:44 Calcium 7.6 mg/dL (8.5-10.1) L 06/25/19 04:44 Corrected Calcium 9.2 mg/dL (8.5-10.1) 06/24/19 06:27 Magnesium 1.6 mg/dL (1.7-2.9) L 06/25/19 04:44 Iron 23 ug/dL (50-175) L 06/20/19 16:24 Transferrin 114 mg/dL (202-364) L 06/20/19 16:24 Ferritin 1726 ng/mL (8-252) H 06/20/19 16:24 Total Bilirubin 0.20 mg/dL (0.2-1.0) 06/24/19 06:27 AST 37 Units/L (15-37) 06/24/19 06:27 ALT 32 Units/L (12-78) 06/24/19 06:27 Alkaline Phosphatase 110 Units/L (46-116) 06/24/19 06:27 Creatine Kinase 203 Units/L (26-192) H 06/23/19 06:11 CK-MB (CK-2) 1.0 ng/mL (0-4.0) 06/22/19 01:46 CK/CKMB % Calc 0.2 % (<4) 06/22/19 01:46 Troponin I < 0.02 ng/mL (0-1.5) 06/22/19 01:46 B-Natriuretic Peptide 112 pg/mL (0-79) H 06/20/19 18:54 Total Protein 5.9 g/dL (6.4-8.2) L 06/24/19 06:27 Albumin 2.0 g/dL (3.4-5.0) L 06/24/19 06:27 Globulin 3.9 g/dL (2.5-4.5) 06/24/19 06:27 Albumin/Globulin Ratio 0.5 Ratio (1.1-2.1) L 06/24/19 06:27 Amylase 47 Units/L (25-115) 06/20/19 18:54 Lipase 125 Units/L (73-393) 06/20/19 18:54 Vitamin B12 873 pg/mL (193-986) 06/20/19 16:24 Folate > 20.0 ng/mL (>8.6) 06/20/19 16:24 Specimen Type Clean catch urine 06/20/19 23:12 Urine Color Yellow (YELLOW) 06/20/19 23:12 Urine Appearance Clear (CLEAR) 06/20/19 23:12 Urine pH 6.0 (5.0 - 8.0) 06/20/19 23:12 Ur Specific [place] 1.005 (1.000-1.030) 06/20/19 23:12 Urine Protein 2+ (NEGATIVE) 06/20/19 23:12 Urine Glucose (UA) Negative (NEGATIVE) 06/20/19 23:12 Urine Ketones 1+ (NEGATIVE) 06/20/19 23:12 Urine Occult Blood 5+ (NEGATIVE) 06/20/19 23:12 Urine Nitrite Negative (NEGATIVE) 06/20/19 23:12 Urine Bilirubin Negative (NEGATIVE) 06/20/19 23:12 Urine Urobilinogen Normal (NORMAL) 06/20/19 23:12 Ur Leukocyte Esterase 2+ (NEGATIVE) 06/20/19 23:12 Urine RBC 0-2 /HPF (0-3) 06/20/19 23:12 Urine WBC 5-10 /HPF (0-5) A 06/20/19 23:12 Ur Squamous Epith Cells Rare /HPF (NEGATIVE) 06/20/19 23:12 Urine Bacteria 1+ /HPF (NEGATIVE) 06/20/19 23:12 Ur Culture Indicated? Yes/culture set up 06/20/19 23:12 Stool Description 250g,brown,unformed 06/21/19 19:37 Stl Occult Blood (IFOB) Positive (NEGATIVE) A 06/21/19 19:37 Plan (1) Anemia: Status: Acute Qualifiers: Anemia type: iron deficiency Iron deficiency anemia type: chronic blood loss Qualified Code(s): D50.0 - Iron deficiency anemia secondary to blood loss (chronic) Plan: Hgb:8.8, Denies active bleeding. FOBT positive on admission, hx of fissures. Low iron: on supplements Repeat H/H at 5 pm, transfuse if < 8 Stop IVF (2) SOB (shortness of breath): Status: Acute Plan: Currently on RA, CXR negative, CT PE negative Continue to monitor, O2 as needed (3) Acute prerenal azotemia: Status: Acute Plan: Resolved, Cr: 0.8 (4) Dehydration: Status: Acute Plan: Resolved (5) Afib: Status: Acute Qualifiers: Atrial fibrillation type: unspecified Qualified Code(s): I48.91 - Unspecified atrial fibrillation Plan: Continue home medications: Sotalol and Eliquis (6) UTI (urinary tract infection): Status: Acute Qualifiers: Hematuria presence: with hematuria Urinary tract infection type: acute cystitis Qualified Code(s): N30.01 - Acute cystitis with hematuria Plan: Urine culture: E.coli Continue Rocephin (7) Rhabdomyolysis: Status: Acute Qualifiers: Rhabdomyolysis type: non-traumatic Qualified Code(s): M62.82 - Rhabdomyolysis Plan: CK trending down (8) Rheumatoid arthritis: Status: Acute Qualifiers: Rheumatoid arthritis location: multiple sites Rheumatoid factor presence: unspecified presence Qualified Code(s): M06.9 - Rheumatoid arthritis, unspecified Plan: recently diagnosed, on methotrexate. Sees Rheum outpatient (9) Stomatitis and mucositis: Status: Acute Plan: continue nystatin and magic mouthwash (10) Constipation: Status: Acute Qualifiers: Constipation type: unspecified constipation type Qualified Code(s): K59.00 - Constipation, unspecified Plan: add miralax and Colace (11) Hypomagnesemia: Status: Acute Plan: Mg 1.6, replace as per protocol
[2019-06-25] MEDS: MIRALAX POWDER (1 DOSE 17 G) PO SCH (15:00)
[2019-06-25] MEDS: SYNTHROID 75 mcg TAB PO SCH (17:35)
[2019-06-25 17:39] LABS: HEMATOCRIT 28.1 % (36.0-47.0); HEMOGLOBIN 9.3 g/dL (12.0-16.0)
[2019-06-25] MEDS: MILK OF MAGNESIA PO SCH (21:13)
[2019-06-25] MEDS: COLACE CAP 100 MG PO SCH (21:13)
[2019-06-25] MEDS: LIPITOR TAB 40 MG PO SCH (21:13)
[2019-06-26 06:13] LABS: BASOPHILS % (AUTO) 0.2 % (0.2-1.0); EOSINOPHILS # (AUTO) 0.1 x10^3/uL (0.0-0.2); EOSINOPHILS % (AUTO) 4.1 % (0.9-2.9); HEMOGLOBIN 9.3 g/dL (12.0-16.0); LYMPHOCYTES # (AUTO) 1.3 X10^3/uL (1.3-2.9); LYMPHOCYTES % (AUTO) 35.5 % (21.0-51.0); MEAN CORPUSCULAR HEMOGLOBIN 28.2 pg (27.0-34.0); MEAN CORPUSCULAR HGB CONC 33.2 g/dL (33.0-35.0); MEAN PLATELET VOLUME 7.1 fL (7.4-11.0); MONOCYTES # (AUTO) 0.2 x10^3/uL (0.3-0.8); MONOCYTES % (AUTO) 6.8 % (0.0-13.0); NEUTROPHILS # (AUTO) 1.9 x10^3/uL (2.2-4.8); NEUTROPHILS % (AUTO) 53.4 % (42.0-75.0); PLATELET COUNT 298 X10^3/uL (150.0-450.0); RED BLOOD COUNT 3.29 X10^6/uL (3.5-5.4); RED CELL DISTRIBUTION WIDTH 17.3 % (11.6-16.5); WHITE BLOOD COUNT 3.6 X10^3/uL (3.6-10.0)
[2019-06-26 06:25] LABS: BLOOD UREA NITROGEN 8 mg/dL (7-18); CALCIUM 7.9 mg/dL (8.5-10.1); CARBON DIOXIDE 26.2 mmol/L (21-32); CHLORIDE 103 mmol/L (98-107); COR NA(FOR HYPERGLY) 137 mmol/L (136-145); CREATININE 0.85 mg/dL (0.55-1.02); MAGNESIUM 2.1 mg/dL (1.7-2.9); SODIUM 136 mmol/L (136-145); eGFR NON BLACK RACES > 60 (>60)
[2019-06-26] MEDS: MILK OF MAGNESIA PO SCH ×2 (09:07→21:08)
[2019-06-26] MEDS: NYSTATIN SUSP MT SCH ×4 (09:08→21:04)
[2019-06-26] MEDS: HEMOCYTE-PLUS PO SCH (09:08)
[2019-06-26] MEDS: PROCARDIA XL PO SCH ×2 (09:08→21:04)
[2019-06-26] MEDS: FOLIC ACID TAB 1 MG PO SCH (09:08)
[2019-06-26] MEDS: ELIQUIS PO SCH ×2 (09:09→21:05)
[2019-06-26] MEDS: MAGIC MOUTHWASH MT SCH ×4 (09:11→21:05)
[2019-06-26] MEDS: MIRALAX POWDER (1 DOSE 17 G) PO SCH (09:11)
[2019-06-26] MEDS: K-LYTE EFFERVESCENT PO SCH ×2 (09:12→21:08)
[2019-06-26] MEDS: BETAPACE AF PO SCH ×2 (09:12→21:04)
[2019-06-26] MEDS: PROTONIX INJ 40 MG VIAL IVP SCH ×3 (09:17→10:08)
[2019-06-26] MEDS: ROCEPHIN VIAL 1 GRAM 1 G in NS 100 ML IV + SPIKE MINIBAG* 100 ML IV SCH (10:08)
[2019-06-26] MEDS: SYNTHROID 75 mcg TAB PO SCH (16:45)
[2019-06-26] MEDS: LIPITOR TAB 40 MG PO SCH (21:04)
[2019-06-26] MEDS: COLACE CAP 100 MG PO SCH (21:04)
[2019-06-27 06:32] LABS: BASOPHILS % (AUTO) 0.4 % (0.2-1.0); EOSINOPHILS # (AUTO) 0.2 x10^3/uL (0.0-0.2); EOSINOPHILS % (AUTO) 3.5 % (0.9-2.9); HEMATOCRIT 27.7 % (36.0-47.0); HEMOGLOBIN 9.4 g/dL (12.0-16.0); LYMPHOCYTES # (AUTO) 1.5 X10^3/uL (1.3-2.9); MEAN CORPUSCULAR HEMOGLOBIN 28.7 pg (27.0-34.0); MEAN CORPUSCULAR HGB CONC 33.9 g/dL (33.0-35.0); MEAN CORPUSCULAR VOLUME 84.5 fL (80.0-100.0); MEAN PLATELET VOLUME 6.8 fL (7.4-11.0); MONOCYTES # (AUTO) 0.3 x10^3/uL (0.3-0.8); MONOCYTES % (AUTO) 6.8 % (0.0-13.0); NEUTROPHILS # (AUTO) 2.3 x10^3/uL (2.2-4.8); NEUTROPHILS % (AUTO) 53.3 % (42.0-75.0); PLATELET COUNT 375 X10^3/uL (150.0-450.0); RED BLOOD COUNT 3.28 X10^6/uL (3.5-5.4); RED CELL DISTRIBUTION WIDTH 17.1 % (11.6-16.5); WHITE BLOOD COUNT 4.3 X10^3/uL (3.6-10.0)
[2019-06-27 06:44] LABS: BLOOD UREA NITROGEN 9 mg/dL (7-18); CALCIUM 8.1 mg/dL (8.5-10.1); CARBON DIOXIDE 25.3 mmol/L (21-32); CHLORIDE 104 mmol/L (98-107); CREATININE 1.01 mg/dL (0.55-1.02); SODIUM 137 mmol/L (136-145); eGFR NON BLACK RACES 57 (>60)
[2019-06-27] MEDS: ROCEPHIN VIAL 1 GRAM 1 G in NS 100 ML IV + SPIKE MINIBAG* 100 ML IV SCH (09:27)
[2019-06-27] MEDS: FOLIC ACID TAB 1 MG PO SCH (09:30)
[2019-06-27] MEDS: HEMOCYTE-PLUS PO SCH (09:30)
[2019-06-27] MEDS: NYSTATIN SUSP MT SCH ×4 (09:30→21:07)
[2019-06-27] MEDS: PROTONIX INJ 40 MG VIAL IVP SCH (09:30)
[2019-06-27] MEDS: PROCARDIA XL PO SCH ×2 (09:31→21:09)
[2019-06-27] MEDS: ELIQUIS PO SCH ×2 (09:31→21:06)
[2019-06-27] MEDS: BETAPACE AF PO SCH ×2 (09:31→21:06)
[2019-06-27] MEDS: MAGIC MOUTHWASH MT SCH ×4 (09:32→21:07)
[2019-06-27] MEDS: K-LYTE EFFERVESCENT PO SCH ×2 (09:32→21:06)
[2019-06-27] MEDS: MILK OF MAGNESIA PO SCH ×2 (09:32→21:09)
[2019-06-27] MEDS: MIRALAX POWDER (1 DOSE 17 G) PO SCH (09:32)
[2019-06-27] MEDS: NORCO 7.5/325 MG TAB PO PRN ×2 (09:34→17:20)
[2019-06-27] MEDS ORDERED: AFLURIA II4 or FLUARIX II4 IM ONE (14:00)
[2019-06-27] MEDS: SYNTHROID 75 mcg TAB PO SCH (17:13)
[2019-06-27] MEDS: LIPITOR TAB 40 MG PO SCH (21:06)
[2019-06-28 06:42] LABS: BASOPHILS % (AUTO) 0.4 % (0.2-1.0); EOSINOPHILS # (AUTO) 0.1 x10^3/uL (0.0-0.2); EOSINOPHILS % (AUTO) 2.5 % (0.9-2.9); HEMATOCRIT 26.5 % (36.0-47.0); LYMPHOCYTES # (AUTO) 1.4 X10^3/uL (1.3-2.9); LYMPHOCYTES % (AUTO) 31.8 % (21.0-51.0); MEAN CORPUSCULAR HEMOGLOBIN 28.6 pg (27.0-34.0); MEAN CORPUSCULAR HGB CONC 33.9 g/dL (33.0-35.0); MEAN CORPUSCULAR VOLUME 84.4 fL (80.0-100.0); MEAN PLATELET VOLUME 6.7 fL (7.4-11.0); MONOCYTES # (AUTO) 0.4 x10^3/uL (0.3-0.8); NEUTROPHILS # (AUTO) 2.6 x10^3/uL (2.2-4.8); NEUTROPHILS % (AUTO) 57.3 % (42.0-75.0); PLATELET COUNT 368 X10^3/uL (150.0-450.0); RED BLOOD COUNT 3.14 X10^6/uL (3.5-5.4); RED CELL DISTRIBUTION WIDTH 17.3 % (11.6-16.5); WHITE BLOOD COUNT 4.5 X10^3/uL (3.6-10.0)
[2019-06-28 06:48] LABS: ALANINE AMINOTRANSFERASE 33 Units/L (12-78); ALBUMIN 2.2 g/dL (3.4-5.0); ALKALINE PHOSPHATASE 115 Units/L (46-116); ASPARTATE AMINO TRANSFERASE 27 Units/L (15-37); BLOOD UREA NITROGEN 11 mg/dL (7-18); CALCIUM 7.9 mg/dL (8.5-10.1); CARBON DIOXIDE 27.9 mmol/L (21-32); CHLORIDE 104 mmol/L (98-107); COR CA(FOR HYPOALB) 9.3 mg/dL (8.5-10.1); COR NA(FOR HYPERGLY) 137 mmol/L (136-145); SODIUM 137 mmol/L (136-145); TOTAL PROTEIN 6.2 g/dL (6.4-8.2); eGFR NON BLACK RACES 57 (>60)
[2019-06-28] MEDS ORDERED: SOLU-Medrol 40 MG VIAL IVP SCH (09:00)
[2019-06-28] MEDS: BETAPACE AF PO SCH (09:13)
[2019-06-28] MEDS: FOLIC ACID TAB 1 MG PO SCH (09:14)
[2019-06-28] MEDS: HEMOCYTE-PLUS PO SCH (09:14)
[2019-06-28] MEDS: ELIQUIS PO SCH (09:14)
[2019-06-28] MEDS: K-LYTE EFFERVESCENT PO SCH (09:15)
[2019-06-28] MEDS: MILK OF MAGNESIA PO SCH (09:15)
[2019-06-28] MEDS: NYSTATIN SUSP MT SCH ×2 (09:15→13:12)
[2019-06-28] MEDS: PROCARDIA XL PO SCH (09:16)
[2019-06-28] MEDS: ROCEPHIN VIAL 1 GRAM 1 G in NS 100 ML IV + SPIKE MINIBAG* 100 ML IV SCH (09:16)
[2019-06-28] MEDS: MIRALAX POWDER (1 DOSE 17 G) PO SCH (09:16)
[2019-06-28] MEDS: PROTONIX INJ 40 MG VIAL IVP SCH (09:17)
[2019-06-28] MEDS: MAGIC MOUTHWASH MT SCH ×2 (09:17→13:12)
[2019-06-28] MEDS: NORCO 7.5/325 MG TAB PO PRN (09:32)
--- NOTE | 2019-06-28 09:44 | RAD ---
HISTORYHX CHFSTUDYPortable AP chestCOMPARISONFebruary 2019FINDINGSThere is limited inspiration of grossly clear lungs. The heart and mediastinum are unremarkable. There is no edema or effusion or congestion demonstrated. No significant bony abnormality is demonstrated. There are cholecystectomy clips.IMPRESSIONNo evidence for acute cardiopulmonary diseaseElectronically signed by: SUZIE LOVELACE (Jun 28, 2019 09:42:45)
[2019-06-28 12:19] VITALS: BP 127/58
--- NOTE | 2019-06-28 12:58 | PCM.PROG ---
Progress Note - Progress Note for Day of Date of Exam: 06/27/19 - Subjective Subjective: The patient is a 78-year-old white female who was admitted for E. Coli urinary tract infection and failed out-patient treatment as well as generalized weakness, symptomatic anemia, and oral stomatitis, dehydration, and atrial fibrillation on long-term anti-coagulant therapy. Since admission, the patient has been on IV antibiotics and she has had an anemia panel as well as resumed Iron replacement therapy. We have ordered a repeat occult stool because her initial stool was positive for blood. The patient related it to hemorrhoids, however, she is on anti-coagulant therapy of Elliquis for her atrial fibrillation. She also has complained of joint pain. She is newly diagnosed with Rheumatoid arthritis and has not yet seen Dr. Mackey. She has been on Methotrexate once a week. We have held this due to kidney infection as well as oral stomatitis. The patient has been on Magic Mouth Wash, Swish and Swallow with Nystatin for that. The patient does report that she has had intermitted episodes of shortness of breath. - Past Medical Family Social History Past Med/Fam/Surg Hx: No changes since H&P Allergies: Allergies Penicillins Allergy (Verified 04/17/19 22:35) - Review of Systems ROS: No change since H&P - Vital Signs and I&O's Vital Signs: Temperature 98.6 F Pulse Rate [Right Brachial] 84 Respiratory Rate 22 Blood Pressure [Right Arm] 127/58 Blood Pressure [Left Arm] 133/61 O2 Sat by Pulse Oximetry 99 Intake and Output: Intake & Output 06/26/19 06/27/19 06/28/19 06/29/19 11:59 11:59 11:59 11:59 Intake Total 1210 / 1210 1340 / 1340 1540 / 1540 Balance 1210 / 1210 1340 / 1340 1540 / 1540 - Physical Exam Oriented: Normal Eyes: Normal, Diplopia Nose: Normal Throat: Dry Respiratory: Diminished Cardiovascular: Normal : Normal Auscultation: Bowel Sounds: Normal Tenderness: Normal Skin: Decreased Turgur Musculoskeletal: Back:Thoracic, Back:Lumbar Psychiatric: Anxiety Mood Description: Anxious Affect: Anxious Speech Pattern: Clear, Appropriate - Laboratory and Diagnostics Result Diagrams: 06/28/19 06:25 06/28/19 06:25 Labs: 06/20/19 23:15 Urine,Clean Catch Urine Culture - Final Escherichia Coli Laboratory WBC 4.5 X10^3/uL (3.6-10.0) 06/28/19 06:25 RBC 3.14 X10^6/uL (3.5-5.4) L 06/28/19 06:25 Hgb 9.0 g/dL (12.0-16.0) L 06/28/19 06:25 Hct 26.5 % (36.0-47.0) L 06/28/19 06:25 MCV 84.4 fL (80.0-100.0) 06/28/19 06:25 MCH 28.6 pg (27.0-34.0) 06/28/19 06:25 MCHC 33.9 g/dL (33.0-35.0) 06/28/19 06:25 RDW 17.3 % (11.6-16.5) H 06/28/19 06:25 Plt Count 368 X10^3/uL (150.0-450.0) 06/28/19 06:25 MPV 6.7 fL (7.4-11.0) L 06/28/19 06:25 Neut % (Auto) 57.3 % (42.0-75.0) 06/28/19 06:25 Lymph % (Auto) 31.8 % (21.0-51.0) 06/28/19 06:25 [place] % (Auto) 8.0 % (0.0-13.0) 06/28/19 06:25 Eos % (Auto) 2.5 % (0.9-2.9) 06/28/19 06:25 Baso % (Auto) 0.4 % (0.2-1.0) 06/28/19 06:25 Neut # (Auto) 2.6 x10^3/uL (2.2-4.8) 06/28/19 06:25 Lymph # (Auto) 1.4 X10^3/uL (1.3-2.9) 06/28/19 06:25 [place] # (Auto) 0.4 x10^3/uL (0.3-0.8) 06/28/19 06:25 Eos # (Auto) 0.1 x10^3/uL (0.0-0.2) 06/28/19 06:25 Baso # (Auto) 0.0 X10^3/uL (0.0-0.1) 06/28/19 06:25 Absolute Nucleated RBC 0.1 /100WBC 06/28/19 06:25 ESR 83 MM/HOUR (0-20) H 06/27/19 05:47 D-Dimer 2060 ng/mL (0-400) H* 06/20/19 18:54 Sample Site Rra 06/20/19 19:38 ABG pH 7.490 (7.35-7.45) H 06/20/19 19:38 ABG pCO2 32.0 mmHg (35.0-45.0) L 06/20/19 19:38 ABG pO2 102.0 mmHg (80.0-100.0) H 06/20/19 19:38 ABG HCO3 24.4 mmol/L (22-26) 06/20/19 19:38 ABG O2 Saturation 98.0 % (90-100) 06/20/19 19:38 ABG Base Excess 1.6 mmol/L (-2.0-2.0) 06/20/19 19:38 Florian Test Pos 06/20/19 19:38 A-a Gradient 8.0 mmHg 06/20/19 19:38 FiO2 21.0 06/20/19 19:38 Blood Gas Comments Pt toll well eb 06/20/19 19:38 Sodium 137 mmol/L (136-145) 06/28/19 06:25 Corrected Sodium 137 mmol/L (136-145) 06/28/19 06:25 Potassium 4.4 mmol/L (3.5-5.1) 06/28/19 06:25 Chloride 104 mmol/L (98-107) 06/28/19 06:25 Carbon Dioxide 27.9 mmol/L (21-32) 06/28/19 06:25 BUN 11 mg/dL (7-18) 06/28/19 06:25 Creatinine 1.00 mg/dL (0.55-1.02) 06/28/19 06:25 Est GFR (MDRD) Af Amer > 60 (>60) 06/28/19 06:25 Est GFR (MDRD) Non-Af 57 (>60) L 06/28/19 06:25 Glucose 112 mg/dL (65-99) H 06/28/19 06:25 Calcium 7.9 mg/dL (8.5-10.1) L 06/28/19 06:25 Corrected Calcium 9.3 mg/dL (8.5-10.1) 06/28/19 06:25 Magnesium 2.1 mg/dL (1.7-2.9) 06/26/19 05:34 Iron 23 ug/dL (50-175) L 06/20/19 16:24 Transferrin 114 mg/dL (202-364) L 06/20/19 16:24 Ferritin 1726 ng/mL (8-252) H 06/20/19 16:24 Total Bilirubin 0.10 mg/dL (0.2-1.0) L 06/28/19 06:25 AST 27 Units/L (15-37) 06/28/19 06:25 ALT 33 Units/L (12-78) 06/28/19 06:25 Alkaline Phosphatase 115 Units/L (46-116) 06/28/19 06:25 Creatine Kinase 203 Units/L (26-192) H 06/23/19 06:11 CK-MB (CK-2) 1.0 ng/mL (0-4.0) 06/22/19 01:46 CK/CKMB % Calc 0.2 % (<4) 06/22/19 01:46 Troponin I < 0.02 ng/mL (0-1.5) 06/22/19 01:46 C-Reactive Protein 11.60 mg/L (0-3.0) H 06/27/19 05:47 B-Natriuretic Peptide 112 pg/mL (0-79) H 06/20/19 18:54 Total Protein 6.2 g/dL (6.4-8.2) L 06/28/19 06:25 Albumin 2.2 g/dL (3.4-5.0) L 06/28/19 06:25 Globulin 4.0 g/dL (2.5-4.5) 06/28/19 06:25 Albumin/Globulin Ratio 0.6 Ratio (1.1-2.1) L 06/28/19 06:25 Amylase 47 Units/L (25-115) 06/20/19 18:54 Lipase 125 Units/L (73-393) 06/20/19 18:54 Vitamin B12 873 pg/mL (193-986) 06/20/19 16:24 Folate > 20.0 ng/mL (>8.6) 06/20/19 16:24 Specimen Type Clean catch urine 06/20/19 23:12 Urine Color Yellow (YELLOW) 06/20/19 23:12 Urine Appearance Clear (CLEAR) 06/20/19 23:12 Urine pH 6.0 (5.0 - 8.0) 06/20/19 23:12 Ur Specific [place] 1.005 (1.000-1.030) 06/20/19 23:12 Urine Protein 2+ (NEGATIVE) 06/20/19 23:12 Urine Glucose (UA) Negative (NEGATIVE) 06/20/19 23:12 Urine Ketones 1+ (NEGATIVE) 06/20/19 23:12 Urine Occult Blood 5+ (NEGATIVE) 06/20/19 23:12 Urine Nitrite Negative (NEGATIVE) 06/20/19 23:12 Urine Bilirubin Negative (NEGATIVE) 06/20/19 23:12 Urine Urobilinogen Normal (NORMAL) 06/20/19 23:12 Ur Leukocyte Esterase 2+ (NEGATIVE) 06/20/19 23:12 Urine RBC 0-2 /HPF (0-3) 06/20/19 23:12 Urine WBC 5-10 /HPF (0-5) A 06/20/19 23:12 Ur Squamous Epith Cells Rare /HPF (NEGATIVE) 06/20/19 23:12 Urine Bacteria 1+ /HPF (NEGATIVE) 06/20/19 23:12 Ur Culture Indicated? Yes/culture set up 06/20/19 23:12 Stool Description 20g,dark green,soft 06/28/19 00:56 Stl Occult Blood (IFOB) Negative (NEGATIVE) 06/28/19 00:56 - Plan (1) SOB (shortness of breath) Status: Acute Plan: Currently on RA, CXR negative, CT PE negative. Continue to monitor, O2 as needed (2) Acute prerenal azotemia Status: Acute Plan: Resolved, Cr: 0.8 (3) Dehydration Status: Acute Plan: Resolved (4) Afib Status: Acute Qualifiers: Atrial fibrillation type: unspecified Qualified Code(s): I48.91 - Unspecified atrial fibrillation Plan: Continue home medications: Sotalol and Eliquis (5) UTI (urinary tract infection) Status: Acute Qualifiers: Urinary tract infection type: acute cystitis Hematuria presence: with hematuria Qualified Code(s): N30.01 - Acute cystitis with hematuria Plan: Urine culture: E.coli. Continue Rocephin (6) Anemia Status: Acute Qualifiers: Anemia type: iron deficiency Iron deficiency anemia type: chronic blood loss Qualified Code(s): D50.0 - Iron deficiency anemia secondary to blood loss (chronic) Plan: Hgb:8.8, Denies active bleeding. FOBT positive on admission, hx of fissures. Low iron: on supplements. Repeat H/H at 5 pm, transfuse if < 8. Stop IVF (7) Altered mental state Status: Resolved Qualifiers: Altered mental status type: disorientation Qualified Code(s): R41.0 - Disorientation, unspecified
== END 2019-06-28 15:00 | DRG 690 ==
LOC: MED/SURG
PROVIDERS: ADMIT Internal Medicine; ATTEND Internal Medicine
DX: R06.02 Shortness of breath; E11.65 Type 2 diabetes mellitus with hyperglycemia; B96.29 Other Escherichia coli [E. coli] as the cause of diseases classified elsewhere; M06.89 Other specified rheumatoid arthritis, multiple sites; N28.9 Disorder of kidney and ureter, unspecified; N30.01 Acute cystitis with hematuria; M25.512 Pain in left shoulder; R53.1 Weakness; E86.0 Dehydration; R25.8 Other abnormal involuntary movements; E83.42 Hypomagnesemia; D50.0 Iron deficiency anemia secondary to blood loss (chronic); M62.82 Rhabdomyolysis; R62.7 Adult failure to thrive; K12.1 Other forms of stomatitis; Z23 Encounter for immunization; R29.6 Repeated falls; R94.31 Abnormal electrocardiogram [ECG] [EKG]; E87.6 Hypokalemia; Z79.01 Long term (current) use of anticoagulants; I48.91 Unspecified atrial fibrillation; M25.511 Pain in right shoulder; R41.0 Disorientation, unspecified
CPT/HCPCS: 36415; 36600; 71010; 71045; 71275; 74176; 80048; 80053; 81001; 82150; 82270; 82550; 82553; 82607; 82728; 82746; 82803; 83540; 83690; 83735; 83880; 84466; 84484; 85014; 85018; 85025; 85378; 85652; 86140; 87086; 87088; 87186; 90674; 90686; 93005; 97110; 97116; 97162; 97165; 97530; 97535; A4222; C9113; G0378; J0696; J2920; J3475; J7030; J7050; J8499

== ENCOUNTER 2019-07-24 20:03 | Observation (INO) ==
[2019-07-24] MEDS ORDERED: APRESOLINE INJ 20 MG VIAL IVP ONE ×2 (20:46→23:41)
[2019-07-24] MEDS ORDERED: SOLU-Medrol 125 MG VIAL IVP ONE (20:46)
--- NOTE | 2019-07-24 20:52 | DR.AMS ---
HPI Time Seen Time Seen by Provider: 07/24/19 20:42 HPI Comment HPI Comment: Pt has been confused x 2 days per the daughter as below; she's also noted swelling in her tongue x 3 days; no cough, sob, wheezing or sore throat; this happened earlier this year and was attributed to mtx which was stopped. Complaint Chief Complaint:: PTS FAMILY STATES THAT FOR 2 DAYS PT HAS BEEN TALKING "OUT OF HER HEAD" AND SHE THINKS THAT SHE HAS A UTI. WHEN ASKED ABOUT PAIN WITH URINATION OR IN HER ABDOMEN SHE STATES "I CAN FEEL THE PRESSURE IN HERE" AND POINTS TO HER ABDOMEN. ALSO PTS FAMILY STATES THAT SINCE Wednesday07/21/2019 PT HAS BEEN COMPLAINING THAT HER MOUTH "FEELS LIKE ITS ON FIRE" AND THAT SHE HAS NOTICED THAT HER TONGUE IS SWOLLEN. PTS FAMILY STATES THAT THEY HAVE USED LIDOCAINE WITH NO RELIEF. Source History Provided: Patient and Family Member Mode of Arrival Mode of Arrival: Wheelchair Timing Onset of Chief Complaint: 07/23/19 PMH PMH Past Medical History: Yes Past Medical History: Anxiety, Arthritis, Coronary Artery Disease, Diabetes, Dyslipidemia, GERD, Hypertension and Hypothyroidism Past Surgical History: Yes Surgical History: Angioplasty/Stents, , Cholecystectomy, Hysterectomy, Ortho Surgery and Other Family History History of Family Medical Conditions: Yes Family Medical History: Diabetes Mellitus, Coronary Artery Disease and Heart Failure Social History Does patient currently use any type of tobacco product: No Have you used tobacco products in the last 12 months: No Type of Tobacco Use: None Does any household member use tobacco: No Alcohol Use: None Do you use any recreational Drugs:: No Lives With: Family Lives Where: Home infectious screening In the last 2 months have you had wt loss of >10#?: NO Have you had fever, night sweats or hemotysis?: No Have you traveled outside the country in the last 6 months?: No Isolation: Standard ROS Review of Systems Constitutional: No Symptoms Reported (no fever or chills) Eyes: No Symptoms Reported ENTM: See HPI Respiratoy: No Symptoms Reported Cardiovascular: No Symptoms Reported Gastrointestinal/Abdominal: See HPI Genitourinary: See HPI and Dysuria Neurological: No Symptoms Reported Integumentary: No Symptoms Reported Hematologic/Lymphatic: No Symptoms Reported PE Vitals Vital Signs: Temp Pulse Pulse Resp BP BP Pulse Ox 07/24/19 23:00 110 H 22 184/88 98 07/24/19 22:30 98.1 F 111 H 21 198/77 99 07/24/19 22:00 108 H 20 169/72 98 07/24/19 21:45 98.0 F 113 H 21 179/81 99 07/24/19 20:12 97.7 F 98 H 20 179/77 97 06/28/19 12:00 127/58 General Limitations: Altered Mental Status General Appearance: Alert and In No Apparent Distress Head Head Exam: Normal Inspection, Atraumatic and Normocephalic Eyes Eye exam: Normal Appearance ENT ENT Exam: Mucous Membranes Dry Mouth Exam: Tongue Swelling (no drooling, speech is clear, unable to see back of throat) Neck Neck Exam: Normal Inspection, Full ROM, Trachea Midline and Lymphadenopathy Respiratory Respiratory Exam: Normal Lung Sounds Bilat Respiratory Exam: Bilateral: Clear to Auscultation Cardiovascular Cardiovascular Exam: Normal Rhythm and Tachycardia Abdominal Exam Abdominal Exam: Normal Inspection, Normal Bowel Sounds and Soft Extremities Extremities Exam: Normal Inspection Neurological Neurological Exam: Alert, Oriented X3 and CN II-XII Intact Psychological Psychiatric Exam: Normal Affect and Normal Mood Skin Skin Exam: Warm ROR Labs Reviewed Laboratory Results Reviewed?: Yes Result Diagrams: 07/25/19 05:35 07/25/19 05:35 Laboratory: WBC 5.1 X10^3/uL (3.6-10.0) 07/24/19 21:02 RBC 3.80 X10^6/uL (3.5-5.4) 07/24/19 21:02 Hgb 10.6 g/dL (12.0-16.0) L 07/24/19 21:02 Hct 32.1 % (36.0-47.0) L 07/24/19 21:02 MCV 84.6 fL (80.0-100.0) 07/24/19 21:02 MCH 27.8 pg (27.0-34.0) 07/24/19 21:02 MCHC 32.9 g/dL (33.0-35.0) L 07/24/19 21:02 RDW 17.6 % (11.6-16.5) H 07/24/19 21:02 Plt Count 430 X10^3/uL (150.0-450.0) 07/24/19 21:02 MPV 7.0 fL (7.4-11.0) L 07/24/19 21:02 Neut % (Auto) 68.9 % (42.0-75.0) 07/24/19 21:02 Lymph % (Auto) 26.7 % (21.0-51.0) 07/24/19 21:02 [place] % (Auto) 2.8 % (0.0-13.0) 07/24/19 21:02 Eos % (Auto) 0.9 % (0.9-2.9) 07/24/19 21:02 Baso % (Auto) 0.7 % (0.2-1.0) 07/24/19 21:02 Neut # (Auto) 3.5 x10^3/uL (2.2-4.8) 07/24/19 21:02 Lymph # (Auto) 1.4 X10^3/uL (1.3-2.9) 07/24/19 21:02 [place] # (Auto) 0.1 x10^3/uL (0.3-0.8) L 07/24/19 21:02 Eos # (Auto) 0.0 x10^3/uL (0.0-0.2) 07/24/19 21:02 Baso # (Auto) 0.0 X10^3/uL (0.0-0.1) 07/24/19 21:02 Absolute Nucleated RBC 0.1 /100WBC 07/24/19 21:02 Sodium 136 mmol/L (136-145) 07/24/19 21:02 Corrected Sodium 137 mmol/L (136-145) 07/24/19 21:02 Potassium 3.8 mmol/L (3.5-5.1) 07/24/19 21:02 Chloride 100 mmol/L (98-107) 07/24/19 21:02 Carbon Dioxide 21.8 mmol/L (21-32) 07/24/19 21:02 BUN 21 mg/dL (7-18) H 07/24/19 21:02 Creatinine 1.33 mg/dL (0.55-1.02) H 07/24/19 21:02 Est GFR (MDRD) Af Amer 50 (>60) L 07/24/19 21:02 Est GFR (MDRD) Non-Af 41 (>60) L 07/24/19 21:02 Glucose 160 mg/dL (65-99) H 07/24/19 21:02 Calcium 8.6 mg/dL (8.5-10.1) 07/24/19 21:02 Corrected Calcium 9.7 mg/dL (8.5-10.1) 07/24/19 21:02 Total Bilirubin 0.20 mg/dL (0.2-1.0) 07/24/19 21:02 AST 32 Units/L (15-37) 07/24/19 21:02 ALT 19 Units/L (12-78) 07/24/19 21:02 Alkaline Phosphatase 100 Units/L (46-116) 07/24/19 21:02 Total Protein 6.7 g/dL (6.4-8.2) 07/24/19 21:02 Albumin 2.6 g/dL (3.4-5.0) L 07/24/19 21:02 Globulin 4.1 g/dL (2.5-4.5) 07/24/19 21:02 Albumin/Globulin Ratio 0.6 Ratio (1.1-2.1) L 07/24/19 21:02 Specimen Type Catherized urine 07/24/19 22:38 Urine Color Yellow (YELLOW) 07/24/19 22:38 Urine Appearance Cloudy (CLEAR) 07/24/19 22:38 Urine pH 5.0 (5.0 - 8.0) 07/24/19 22:38 Ur Specific [place] 1.015 (1.000-1.030) 07/24/19 22:38 Urine Protein 2+ (NEGATIVE) 07/24/19 22:38 Urine Glucose (UA) Negative (NEGATIVE) 07/24/19 22:38 Urine Ketones 2+ (NEGATIVE) 07/24/19 22:38 Urine Occult Blood 2+ (NEGATIVE) 07/24/19 22:38 Urine Nitrite Negative (NEGATIVE) 07/24/19 22:38 Urine Bilirubin Negative (NEGATIVE) 07/24/19 22:38 Urine Urobilinogen Normal (NORMAL) 07/24/19 22:38 Ur Leukocyte Esterase 2+ (NEGATIVE) 07/24/19 22:38 Urine RBC 3-5 /HPF (0-3) A 07/24/19 22:38 Urine WBC 5-10 /HPF (0-5) A 07/24/19 22:38 Ur Squamous Epith Cells Rare /HPF (NEGATIVE) 07/24/19 22:38 Urine Bacteria 4+ /HPF (NEGATIVE) 07/24/19 22:38 Ur Culture Indicated? Yes/culture set up 07/24/19 22:38 XRAY XRAY Interpreted by: Radiologist X-ray Results: IMPRESSION Limited exam due to the lack of IV contrast with no obvious active inflammation or mass identified and no adenopathy seen. Opioid Opioid Risk Tool Age (Nate box if 16-45): No History of Preadolescent Sexual Abuse: No Total: 0 Total Score Risk Category: Low Risk Copyright: [facility] predicting aberrant behaviors Diagnosis Discharge Problem: Stomatitis and mucositis Altered mental status Qualifiers: Altered mental status type: disorientation Qualified Code(s): R41.0 - Disorientation, unspecified Urinary tract infection Qualifiers: Urinary tract infection type: acute cystitis Hematuria presence: without hematuria Qualified Code(s): N30.00 - Acute cystitis without hematuria Angio-edema Qualifiers: Encounter type: initial encounter Qualified Code(s): T78.3XXA - Angioneurotic edema, initial encounter CRF (chronic renal failure) Qualifiers: Chronic kidney disease stage: stage 4 (severe) Qualified Code(s): N18.4 - Chronic kidney disease, stage 4 (severe) Angiotensin converting enzyme inhibitor-aggravated angioedema Qualifiers: Encounter type: initial encounter Qualified Code(s): T78.3XXA - Angioneurotic edema, initial encounter Instructions Instructions: Angioedema, [id number] Forms: Excuse From Work
[2019-07-24] MEDS ORDERED: APRESOLINE INJ 20 MG VIAL ONE ×2 (21:10→23:41)
[2019-07-24] MEDS ORDERED: SOLU-Medrol 125 MG VIAL ONE (21:10)
[2019-07-24 21:11] LABS: BASOPHILS % (AUTO) 0.7 % (0.2-1.0); EOSINOPHILS % (AUTO) 0.9 % (0.9-2.9); HEMATOCRIT 32.1 % (36.0-47.0); HEMOGLOBIN 10.6 g/dL (12.0-16.0); LYMPHOCYTES # (AUTO) 1.4 X10^3/uL (1.3-2.9); LYMPHOCYTES % (AUTO) 26.7 % (21.0-51.0); MEAN CORPUSCULAR HEMOGLOBIN 27.8 pg (27.0-34.0); MEAN CORPUSCULAR HGB CONC 32.9 g/dL (33.0-35.0); MEAN CORPUSCULAR VOLUME 84.6 fL (80.0-100.0); MONOCYTES # (AUTO) 0.1 x10^3/uL (0.3-0.8); MONOCYTES % (AUTO) 2.8 % (0.0-13.0); NEUTROPHILS # (AUTO) 3.5 x10^3/uL (2.2-4.8); NEUTROPHILS % (AUTO) 68.9 % (42.0-75.0); PLATELET COUNT 430 X10^3/uL (150.0-450.0); RED CELL DISTRIBUTION WIDTH 17.6 % (11.6-16.5); WHITE BLOOD COUNT 5.1 X10^3/uL (3.6-10.0)
[2019-07-24 21:21] LABS: ALBUMIN 2.6 g/dL (3.4-5.0); CALCIUM 8.6 mg/dL (8.5-10.1); CARBON DIOXIDE 21.8 mmol/L (21-32); COR CA(FOR HYPOALB) 9.7 mg/dL (8.5-10.1); CREATININE 1.33 mg/dL (0.55-1.02); TOTAL PROTEIN 6.7 g/dL (6.4-8.2)
--- NOTE | 2019-07-24 22:44 | CT ---
HISTORYANGIOEDEMA .brGFR TOO LOW FOR CONTRASTSTUDYSOFT TISSUE NECK W/O CONCOMPARISONNoneTECHNIQUEMultiple axial images of the soft tissue neck were obtained from skull base to the aortic arch [after] the administration of IV contrast. Sagittal and coronal reformats were performed and reviewed. Dose reduction techniques including Automated Exposure Control (AEC) and adjustment of mA and kV were utilized.FINDINGSThe visualized intracranial orbital contents are unremarkable. The nasopharynx is unremarkable. The parotid and submandibular glands are normal size and density. The parapharyngeal soft tissues are normal. The epiglottis and glottis are unremarkable. The thyroid gland is grossly unremarkable. There is no obvious neck mass or adenopathy and no inflammatory changes are seen. The visualized superior mediastinum and lung apices are unremarkable. There is no supraclavicular mass or adenopathy. There are moderate degenerative changes seen in the spine with no aggressive osseous lesion. The prevertebral soft tissues are normal.IMPRESSIONLimited exam due to the lack of IV contrast with no obvious active inflammation or mass identified and no adenopathy seen.Electronically signed by: KYLEE NEWTON (Jul 24, 2019 22:42:22)
[2019-07-24 22:51] LABS: BILIRUBIN,URINE NEGATIVE (NEGATIVE); BLOOD/HEMOGLOBIN,URINE 2+ (NEGATIVE); GLUCOSE, URINE NEGATIVE (NEGATIVE); KETONES,URINE 2+ (NEGATIVE); LEUKOCYTE ESTERASE ,URINE 2+ (NEGATIVE); NITRITES,URINE NEGATIVE (NEGATIVE); PROTEIN,URINE 2+ (NEGATIVE); UROBILINOGEN,URINE NORMAL (NORMAL)
[2019-07-24 22:59] LABS: APPEARANCE,URINE CLOUDY (CLEAR); COLOR,URINE YELLOW (YELLOW)
[2019-07-24 23:00] LABS: BACTERIA,URINE 4+ /HPF (NEGATIVE); SQUAMOUS EPITHELIAL CELL,UR RARE /HPF (NEGATIVE)
[2019-07-24] MEDS ORDERED: NS 1000 ML 1,000 ML IV SCH (23:00)
[2019-07-24] MEDS ORDERED: NS 1000 ML 1,000 ML ONE (23:01)
[2019-07-24] MEDS ORDERED: ROCEPHIN VIAL 1 GRAM 1 G in NS 100 ML IV + SPIKE MINIBAG* 100 ML IV SCH (23:34)
[2019-07-24] MEDS ORDERED: ROCEPHIN VIAL 1 GRAM IV ONE (23:34)
[2019-07-24] MEDS ORDERED: PEPCID 20 MG IV PREMIX* 20 MG/50 ML BAG IV ONE (23:39)
[2019-07-24] MEDS ORDERED: APRESOLINE INJ 20 MG VIAL IVP PRN (23:44)
[2019-07-24] MEDS: NS 1000 ML 1,000 ML IV SCH (23:58)
[2019-07-25] MEDS ORDERED: NS 100 ML IV + SPIKE MINIBAG* 100 ML IV ONE
[2019-07-25] MEDS ORDERED: ROCEPHIN VIAL 1 GRAM ONE
[2019-07-25 01:35] VITALS: BMI 21.7
[2019-07-25] MEDS ORDERED: ZOFRAN INJ 4 MG VIAL IVP PRN (01:53)
[2019-07-25] MEDS ORDERED: ZOFRAN INJ 4 MG VIAL ONE (01:54)
[2019-07-25] MEDS ORDERED: ROCEPHIN VIAL 1 GRAM 1 G in NS 100 ML IV + SPIKE MINIBAG* 100 ML IV SCH (02:00)
[2019-07-25] MEDS: LOPRESSOR TAB 50 MG PO SCH ×3 (04:14→20:50)
[2019-07-25 05:51] LABS: BASOPHILS % (AUTO) 0.3 % (0.2-1.0); HEMATOCRIT 30.9 % (36.0-47.0); HEMOGLOBIN 10.4 g/dL (12.0-16.0); LYMPHOCYTES # (AUTO) 0.9 X10^3/uL (1.3-2.9); LYMPHOCYTES % (AUTO) 20.6 % (21.0-51.0); MEAN CORPUSCULAR HEMOGLOBIN 28.6 pg (27.0-34.0); MEAN CORPUSCULAR HGB CONC 33.6 g/dL (33.0-35.0); MEAN CORPUSCULAR VOLUME 85.2 fL (80.0-100.0); MEAN PLATELET VOLUME 7.3 fL (7.4-11.0); MONOCYTES # (AUTO) 0.1 x10^3/uL (0.3-0.8); MONOCYTES % (AUTO) 2.2 % (0.0-13.0); NEUTROPHILS # (AUTO) 3.3 x10^3/uL (2.2-4.8); NEUTROPHILS % (AUTO) 76.9 % (42.0-75.0); PLATELET COUNT 431 X10^3/uL (150.0-450.0); RED BLOOD COUNT 3.63 X10^6/uL (3.5-5.4); RED CELL DISTRIBUTION WIDTH 18.1 % (11.6-16.5); WHITE BLOOD COUNT 4.2 X10^3/uL (3.6-10.0)
[2019-07-25 06:08] LABS: ALANINE AMINOTRANSFERASE 22 Units/L (12-78); ALBUMIN 2.5 g/dL (3.4-5.0); ALKALINE PHOSPHATASE 95 Units/L (46-116); ASPARTATE AMINO TRANSFERASE 31 Units/L (15-37); BLOOD UREA NITROGEN 18 mg/dL (7-18); CALCIUM 8.3 mg/dL (8.5-10.1); CHLORIDE 103 mmol/L (98-107); COR CA(FOR HYPOALB) 9.5 mg/dL (8.5-10.1); COR NA(FOR HYPERGLY) 140 mmol/L (136-145); CREATININE 1.11 mg/dL (0.55-1.02); SODIUM 137 mmol/L (136-145); TOTAL PROTEIN 6.8 g/dL (6.4-8.2); eGFR NON BLACK RACES 51 (>60)
[2019-07-25] MEDS ORDERED: NORCO 10/325 TAB PO PRN (08:41)
--- NOTE | 2019-07-25 08:56 | RAD ---
HISTORYABD PAIN DIABETES, HTN, BLADDER TACK, C SECTION, HYSTERECTOMY, HEART SXSTUDYACUTE ABDOMEN SERIESCOMPARISONCT scan of the abdomen and pelvis done 06/20/2019.FINDINGSTrachea is midline. Heart size is normal. Lungs and pleural spaces are clear.Evaluation of the abdomen demonstrates a increase in small bowel gas throughout the abdomen. Findings may represent a mild small bowel ileus as air and stool are present throughout the colon including the rectum. No bowel obstruction or perforation is seen. There is no evidence of free intraperitoneal air or fluid. There are surgical clips from cholecystectomy. No pathological soft tissue mass or calcification can be observed. There is a mild mid lumbar scoliosis, convex to the patient's left side.IMPRESSIONSmall-bowel ileus pattern without bowel obstruction or perforation.No acute cardiopulmonary disease.Electronically signed by: GERBER RAMIREZ (Jul 25, 2019 08:54:33)
[2019-07-25] MEDS: ROCEPHIN VIAL 1 GRAM 1 G in NS 100 ML IV + SPIKE MINIBAG* 100 ML IV SCH (09:24)
[2019-07-25] MEDS: SYNTHROID 75 mcg TAB PO SCH (09:41)
[2019-07-25] MEDS: ELIQUIS PO SCH ×2 (09:41→20:50)
[2019-07-25] MEDS: EFFEXOR XR 37.5 MG CAP PO SCH (09:41)
[2019-07-25] MEDS: PROCARDIA XL PO SCH (09:41)
[2019-07-25] MEDS: ZITHROMAX INJ 500 MG VIAL 500 MG in NS 250 ML IV 250 ML IV SCH (14:15)
--- NOTE | 2019-07-25 15:46 | DR.H&P ---
H&P - History & Physical for Day of: H&P Date: 07/24/19 - Chief Complaint Chief Complaint: confusion per family, swelling to tongue and mouth(new onset) - History of Present Illness History of Present Illness: PT IS 78 WF ER ADMISSION AFTER PRESENTING WITH CO CONFUSION PER FAMILY. DAUGHTER STATES SHE WAS CONCERNED SHE HAD UTI, PT DENIES ANY DYSURIA. PT DID CO SORE THROAT AND SWELLING TO HER TONGUE. PT DENIES ANY NEW MEDICATION CHANGES. PT NOTED TO HAVE ANGIOEDEMA AND UTI. PT ADMITTED FOR TREATMENT OF ACUTE ILLNESS. - Past Medical History Past Medical History: Coronary Artery Disease, Hypertension, Dyslipidemia, Diabetes, Anxiety, Hypothyroidism, GERD, Arthritis - Past Surgical History Surgical History: Angioplasty/Stents, Cholecystectomy, , Hysterectomy, Ortho Surgery, Other - Family History Family Medical History: Diabetes Mellitus, Coronary Artery Disease, Heart Failure - Social History Does patient currently use any type of tobacco product: No Have you used tobacco products in the last 12 months: No Type of Tobacco Use: None Does any household member use tobacco: No Alcohol Use: None Drug Use: None - Medications Home Medications: losartan Allergy (Severe, Verified 07/24/19 23:27) angioedema Penicillins Allergy (Verified 07/25/19 01:18) - Review of Systems Constitutional: Weakness Eyes: No Symptoms Reported ENT: Mouth Swelling Respiratory: No Symptoms Reported Cardiovascular: No Symptoms Reported Gastrointestinal: Nausea Genitourinary: Frequency Musculoskeletal: Back Pain Skin: No Symptoms Reported Neurological: Weakness, Confusion - Physical Exam Vital Signs: Temperature 98.7 F Pulse Rate [Apical] 69 Pulse Rate 98 Respiratory Rate 18 Blood Pressure [Left Arm] 142/65 Blood Pressure [Right Arm] 154/70 Blood Pressure 179/77 O2 Sat by Pulse Oximetry 100 Oriented: Normal. negative: Time Eyes: Normal Ear: Normal Nose: Normal Throat: Normal, Other (TONGUE SWELLING) Respiratory: RLL Diminished, LLL Diminished Cardiovascular: Irregular : Normal Auscultation: Bowel Sounds: Normal Palpation: Normal Tenderness: Normal Skin: Decreased Turgur Musculoskeletal: Back:Lumbar Psychiatric: Anxiety Affect: Anxious Speech Pattern: Clear, Appropriate - Assessment/Plan (1) Angio-edema Qualifiers: Encounter type: initial encounter Qualified Code(s): T78.3XXA - Angioneurotic edema, initial encounter Status: Acute Plan: admit, soft tissue neck ct in er wnl. admission labs, cbc cmp on admission. cxr on admission, ua with uc on admission. iv rocephin 1gm daily (2) Altered mental status Qualifiers: Altered mental status type: disorientation Qualified Code(s): R41.0 - Disorientation, unspecified Status: Acute (3) UTI (urinary tract infection) Qualifiers: Urinary tract infection type: acute cystitis Hematuria presence: without hematuria Qualified Code(s): N30.00 - Acute cystitis without hematuria Status: Acute (4) CAD (coronary artery disease) Status: Acute - Allergies Allergies/Adverse Reactions: Allergies Allergy/AdvReac Type Severity Reaction Status Date / Time losartan Allergy Severe angioedema Verified 07/24/19 23:27 Penicillins Allergy Verified 07/25/19 01:18
--- NOTE | 2019-07-25 16:34 | PCM.PROG ---
Progress Note - Progress Note for Day of Date of Exam: 07/25/19 - Subjective Subjective: PT IS 78 WF ER ADMISSION WITH AMS DUE TO ACUTE UTI. PT HAD CULTURE ON ADMISSION, IV ROCEPHIN 1GM DAILY. PT AMS RESOLVED THIS AM. PT REPORTS SHE HAD SWELLING OF HER TONGUE ON ADMISSION, WHICH HAS RESOLVED THIS AM. HGB 10.4 THIS AM, RENAL FUNCTION BUN 18, CREAT 1.11. RESUMED HOME MEDICATION, CONTINUE BS CONTROL. - Past Medical Family Social History Past Med/Fam/Surg Hx: No changes since H&P Allergies: Allergies losartan Allergy (Severe, Verified 07/24/19 23:27) angioedema Penicillins Allergy (Verified 07/25/19 01:18) - Review of Systems ROS: No change since H&P - Vital Signs and I&O's Vital Signs: Temperature 98.7 F Pulse Rate [Apical] 69 Pulse Rate 98 Respiratory Rate 18 Blood Pressure [Left Arm] 142/65 Blood Pressure [Right Arm] 154/70 Blood Pressure 179/77 O2 Sat by Pulse Oximetry 100 Intake and Output: Intake & Output 07/23/19 07/24/19 07/25/19 07/26/19 11:59 11:59 11:59 11:59 Intake Total 0 / 0 600 / 600 Balance 0 / 0 600 / 600 - Physical Exam Oriented: Normal. negative: Time Eyes: Normal Ear: Normal Nose: Normal Throat: Normal, Other (TONGUE SWELLING) Respiratory: Diminished Cardiovascular: Irregular : Normal Auscultation: Bowel Sounds: Normal Tenderness: Normal Skin: Decreased Turgur Musculoskeletal: Back:Lumbar Psychiatric: Anxiety Affect: Anxious Speech Pattern: Clear, Appropriate - Laboratory and Diagnostics Result Diagrams: 07/25/19 05:35 07/25/19 05:35 Labs: Laboratory WBC 4.2 X10^3/uL (3.6-10.0) 07/25/19 05:35 RBC 3.63 X10^6/uL (3.5-5.4) 07/25/19 05:35 Hgb 10.4 g/dL (12.0-16.0) L 07/25/19 05:35 Hct 30.9 % (36.0-47.0) L 07/25/19 05:35 MCV 85.2 fL (80.0-100.0) 07/25/19 05:35 MCH 28.6 pg (27.0-34.0) 07/25/19 05:35 MCHC 33.6 g/dL (33.0-35.0) 07/25/19 05:35 RDW 18.1 % (11.6-16.5) H 07/25/19 05:35 Plt Count 431 X10^3/uL (150.0-450.0) 07/25/19 05:35 MPV 7.3 fL (7.4-11.0) L 07/25/19 05:35 Neut % (Auto) 76.9 % (42.0-75.0) H 07/25/19 05:35 Lymph % (Auto) 20.6 % (21.0-51.0) L 07/25/19 05:35 [place] % (Auto) 2.2 % (0.0-13.0) 07/25/19 05:35 Eos % (Auto) 0.0 % (0.9-2.9) L 07/25/19 05:35 Baso % (Auto) 0.3 % (0.2-1.0) 07/25/19 05:35 Neut # (Auto) 3.3 x10^3/uL (2.2-4.8) 07/25/19 05:35 Lymph # (Auto) 0.9 X10^3/uL (1.3-2.9) L 07/25/19 05:35 [place] # (Auto) 0.1 x10^3/uL (0.3-0.8) L 07/25/19 05:35 Eos # (Auto) 0.0 x10^3/uL (0.0-0.2) 07/25/19 05:35 Baso # (Auto) 0.0 X10^3/uL (0.0-0.1) 07/25/19 05:35 Absolute Nucleated RBC 0.0 /100WBC 07/25/19 05:35 Sodium 137 mmol/L (136-145) 07/25/19 05:35 Corrected Sodium 140 mmol/L (136-145) 07/25/19 05:35 Potassium 4.3 mmol/L (3.5-5.1) 07/25/19 05:35 Chloride 103 mmol/L (98-107) 07/25/19 05:35 Carbon Dioxide 22.0 mmol/L (21-32) 07/25/19 05:35 BUN 18 mg/dL (7-18) 07/25/19 05:35 Creatinine 1.11 mg/dL (0.55-1.02) H 07/25/19 05:35 Est GFR (MDRD) Af Amer > 60 (>60) 07/25/19 05:35 Est GFR (MDRD) Non-Af 51 (>60) L 07/25/19 05:35 Glucose 239 mg/dL (65-99) H 07/25/19 05:35 POC Glucose (mg/dL) 159 mg/dL (65-99) H 07/25/19 12:20 Calcium 8.3 mg/dL (8.5-10.1) L 07/25/19 05:35 Corrected Calcium 9.5 mg/dL (8.5-10.1) 07/25/19 05:35 Total Bilirubin 0.20 mg/dL (0.2-1.0) 07/25/19 05:35 AST 31 Units/L (15-37) 07/25/19 05:35 ALT 22 Units/L (12-78) 07/25/19 05:35 Alkaline Phosphatase 95 Units/L (46-116) 07/25/19 05:35 Total Protein 6.8 g/dL (6.4-8.2) 07/25/19 05:35 Albumin 2.5 g/dL (3.4-5.0) L 07/25/19 05:35 Globulin 4.3 g/dL (2.5-4.5) 07/25/19 05:35 Albumin/Globulin Ratio 0.6 Ratio (1.1-2.1) L 07/25/19 05:35 Specimen Type Catherized urine 07/24/19 22:38 Urine Color Yellow (YELLOW) 07/24/19 22:38 Urine Appearance Cloudy (CLEAR) 07/24/19 22:38 Urine pH 5.0 (5.0 - 8.0) 07/24/19 22:38 Ur Specific [place] 1.015 (1.000-1.030) 07/24/19 22:38 Urine Protein 2+ (NEGATIVE) 07/24/19 22:38 Urine Glucose (UA) Negative (NEGATIVE) 07/24/19 22:38 Urine Ketones 2+ (NEGATIVE) 07/24/19 22:38 Urine Occult Blood 2+ (NEGATIVE) 07/24/19 22:38 Urine Nitrite Negative (NEGATIVE) 07/24/19 22:38 Urine Bilirubin Negative (NEGATIVE) 07/24/19 22:38 Urine Urobilinogen Normal (NORMAL) 07/24/19 22:38 Ur Leukocyte Esterase 2+ (NEGATIVE) 07/24/19 22:38 Urine RBC 3-5 /HPF (0-3) A 07/24/19 22:38 Urine WBC 5-10 /HPF (0-5) A 07/24/19 22:38 Ur Squamous Epith Cells Rare /HPF (NEGATIVE) 07/24/19 22:38 Urine Bacteria 4+ /HPF (NEGATIVE) 07/24/19 22:38 Ur Culture Indicated? Yes/culture set up 07/24/19 22:38 - Plan (1) Angio-edema Status: Acute Qualifiers: Encounter type: initial encounter Qualified Code(s): T78.3XXA - Angioneurotic edema, initial encounter Plan: soft tissue neck ct in er wnl. AM LABS, CBC CMP. cxr on admission, ua with uc on admission. iv rocephin 1gm daily (2) Altered mental status Status: Acute Qualifiers: Altered mental status type: disorientation Qualified Code(s): R41.0 - Disorientation, unspecified (3) UTI (urinary tract infection) Status: Acute Qualifiers: Urinary tract infection type: acute cystitis Hematuria presence: without hematuria Qualified Code(s): N30.00 - Acute cystitis without hematuria (4) CAD (coronary artery disease) Status: Acute (5) Afib Status: Acute Qualifiers: Atrial fibrillation type: unspecified Qualified Code(s): I48.91 - Unspecified atrial fibrillation Plan: RESUME HOME MEDICATION. CONTINUE ELIQUIS, EKG ON ADMISSION
[2019-07-25] MEDS: NS 1000 ML 1,000 ML IV SCH (18:13)
[2019-07-26] MEDS: NS 1000 ML 1,000 ML IV SCH ×2 (01:45→14:06)
[2019-07-26 06:31] LABS: BASOPHILS % (AUTO) 0.1 % (0.2-1.0); EOSINOPHILS % (AUTO) 0.2 % (0.9-2.9); HEMATOCRIT 26.5 % (36.0-47.0); HEMOGLOBIN 8.9 g/dL (12.0-16.0); LYMPHOCYTES # (AUTO) 1.5 X10^3/uL (1.3-2.9); LYMPHOCYTES % (AUTO) 29.4 % (21.0-51.0); MEAN CORPUSCULAR HEMOGLOBIN 28.3 pg (27.0-34.0); MEAN CORPUSCULAR HGB CONC 33.5 g/dL (33.0-35.0); MEAN CORPUSCULAR VOLUME 84.5 fL (80.0-100.0); MEAN PLATELET VOLUME 6.8 fL (7.4-11.0); MONOCYTES # (AUTO) 0.4 x10^3/uL (0.3-0.8); MONOCYTES % (AUTO) 8.9 % (0.0-13.0); NEUTROPHILS # (AUTO) 3.1 x10^3/uL (2.2-4.8); NEUTROPHILS % (AUTO) 61.4 % (42.0-75.0); PLATELET COUNT 409 X10^3/uL (150.0-450.0); RED BLOOD COUNT 3.14 X10^6/uL (3.5-5.4); RED CELL DISTRIBUTION WIDTH 17.9 % (11.6-16.5)
[2019-07-26 06:35] LABS: ALANINE AMINOTRANSFERASE 21 Units/L (12-78); ALBUMIN 2.3 g/dL (3.4-5.0); ALKALINE PHOSPHATASE 70 Units/L (46-116); ASPARTATE AMINO TRANSFERASE 33 Units/L (15-37); BLOOD UREA NITROGEN 11 mg/dL (7-18); CALCIUM 7.7 mg/dL (8.5-10.1); CARBON DIOXIDE 25.2 mmol/L (21-32); CHLORIDE 108 mmol/L (98-107); COR CA(FOR HYPOALB) 9.1 mg/dL (8.5-10.1); COR NA(FOR HYPERGLY) 142 mmol/L (136-145); CREATININE 0.82 mg/dL (0.55-1.02); SODIUM 142 mmol/L (136-145); eGFR NON BLACK RACES > 60 (>60)
[2019-07-26] MEDS ORDERED: MICRO K EXTEN CAP 10 MEQ PO PRN (07:04)
[2019-07-26] MEDS ORDERED: POTASSIUM CHL 60 MEQ/NS 0.45% 500 ML IV PRN (07:04)
[2019-07-26] MEDS ORDERED: POTASSIUM CHLORIDE LIQ 20 MEQ UDC PO PRN (07:04)
[2019-07-26] MEDS ORDERED: POTASSIUM CHL 40 MEQ/NS 0.45% 500 ML IV PRN (07:04)
[2019-07-26] MEDS ORDERED: K-RIDER 10 MEQ/NS 100 ML 10 MEQ/100 ML BAG IV PRN (07:04)
[2019-07-26] MEDS ORDERED: K-DUR TAB 20 MEQ PO PRN (07:04)
[2019-07-26] MEDS ORDERED: KLOR-CON PO PRN (07:04)
--- NOTE | 2019-07-26 07:51 | RAD ---
HISTORYIleusSTUDYKUBCOMPARISONNoneFINDINGSThe abdominal gas pattern is nonspecific and nonobstructive . No abnormal masses or abnormal calcifications are identified. Regional skeleton is intact.VISH Guevara KUBElectronically signed by: JAIMIE LAZO (Jul 26, 2019 07:15:11)
[2019-07-26] MEDS: ROCEPHIN VIAL 1 GRAM 1 G in NS 100 ML IV + SPIKE MINIBAG* 100 ML IV SCH (10:04)
[2019-07-26] MEDS: EFFEXOR XR 37.5 MG CAP PO SCH (10:04)
[2019-07-26] MEDS: PROCARDIA XL PO SCH (10:05)
[2019-07-26] MEDS: ELIQUIS PO SCH ×2 (10:06→21:43)
[2019-07-26] MEDS: LOPRESSOR TAB 50 MG PO SCH ×2 (10:06→21:43)
[2019-07-26] MEDS: SYNTHROID 75 mcg TAB PO SCH (10:06)
[2019-07-26] MEDS: ZITHROMAX INJ 500 MG VIAL 500 MG in NS 250 ML IV 250 ML IV SCH (11:02)
[2019-07-26] MEDS: MAGNESIUM SULFATE 1 GRAM/100 mL PREMIX 1 GM/100 ML BAG IV PRN ×2 (14:56→16:27)
[2019-07-26] MEDS: HEMOCYTE-PLUS PO SCH (16:40)
[2019-07-26] MEDS ORDERED: COLACE CAP 100 MG PO SCH (21:00)
[2019-07-26] MEDS: MILK OF MAGNESIA PO SCH (21:43)
[2019-07-27] MEDS: NS 1000 ML 1,000 ML IV SCH (04:36)
[2019-07-27 06:47] LABS: ALANINE AMINOTRANSFERASE 27 Units/L (12-78); ALKALINE PHOSPHATASE 62 Units/L (46-116); ASPARTATE AMINO TRANSFERASE 41 Units/L (15-37); BLOOD UREA NITROGEN 8 mg/dL (7-18); CALCIUM 7.7 mg/dL (8.5-10.1); CARBON DIOXIDE 30.1 mmol/L (21-32); CHLORIDE 110 mmol/L (98-107); COR CA(FOR HYPOALB) 9.3 mg/dL (8.5-10.1); CREATININE 0.78 mg/dL (0.55-1.02); MAGNESIUM 2.2 mg/dL (1.7-2.9); SODIUM 141 mmol/L (136-145); TOTAL PROTEIN 5.6 g/dL (6.4-8.2); eGFR NON BLACK RACES > 60 (>60)
[2019-07-27 06:54] LABS: BASOPHILS % (AUTO) 0.2 % (0.2-1.0); EOSINOPHILS # (AUTO) 0.1 x10^3/uL (0.0-0.2); EOSINOPHILS % (AUTO) 1.9 % (0.9-2.9); LYMPHOCYTES # (AUTO) 1.4 X10^3/uL (1.3-2.9); LYMPHOCYTES % (AUTO) 39.4 % (21.0-51.0); MEAN CORPUSCULAR HEMOGLOBIN 28.1 pg (27.0-34.0); MEAN CORPUSCULAR HGB CONC 33.3 g/dL (33.0-35.0); MEAN CORPUSCULAR VOLUME 84.4 fL (80.0-100.0); MONOCYTES # (AUTO) 0.2 x10^3/uL (0.3-0.8); MONOCYTES % (AUTO) 6.8 % (0.0-13.0); NEUTROPHILS # (AUTO) 1.8 x10^3/uL (2.2-4.8); NEUTROPHILS % (AUTO) 51.7 % (42.0-75.0); PLATELET COUNT 402 X10^3/uL (150.0-450.0); RED CELL DISTRIBUTION WIDTH 18.2 % (11.6-16.5); WHITE BLOOD COUNT 3.5 X10^3/uL (3.6-10.0)
[2019-07-27] MEDS: ROCEPHIN VIAL 1 GRAM 1 G in NS 100 ML IV + SPIKE MINIBAG* 100 ML IV SCH (09:13)
[2019-07-27] MEDS: ELIQUIS PO SCH (09:13)
[2019-07-27] MEDS: SYNTHROID 75 mcg TAB PO SCH (09:13)
[2019-07-27] MEDS: MILK OF MAGNESIA PO SCH (09:13)
[2019-07-27] MEDS: EFFEXOR XR 37.5 MG CAP PO SCH (09:13)
[2019-07-27] MEDS: HEMOCYTE-PLUS PO SCH (09:13)
[2019-07-27] MEDS: LOPRESSOR TAB 50 MG PO SCH (09:13)
[2019-07-27] MEDS: PROCARDIA XL PO SCH (09:13)
[2019-07-27] MEDS: ZITHROMAX INJ 500 MG VIAL 500 MG in NS 250 ML IV 250 ML IV SCH (10:12)
[2019-07-27 12:39] VITALS: BP 165/79
== END 2019-07-27 15:53 | disposition home or self-care (01) ==
LOC: ER 20:04 → MED/SURG 23:28 → INTOOBSV 23:28 → MED/SURG 07-25 00:46
PROVIDERS: ADMIT Internal Medicine; ATTEND Internal Medicine
DX: Z79.899 Other long term (current) drug therapy; I25.10 Atherosclerotic heart disease of native coronary artery without angina pectoris; T78.3XXA Angioneurotic edema, initial encounter; N30.00 Acute cystitis without hematuria; R94.4 Abnormal results of kidney function studies; E78.2 Mixed hyperlipidemia; E11.65 Type 2 diabetes mellitus with hyperglycemia; R41.0 Disorientation, unspecified; E03.8 Other specified hypothyroidism; I12.9 Hypertensive chronic kidney disease with stage 1 through stage 4 chronic kidney disease, or unspecified chronic kidney disease; K14.8 Other diseases of tongue; K21.9 Gastro-esophageal reflux disease without esophagitis; K56.7 Ileus, unspecified; B96.29 Other Escherichia coli [E. coli] as the cause of diseases classified elsewhere; N18.4 Chronic kidney disease, stage 4 (severe); I48.91 Unspecified atrial fibrillation
CPT/HCPCS: 36415; 51701; 70490; 74000; 74018; 74022; 80053; 81001; 83735; 84132; 85025; 87086; 87088; 87186; 96360; 96361; 96365; 96367; 96374; 96375; 97110; 97162; 97165; 97530; 97535; 99284; A4216; A4222; G0378; J0360; J0456; J0696; J2405; J2930; J3475; J7030; J7050; S0028

== ENCOUNTER 2019-09-16 20:57 | Inpatient (IN) ==
[2019-09-16 21:17] VITALS: BMI 22.6
--- NOTE | 2019-09-16 21:19 | DR.URINEF ---
HPI - Time Seen Time seen: 21:19 - PCP Primary Care Physician: NIDIA - Complaint Chief Complaint Doctors Comments: Patient's daughter states the patient looked pale yesterday and complained of hurting all over. She was complaining of her t oes and hands hurting and she has rheumatoid arthritis and take Hydrocodone for her pain. States she did not recognize who she was today and she has decreased appetite and may have another urinary tract infection. States she gets confused when she gets dehydrated or have a UTI. She is a patient of Dr. Rodriguez and states she just had fluids given in his office two weeks ago. States she usually comes to the hospital about every six weeks with dehydration and UTI. She has COPD but do not have any home oxygen but has nebulizers. She denies tobacco or alcohol usage according to her daughter. Patient denies cold, cough, fever, chills or being exposed to the COVID virus. Daughter denies hematuria or diarrhea. Chief Complaint:: PATIENT IN VIA EMS ON STRETCHER. PATIENT'S DAUGHTER STATES PATIENT HAS HISTORY OF DEHYDRATION AND UTI AND SHE HAS EXHIBITED SAME SX TODAY. PATIENT IS CONFUSED AND POOR HISTORIAN. - Reviewed Nurses Notes Reviewed: Yes - Source History Provided: Patient, Family Member - Mode of Arrival Mode of Arrival: EMS - Timing Onset of Chief Complaint: 09/15/19 - Duration Duration: Intermittent Duration: Days - Context Onset: Spontaneous History of: UTI - Severity Pain: None Inability to Void: None - Location Pain Location: None - Associated Signs and Symptoms Associated signs and symptoms: None PMH - PMH Past Medical History: Yes Past Medical History: Hypertension Past Surgical History: Yes Surgical History: Angioplasty/Stents - Family History History of Family Medical Conditions: No Family Medical History: Diabetes Mellitus, Coronary Artery Disease, Heart Failure - Social History Alcohol Use: None Do you use any recreational Drugs:: No Lives With: Family Lives Where: Home - Travel Risk Coronavirus risk:travel/contact w/high risk person: No Has patient experienced Coronavirus symptoms: No - infectious screening In the last 2 months have you had wt loss of >10#?: NO Have you had fever, night sweats or hemotysis?: No Have you traveled outside the country in the last 6 months?: No Isolation: Standard ROS - Review of Systems Constitutional: No Symptoms Reported, Weakness, Loss of Appetite Eyes: No Symptoms Reported ENTM: No Symptoms Reported Respiratoy: No Symptoms Reported. negative: See HPI, Productive Cough, Non- Productive Cough, Moist Cough, Dry Cough, Hacking Cough, Barking Cough, Brassy Cough, Orthopnea, Short of Breath, Stridor, Wheezing, Hemoptysis, Other Cardiovascular: No Symptoms Reported. negative: See HPI, Chest Pain, Edema, Palpitations, Syncope, Cyanosis, Skin Mottling, Other Gastrointestinal/Abdominal: No Symptoms Reported Genitourinary: No Symptoms Reported Neurological: No Symptoms Reported, Problems Walking (rheumatoid arthritis) Musculoskeletal: No Symptoms Reported, Hand, Foot (chronic pain) Integumentary: No Symptoms Reported, Rash (anterior chest with red papules; no discharge) Hematologic/Lymphatic: No Symptoms Reported. negative: See HPI, Anemia, Blood Clots, Easy Bleeding, Easy Bruising, Swollen Glands, Lymphadenopathy, Other Endocrine: No Symptoms Reported, Intolerance to Cold, Decreased Appetite Psychiatric: No Symptoms Reported. negative: See HPI, Anxiety, Depression, Hallucinations, Excessive crying, Suicidal, Other PE - General Limitations: No Limitations General Appearance: Alert, In No Apparent Distress - Head Head Exam: Normal Inspection, Atraumatic, Normocephalic - Eyes Eye exam: Normal Appearance, PERRL, EOMI. negative: Scleral Icterus, Conjunctival Injection, Nystagmus, Miosis, Mydrasis, Periorbital Swelling, Periorbital Tenderness, Other - ENT ENT Exam: Normal Exam, Normal Oropharynx, Normal External Ear Exam, Mucous Membranes Moist, TM's Normal Bilaterally - Neck Neck Exam: Normal Inspection, Full ROM, Trachea Midline. negative: Tenderness, Meningismus, Lymphadenopathy, Thyromegaly, Other - Chest Chest Inspection: Normal Inspection, Symmetric Chest Wall Rise - Respiratory Respiratory Exam: Normal Lung Sounds Bilat Respiratory Exam: Bilateral Clear to Auscultation - Cardiovascular Cardiovascular Exam: Regular Rate, Normal Rhythm, Normal Heart Sounds, Systolic Murmur - Abdominal Exam Abdominal Exam: Normal Inspection, Normal Bowel Sounds, Soft. negative: Distention, Tenderness, Guarding, Rebound, Rigidity, Dimnished Bowel Sounds, Hyperactive Bowel Sounds, Hypoactive Bowel Sounds, Organomegaly, Trauma, Incision, Ascites, Mass, Bruit, Pulsatile Mass, Hernia, Other Abdominal Tenderness: negative: RUQ, RLQ, LUQ, LLQ, Epigastrium, Suprapubic, Diffuse, Mild, Moderate, Severe, Other - Rectal Rectal Exam: Deferred - Genitourinary External Exam: Female: Deferred : Speculum Exam (Female): Deferred : Bimanual Exam (female): Deferred - Extremities Extremities Exam: Normal Inspection, Full ROM, Normal Capillary Refill. negative: Tenderness, Joint Swelling (fingers with swelling and increased arthritic changes), Calf Tenderness - Back Back Exam: Normal Inspection, Full ROM. negative: Tenderness, (R) CVA Tenderness, (L) CVA Tenderness, Muscle Spasm, Paraspinal Tenderness, Vertebral Tenderness, Rashes, (R) Sciatic Notch Tenderness, (L) Sciatic Notch Tendern, (R) Straight Leg Raise, (L) Straight Leg Raise, Other - Neurologic Neurological Exam: Alert, Oriented X3, CN II-XII Intact, Reflexes Normal. negative: Normal Gait (gait not tested) - Psychiatric Psychiatric Exam: Normal Affect, Normal Mood. negative: Depressed, Agitated, Anxious, Flat Affect, Manic, Homicidal Ideation, Suicidal Ideation, Other - Skin Skin Exam: Warm, Dry, Intact, Normal Color, Rash (anterior chest) - Vital Signs Vitals: Temperature 98.1 F Pulse Rate 76 Respiratory Rate 20 Blood Pressure [Left Arm] 165/79 Blood Pressure 149/76 O2 Sat by Pulse Oximetry 96 Course - Reevaluation 1st: Unchanged - Consultation Called: 22:55 Call Returned: 22:55 (Dr. Cintron to admit) - Education/Counseling Education/Counseling: Patient, Family Educated On: Treatment, Diagnosis, Needs for Follow Up ROR - Labs Reviewed Laboratory Results Reviewed?: Yes (All labs and x-ray results reviewed and discussed with alexandru) Result Diagrams: 09/16/19 21:48 09/16/19 21:48 - XRAY XRAY Interpreted by: Radiologist (CXR: No acute cardiopulmonary abnormality) - EKG Rate: 90 Rhythm: PACs ST: Old, Ant, Infarct - Labs Reviewed Laboratory: WBC 3.1 X10^3/uL (3.6-10.0) L 09/16/19 21:48 RBC 3.47 X10^6/uL (3.5-5.4) L 09/16/19 21:48 Hgb 9.3 g/dL (12.0-16.0) L 09/16/19 21:48 Hct 27.8 % (36.0-47.0) L 09/16/19 21:48 MCV 80.2 fL (80.0-100.0) 09/16/19 21:48 MCH 26.9 pg (27.0-34.0) L 09/16/19 21:48 MCHC 33.6 g/dL (33.0-35.0) 09/16/19 21:48 RDW 18.7 % (11.6-16.5) H 09/16/19 21:48 Plt Count 283 X10^3/uL (150.0-450.0) 09/16/19 21:48 MPV 8.5 fL (7.4-11.0) 09/16/19 21:48 Neut % (Auto) 72.3 % (42.0-75.0) 09/16/19 21:48 Lymph % (Auto) 22.6 % (21.0-51.0) 09/16/19 21:48 [place] % (Auto) 4.4 % (0.0-13.0) 09/16/19 21:48 Eos % (Auto) 0.1 % (0.9-2.9) L 09/16/19 21:48 Baso % (Auto) 0.6 % (0.2-1.0) 09/16/19 21:48 Neut # (Auto) 2.3 x10^3/uL (2.2-4.8) 09/16/19 21:48 Lymph # (Auto) 0.7 X10^3/uL (1.3-2.9) L 09/16/19 21:48 [place] # (Auto) 0.1 x10^3/uL (0.3-0.8) L 09/16/19 21:48 Eos # (Auto) 0.0 x10^3/uL (0.0-0.2) 09/16/19 21:48 Baso # (Auto) 0.0 X10^3/uL (0.0-0.1) 09/16/19 21:48 Absolute Nucleated RBC 0.0 /100WBC 09/16/19 21:48 PT 18.2 SECONDS (11.8-14.3) 09/16/19 21:48 INR Target Range - 09/16/19 21:48 INR 1.56 (0.8-1.3) H 09/16/19 21:48 APTT 40.7 SECONDS (22.9-36.5) H 09/16/19 21:48 PTT Comment - 09/16/19 21:48 Sodium 135 mmol/L (136-145) L 09/16/19 21:48 Corrected Sodium TNP 09/16/19 21:48 Potassium 3.7 mmol/L (3.5-5.1) 09/16/19 21:48 Chloride 101 mmol/L (98-107) 09/16/19 21:48 Carbon Dioxide 17.5 mmol/L (21-32) L 09/16/19 21:48 BUN 25 mg/dL (7-18) H 09/16/19 21:48 Creatinine 1.64 mg/dL (0.55-1.02) H 09/16/19 21:48 Est GFR (MDRD) Af Amer 39 (>60) L 09/16/19 21:48 Est GFR (MDRD) Non-Af 32 (>60) L 09/16/19 21:48 Glucose 80 mg/dL (65-99) 09/16/19 21:48 Calcium 8.1 mg/dL (8.5-10.1) L 09/16/19 21:48 Corrected Calcium 9.2 mg/dL (8.5-10.1) 09/16/19 21:48 Magnesium 1.1 mg/dL (1.7-2.9) L 09/16/19 21:48 Total Bilirubin 0.40 mg/dL (0.2-1.0) 09/16/19 21:48 AST 58 Units/L (15-37) H 09/16/19 21:48 ALT 30 Units/L (12-78) 09/16/19 21:48 Alkaline Phosphatase 124 Units/L (46-116) H 09/16/19 21:48 Creatine Kinase 93 Units/L (26-192) 09/16/19 21:48 CK-MB (CK-2) 1.6 ng/mL (0-4.0) 09/16/19 21:48 CK/CKMB % Calc 1.7 % (<4) 09/16/19 21:48 Troponin I < 0.02 ng/mL (0-1.5) 09/16/19 21:48 Total Protein 6.5 g/dL (6.4-8.2) 09/16/19 21:48 Albumin 2.6 g/dL (3.4-5.0) L 09/16/19 21:48 Globulin 3.9 g/dL (2.5-4.5) 09/16/19 21:48 Albumin/Globulin Ratio 0.7 Ratio (1.1-2.1) L 09/16/19 21:48 TSH 3rd Generation 3.432 uIU/mL (0.358-3.74) 09/16/19 21:48 Specimen Type Catherized urine 09/16/19 22:13 Urine Color Yellow (YELLOW) 09/16/19 22:13 Urine Appearance Clear (CLEAR) 09/16/19 22:13 Urine pH 6.0 (5.0 - 8.0) 09/16/19 22:13 Ur Specific [place] 1.015 (1.000-1.030) 09/16/19 22:13 Urine Protein 2+ (NEGATIVE) 09/16/19 22:13 Urine Glucose (UA) Negative (NEGATIVE) 09/16/19 22:13 Urine Ketones 2+ (NEGATIVE) 09/16/19 22:13 Urine Occult Blood 3+ (NEGATIVE) 09/16/19 22:13 Urine Nitrite Negative (NEGATIVE) 09/16/19 22:13 Urine Bilirubin Negative (NEGATIVE) 09/16/19 22:13 Urine Urobilinogen Normal (NORMAL) 09/16/19 22:13 Ur Leukocyte Esterase Negative (NEGATIVE) 09/16/19 22:13 Urine RBC 0-2 /HPF (0-3) 09/16/19 22:13 Urine WBC 0-2 /HPF (0-5) 09/16/19 22:13 Ur Squamous Epith Cells Rare /HPF (NEGATIVE) 09/16/19 22:13 Amorphous Sediment 1+ /HPF (NEGATIVE) 09/16/19 22:13 Urine Bacteria Negative /HPF (NEGATIVE) 09/16/19 22:13 Urine Mucus Few /HPF (NEGATIVE) 09/16/19 22:13 Ur Culture Indicated? No/not indicated 09/16/19 22:13 - XRAY Xray Findings: CT brain No acute intracranial process can be identified. MRI of Brain: 07/28/18: No evidence of acute intracranial abnormality. Mild nonspecific white matter change. (JEAN SIFUENTES) Opioid - Opioid Risk Tool Age (Nate box if 16-45): No History of Preadolescent Sexual Abuse: No Total: 0 Total Score Risk Category: Low Risk - Diagnosis Discharge Problem: Hypomagnesemia Altered mental status Qualifiers: Altered mental status type: unspecified Qualified Code(s): R41.82 - Altered mental status, unspecified CRF (chronic renal failure) Qualifiers: Chronic kidney disease stage: stage 3 (moderate) Qualified Code(s): N18.3 - Chronic kidney disease, stage 3 (moderate) Hematuria Qualifiers: Hematuria type: unspecified type Qualified Code(s): R31.9 - Hematuria, unspecified Anemia Qualifiers: Anemia type: unspecified type Qualified Code(s): D64.9 - Anemia, unspecified Rheumatoid arthritis Qualifiers: Rheumatoid arthritis location: multiple sites - Discharge Plan Condition: Stable - Follow ups/Referrals Follow ups/Referrals: KYLEE RODRIGUEZ [Primary Care Provider] - 3 days - Instructions
[2019-09-16] MEDS ORDERED: NS 1000 ML 1,000 ML ONE (21:37)
[2019-09-16] MEDS: NS 1000 ML 1,000 ML IV SCH (21:43)
--- NOTE | 2019-09-16 21:47 | RAD ---
CHEST, 1 VIEWHistory: CHEST PAINComparison: 06/28/2019Findings: Cardiac silhouette is normal in size. No acute alveolar infiltrate or significant effusion is identified. No pneumothorax.Impression: No acute cardiopulmonary abnormality.Electronically signed by: LIZZETTE ULLOA (September 16, 2019 21:45:37)
[2019-09-16 22:02] LABS: BASOPHILS % (AUTO) 0.6 % (0.2-1.0); EOSINOPHILS % (AUTO) 0.1 % (0.9-2.9); HEMATOCRIT 27.8 % (36.0-47.0); HEMOGLOBIN 9.3 g/dL (12.0-16.0); LYMPHOCYTES # (AUTO) 0.7 X10^3/uL (1.3-2.9); LYMPHOCYTES % (AUTO) 22.6 % (21.0-51.0); MEAN CORPUSCULAR HEMOGLOBIN 26.9 pg (27.0-34.0); MEAN CORPUSCULAR HGB CONC 33.6 g/dL (33.0-35.0); MEAN CORPUSCULAR VOLUME 80.2 fL (80.0-100.0); MEAN PLATELET VOLUME 8.5 fL (7.4-11.0); MONOCYTES # (AUTO) 0.1 x10^3/uL (0.3-0.8); MONOCYTES % (AUTO) 4.4 % (0.0-13.0); NEUTROPHILS # (AUTO) 2.3 x10^3/uL (2.2-4.8); NEUTROPHILS % (AUTO) 72.3 % (42.0-75.0); PLATELET COUNT 283 X10^3/uL (150.0-450.0); RED BLOOD COUNT 3.47 X10^6/uL (3.5-5.4); RED CELL DISTRIBUTION WIDTH 18.7 % (11.6-16.5); WHITE BLOOD COUNT 3.1 X10^3/uL (3.6-10.0)
[2019-09-16 22:16] LABS: BILIRUBIN,URINE NEGATIVE (NEGATIVE); BLOOD/HEMOGLOBIN,URINE 3+ (NEGATIVE); GLUCOSE, URINE NEGATIVE (NEGATIVE); KETONES,URINE 2+ (NEGATIVE); LEUKOCYTE ESTERASE ,URINE NEGATIVE (NEGATIVE); NITRITES,URINE NEGATIVE (NEGATIVE); PROTEIN,URINE 2+ (NEGATIVE); UROBILINOGEN,URINE NORMAL (NORMAL)
[2019-09-16 22:22] LABS: BLOOD UREA NITROGEN 25 mg/dL (7-18); CALCIUM 8.1 mg/dL (8.5-10.1); CARBON DIOXIDE 17.5 mmol/L (21-32); CHLORIDE 101 mmol/L (98-107); CREATININE 1.64 mg/dL (0.55-1.02); SODIUM 135 mmol/L (136-145); TROPONIN I < 0.02 ng/mL (0-1.5); eGFR NON BLACK RACES 32 (>60)
[2019-09-16 22:26] LABS: AMORPHOUS SEDIMENT,UR 1+ /HPF (NEGATIVE); APPEARANCE,URINE CLEAR (CLEAR); BACTERIA,URINE NEGATIVE /HPF (NEGATIVE); COLOR,URINE YELLOW (YELLOW); RBC,URINE 0-2 /HPF (0-3); SQUAMOUS EPITHELIAL CELL,UR RARE /HPF (NEGATIVE)
[2019-09-16 22:27] LABS: ALANINE AMINOTRANSFERASE 30 Units/L (12-78); ALBUMIN 2.6 g/dL (3.4-5.0); ALKALINE PHOSPHATASE 124 Units/L (46-116); ASPARTATE AMINO TRANSFERASE 58 Units/L (15-37); CKMB % 1.7 % (<4); COR CA(FOR HYPOALB) 9.2 mg/dL (8.5-10.1); CREATINE KINASE 93 Units/L (26-192); CREATINE KINASE MB 1.6 ng/mL (0-4.0); MAGNESIUM 1.1 mg/dL (1.7-2.9); TOTAL PROTEIN 6.5 g/dL (6.4-8.2); TSH (3RD GENERATION) 3.432 uIU/mL (0.358-3.74)
[2019-09-16 22:27] LABS: MUCUS,URINE FEW /HPF (NEGATIVE)
[2019-09-16] MEDS ORDERED: MAGNESIUM SULFATE 1 GRAM/100 mL PREMIX 1 G/100 ML BAG IV ONE (23:09)
[2019-09-16] MEDS ORDERED: BETAPACE AF PO SCH (23:45)
[2019-09-17] MEDS ORDERED: NS 1000 ML 1,000 ML ONE (00:20)
[2019-09-17] MEDS: NS 1000 ML 1,000 ML IV SCH ×5 (00:23→21:59)
[2019-09-17] MEDS ORDERED: NORCO 10/325 TAB ONE (01:19)
[2019-09-17] MEDS ORDERED: MAGNESIUM SULFATE IV ONE (01:31)
[2019-09-17] MEDS ORDERED: POTASSIUM CHLORIDE LIQ 20 MEQ UDC PO PRN (01:38)
[2019-09-17] MEDS ORDERED: K-RIDER 10 MEQ/NS 100 ML 10 MEQ/100 ML BAG IV PRN (01:38)
[2019-09-17] MEDS ORDERED: MICRO K EXTEN CAP 10 MEQ PO PRN (01:38)
[2019-09-17] MEDS ORDERED: POTASSIUM CHL 40 MEQ/NS 0.45% 500 ML IV PRN (01:38)
[2019-09-17] MEDS ORDERED: KLOR-CON PO PRN (01:38)
[2019-09-17] MEDS ORDERED: POTASSIUM CHL 60 MEQ/NS 0.45% 500 ML IV PRN (01:38)
[2019-09-17] MEDS: NORCO 10/325 TAB PO PRN ×2 (01:45→22:00)
[2019-09-17] MEDS: MAGNESIUM SULFATE 1 GRAM/100 mL PREMIX 1 GM/100 ML BAG IV PRN ×5 (03:40→19:05)
[2019-09-17 06:33] LABS: ALANINE AMINOTRANSFERASE 26 Units/L (12-78); ALBUMIN 2.3 g/dL (3.4-5.0); ALKALINE PHOSPHATASE 106 Units/L (46-116); ASPARTATE AMINO TRANSFERASE 53 Units/L (15-37); BLOOD UREA NITROGEN 20 mg/dL (7-18); CALCIUM 7.4 mg/dL (8.5-10.1); CARBON DIOXIDE 18.1 mmol/L (21-32); CHLORIDE 105 mmol/L (98-107); COR CA(FOR HYPOALB) 8.8 mg/dL (8.5-10.1); CREATININE 1.26 mg/dL (0.55-1.02); MAGNESIUM 1.9 mg/dL (1.7-2.9); SODIUM 136 mmol/L (136-145); TOTAL PROTEIN 5.8 g/dL (6.4-8.2); eGFR NON BLACK RACES 44 (>60)
[2019-09-17 06:47] LABS: BASOPHILS % (AUTO) 0.3 % (0.2-1.0); EOSINOPHILS % (AUTO) 0.9 % (0.9-2.9); HEMATOCRIT 24.5 % (36.0-47.0); HEMOGLOBIN 8.2 g/dL (12.0-16.0); LYMPHOCYTES # (AUTO) 1.2 X10^3/uL (1.3-2.9); LYMPHOCYTES % (AUTO) 43.6 % (21.0-51.0); MEAN CORPUSCULAR HEMOGLOBIN 27.1 pg (27.0-34.0); MEAN CORPUSCULAR HGB CONC 33.6 g/dL (33.0-35.0); MEAN CORPUSCULAR VOLUME 80.8 fL (80.0-100.0); MEAN PLATELET VOLUME 7.7 fL (7.4-11.0); MONOCYTES # (AUTO) 0.2 x10^3/uL (0.3-0.8); MONOCYTES % (AUTO) 6.4 % (0.0-13.0); NEUTROPHILS # (AUTO) 1.3 x10^3/uL (2.2-4.8); NEUTROPHILS % (AUTO) 48.8 % (42.0-75.0); PLATELET COUNT 237 X10^3/uL (150.0-450.0); RED BLOOD COUNT 3.03 X10^6/uL (3.5-5.4); RED CELL DISTRIBUTION WIDTH 18.4 % (11.6-16.5); WHITE BLOOD COUNT 2.7 X10^3/uL (3.6-10.0)
[2019-09-17] MEDS: ASPIRIN EC 81 MG PO SCH (09:38)
[2019-09-17] MEDS: ELIQUIS PO SCH ×2 (09:39→21:58)
[2019-09-17] MEDS: PROTONIX TAB 40 MG PO SCH (09:39)
[2019-09-17] MEDS: SYNTHROID 75 mcg TAB PO SCH (09:39)
[2019-09-17] MEDS: COZAAR PO SCH (09:39)
[2019-09-17] MEDS: FOLIC ACID TAB 1 MG PO SCH (09:40)
[2019-09-17] MEDS: BETAPACE AF PO SCH (09:51)
[2019-09-17] MEDS ORDERED: NORCO 10/325 TAB PO PRN (10:07)
[2019-09-17] MEDS ORDERED: LASIX PO PRN (10:07)
[2019-09-17] MEDS ORDERED: COLACE CAP 100 MG PO PRN (10:07)
[2019-09-17] MEDS ORDERED: GLUCOPHAGE ONE ×2 (11:23→20:46)
[2019-09-17] MEDS: PROCARDIA XL 24-hr PO SCH (11:28)
[2019-09-17] MEDS: EFFEXOR XR 37.5 MG CAP 24-HR PO SCH (11:28)
[2019-09-17] MEDS: PERIACTIN TAB 4 MG PO SCH (11:29)
[2019-09-17] MEDS: GLUCOPHAGE PO SCH ×2 (11:29→21:58)
--- NOTE | 2019-09-17 21:20 | DR.H&P ---
H&P - History & Physical for Day of: H&P Date: 09/16/19 - Chief Complaint Chief Complaint: WEAKNESS, AMS, DECREASED APPETITE, ACHING ALL OVER - History of Present Illness History of Present Illness: IS A 78 YEAR OLD PATIENT OF . SHE PRESENTED TO THE ER WITH COMPLAINTS OF WEAKNESS, ALTERED MENTAL STATUS, DECREASED APPETITE, AND ACHING ALL OVER. PATIENTS DAUGHTER REPORTS THAT SHE HAS A HISTORY OF RHEUMATOID ARTHRITIS AND HAS TAKEN HER HYDROCODONE AT HOME WIHTOUT IMPROVEMENT IN SYMPTOMS. PATIENT IS NOTED TO BE DISORIENTED ON ARRIVAL TO THE ER. SHE IS FREQUENTLY TREATED FOR DEHYDRATION AND UTIs. SHE ALSO HAS A HISTORY OF COPD, BUT DOES NOT USE HOME OXYGEN. SHE DENIES COLD, COUGH, FEVER, CHILLS, OR BEING EXPOSED TO ANYONE WITH THE COVID VIRUS. ON ARRIVAL TO THE ER, VITALS WERE 98.1-91-20-96%-159/77. LABS WERE OBTAINED. ABNORMAL LAB VALUES INCLUDE THE FOLLOWING: WBC 3.1, RBC 3.47, HGB 9.3, HCT 27.8, INR 1.56, HGB 40.7, SODIUM 135, CARBON DIOXIDE 17.5, BUN 25, CREATININE 1.64, CALCIUM 8.1, MAGNESIUM 1.1, AST 58, ALK PHOS 124, ALBUMIN 2.6. URINALYSIS IS UNREMARKABLE. A CHEST XRAY WAS OBTAINED AND REVEALED: No acute cardiopulmonary abnormality. EKG REVEALED: SINUS RHYTHM WITH HR 90. SHE WAS GIVEN MAGNESIUM SULFATE 1G AND STARTED ON NS AT 125ML/HR. SHE WAS ADMITTED FOR FURTHER EVALUATION AND TREATMENT OF DEHYDRATION, HYPOMAGNESIUM, METABOLIC ACIDOSIS, CKD, AND ANEMIA. SHE WAS STARTED ON NS AT 125ML/HR, THE POTASSIUM AND MAGNESIUM PROTOCOLS, AND HER HOME MEDICATIONS WERE RESUMED. WE PLAN TO FOLLOW UP WITH AM LABS AND CONTINUE TO MONITOR. - Past Medical History Past Medical History: Depression, Diabetes, GERD, Hypertension - Past Surgical History Surgical History: Angioplasty/Stents, , Cholecystectomy, Hysterectomy, Ortho Surgery - Family History Family Medical History: Diabetes Mellitus, Coronary Artery Disease, Heart Failure - Social History Does any household member use tobacco: No Alcohol Use: None Drug Use: None - Medications Home Medications: Penicillins Allergy (Verified 07/25/19 01:18) CONTINUE taking the following medications cyproheptadine 4 mg PO DAILY 05/02/20 [History] docusate sodium [Colace] 100 mg PO PRN PRN 09/16/19 [History] methotrexate sodium 5 mg PO QWEEK 09/16/19 [History] sotalol 40 mg PO QAM 09/16/19 [History] - Review of Systems Constitutional: See HPI, Weakness, Malaise Eyes: No Symptoms Reported ENT: No Symptoms Reported Respiratory: No Symptoms Reported Cardiovascular: No Symptoms Reported Gastrointestinal: No Symptoms Reported Genitourinary: No Symptoms Reported Musculoskeletal: See HPI Skin: No Symptoms Reported Neurological: See HPI, Weakness, Confusion - Physical Exam Vital Signs: Temperature 98.2 F Pulse Rate [Right Brachial] 64 Pulse Rate 90 Respiratory Rate 20 Blood Pressure [Right Arm] 165/72 Blood Pressure [Left Arm] 185/75 Blood Pressure 174/81 O2 Sat by Pulse Oximetry 100 Oriented: Not Oriented Eyes: Normal Ear: Normal Nose: Normal Throat: Normal Respiratory: Diminished Throughout Cardiovascular: Normal : Normal Auscultation: Bowel Sounds: Normal Palpation: Normal Tenderness: Normal Skin: Normal Musculoskeletal: Normal Psychiatric: Normal Mood Description: Calm Affect: Normal Speech Pattern: Inappropriate - Assessment/Plan (1) Dehydration Status: Acute Plan: ADMIT, NS AT 125ML/HR, THE POTASSIUM AND MAGNESIUM PROTOCOLS, AND HER HOME MEDICATIONS WERE RESUMED (2) Anemia Qualifiers: Anemia type: unspecified type Qualified Code(s): D64.9 - Anemia, unspecified Status: Acute Plan: MONITOR H&H, CONTINUE TO MONITOR (3) Generalized weakness Status: Acute (4) Metabolic acidosis Status: Acute (5) CRF (chronic renal failure) Qualifiers: Chronic kidney disease stage: stage 2 (mild) Qualified Code(s): N18.2 - Chronic kidney disease, stage 2 (mild) Status: Chronic - Allergies Allergies/Adverse Reactions: Allergies Allergy/AdvReac Type Severity Reaction Status Date / Time Penicillins Allergy Verified 07/25/19 01:18
[2019-09-17] MEDS: LIPITOR TAB 40 MG PO SCH (21:58)
[2019-09-18] MEDS: NS 1000 ML 1,000 ML IV SCH ×5 (00:43→23:14)
[2019-09-18 06:53] LABS: BASOPHILS % (AUTO) 0.5 % (0.2-1.0); EOSINOPHILS # (AUTO) 0.2 x10^3/uL (0.0-0.2); EOSINOPHILS % (AUTO) 4.6 % (0.9-2.9); HEMATOCRIT 26.7 % (36.0-47.0); HEMOGLOBIN 8.9 g/dL (12.0-16.0); LYMPHOCYTES # (AUTO) 1.8 X10^3/uL (1.3-2.9); LYMPHOCYTES % (AUTO) 44.9 % (21.0-51.0); MEAN CORPUSCULAR HEMOGLOBIN 27.4 pg (27.0-34.0); MEAN CORPUSCULAR HGB CONC 33.2 g/dL (33.0-35.0); MEAN CORPUSCULAR VOLUME 82.6 fL (80.0-100.0); MONOCYTES # (AUTO) 0.2 x10^3/uL (0.3-0.8); MONOCYTES % (AUTO) 5.7 % (0.0-13.0); NEUTROPHILS # (AUTO) 1.7 x10^3/uL (2.2-4.8); NEUTROPHILS % (AUTO) 44.3 % (42.0-75.0); PLATELET COUNT 270 X10^3/uL (150.0-450.0); RED BLOOD COUNT 3.23 X10^6/uL (3.5-5.4); RED CELL DISTRIBUTION WIDTH 19.1 % (11.6-16.5); WHITE BLOOD COUNT 3.9 X10^3/uL (3.6-10.0)
[2019-09-18 06:55] LABS: ALANINE AMINOTRANSFERASE 28 Units/L (12-78); ALBUMIN 2.2 g/dL (3.4-5.0); ALKALINE PHOSPHATASE 104 Units/L (46-116); ASPARTATE AMINO TRANSFERASE 56 Units/L (15-37); BLOOD UREA NITROGEN 8 mg/dL (7-18); CALCIUM 7.4 mg/dL (8.5-10.1); CARBON DIOXIDE 20.4 mmol/L (21-32); CHLORIDE 112 mmol/L (98-107); COR CA(FOR HYPOALB) 8.8 mg/dL (8.5-10.1); CREATININE 0.92 mg/dL (0.55-1.02); MAGNESIUM 2.3 mg/dL (1.7-2.9); SODIUM 143 mmol/L (136-145); TOTAL PROTEIN 5.8 g/dL (6.4-8.2); eGFR NON BLACK RACES > 60 (>60)
[2019-09-18] MEDS ORDERED: GLUCOPHAGE ONE ×2 (08:13→20:45)
[2019-09-18] MEDS: ASPIRIN EC 81 MG PO SCH (08:27)
[2019-09-18] MEDS: EFFEXOR XR 37.5 MG CAP 24-HR PO SCH (08:29)
[2019-09-18] MEDS: ELIQUIS PO SCH ×2 (08:30→21:15)
[2019-09-18] MEDS: SYNTHROID 75 mcg TAB PO SCH (08:31)
[2019-09-18] MEDS: BETAPACE AF PO SCH (08:31)
[2019-09-18] MEDS: PROCARDIA XL 24-hr PO SCH (08:32)
[2019-09-18] MEDS: PROTONIX TAB 40 MG PO SCH (08:33)
[2019-09-18] MEDS: FOLIC ACID TAB 1 MG PO SCH (08:33)
[2019-09-18] MEDS: GLUCOPHAGE PO SCH ×2 (08:33→21:15)
[2019-09-18] MEDS: PERIACTIN TAB 4 MG PO SCH (08:34)
[2019-09-18] MEDS: K-DUR TAB 20 MEQ PO PRN (08:34)
[2019-09-18] MEDS: COZAAR PO SCH (08:52)
--- NOTE | 2019-09-18 13:41 | RAD ---
HISTORYDOE, HX CHF CADSTUDYCHEST x-ray, 1 VIEWCOMPARISONNoneFINDINGSThe trachea is midline. The cardiac silhouette is normal in size. There is mild calcification of the aortic arch.Lungs appear clear. No pneumothorax or pleural effusion is seen.No acute bony abnormality is seen.IMPRESSIONNo acute cardiopulmonary abnormality is seen.Electronically signed by: Jovanny Cazares (September 18, 2019 13:39:55)
[2019-09-18 14:26] LABS: IRON 39 ug/dL (50-175)
[2019-09-18] MEDS: HEMOCYTE-PLUS PO SCH (16:31)
--- NOTE | 2019-09-18 17:25 | PCM.PROG ---
Progress Note - Progress Note for Day of Date of Exam: 09/18/19 - Subjective Subjective: PT IS 78 WF ER ADMISSION OVER THE WEEKEND WITH CO WEAKNESS, CONFUSION AND DEHYDRATION WITH RA FLARE. PT IS CURRENTLY ON GENTLE IV HYDRATION, DECREASED RATE TODAY TO 50CC/HR. PT HAS IMPROVED RENAL FUNCTION THIS AM, CONTINUES WITH K+3.1 TODAY. HGB 8.9 THIS AM, ANEMIA PANEL ORDERED, CRP AND SED RATE ORDERED. PT'S CONTINUE TO CO PAIN TO BILATERAL HANDS AND LOWER BACK. PT DENIES ANY CHEST PAIN OR SOB. - Past Medical Family Social History Past Med/Fam/Surg Hx: No changes since H&P Allergies: Allergies Penicillins Allergy (Verified 07/25/19 01:18) - Review of Systems ROS: No change since H&P - Vital Signs and I&O's Vital Signs: Temperature 98 F Pulse Rate [Right Brachial] 61 Pulse Rate 90 Respiratory Rate 22 Blood Pressure [Right Arm] 158/68 Blood Pressure [Left Arm] 185/75 Blood Pressure 174/81 O2 Sat by Pulse Oximetry 97 Intake and Output: Intake & Output 09/16/19 09/17/19 09/18/19 09/19/19 11:59 11:59 11:59 11:59 Intake Total 1000 / 1000 3450 / 3450 360 / 360 Balance 1000 / 1000 3450 / 3450 360 / 360 - Physical Exam Oriented: Not Oriented Eyes: Normal Ear: Normal Nose: Normal Throat: Normal Respiratory: Diminished Cardiovascular: Normal : Normal Auscultation: Bowel Sounds: Normal Tenderness: Normal Skin: Normal Musculoskeletal: Right, Left, Hand, Back:Thoracic, Back:Lumbar Psychiatric: Normal, Anxiety Mood Description: Calm, Anxious Affect: Anxious Speech Pattern: Clear, Appropriate - Laboratory and Diagnostics Result Diagrams: 09/18/19 06:30 09/18/19 13:53 Labs: Laboratory WBC 3.9 X10^3/uL (3.6-10.0) 09/18/19 06:30 RBC 3.23 X10^6/uL (3.5-5.4) L 09/18/19 06:30 Hgb 8.9 g/dL (12.0-16.0) L 09/18/19 06:30 Hct 26.7 % (36.0-47.0) L 09/18/19 06:30 MCV 82.6 fL (80.0-100.0) 09/18/19 06:30 MCH 27.4 pg (27.0-34.0) 09/18/19 06:30 MCHC 33.2 g/dL (33.0-35.0) 09/18/19 06:30 RDW 19.1 % (11.6-16.5) H 09/18/19 06:30 Plt Count 270 X10^3/uL (150.0-450.0) 09/18/19 06:30 MPV 8.0 fL (7.4-11.0) 09/18/19 06:30 Neut % (Auto) 44.3 % (42.0-75.0) 09/18/19 06:30 Lymph % (Auto) 44.9 % (21.0-51.0) 09/18/19 06:30 [place] % (Auto) 5.7 % (0.0-13.0) 09/18/19 06:30 Eos % (Auto) 4.6 % (0.9-2.9) H 09/18/19 06:30 Baso % (Auto) 0.5 % (0.2-1.0) 09/18/19 06:30 Neut # (Auto) 1.7 x10^3/uL (2.2-4.8) L 09/18/19 06:30 Lymph # (Auto) 1.8 X10^3/uL (1.3-2.9) 09/18/19 06:30 [place] # (Auto) 0.2 x10^3/uL (0.3-0.8) L 09/18/19 06:30 Eos # (Auto) 0.2 x10^3/uL (0.0-0.2) 09/18/19 06:30 Baso # (Auto) 0.0 X10^3/uL (0.0-0.1) 09/18/19 06:30 Absolute Nucleated RBC 0.0 /100WBC 09/18/19 06:30 ESR 38 MM/HOUR (0-20) H 09/18/19 13:53 PT 18.2 SECONDS (11.8-14.3) 09/16/19 21:48 INR Target Range - 09/16/19 21:48 INR 1.56 (0.8-1.3) H 09/16/19 21:48 APTT 40.7 SECONDS (22.9-36.5) H 09/16/19 21:48 PTT Comment - 09/16/19 21:48 Sodium 143 mmol/L (136-145) 09/18/19 06:30 Corrected Sodium TNP 09/18/19 06:30 Potassium 3.9 mmol/L (3.5-5.1) 09/18/19 13:53 Chloride 112 mmol/L (98-107) H 09/18/19 06:30 Carbon Dioxide 20.4 mmol/L (21-32) L 09/18/19 06:30 BUN 8 mg/dL (7-18) 09/18/19 06:30 Creatinine 0.92 mg/dL (0.55-1.02) 09/18/19 06:30 Est GFR (MDRD) Af Amer > 60 (>60) 09/18/19 06:30 Est GFR (MDRD) Non-Af > 60 (>60) 09/18/19 06:30 Glucose 77 mg/dL (65-99) 09/18/19 06:30 POC Glucose (mg/dL) 83 mg/dL (65-99) 09/18/19 16:07 Calcium 7.4 mg/dL (8.5-10.1) L 09/18/19 06:30 Corrected Calcium 8.8 mg/dL (8.5-10.1) 09/18/19 06:30 Magnesium 2.3 mg/dL (1.7-2.9) 09/18/19 06:30 Magnesium Cancelled 09/18/19 06:30 Iron 39 ug/dL (50-175) L 09/18/19 06:30 Transferrin 78 mg/dL (202-364) L 09/18/19 06:30 Ferritin 1726 ng/mL (8-252) H 09/18/19 06:30 Total Bilirubin 0.10 mg/dL (0.2-1.0) L 09/18/19 06:30 AST 56 Units/L (15-37) H 09/18/19 06:30 ALT 28 Units/L (12-78) 09/18/19 06:30 Alkaline Phosphatase 104 Units/L (46-116) 09/18/19 06:30 Creatine Kinase 93 Units/L (26-192) 09/16/19 21:48 CK-MB (CK-2) 1.6 ng/mL (0-4.0) 09/16/19 21:48 CK/CKMB % Calc 1.7 % (<4) 09/16/19 21:48 Troponin I < 0.02 ng/mL (0-1.5) 09/16/19 21:48 C-Reactive Protein 24.00 mg/L (0-3.0) H 09/18/19 13:53 Total Protein 5.8 g/dL (6.4-8.2) L 09/18/19 06:30 Albumin 2.2 g/dL (3.4-5.0) L 09/18/19 06:30 Globulin 3.6 g/dL (2.5-4.5) 09/18/19 06:30 Albumin/Globulin Ratio 0.6 Ratio (1.1-2.1) L 09/18/19 06:30 Vitamin B12 583 pg/mL (193-986) 09/18/19 06:30 Folate > 20.0 ng/mL (>8.6) 09/18/19 06:30 TSH 3rd Generation 3.432 uIU/mL (0.358-3.74) 09/16/19 21:48 Specimen Type Catherized urine 09/16/19 22:13 Urine Color Yellow (YELLOW) 09/16/19 22:13 Urine Appearance Clear (CLEAR) 09/16/19 22:13 Urine pH 6.0 (5.0 - 8.0) 09/16/19 22:13 Ur Specific [place] 1.015 (1.000-1.030) 09/16/19 22:13 Urine Protein 2+ (NEGATIVE) 09/16/19 22:13 Urine Glucose (UA) Negative (NEGATIVE) 09/16/19 22:13 Urine Ketones 2+ (NEGATIVE) 09/16/19 22:13 Urine Occult Blood 3+ (NEGATIVE) 09/16/19 22:13 Urine Nitrite Negative (NEGATIVE) 09/16/19 22:13 Urine Bilirubin Negative (NEGATIVE) 09/16/19 22:13 Urine Urobilinogen Normal (NORMAL) 09/16/19 22:13 Ur Leukocyte Esterase Negative (NEGATIVE) 09/16/19 22:13 Urine RBC 0-2 /HPF (0-3) 09/16/19 22:13 Urine WBC 0-2 /HPF (0-5) 09/16/19 22:13 Ur Squamous Epith Cells Rare /HPF (NEGATIVE) 09/16/19 22:13 Amorphous Sediment 1+ /HPF (NEGATIVE) 09/16/19 22:13 Urine Bacteria Negative /HPF (NEGATIVE) 09/16/19 22:13 Urine Mucus Few /HPF (NEGATIVE) 09/16/19 22:13 Ur Culture Indicated? No/not indicated 09/16/19 22:13 - Plan (1) Altered mental status Status: Acute Qualifiers: Altered mental status type: unspecified Qualified Code(s): R41.82 - Altered mental status, unspecified Plan: RT DEHYDRATION AND ACUTE RA FLARE, METABOLIC ACIDOSIS. IMPROVING POTASSIUM, CONTINUE ELECTROLYTE REPLACEMENT. PAIN CONTROL, BP AND BS MONITORING. ANEMIA PANEL, RESUME IRON SUPPLEMENT, IV SOLU MEDROL 40MG IV X 2 DOSES, UC PENDING, REPEAT AM CXR, DECREASE IV FLUIDS TO 50CC/HR (2) Hypomagnesemia Status: Acute (3) Metabolic acidosis Status: Acute (4) Rheumatoid arthritis Status: Acute Qualifiers: Rheumatoid arthritis location: multiple sites (5) Degenerative lumbar spinal stenosis Status: Chronic (6) Hypertension Status: Chronic
[2019-09-18] MEDS ORDERED: SOLU-Medrol 40 MG VIAL IVP SCH (18:00)
[2019-09-18] MEDS: SOLU-Medrol 40 MG VIAL IVP SCH (21:15)
[2019-09-18] MEDS ORDERED: ROBITUSSIN DM PO PRN (21:16)
[2019-09-18] MEDS: LIPITOR TAB 40 MG PO SCH (21:16)
[2019-09-18] MEDS: NYSTATIN SUSP MT SCH (21:36)
[2019-09-19] MEDS: NS 1000 ML 1,000 ML IV SCH ×3 (01:04→23:00)
[2019-09-19 06:19] LABS: BASOPHILS % (AUTO) 0.6 % (0.2-1.0); HEMATOCRIT 23.2 % (36.0-47.0); HEMOGLOBIN 7.8 g/dL (12.0-16.0); LYMPHOCYTES # (AUTO) 0.7 X10^3/uL (1.3-2.9); LYMPHOCYTES % (AUTO) 34.1 % (21.0-51.0); MEAN CORPUSCULAR HEMOGLOBIN 27.1 pg (27.0-34.0); MEAN CORPUSCULAR HGB CONC 33.5 g/dL (33.0-35.0); MEAN CORPUSCULAR VOLUME 80.9 fL (80.0-100.0); MEAN PLATELET VOLUME 8.1 fL (7.4-11.0); MONOCYTES # (AUTO) 0 x10^3/uL (0.3-0.8); MONOCYTES % (AUTO) 2.3 % (0.0-13.0); NEUTROPHILS # (AUTO) 1.3 x10^3/uL (2.2-4.8); PLATELET COUNT 244 X10^3/uL (150.0-450.0); RED BLOOD COUNT 2.87 X10^6/uL (3.5-5.4); WHITE BLOOD COUNT 2.1 X10^3/uL (3.6-10.0)
[2019-09-19 06:47] LABS: ALANINE AMINOTRANSFERASE 52 Units/L (12-78); ALBUMIN 2.2 g/dL (3.4-5.0); ALKALINE PHOSPHATASE 155 Units/L (46-116); ASPARTATE AMINO TRANSFERASE 100 Units/L (15-37); BLOOD UREA NITROGEN 8 mg/dL (7-18); CALCIUM 7.1 mg/dL (8.5-10.1); CARBON DIOXIDE 19.8 mmol/L (21-32); CHLORIDE 109 mmol/L (98-107); COR CA(FOR HYPOALB) 8.5 mg/dL (8.5-10.1); COR NA(FOR HYPERGLY) 140 mmol/L (136-145); SODIUM 139 mmol/L (136-145); TOTAL PROTEIN 5.8 g/dL (6.4-8.2); eGFR NON BLACK RACES > 60 (>60)
[2019-09-19 06:54] LABS: PLATELET MORPHOLOGY COMMENT NORMAL (NORMAL)
[2019-09-19] MEDS ORDERED: GLUCOPHAGE ONE ×2 (08:19→20:12)
[2019-09-19] MEDS: PERIACTIN TAB 4 MG PO SCH (09:29)
[2019-09-19] MEDS: FOLIC ACID TAB 1 MG PO SCH (09:30)
[2019-09-19] MEDS: HEMOCYTE-PLUS PO SCH (09:30)
[2019-09-19] MEDS: ELIQUIS PO SCH (09:30)
[2019-09-19] MEDS: COZAAR PO SCH (09:30)
[2019-09-19] MEDS: SOLU-Medrol 40 MG VIAL IVP SCH (09:31)
[2019-09-19] MEDS: EFFEXOR XR 37.5 MG CAP 24-HR PO SCH (09:31)
[2019-09-19] MEDS: GLUCOPHAGE PO SCH ×2 (09:31→20:32)
[2019-09-19] MEDS: ASPIRIN EC 81 MG PO SCH (09:32)
[2019-09-19] MEDS: PROCARDIA XL 24-hr PO SCH (09:32)
[2019-09-19] MEDS: BETAPACE AF PO SCH (09:32)
[2019-09-19] MEDS: PROTONIX TAB 40 MG PO SCH (09:32)
[2019-09-19] MEDS: SYNTHROID 75 mcg TAB PO SCH (09:33)
[2019-09-19] MEDS: NYSTATIN SUSP MT SCH ×3 (09:33→20:31)
[2019-09-19 14:53] LABS: HEMOGLOBIN 7.4 g/dL (12.0-16.0); LYMPHOCYTES # (AUTO) 0.8 X10^3/uL (1.3-2.9); MONOCYTES # (AUTO) 0 x10^3/uL (0.3-0.8)
[2019-09-19 14:57] LABS: BASOPHILS % (AUTO) 0.1 % (0.2-1.0); EOSINOPHILS % (AUTO) 0.1 % (0.9-2.9); LYMPHOCYTES % (AUTO) 45.6 % (21.0-51.0); MEAN CORPUSCULAR HGB CONC 33.4 g/dL (33.0-35.0); MEAN CORPUSCULAR VOLUME 80.9 fL (80.0-100.0); MONOCYTES % (AUTO) 2.7 % (0.0-13.0); NEUTROPHILS # (AUTO) 0.9 x10^3/uL (2.2-4.8); NEUTROPHILS % (AUTO) 51.5 % (42.0-75.0); PLATELET COUNT 239 X10^3/uL (150.0-450.0); RED BLOOD COUNT 2.72 X10^6/uL (3.5-5.4); RED CELL DISTRIBUTION WIDTH 18.9 % (11.6-16.5)
[2019-09-19 15:06] LABS: WHITE BLOOD COUNT 1.8 X10^3/uL (3.6-10.0)
[2019-09-19 15:28] LABS: ANISOCYTOSIS 1+; HYPOCHROMASIA 1+; PLATELET MORPHOLOGY COMMENT NORMAL (NORMAL)
[2019-09-19] MEDS: KENALOG CREAM TOP SCH ×2 (17:00→20:32)
[2019-09-19] MEDS ORDERED: KENALOG CREAM ONE (17:46)
[2019-09-19] MEDS: LIPITOR TAB 40 MG PO SCH (20:33)
[2019-09-19] MEDS: NORCO 10/325 TAB PO PRN (20:34)
[2019-09-20] MEDS: BUTT CREAM (COMPOUND) ONE ×2 (02:41→02:42)
[2019-09-20 06:16] LABS: BASOPHILS % (AUTO) 0.4 % (0.2-1.0); HEMATOCRIT 21.3 % (36.0-47.0); HEMOGLOBIN 7.1 g/dL (12.0-16.0); LYMPHOCYTES # (AUTO) 1.1 X10^3/uL (1.3-2.9); LYMPHOCYTES % (AUTO) 29.5 % (21.0-51.0); MEAN CORPUSCULAR HEMOGLOBIN 27.2 pg (27.0-34.0); MEAN CORPUSCULAR HGB CONC 33.1 g/dL (33.0-35.0); MEAN CORPUSCULAR VOLUME 82.2 fL (80.0-100.0); MEAN PLATELET VOLUME 8.2 fL (7.4-11.0); MONOCYTES # (AUTO) 0.4 x10^3/uL (0.3-0.8); MONOCYTES % (AUTO) 10.8 % (0.0-13.0); NEUTROPHILS # (AUTO) 2.2 x10^3/uL (2.2-4.8); NEUTROPHILS % (AUTO) 59.3 % (42.0-75.0); PLATELET COUNT 271 X10^3/uL (150.0-450.0); RED BLOOD COUNT 2.59 X10^6/uL (3.5-5.4); RED CELL DISTRIBUTION WIDTH 18.8 % (11.6-16.5); WHITE BLOOD COUNT 3.7 X10^3/uL (3.6-10.0)
[2019-09-20 06:37] LABS: ALANINE AMINOTRANSFERASE 46 Units/L (12-78); ALBUMIN 2.1 g/dL (3.4-5.0); ALKALINE PHOSPHATASE 127 Units/L (46-116); ASPARTATE AMINO TRANSFERASE 61 Units/L (15-37); BLOOD UREA NITROGEN 11 mg/dL (7-18); CALCIUM 7.6 mg/dL (8.5-10.1); CARBON DIOXIDE 20.6 mmol/L (21-32); CHLORIDE 113 mmol/L (98-107); COR CA(FOR HYPOALB) 9.1 mg/dL (8.5-10.1); COR NA(FOR HYPERGLY) 145 mmol/L (136-145); CREATININE 0.89 mg/dL (0.55-1.02); SODIUM 144 mmol/L (136-145); TOTAL PROTEIN 5.6 g/dL (6.4-8.2); eGFR NON BLACK RACES > 60 (>60)
[2019-09-20 06:54] LABS: HYPOCHROMASIA SLIGHT; PLATELET MORPHOLOGY COMMENT NORMAL (NORMAL)
[2019-09-20] MEDS ORDERED: GLUCOPHAGE ONE (08:53)
[2019-09-20] MEDS: PERIACTIN TAB 4 MG PO SCH (08:59)
[2019-09-20] MEDS: SYNTHROID 75 mcg TAB PO SCH (08:59)
[2019-09-20] MEDS: COZAAR PO SCH (08:59)
[2019-09-20] MEDS ORDERED: BENADRYL INJ 50 MG VIAL IVP PRN (08:59)
[2019-09-20] MEDS: PROCARDIA XL 24-hr PO SCH (08:59)
[2019-09-20] MEDS ORDERED: NS 500 ML IV 500 ML IV ONE (08:59)
[2019-09-20] MEDS: K-DUR TAB 20 MEQ PO PRN (08:59)
[2019-09-20] MEDS ORDERED: TYLENOL 325 MG TAB PO PRN (08:59)
[2019-09-20] MEDS: EFFEXOR XR 37.5 MG CAP 24-HR PO SCH (08:59)
[2019-09-20] MEDS: GLUCOPHAGE PO SCH (09:00)
[2019-09-20] MEDS: PROTONIX TAB 40 MG PO SCH (09:00)
[2019-09-20] MEDS: BETAPACE AF PO SCH (09:00)
[2019-09-20] MEDS: HEMOCYTE-PLUS PO SCH (09:00)
[2019-09-20] MEDS: FOLIC ACID TAB 1 MG PO SCH (09:01)
[2019-09-20] MEDS: ASPIRIN EC 81 MG PO SCH (09:01)
[2019-09-20] MEDS: NYSTATIN SUSP MT SCH ×4 (09:01→21:05)
[2019-09-20] MEDS ORDERED: NS 250 ML IV 250 ML IV ONE (10:17)
[2019-09-20] MEDS: MAGNESIUM SULFATE 1 GRAM/100 mL PREMIX 1 GM/100 ML BAG IV PRN ×2 (10:30→23:00)
[2019-09-20] MEDS: KENALOG CREAM TOP SCH ×2 (10:39→21:08)
[2019-09-20] MEDS: NS 1000 ML 1,000 ML IV SCH ×2 (13:33→16:38)
[2019-09-20] MEDS ORDERED: ZYVOX 600MG IV 600 MG/300 ML BAG IV SCH (14:00)
[2019-09-20] MEDS ORDERED: K-DUR TAB 20 MEQ PO SCH (18:00)
[2019-09-20] MEDS ORDERED: COLACE CAP 100 MG PO SCH (18:00)
[2019-09-20] MEDS ORDERED: LASIX IVP SCH ×2 (18:00→21:00)
[2019-09-20] MEDS: NORCO 10/325 TAB PO PRN (18:04)
[2019-09-20] MEDS: MAGIC MOUTHWASH MT SCH ×2 (18:08→21:06)
[2019-09-20] MEDS ORDERED: COLACE CAP 100 MG PO PRN (19:42)
[2019-09-20] MEDS: LIPITOR TAB 40 MG PO SCH (21:11)
[2019-09-20] MEDS: ELIQUIS PO SCH (21:11)
[2019-09-20] MEDS: ZYVOX 600MG IV 600 MG/300 ML BAG IV SCH (21:12)
[2019-09-20 21:44] LABS: HEMATOCRIT 38.6 % (36.0-47.0)
[2019-09-20 22:39] LABS: HEMOGLOBIN 13.1 g/dL (12.0-16.0)
[2019-09-21] MEDS: NORCO 10/325 TAB PO PRN ×2 (00:05→06:02)
[2019-09-21] MEDS: MAGNESIUM SULFATE 1 GRAM/100 mL PREMIX 1 GM/100 ML BAG IV PRN ×2 (00:05→01:08)
[2019-09-21] MEDS: NS 1000 ML 1,000 ML IV SCH ×2 (01:03→08:33)
[2019-09-21 04:15] VITALS: BP 152/88
[2019-09-21 05:17] LABS: BASOPHILS % (AUTO) 0.3 % (0.2-1.0); EOSINOPHILS # (AUTO) 0.1 x10^3/uL (0.0-0.2); EOSINOPHILS % (AUTO) 0.8 % (0.9-2.9); HEMATOCRIT 40.1 % (36.0-47.0); HEMOGLOBIN 13.9 g/dL (12.0-16.0); LYMPHOCYTES # (AUTO) 1.1 X10^3/uL (1.3-2.9); LYMPHOCYTES % (AUTO) 17.2 % (21.0-51.0); MEAN CORPUSCULAR HEMOGLOBIN 28.9 pg (27.0-34.0); MEAN CORPUSCULAR HGB CONC 34.6 g/dL (33.0-35.0); MEAN CORPUSCULAR VOLUME 83.4 fL (80.0-100.0); MEAN PLATELET VOLUME 8.4 fL (7.4-11.0); MONOCYTES # (AUTO) 0.3 x10^3/uL (0.3-0.8); MONOCYTES % (AUTO) 4.1 % (0.0-13.0); NEUTROPHILS # (AUTO) 4.8 x10^3/uL (2.2-4.8); NEUTROPHILS % (AUTO) 77.6 % (42.0-75.0); PLATELET COUNT 326 X10^3/uL (150.0-450.0); RED BLOOD COUNT 4.81 X10^6/uL (3.5-5.4); RED CELL DISTRIBUTION WIDTH 17.1 % (11.6-16.5); WHITE BLOOD COUNT 6.2 X10^3/uL (3.6-10.0)
[2019-09-21 05:22] LABS: ALANINE AMINOTRANSFERASE 55 Units/L (12-78); ALBUMIN 2.6 g/dL (3.4-5.0); ALKALINE PHOSPHATASE 154 Units/L (46-116); ASPARTATE AMINO TRANSFERASE 66 Units/L (15-37); BLOOD UREA NITROGEN 10 mg/dL (7-18); CALCIUM 7.9 mg/dL (8.5-10.1); CARBON DIOXIDE 23.7 mmol/L (21-32); CHLORIDE 104 mmol/L (98-107); COR NA(FOR HYPERGLY) 139 mmol/L (136-145); CREATININE 0.91 mg/dL (0.55-1.02); MAGNESIUM 2.2 mg/dL (1.7-2.9); SODIUM 138 mmol/L (136-145); TOTAL PROTEIN 6.8 g/dL (6.4-8.2); eGFR NON BLACK RACES > 60 (>60)
[2019-09-21] MEDS: NYSTATIN SUSP MT SCH ×2 (08:32→08:34)
[2019-09-21] MEDS: ASPIRIN EC 81 MG PO SCH (08:33)
[2019-09-21] MEDS: COZAAR PO SCH (08:34)
[2019-09-21] MEDS: BETAPACE AF PO SCH (08:34)
[2019-09-21] MEDS: EFFEXOR XR 37.5 MG CAP 24-HR PO SCH (08:35)
[2019-09-21] MEDS: FOLIC ACID TAB 1 MG PO SCH (08:35)
[2019-09-21] MEDS: ELIQUIS PO SCH (08:35)
[2019-09-21] MEDS: KENALOG CREAM TOP SCH (08:36)
[2019-09-21] MEDS: HEMOCYTE-PLUS PO SCH (08:36)
[2019-09-21] MEDS: PROCARDIA XL 24-hr PO SCH (08:37)
[2019-09-21] MEDS: PERIACTIN TAB 4 MG PO SCH (08:37)
[2019-09-21] MEDS: MAGIC MOUTHWASH MT SCH (08:37)
[2019-09-21] MEDS: PROTONIX TAB 40 MG PO SCH (08:38)
[2019-09-21] MEDS: SYNTHROID 75 mcg TAB PO SCH (08:38)
[2019-09-21] MEDS: ZYVOX 600MG IV 600 MG/300 ML BAG IV SCH (08:39)
[2019-09-21] MEDS ORDERED: ZOFRAN TAB 4 MG PO PRN (12:07)
[2019-09-21] MEDS ORDERED: ZOFRAN TAB 4 MG ONE (12:08)
== END 2019-09-21 12:00 | disposition home or self-care (01) | DRG 641 ==
LOC: ER 20:57 → OBS 23:51 → MED/SURG 09-18 13:15
PROVIDERS: ADMIT Internal Medicine; ATTEND Internal Medicine
CPT/HCPCS: 36415; 36430; 51701; 71010; 71045; 80053; 81001; 82550; 82553; 82607; 82728; 82746; 83540; 83735; 84132; 84443; 84466; 84484; 85014; 85018; 85025; 85610; 85652; 85730; 86140; 86850; 86900; 86901; 86922; 87086; 87088; 87186; 93005; 94760; 96365; 96367; 97110; 97162; 97166; 97530; 97535; 99284; A4216; A4222; G0378; J1200; J1940; J2020; J2920; J3475; J3490; J7030; J7040; J7050; P9016; S0119; S0181

== ENCOUNTER 2019-10-28 17:35 | Inpatient (IN) ==
[2019-10-28 17:40] VITALS: BMI 20.1
--- NOTE | 2019-10-28 17:43 | DR.AMS ---
HPI Time Seen Time Seen by Provider: 10/28/19 17:43 Source History Provided: Patient and EMS Mode of Arrival Mode of Arrival: EMS Timing Onset of Chief Complaint: 10/28/19 Came On: Suddenly Symptoms: Improving Symptom Onset: Known Duration Duration: Since Onset How lon Duration: Hours Quality Quality: Decreased Alertness and Confusion Severity Severity: Moderate Context Recent: denies Fever, Cough, Urinary Symptoms, Nausea, Vomiting, Rash, Trauma, Medication Change and Drug Use History Of: Hypoglycemia, Diabetes and On Insulin; denies CVA, Dementia, Seizure and IV Drug Use Associated Signs and Symptoms Associated Signs and Symptoms: Right Sided Weakness, Generalized Weakness, Slurred Speech, Confusion and Decreased LOC; denies Left Sided Weakness, Chest Pain, Headache, Decreased Oral Intake and Seizure PMH PMH Past Medical History: Yes Past Medical History: Depression, Diabetes, GERD, Hypertension, Hypothyroidism and Renal Disease Past Surgical History: Yes Surgical History: Angioplasty/Stents, , Cholecystectomy, Hysterectomy and Ortho Surgery Family History History of Family Medical Conditions: Yes Family Medical History: Diabetes Mellitus, Coronary Artery Disease and Heart Failure Social History Does patient currently use any type of tobacco product: No Does any household member use tobacco: No Do you use any recreational Drugs:: No ROS Review of Systems Constitutional: No Symptoms Reported Eyes: No Symptoms Reported ENTM: No Symptoms Reported Respiratoy: No Symptoms Reported Cardiovascular: No Symptoms Reported Gastrointestinal/Abdominal: No Symptoms Reported Genitourinary: No Symptoms Reported Neurological: Paresthesia, Weakness and Speech Problem; negative Headache, Pre- existing Deficit, Tingling and Dizziness Musculoskeletal: No Symptoms Reported Integumentary: No Symptoms Reported Hematologic/Lymphatic: No Symptoms Reported Endocrine: No Symptoms Reported Psychiatric: No Symptoms Reported All Other Systems: Reviewed and Negative PE Vitals Vital Signs: Temp Pulse Resp BP BP BP Pulse Ox 10/28/19 17:36 98.7 F 66 16 193/72 98 09/25/19 12:00 121/60 09/21/19 04:00 152/88 09/17/19 00:04 185/75 07/25/19 00:37 154/70 05/26/19 08:00 133/61 04/02/19 22:34 127/69 General Limitations: Language Barrier General Appearance: Alert Head Head Exam: Normal Inspection Eyes Eye exam: Normal Appearance ENT ENT Exam: Normal Exam External Ear Exam: Normal External Inspection Nose Exam: Normal Nose Exam Mouth Exam: Normal Inspection Throat Exam: Normal Inspection Neck Neck Exam: Normal Inspection Chest Chest Inspection: Normal Inspection Respiratory Respiratory Exam: Normal Lung Sounds Bilat Cardiovascular Cardiovascular Exam: Regular Rate and Normal Rhythm Abdominal Exam Abdominal Exam: Normal Inspection, Normal Bowel Sounds and Soft Extremities Extremities Exam: Normal Inspection Back Back Exam: Normal Inspection Neurological Neurological Exam: Alert and Oriented X3; negative Motor Sensory Deficit Patient Oriented To: Person, Place and Time Speech: Fluid Speech; negative Receptive Aphasia, Expressive Aphasia and Total Aphasia Cranial Nerve Exam: EOM Function (II, III, IV, ): Normal, Facial Sensation (V): Normal, Spinal Accessory Function (XI): Normal and Tongue Deviation: Normal Motor Strength - LUE: 5/5 Motor Strength - RUE: 5/5 Motor Strength - LLE: 5/5 Motor Strength - RLE: 5/5 Upper Motor Neuron Exam: Stiven Neglect: Normal and Pronator Drift: Normal DTR: Patellar (L): 2+ and patellar (R): 2+ Psychological Psychiatric Exam: Normal Affect and Normal Mood Skin Skin Exam: Warm, Dry, Intact and Normal Color MDM Additional Information Obtained Additional Information Obtained From: Old Records Differential Diagnosis Metabolic: DKA and Hypoglycemia Structural: Closed Head Injury and CVA Infectious: Sepsis COURSE Treatment Treatment: 1740: 78 yo f w/ prev hx of insulin dependent DM presents w/ AMS. Per ems had RUE weakness/ right facial droop and decreased loc. Found to have glu of 23. Given 1 amp d50 w/ resolution of sx's. Neuro exam on arrival to ED non focal. Will obtain labs / head ct. Suspect hypoglycemia as etiology of her transient focal deficits. 1846: CT head negative. Neuro exam non focal. Taken off metformin by pcp and switched to glimiperide. Will caregivers non medical her some d5/ ns. Recheck blood sugar in a few hours and discharge. 1859: Repeat low glu of 14, d50 given. D5/ NSS drip started. Will call hospitalist to admit. per report took double her dose of amiril today due to reported hypeglycemia at home Education/Counseling Education/Counseling: Patient and Family Educated On: Treatment, Diagnosis, Prognosis and Needs for Follow Up ROR Labs Reviewed Laboratory Results Reviewed?: Yes Result Diagrams: 10/28/19 17:56 10/28/19 19:02 Laboratory: WBC 3.2 X10^3/uL (3.6-10.0) L 10/28/19 17:56 RBC 2.90 X10^6/uL (3.5-5.4) L 10/28/19 17:56 Hgb 8.3 g/dL (12.0-16.0) L 10/28/19 17:56 Hct 25.1 % (36.0-47.0) L 10/28/19 17:56 MCV 86.5 fL (80.0-100.0) 10/28/19 17:56 MCH 28.5 pg (27.0-34.0) 10/28/19 17:56 MCHC 33.0 g/dL (33.0-35.0) 10/28/19 17:56 RDW 19.8 % (11.6-16.5) H 10/28/19 17:56 Plt Count 264 X10^3/uL (150.0-450.0) 10/28/19 17:56 MPV 7.8 fL (7.4-11.0) 10/28/19 17:56 Neut % (Auto) 72.4 % (42.0-75.0) 10/28/19 17:56 Lymph % (Auto) 19.3 % (21.0-51.0) L 10/28/19 17:56 [place] % (Auto) 5.9 % (0.0-13.0) 10/28/19 17:56 Eos % (Auto) 2.1 % (0.9-2.9) 10/28/19 17:56 Baso % (Auto) 0.3 % (0.2-1.0) 10/28/19 17:56 Neut # (Auto) 2.3 x10^3/uL (2.2-4.8) 10/28/19 17:56 Lymph # (Auto) 0.6 X10^3/uL (1.3-2.9) L 10/28/19 17:56 [place] # (Auto) 0.2 x10^3/uL (0.3-0.8) L 10/28/19 17:56 Eos # (Auto) 0.1 x10^3/uL (0.0-0.2) 10/28/19 17:56 Baso # (Auto) 0.0 X10^3/uL (0.0-0.1) 10/28/19 17:56 Absolute Nucleated RBC 0.2 /100WBC 10/28/19 17:56 Sodium 135 mmol/L (136-145) L 10/28/19 17:56 Corrected Sodium TNP 10/28/19 17:56 Potassium 3.8 mmol/L (3.5-5.1) 10/28/19 17:56 Chloride 100 mmol/L (98-107) 10/28/19 17:56 Carbon Dioxide 27.3 mmol/L (21-32) 10/28/19 17:56 BUN 14 mg/dL (7-18) 10/28/19 17:56 Creatinine 1.11 mg/dL (0.55-1.02) H 10/28/19 17:56 Est GFR (MDRD) Af Amer > 60 (>60) 10/28/19 17:56 Est GFR (MDRD) Non-Af 51 (>60) L 10/28/19 17:56 Glucose 194 mg/dL (65-99) H 10/28/19 19:02 POC Glucose (mg/dL) 14 mg/dL (65-99) 10/28/19 18:52 Calcium 8.2 mg/dL (8.5-10.1) L 10/28/19 17:56 Troponin I 0.17 ng/mL (0-1.5) 10/28/19 17:56 Specimen Type Catherized urine 10/28/19 18:26 Urine Color Yellow (YELLOW) 10/28/19 18:26 Urine Appearance Clear (CLEAR) 10/28/19 18:26 Urine pH 6.0 (5.0 - 8.0) 10/28/19 18:26 Ur Specific [place] 1.015 (1.000-1.030) 10/28/19 18:26 Urine Protein 2+ (NEGATIVE) 10/28/19 18:26 Urine Glucose (UA) 1+ (NEGATIVE) 10/28/19 18:26 Urine Ketones Negative (NEGATIVE) 10/28/19 18:26 Urine Occult Blood 1+ (NEGATIVE) 10/28/19 18:26 Urine Nitrite Negative (NEGATIVE) 10/28/19 18: Urine Bilirubin Negative (NEGATIVE) 10/28/19 18:26 Urine Urobilinogen Normal (NORMAL) 10/28/19 18:26 Ur Leukocyte Esterase Negative (NEGATIVE) 10/28/19 18:26 Urine RBC 0-2 /HPF (0-3) 10/28/19 18:26 Urine WBC 0-2 /HPF (0-5) 10/28/19 18:26 Ur Squamous Epith Cells Rare /HPF (NEGATIVE) 10/28/19 18:26 Amorphous Sediment 2+ /HPF (NEGATIVE) 10/28/19 18:26 Urine Bacteria Negative /HPF (NEGATIVE) 10/28/19 18:26 Hyaline Casts Rare /LPF (NEGATIVE) 10/28/19 18:26 Urine Mucus Few /HPF (NEGATIVE) 10/28/19 18:26 Urine Yeast Few /HPF (NEGATIVE) 10/28/19 18:26 Ur Culture Indicated? No/not indicated 10/28/19 18:26 XRAY XRAY Interpreted by: Radiologist X-ray Results: ct head neg- for bleed or ischemic infarct EKG [place]: Normal Rhythm: NSR (bigem ) Hypertrophy: None ST: Nonsp Opioid Opioid Risk Tool Age (Nate box if 16-45): No History of Preadolescent Sexual Abuse: No Total: 0 Total Score Risk Category: Low Risk Copyright: Daniel HICKEY predicting aberrant behaviors
[2019-10-28 18:13] LABS: BASOPHILS % (AUTO) 0.3 % (0.2-1.0); EOSINOPHILS # (AUTO) 0.1 x10^3/uL (0.0-0.2); EOSINOPHILS % (AUTO) 2.1 % (0.9-2.9); HEMATOCRIT 25.1 % (36.0-47.0); HEMOGLOBIN 8.3 g/dL (12.0-16.0); LYMPHOCYTES # (AUTO) 0.6 X10^3/uL (1.3-2.9); LYMPHOCYTES % (AUTO) 19.3 % (21.0-51.0); MEAN CORPUSCULAR HEMOGLOBIN 28.5 pg (27.0-34.0); MEAN CORPUSCULAR VOLUME 86.5 fL (80.0-100.0); MEAN PLATELET VOLUME 7.8 fL (7.4-11.0); MONOCYTES # (AUTO) 0.2 x10^3/uL (0.3-0.8); MONOCYTES % (AUTO) 5.9 % (0.0-13.0); NEUTROPHILS # (AUTO) 2.3 x10^3/uL (2.2-4.8); NEUTROPHILS % (AUTO) 72.4 % (42.0-75.0); PLATELET COUNT 264 X10^3/uL (150.0-450.0); RED CELL DISTRIBUTION WIDTH 19.8 % (11.6-16.5); WHITE BLOOD COUNT 3.2 X10^3/uL (3.6-10.0)
--- NOTE | 2019-10-28 18:21 | RAD ---
HISTORYAMSSTUDYCHEST, 1 VIEWCOMPARISON09/25/19FINDINGSThe trachea is midline. The cardiac silhouette is within normal limits given AP technique. The lungs are clear without focal infiltrate or effusion. The bony thorax is unremarkable.[ ]IMPRESSIONNo acute cardiopulmonary disease.Electronically signed by: DELPHINE PARKINSON (Oct 28, 2019 18:20:13)
[2019-10-28 18:26] LABS: BLOOD UREA NITROGEN 14 mg/dL (7-18); CALCIUM 8.2 mg/dL (8.5-10.1); CARBON DIOXIDE 27.3 mmol/L (21-32); CHLORIDE 100 mmol/L (98-107); CREATININE 1.11 mg/dL (0.55-1.02); SODIUM 135 mmol/L (136-145); TROPONIN I 0.17 ng/mL (0-1.5); eGFR NON BLACK RACES 51 (>60)
--- NOTE | 2019-10-28 18:29 | CT ---
HISTORY: Mental status changeStudy: CT brain without contrastComparison: 12/26/2018Technique:Multiple axial images of the brain were obtained from the skull base to the vertex without administration of IV contrast. Automated dose control was utilizedFindings:There is motion artifact throughout the exam. The ventricles are mildly enlarged and there is diffuse mild prominence of the cortical sulci. There is mild periventricular low density bilaterally. No intracranial hemorrhage or edema is seen. There is no extra-axial fluid collection or mass. The midline structures unremarkable.IMPRESSION:Motion artifact limiting the exam. Within the limitations of the exam, no obvious acute intracranial abnormality can be seen. Recommend a follow-up study, when the patient is able to remain still in the scanner.Mild atrophy and mild chronic microischemic changes throughout the deep white matter which is unchanged.Electronically signed by: KYLEE NEWTON (Oct 28, 2019 18:27:49)
[2019-10-28 18:37] LABS: BILIRUBIN,URINE NEGATIVE (NEGATIVE); BLOOD/HEMOGLOBIN,URINE 1+ (NEGATIVE); GLUCOSE, URINE 1+ (NEGATIVE); KETONES,URINE NEGATIVE (NEGATIVE); LEUKOCYTE ESTERASE ,URINE NEGATIVE (NEGATIVE); NITRITES,URINE NEGATIVE (NEGATIVE); PROTEIN,URINE 2+ (NEGATIVE); UROBILINOGEN,URINE NORMAL (NORMAL)
[2019-10-28 18:50] LABS: APPEARANCE,URINE CLEAR (CLEAR); BACTERIA,URINE NEGATIVE /HPF (NEGATIVE); COLOR,URINE YELLOW (YELLOW); RBC,URINE 0-2 /HPF (0-3); SQUAMOUS EPITHELIAL CELL,UR RARE /HPF (NEGATIVE)
[2019-10-28 18:51] LABS: AMORPHOUS SEDIMENT,UR 2+ /HPF (NEGATIVE); HYALINE CASTS, URINE RARE /LPF (NEGATIVE); MUCUS,URINE FEW /HPF (NEGATIVE); YEAST,URINE FEW /HPF (NEGATIVE)
[2019-10-28] MEDS ORDERED: D50W ABBOJECT SYR ONE (18:52)
[2019-10-28] MEDS ORDERED: D5 NS 1000 ML 1,000 ML IV ONE (18:53)
[2019-10-28] MEDS ORDERED: D50W ABBOJECT SYR IV ONE ×2 (18:56→20:39)
[2019-10-28] MEDS: D5W 1000 ML IV 1,000 ML IV SCH (18:57)
[2019-10-28] MEDS ORDERED: D5 NS 1000 ML 1,000 ML IV SCH (20:00)
[2019-10-28] MEDS: D5 NS 1000 ML 1,000 ML IV SCH (20:45)
[2019-10-29] MEDS ORDERED: D50W ABBOJECT SYR IV ONE (02:40)
[2019-10-29] MEDS ORDERED: D50W ABBOJECT SYR ONE (02:48)
[2019-10-29] MEDS: D5 NS 1000 ML 1,000 ML IV SCH ×3 (03:12→19:17)
[2019-10-29 05:58] LABS: BASOPHILS % (AUTO) 0.3 % (0.2-1.0); EOSINOPHILS # (AUTO) 0.1 x10^3/uL (0.0-0.2); EOSINOPHILS % (AUTO) 2.4 % (0.9-2.9); HEMATOCRIT 21.5 % (36.0-47.0); HEMOGLOBIN 7.3 g/dL (12.0-16.0); LYMPHOCYTES # (AUTO) 0.6 X10^3/uL (1.3-2.9); LYMPHOCYTES % (AUTO) 16.3 % (21.0-51.0); MEAN CORPUSCULAR HEMOGLOBIN 29.1 pg (27.0-34.0); MEAN CORPUSCULAR VOLUME 85.5 fL (80.0-100.0); MONOCYTES # (AUTO) 0.2 x10^3/uL (0.3-0.8); MONOCYTES % (AUTO) 4.8 % (0.0-13.0); NEUTROPHILS # (AUTO) 2.6 x10^3/uL (2.2-4.8); NEUTROPHILS % (AUTO) 76.2 % (42.0-75.0); PLATELET COUNT 234 X10^3/uL (150.0-450.0); RED BLOOD COUNT 2.52 X10^6/uL (3.5-5.4); RED CELL DISTRIBUTION WIDTH 19.7 % (11.6-16.5); WHITE BLOOD COUNT 3.5 X10^3/uL (3.6-10.0)
[2019-10-29 06:13] LABS: ALANINE AMINOTRANSFERASE 31 Units/L (12-78); ALBUMIN 1.9 g/dL (3.4-5.0); ALKALINE PHOSPHATASE 83 Units/L (46-116); ASPARTATE AMINO TRANSFERASE 56 Units/L (15-37); BLOOD UREA NITROGEN 8 mg/dL (7-18); CALCIUM 7.3 mg/dL (8.5-10.1); CARBON DIOXIDE 24.8 mmol/L (21-32); CHLORIDE 104 mmol/L (98-107); CREATININE 0.82 mg/dL (0.55-1.02); SODIUM 135 mmol/L (136-145); TOTAL PROTEIN 4.9 g/dL (6.4-8.2); eGFR NON BLACK RACES > 60 (>60)
[2019-10-29 06:42] LABS: ANISOCYTOSIS SLIGHT; PLATELET MORPHOLOGY COMMENT NORMAL (NORMAL)
[2019-10-29] MEDS: D5W 1000 ML IV 1,000 ML IV SCH (07:00)
[2019-10-29] MEDS ORDERED: GLUTOSE 15 GEL ORAL PO PRN (07:18)
[2019-10-29] MEDS ORDERED: GLUTOSE 15 GEL ORAL PO ONE (07:21)
[2019-10-29] MEDS: ELIQUIS PO SCH ×2 (10:27→20:00)
[2019-10-29] MEDS: HEMOCYTE-PLUS PO SCH (10:45)
[2019-10-29] MEDS: MACROBID CAP 100 MG EXT REL PO SCH ×2 (10:45→20:00)
[2019-10-29] MEDS: FOLIC ACID TAB 1 MG PO SCH (10:45)
[2019-10-29] MEDS: SYNTHROID 75 mcg TAB PO SCH (10:45)
[2019-10-29] MEDS: NORCO 10/325 TAB PO PRN (20:08)
[2019-10-30] MEDS: D5 NS 1000 ML 1,000 ML IV SCH ×3 (05:06→20:36)
[2019-10-30 06:33] LABS: ALANINE AMINOTRANSFERASE 26 Units/L (12-78); ALBUMIN 1.8 g/dL (3.4-5.0); ALKALINE PHOSPHATASE 87 Units/L (46-116); ASPARTATE AMINO TRANSFERASE 45 Units/L (15-37); BASOPHILS % (AUTO) 0.3 % (0.2-1.0); BLOOD UREA NITROGEN 6 mg/dL (7-18); CALCIUM 7.2 mg/dL (8.5-10.1); CARBON DIOXIDE 23.8 mmol/L (21-32); CHLORIDE 107 mmol/L (98-107); EOSINOPHILS # (AUTO) 0.1 x10^3/uL (0.0-0.2); EOSINOPHILS % (AUTO) 1.5 % (0.9-2.9); LYMPHOCYTES # (AUTO) 0.6 X10^3/uL (1.3-2.9); LYMPHOCYTES % (AUTO) 14.5 % (21.0-51.0); MEAN CORPUSCULAR HGB CONC 33.5 g/dL (33.0-35.0); MEAN CORPUSCULAR VOLUME 86.4 fL (80.0-100.0); MEAN PLATELET VOLUME 7.5 fL (7.4-11.0); MONOCYTES # (AUTO) 0.1 x10^3/uL (0.3-0.8); MONOCYTES % (AUTO) 3.4 % (0.0-13.0); NEUTROPHILS # (AUTO) 3.2 x10^3/uL (2.2-4.8); NEUTROPHILS % (AUTO) 80.3 % (42.0-75.0); PLATELET COUNT 241 X10^3/uL (150.0-450.0); RED BLOOD COUNT 2.32 X10^6/uL (3.5-5.4); RED CELL DISTRIBUTION WIDTH 20.2 % (11.6-16.5); SODIUM 138 mmol/L (136-145); TOTAL PROTEIN 4.8 g/dL (6.4-8.2); eGFR NON BLACK RACES > 60 (>60)
[2019-10-30 06:36] LABS: HEMOGLOBIN 6.7 g/dL (12.0-16.0)
[2019-10-30 06:45] LABS: ANISOCYTOSIS 1+; HYPOCHROMASIA 1+; PLATELET MORPHOLOGY COMMENT NORMAL (NORMAL)
[2019-10-30] MEDS: SYNTHROID 75 mcg TAB PO SCH (08:18)
[2019-10-30] MEDS: HEMOCYTE-PLUS PO SCH (08:18)
[2019-10-30] MEDS: MACROBID CAP 100 MG EXT REL PO SCH ×2 (08:18→20:33)
[2019-10-30] MEDS: ELIQUIS PO SCH ×2 (08:18→20:32)
[2019-10-30] MEDS: FOLIC ACID TAB 1 MG PO SCH (08:18)
[2019-10-30] MEDS: BETAPACE AF PO SCH (08:19)
[2019-10-30] MEDS ORDERED: BENADRYL INJ 50 MG VIAL IVP PRN (12:09)
[2019-10-30 13:30] LABS: IRON 14 ug/dL (50-175)
[2019-10-30] MEDS: NORCO 10/325 TAB PO PRN ×2 (13:45→20:39)
[2019-10-30 13:46] LABS: BILIRUBIN,URINE NEGATIVE (NEGATIVE); BLOOD/HEMOGLOBIN,URINE NEGATIVE (NEGATIVE); GLUCOSE, URINE NEGATIVE (NEGATIVE); KETONES,URINE NEGATIVE (NEGATIVE); LEUKOCYTE ESTERASE ,URINE NEGATIVE (NEGATIVE); NITRITES,URINE NEGATIVE (NEGATIVE); PROTEIN,URINE 2+ (NEGATIVE); UROBILINOGEN,URINE NORMAL (NORMAL)
[2019-10-30 13:55] LABS: APPEARANCE,URINE CLEAR (CLEAR); BACTERIA,URINE TRACE /HPF (NEGATIVE); COLOR,URINE YELLOW (YELLOW); RBC,URINE NONE SEEN /HPF (0-3); SQUAMOUS EPITHELIAL CELL,UR RARE /HPF (NEGATIVE)
[2019-10-30] MEDS: NS 500 ML IV 500 ML IV ONE ×2 (14:15→17:40)
[2019-10-30] MEDS: LASIX IVP SCH (17:19)
[2019-10-30] MEDS ORDERED: NS 500 ML IV 500 ML IV ONE (17:27)
[2019-10-30] MEDS: K-DUR TAB 20 MEQ PO SCH (20:32)
[2019-10-31 02:09] LABS: HEMATOCRIT 35.6 % (36.0-47.0)
[2019-10-31] MEDS: D5 NS 1000 ML 1,000 ML IV SCH ×2 (05:08→12:30)
[2019-10-31 06:11] VITALS: BP 159/95
[2019-10-31 06:16] LABS: BASOPHILS % (AUTO) 0.5 % (0.2-1.0); EOSINOPHILS # (AUTO) 0.1 x10^3/uL (0.0-0.2); EOSINOPHILS % (AUTO) 1.3 % (0.9-2.9); HEMATOCRIT 34.3 % (36.0-47.0); HEMOGLOBIN 11.7 g/dL (12.0-16.0); LYMPHOCYTES # (AUTO) 0.6 X10^3/uL (1.3-2.9); MEAN CORPUSCULAR HEMOGLOBIN 29.1 pg (27.0-34.0); MEAN CORPUSCULAR HGB CONC 34.2 g/dL (33.0-35.0); MEAN PLATELET VOLUME 7.3 fL (7.4-11.0); MONOCYTES # (AUTO) 0.2 x10^3/uL (0.3-0.8); MONOCYTES % (AUTO) 3.3 % (0.0-13.0); NEUTROPHILS # (AUTO) 4.7 x10^3/uL (2.2-4.8); NEUTROPHILS % (AUTO) 83.9 % (42.0-75.0); PLATELET COUNT 204 X10^3/uL (150.0-450.0); RED BLOOD COUNT 4.04 X10^6/uL (3.5-5.4); WHITE BLOOD COUNT 5.6 X10^3/uL (3.6-10.0)
[2019-10-31 06:35] LABS: ALANINE AMINOTRANSFERASE 27 Units/L (12-78); ALBUMIN 1.9 g/dL (3.4-5.0); ALKALINE PHOSPHATASE 104 Units/L (46-116); ASPARTATE AMINO TRANSFERASE 41 Units/L (15-37); BLOOD UREA NITROGEN 9 mg/dL (7-18); CALCIUM 7.6 mg/dL (8.5-10.1); CHLORIDE 105 mmol/L (98-107); COR CA(FOR HYPOALB) 9.3 mg/dL (8.5-10.1); COR NA(FOR HYPERGLY) 137 mmol/L (136-145); CREATININE 0.77 mg/dL (0.55-1.02); SODIUM 136 mmol/L (136-145); TOTAL PROTEIN 5.6 g/dL (6.4-8.2); eGFR NON BLACK RACES > 60 (>60)
[2019-10-31] MEDS: SYNTHROID 75 mcg TAB PO SCH (08:29)
[2019-10-31] MEDS: LASIX IVP SCH (08:29)
[2019-10-31] MEDS: ELIQUIS PO SCH (08:29)
[2019-10-31] MEDS: K-DUR TAB 20 MEQ PO SCH (08:29)
[2019-10-31] MEDS: MACROBID CAP 100 MG EXT REL PO SCH (08:29)
[2019-10-31] MEDS: HEMOCYTE-PLUS PO SCH (08:29)
[2019-10-31] MEDS: FOLIC ACID TAB 1 MG PO SCH (08:29)
[2019-10-31] MEDS: BETAPACE AF PO SCH (08:30)
[2019-10-31] MEDS ORDERED: NS 100 ML IV 100 ML with VENOFER 400 MG IV NR ×2 (10:00)
--- NOTE | 2019-10-31 10:27 | RAD ---
HISTORYCHF, AMSSTUDYCHEST x-ray, 1 VIEWCOMPARISONX-ray 10/28/2019FINDINGSThe trachea is midline. The cardiac silhouette is normal in size. Mild calcification is seen of the aortic arch.Likely mild atelectasis in the lower lungs. Mild early pneumonia in the lower lungs cannot be excluded. No pneumothorax or pleural effusion is seen.No acute bony abnormality is seen.IMPRESSIONNo evidence of CHF.Likely mild atelectasis in the lower lungs. Early pneumonia is not excluded. Continued x-ray follow-up is recommended.Electronically signed by: Jovanny Cazares (Oct 31, 2019 10:26:18)
== END 2019-10-31 16:00 | disposition home health service (06) | DRG 639 ==
LOC: ER 17:35 → MED/SURG 19:33
PROVIDERS: ADMIT Obstetrics & Gynecology Obstetrics; ATTEND Internal Medicine
DX: Y92.9 Unspecified place or not applicable; G89.29 Other chronic pain; E53.8 Deficiency of other specified B group vitamins; E11.649 Type 2 diabetes mellitus with hypoglycemia without coma; T38.3X1A Poisoning by insulin and oral hypoglycemic [antidiabetic] drugs, accidental (unintentional), initial encounter; R41.82 Altered mental status, unspecified; R47.81 Slurred speech; I10 Essential (primary) hypertension; D64.9 Anemia, unspecified; E03.9 Hypothyroidism, unspecified
CPT/HCPCS: 36415; 36430; 51701; 70450; 71010; 71045; 80048; 80053; 81001; 82607; 82728; 82746; 82947; 83540; 84466; 84484; 85014; 85018; 85025; 86850; 86900; 86901; 86922; 87086; 93005; 96365; 96367; 96374; 97162; 97166; 97535; 99284; A4216; A4222; J1200; J1756; J1940; J3490; J7040; J7042; J7050; J7060; P9016

== ENCOUNTER 2019-11-16 09:19 | Inpatient (IN) ==
[2019-11-16] MEDS ORDERED: CARDIZEM INJ 50 MG VIAL IVP ONE ×2 (09:30→10:50)
[2019-11-16] MEDS ORDERED: CARDIZEM INJ 50 MG VIAL ONE ×2 (09:34→11:43)
[2019-11-16 09:47] VITALS: BMI 20.1
--- NOTE | 2019-11-16 09:47 | DR.ARRHYTH ---
HPI Time Seen Time Seen by Provider: 11/16/19 09:30 HPI Comment HPI Comment: HERE FROM ENDO LAB WITH RAPID HEART RATE, ATRIAL FIB. PATIENT IS 78YR OLD FEMALE WITH HISTORY OF A FIB. SHE WAS IN THE ENDO FOR EDG WITH DR. MTZ. 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 SHE WAS GIVEN 15MG OF LABETALOL IV WITHOUT IMPROVEMENT. PATIENT SAID SHE FEEL WEAK SHE WAS NPO FOR HER PROCEDURE. SHE IS SLIGHTLY DIZZY. Complaint Chief Complaint Doctor Comments: RAPID A FIB IN ER FROM ENDO LAB. COVID-19 Coronavirus risk:travel/contact w/high risk person: No Has patient experienced Coronavirus symptoms: No Reviewed Nursing Notes Reviewed: Yes Source History Provided: Patient Mode of Arrival Mode of Arrival: Stretcher Timing Came on: Suddenly Symptoms: Present Now Duration Duration: Constant Duration: Hours Context Onset: At Rest History: Palpitations (HISTORY A FIB.) Severity Severity: Irregular and Rapid Modifying Factors Modifying Factors: Worsens: Nothing (ABOUT TO HAVE ENDOSCOPY.) Associated Signs and Symptoms Associated Signs and Symptoms: None PMH PMH Past Medical History: Depression, Diabetes, GERD, Hypertension, Hypothyroidism and Renal Disease Past Surgical History: Yes Surgical History: Angioplasty/Stents, , Cholecystectomy, Hysterectomy and Ortho Surgery Family History Family Medical History: Diabetes Mellitus, Coronary Artery Disease and Heart Failure Social History Do you use any recreational Drugs:: No ROS Review of Systems Constitutional: Weakness and Fatigue; negative See HPI and Fever Eyes: No Symptoms Reported; negative See HPI ENTM: No Symptoms Reported; negative See HPI, Ear Pain, Nose Discharge, Nose Congestion and Throat Pain Respiratoy: No Symptoms Reported and Short of Breath; negative See HPI and Moist Cough Cardiovascular: See HPI and Palpitations (A FIB); negative Chest Pain and Edema Gastrointestinal/Abdominal: No Symptoms Reported; negative See HPI, Abdominal Pain, Diarrhea and Vomiting Genitourinary: No Symptoms Reported; negative See HPI, Dysuria, Frequency and Hematuria Neurological: Weakness; negative See HPI, Headache and Dizziness Musculoskeletal: No Symptoms Reported; negative See HPI, Back Pain and Muscle Pain Integumentary: No Symptoms Reported and See HPI; negative Change in Color, Rash and Juandice Hematologic/Lymphatic: See HPI and Easy Bruising; negative Swollen Glands Endocrine: No Symptoms Reported and See HPI; negative Increased Thirst and Increased Urine Psychiatric: No Symptoms Reported and See HPI All Other Systems: Reviewed and Negative PE Vitals Vital Signs: Temp Pulse Resp BP BP BP Pulse Ox 11/16/19 11:15 125 H 22 143/110 11/16/19 11:06 147 H 25 H 108/68 11/16/19 11:01 129 H 26 H 126/83 11/16/19 11:00 152 H 20 11/16/19 10:50 133 H 22 168/82 94 L 11/16/19 10:45 131 H 29 H 162/74 11/16/19 10:40 120 H 17 158/74 97 11/16/19 10:35 127 H 17 153/87 96 11/16/19 10:30 117 H 19 148/72 100 11/16/19 10:29 136 H 22 158/90 100 11/16/19 10:20 129 H 20 168/79 99 11/16/19 10:15 141 H 23 148/87 97 11/16/19 10:10 131 H 20 130/68 96 11/16/19 10:05 135 H 17 160/72 100 11/16/19 10:01 119 H 20 157/75 100 11/16/19 10:00 115 H 21 100 11/16/19 09:55 132 H 22 153/71 100 11/16/19 09:50 138 H 22 149/73 100 11/16/19 09:45 119 H 22 121/63 100 11/16/19 09:40 149 H 22 138/76 11/16/19 09:35 159 H 27 H 115/82 11/16/19 09:30 160 H 18 123/90 11/16/19 09:26 153 H 18 11/16/19 09:25 98.1 F 155 H 18 108/61 100 11/16/19 08:18 163/99 10/31/19 06:00 159/95 09/17/19 00:04 185/75 07/25/19 00:37 154/70 05/26/19 08:00 133/61 04/02/19 22:34 127/69 General Limitations: No Limitations General Appearance: Alert and In No Apparent Distress Head Head Exam: Normal Inspection and Atraumatic Eyes Eyes: Pale Conjunctiva Eye exam: Normal Appearance and PERRL; negative Scleral Icterus and Conjunctival Injection ENT ENT Exam: Normal Exam, Normal Oropharynx, Normal External Ear Exam and TM's Normal Bilaterally Neck Neck Exam: Normal Inspection and Trachea Midline; negative Tenderness and Lymphadenopathy Chest Chest Inspection: Normal Inspection and Symmetric Chest Wall Rise; negative Tenderness Respiratory Respiratory Exam: Normal Lung Sounds Bilat; negative Accessory Muscle Use, Chest Wall Tenderness and Respiratory Distress Respiratory Exam: Bilateral: Clear to Auscultation Cardiovascular Cardiovascular Exam: Tachycardia and Irregular Rhythm Type of Murmur: negative Systolic and Diastolic Abdominal Exam Abdominal Exam: Normal Inspection, Normal Bowel Sounds and Soft; negative Tenderness Rectal Rectal Exam: Deferred Extremities Extremities Exam: Normal Capillary Refill; negative Tenderness and Edema Back Back Exam: Normal Inspection; negative (R) CVA Tenderness and (L) CVA Tenderness Neurologic Neurological Exam: Alert, Oriented X3 and Normal Gait Psychiatric Psychiatric Exam: Normal Affect and Normal Mood Skin Skin Exam: Warm, Dry, Intact and Normal Color MDM Additional Information Additional Information Obtained From: Old Records and Family Differential Diagnosis Atrial: Atrial Dysrhythmia, Atrial Fibrillation, MAT, PAC's, PSVT and Sinus Tachycardia Ventricular: Ventricular Dysrhythmia and PVC's Miscellaneous: Electrolyte Disorder and Hyperthyroidism COURSE Treatment Treatment: SEE ORDERS. CARDIOZEM 10MG IV, CARDIOZEM DRIP PER PROTOCOL. Reevaluation 1st: Improved (HEART RATE IMPROVING. A FIB PERSISTS.) Consultation Consultation Comments: DISCUSSED PATIENT WITH DR. JACOB. HE WILL ADMIT PATIENT. Education/Counseling Education/Counseling: Patient and Family Educated On: Diagnosis ROR Labs Reviewed Laboratory Results Reviewed?: Yes Result Diagrams: 11/18/19 05:36 11/18/19 05:36 Laboratory: WBC 5.5 X10^3/uL (3.6-10.0) 11/16/19 09:54 RBC 3.37 X10^6/uL (3.5-5.4) L 11/16/19 09:54 Hgb 9.5 g/dL (12.0-16.0) L 11/16/19 09:54 Hct 29.7 % (36.0-47.0) L 11/16/19 09:54 MCV 88.2 fL (80.0-100.0) 11/16/19 09:54 MCH 28.3 pg (27.0-34.0) 11/16/19 09:54 MCHC 32.1 g/dL (33.0-35.0) L 11/16/19 09:54 RDW 18.5 % (11.6-16.5) H 11/16/19 09:54 Plt Count 240 X10^3/uL (150.0-450.0) 11/16/19 09:54 MPV 8.3 fL (7.4-11.0) 11/16/19 09:54 Neut % (Auto) 81.4 % (42.0-75.0) H 11/16/19 09:54 Lymph % (Auto) 13.8 % (21.0-51.0) L 11/16/19 09:54 [place] % (Auto) 4.0 % (0.0-13.0) 11/16/19 09:54 Eos % (Auto) 0.2 % (0.9-2.9) L 11/16/19 09:54 Baso % (Auto) 0.6 % (0.2-1.0) 11/16/19 09:54 Neut # (Auto) 4.4 x10^3/uL (2.2-4.8) 11/16/19 09:54 Lymph # (Auto) 0.8 X10^3/uL (1.3-2.9) L 11/16/19 09:54 [place] # (Auto) 0.2 x10^3/uL (0.3-0.8) L 11/16/19 09:54 Eos # (Auto) 0.0 x10^3/uL (0.0-0.2) 11/16/19 09:54 Baso # (Auto) 0.0 X10^3/uL (0.0-0.1) 11/16/19 09:54 Absolute Nucleated RBC 0.1 /100WBC 11/16/19 09:54 Sodium 134 mmol/L (136-145) L 11/16/19 09:54 Corrected Sodium 137 mmol/L (136-145) 11/16/19 09:54 Potassium 4.7 mmol/L (3.5-5.1) 11/16/19 09:54 Chloride 102 mmol/L (98-107) 11/16/19 09:54 Carbon Dioxide 18.9 mmol/L (21-32) L 11/16/19 09:54 BUN 19 mg/dL (7-18) H 11/16/19 09:54 Creatinine 1.35 mg/dL (0.55-1.02) H 11/16/19 09:54 Est GFR (MDRD) Af Amer 49 (>60) L 11/16/19 09:54 Est GFR (MDRD) Non-Af 41 (>60) L 11/16/19 09:54 Glucose 215 mg/dL (65-99) H 11/16/19 09:54 Calcium 8.1 mg/dL (8.5-10.1) L 11/16/19 09:54 Corrected Calcium 9.7 mg/dL (8.5-10.1) 11/16/19 09:54 Total Bilirubin 0.30 mg/dL (0.2-1.0) 11/16/19 09:54 AST 48 Units/L (15-37) H 11/16/19 09:54 ALT 27 Units/L (12-78) 11/16/19 09:54 Alkaline Phosphatase 73 Units/L (46-116) 11/16/19 09:54 Creatine Kinase 111 Units/L (26-192) 11/16/19 09:54 CK-MB (CK-2) 2.2 ng/mL (0-4.0) 11/16/19 09:54 CK/CKMB % Calc 2.0 % (<4) 11/16/19 09:54 Troponin I 0.04 ng/mL (0-1.5) 11/16/19 09:54 Total Protein 5.8 g/dL (6.4-8.2) L 11/16/19 09:54 Albumin 2.0 g/dL (3.4-5.0) L 11/16/19 09:54 Globulin 3.8 g/dL (2.5-4.5) 11/16/19 09:54 Albumin/Globulin Ratio 0.5 Ratio (1.1-2.1) L 11/16/19 09:54 TSH 3rd Generation 3.076 uIU/mL (0.358-3.74) 11/16/19 09:54 Acetone, Semi-Quant Negative (NEGATIVE) 11/16/19 09:54 EKG Rate: 160 [place]: Normal Rhythm: Afib Block: None Hypertrophy: None ST: Old, Ant and Infarct Opioid Opioid Risk Tool Age (Nate box if 16-45): No History of Preadolescent Sexual Abuse: No Total: 0 Total Score Risk Category: Low Risk Copyright: Daniel HICKEY predicting aberrant behaviors Diagnosis Discharge Problem: Atrial fibrillation with rapid ventricular response Instructions Forms: Excuse From Work Precautions for COVID19 Patient Portal Social Distancing
[2019-11-16 10:11] LABS: BASOPHILS % (AUTO) 0.6 % (0.2-1.0); EOSINOPHILS % (AUTO) 0.2 % (0.9-2.9); HEMATOCRIT 29.7 % (36.0-47.0); HEMOGLOBIN 9.5 g/dL (12.0-16.0); LYMPHOCYTES # (AUTO) 0.8 X10^3/uL (1.3-2.9); LYMPHOCYTES % (AUTO) 13.8 % (21.0-51.0); MEAN CORPUSCULAR HEMOGLOBIN 28.3 pg (27.0-34.0); MEAN CORPUSCULAR HGB CONC 32.1 g/dL (33.0-35.0); MEAN CORPUSCULAR VOLUME 88.2 fL (80.0-100.0); MEAN PLATELET VOLUME 8.3 fL (7.4-11.0); MONOCYTES # (AUTO) 0.2 x10^3/uL (0.3-0.8); NEUTROPHILS # (AUTO) 4.4 x10^3/uL (2.2-4.8); NEUTROPHILS % (AUTO) 81.4 % (42.0-75.0); PLATELET COUNT 240 X10^3/uL (150.0-450.0); RED BLOOD COUNT 3.37 X10^6/uL (3.5-5.4); RED CELL DISTRIBUTION WIDTH 18.5 % (11.6-16.5); WHITE BLOOD COUNT 5.5 X10^3/uL (3.6-10.0)
[2019-11-16 10:25] LABS: CALCIUM 8.1 mg/dL (8.5-10.1); CARBON DIOXIDE 18.9 mmol/L (21-32); CREATININE 1.35 mg/dL (0.55-1.02)
[2019-11-16 10:45] LABS: CREATINE KINASE MB 2.2 ng/mL (0-4.0); TROPONIN I 0.04 ng/mL (0-1.5)
[2019-11-16] MEDS ORDERED: CARDIZEM INJ 125 MG VIAL ONE ×2 (11:12→21:58)
[2019-11-16] MEDS ORDERED: NS 100 ML IV 100 ML IV ONE ×2 (11:12→21:59)
[2019-11-16 11:19] LABS: COR CA(FOR HYPOALB) 9.7 mg/dL (8.5-10.1); TOTAL PROTEIN 5.8 g/dL (6.4-8.2)
[2019-11-16] MEDS: CARDIZEM INJ 125 MG VIAL 125 MG in NS 100 ML IV 100 ML IV PRN ×2 (11:26→22:02)
[2019-11-16 11:31] LABS: SERUM ACETONE NEGATIVE (NEGATIVE)
--- NOTE | 2019-11-16 11:44 | RAD ---
HISTORYA-FIBSTUDYPortable AP chestCOMPARISONJune 2019FINDINGSThere is mild cardiomegaly unchanged. Left hemidiaphragm is partially obscured by streaky infiltrate at the left lung base. There is mild chronic interstitial lung disease. No significant bony abnormality is demonstrated.IMPRESSIONPatchy left lower lobe basilar subsegmental atelectasis or pneumonitis, new and/or more prominent than on examination of October 30thElectronically signed by: SUZIE LOVELACE (Nov 16, 2019 11:43:00)
[2019-11-16 11:49] LABS: TSH (3RD GENERATION) 3.076 uIU/mL (0.358-3.74)
[2019-11-16] MEDS ORDERED: TORADOL 60 MG VIAL IM ONE (12:12)
[2019-11-16] MEDS ORDERED: LEVAQUIN PREMIX IV 750 MG 750 MG/150 ML BAG IV ONE (13:47)
[2019-11-16] MEDS: LEVAQUIN PREMIX IV 750 MG 750 MG/150 ML BAG IV SCH (13:55)
[2019-11-16 15:27] LABS: CKMB % 2.8 % (<4); CREATINE KINASE MB 2.2 ng/mL (0-4.0); TROPONIN I 0.03 ng/mL (0-1.5)
[2019-11-16 18:00] LABS: BILIRUBIN,URINE NEGATIVE (NEGATIVE); BLOOD/HEMOGLOBIN,URINE 2+ (NEGATIVE); GLUCOSE, URINE NEGATIVE (NEGATIVE); KETONES,URINE 2+ (NEGATIVE); LEUKOCYTE ESTERASE ,URINE 1+ (NEGATIVE); NITRITES,URINE NEGATIVE (NEGATIVE); PROTEIN,URINE 2+ (NEGATIVE); UROBILINOGEN,URINE NORMAL (NORMAL)
--- NOTE | 2019-11-16 18:06 | DR.H&P ---
H&P - History & Physical for Day of: H&P Date: 11/16/19 - Chief Complaint Chief Complaint: IRREGULAR HEART BEAT, LEFT ARM WOUND WITH INFECTION - History of Present Illness History of Present Illness: PT IS 78 WF ER ADMISSION AFTER SHE PRESENTED TO OUTPT FOR COLONOSCOPY PER DR MTZ, PT NOTED TO BY IN AFIB WITH RVR ON ARRIVAL. PT WAS SENT TO ER FOR EVALUATION. PTS DAUGHTER STATES SHE HAD HELD PO MEDS FOR PROCEDURE AND PT HASNT TAKEN ELIQUIS IN 5 DAYS FOR SCOPE. PT DENIES ANY CHEST PAIN, CO PALPITATIONS AND SOB. PT HAD LEFT FA WOUND FROM PREVIOUS IV SITE WITH FAMILY REPORTS CULTURE WAS "STAPH". PT HAS BEEN ON PO BACTRIM PRIOR TO THIS ADM ISSION. PT HAS PMH OF AFIB, CAD, HTN, OA, GERD, RA, COPD. PT ADMITTED FOR TREATMENT OF AFIB WITH RVR AND CELLULIT[place] [facility] [place] - Past Medical History Past Medical History: Anxiety, Arthritis, Coronary Artery Disease, Dementia (VASCULAR), Depression, Diabetes, GERD, Hypertension, Hypothyroidism, Renal Disease - Past Surgical History Surgical History: Angioplasty/Stents, Cholecystectomy, , Hysterectomy, Ortho Surgery - Family History Family Medical History: Diabetes Mellitus, Coronary Artery Disease, Heart Failure - Social History Does patient currently use any type of tobacco product: No Have you used tobacco products in the last 12 months: No Type of Tobacco Use: None Does any household member use tobacco: No Alcohol Use: None Drug Use: None Risks, benefits, and alternatives of opioids discussed: No Prescription drug monitoring program results: PDMP reviewed and no concerns identified - Medications Home Medications: Penicillins Allergy (Verified 10/28/19 17:35) CONTINUE taking the following medications hydrocodone-acetaminophen [[place]] 1 tab PO Q6H PRN 11/16/19 [History] levothyroxine 88 mcg PO DAILY 11/16/19 [History] sulfamethoxazole-trimethoprim [Bactrim DS] 1 tab PO BID 11/16/19 [History] - Review of Systems Constitutional: Weakness. denies: Fever Eyes: No Symptoms Reported ENT: No Symptoms Reported Respiratory: Shortness of Breath Cardiovascular: denies: Chest Pain, Edema Gastrointestinal: Diarrhea Genitourinary: No Symptoms Reported Musculoskeletal: Back Pain Skin: Wound Neurological: Weakness - Physical Exam Vital Signs: Temperature 98.1 F Pulse Rate 121 Respiratory Rate 22 Blood Pressure [Right Arm] 159/95 Blood Pressure [Left Arm] 185/75 Blood Pressure [Right Arm] 154/70 Blood Pressure [Left Arm] 133/61 Blood Pressure [Left Arm] 127/69 Blood Pressure 161/86 O2 Sat by Pulse Oximetry 100 Oriented: Normal Eyes: Normal Ear: Normal Throat: Dry Respiratory: RLL Diminished, LLL Diminished Cardiovascular: Tachycardia, Irregular. negative: Edema : Normal Auscultation: Bowel Sounds: Normal, Absent Tenderness: Epigastric, Mild Skin: Decreased Turgur, Wound (SF OPEN WOUND TO LEFT FA WITH LOCALIZED REDNESS AND INCREASED WARMTH) Musculoskeletal: Shoulder, Hand, Back:Thoracic, Back:Lumbar, Swelling, Tender, Deformity Psychiatric: Anxiety Affect: Anxious Speech Pattern: Clear, Appropriate - Assessment/Plan (1) Atrial fibrillation with RVR Status: Acute Plan: ADMIT, CARDIZEM DRIP PER PROTOCOL. SERIAL CE AND EKG, SUPPLEMENTAL O2. VIERFY HOME MEDICATION, IV HYDRATION WOUND CULTURE. IV ATBX, BP MONITORING. CONTINUOUS TELEMETRY, CXR ON ADMISSION (2) Cellulitis Status: Acute (3) CAD (coronary artery disease) Status: Acute (4) CHF (congestive heart failure) Status: Acute (5) Anemia Status: Acute (6) Hypertension Status: Chronic (7) Rheumatoid arthritis Qualifiers: Rheumatoid arthritis location: multiple sites Status: Chronic (8) Type 2 diabetes mellitus Qualifiers: Diabetes mellitus chcf insulin use: without chcf use Diabetes mellitus complication status: with other specified complication Qualified Code(s): E11.69 - Type 2 diabetes mellitus with other specified complication Status: Chronic - Allergies Allergies/Adverse Reactions: Allergies Allergy/AdvReac Type Severity Reaction Status Date / Time Penicillins Allergy Verified 10/28/19 17:35
[2019-11-16] MEDS: PROTONIX INJ 40 MG VIAL IVP SCH (18:24)
[2019-11-16 18:33] LABS: APPEARANCE,URINE CLEAR (CLEAR); BACTERIA,URINE TRACE /HPF (NEGATIVE); COLOR,URINE DARK YELLOW (YELLOW); MUCUS,URINE FEW /HPF (NEGATIVE); SQUAMOUS EPITHELIAL CELL,UR RARE /HPF (NEGATIVE)
[2019-11-16 19:09] LABS: CKMB % 2.8 % (<4); CREATINE KINASE MB 2.5 ng/mL (0-4.0); TROPONIN I 0.03 ng/mL (0-1.5)
[2019-11-16] MEDS ORDERED: TEFLARO IV ONE (19:49)
[2019-11-16] MEDS ORDERED: NS 100 ML IV + SPIKE MINIBAG* 100 ML IV ONE (19:56)
[2019-11-16] MEDS: SYNTHROID 88 mcg TAB PO SCH (20:24)
[2019-11-16] MEDS ORDERED: TEFLARO 600 MG in NS 100 ML IV + SPIKE MINIBAG* 100 ML IV SCH (21:00)
[2019-11-16] MEDS ORDERED: NS 250 ML IV 250 ML IV ONE (21:44)
[2019-11-17 00:44] LABS: CKMB % 2.3 % (<4); CREATINE KINASE MB 1.8 ng/mL (0-4.0); TROPONIN I 0.03 ng/mL (0-1.5)
[2019-11-17 06:23] LABS: ALANINE AMINOTRANSFERASE 25 Units/L (12-78); ALKALINE PHOSPHATASE 70 Units/L (46-116); ASPARTATE AMINO TRANSFERASE 35 Units/L (15-37); BLOOD UREA NITROGEN 15 mg/dL (7-18); CALCIUM 7.6 mg/dL (8.5-10.1); CARBON DIOXIDE 20.8 mmol/L (21-32); CHLORIDE 102 mmol/L (98-107); CKMB % 2.7 % (<4); COR CA(FOR HYPOALB) 9.2 mg/dL (8.5-10.1); COR NA(FOR HYPERGLY) 135 mmol/L (136-145); CREATINE KINASE 60 Units/L (26-192); CREATINE KINASE MB 1.6 ng/mL (0-4.0); CREATININE 1.01 mg/dL (0.55-1.02); SODIUM 133 mmol/L (136-145); TOTAL PROTEIN 5.7 g/dL (6.4-8.2); TROPONIN I 0.03 ng/mL (0-1.5); eGFR NON BLACK RACES 57 (>60)
[2019-11-17 08:16] LABS: IRON 28 ug/dL (50-175)
[2019-11-17] MEDS ORDERED: BETAPACE AF PO SCH (09:00)
[2019-11-17] MEDS: LEVAQUIN PREMIX IV 750 MG 750 MG/150 ML BAG IV SCH (09:43)
[2019-11-17] MEDS: PROTONIX INJ 40 MG VIAL IVP SCH (09:43)
[2019-11-17] MEDS: SYNTHROID 88 mcg TAB PO SCH (09:44)
[2019-11-17] MEDS ORDERED: CARDIZEM INJ 125 MG VIAL ONE (10:04)
[2019-11-17] MEDS ORDERED: NS 100 ML IV 100 ML IV ONE (10:07)
[2019-11-17] MEDS: CARDIZEM INJ 125 MG VIAL 125 MG in NS 100 ML IV 100 ML IV PRN (11:22)
[2019-11-17] MEDS: TEFLARO 600 MG in NS 100 ML IV 100 ML IV SCH ×2 (11:41→21:15)
[2019-11-17] MEDS ORDERED: CHLORASEPTIC SPRAY MT PRN (16:35)
--- NOTE | 2019-11-17 16:40 | PCM.PROG ---
Progress Note - Progress Note for Day of Date of Exam: 11/17/19 - Subjective Subjective: PT IS 78 WF ER ADMISSION AFTER SHE PRESENTED TO OUTPT FOR COLONOSCOPY PER DR MTZ, PT NOTED TO BY IN AFIB WITH RVR ON ARRIVAL. PT WAS SENT TO ER FOR EVALUATION. PTS DAUGHTER STATES SHE HAD HELD PO MEDS FOR PROCEDURE AND PT HASNT TAKEN ELIQUIS IN 5 DAYS FOR SCOPE. PT DENIES ANY CHEST PAIN, CO PALPITATIONS AND SOB. PT HAD LEFT FA WOUND FROM PREVIOUS IV SITE WITH FAMILY REPORTS CULTURE WAS "STAPH". PT HAS BEEN ON PO BACTRIM PRIOR TO THIS ADMISSION. PT HAS PMH OF AFIB, CAD, HTN, OA, GERD, RA, COPD. PT ADMITTED FOR TREATMENT OF AFIB WITH RVR AND CELLULITIS TO [place]. PT IS CURRENTLY ON CARDIZEM DRIP WITH AFIB, RATE 106. PT BP STABLE, SOTALOL HOME MEDICATION RESUMED. PT DENIES ANY CHEST PAIN, CO SORE THROAT AND MOUTH. PT IS AFEBRILE. DC LEVAQUIN STARTED IN ER. PT IS ON TEFLARO FOR CELLULITIS. - Past Medical Family Social History Past Med/Fam/Surg Hx: No changes since H&P Allergies: Allergies Penicillins Allergy (Verified 10/28/19 17:35) - Review of Systems ROS: No change since H&P - Vital Signs and I&O's Vital Signs: Temperature 98.6 F Pulse Rate [Apical] 69 Pulse Rate [Right Posterior 130 Tibial] Pulse Rate 121 Respiratory Rate 18 Blood Pressure [Right Leg] 128/85 Blood Pressure [Right Arm] 159/95 Blood Pressure [Left Arm] 185/75 Blood Pressure [Right Arm] 154/70 Blood Pressure [Left Arm] 133/61 Blood Pressure [Left Arm] 161/73 Blood Pressure 161/86 O2 Sat by Pulse Oximetry 99 Intake and Output: Intake & Output 11/15/19 11/16/19 11/17/19 11/18/19 11:59 11:59 11:59 11:59 Intake Total 730 / 730 718 / 718 Balance 730 / 730 718 / 718 - Physical Exam Oriented: Normal Eyes: Normal Ear: Normal Throat: Dry Respiratory: Diminished Cardiovascular: Tachycardia, Irregular. negative: Edema : Normal Auscultation: Bowel Sounds: Normal, Absent Tenderness: Epigastric, Mild Skin: Decreased Turgur, Wound (SF OPEN WOUND TO LEFT FA WITH LOCALIZED REDNESS AND INCREASED WARMTH) Musculoskeletal: Shoulder, Hand, Back:Thoracic, Back:Lumbar, Swelling, Tender, Deformity Psychiatric: Anxiety Affect: Anxious Speech Pattern: Clear, Appropriate - Laboratory and Diagnostics Result Diagrams: 11/16/19 09:54 11/17/19 05:18 Labs: 11/17/19 06:15 Arm - Left Gram Stain - Final Laboratory WBC 5.5 X10^3/uL (3.6-10.0) 11/16/19 09:54 RBC 3.37 X10^6/uL (3.5-5.4) L 11/16/19 09:54 Hgb 9.5 g/dL (12.0-16.0) L 11/16/19 09:54 Hct 29.7 % (36.0-47.0) L 11/16/19 09:54 MCV 88.2 fL (80.0-100.0) 11/16/19 09:54 MCH 28.3 pg (27.0-34.0) 11/16/19 09:54 MCHC 32.1 g/dL (33.0-35.0) L 11/16/19 09:54 RDW 18.5 % (11.6-16.5) H 11/16/19 09:54 Plt Count 240 X10^3/uL (150.0-450.0) 11/16/19 09:54 MPV 8.3 fL (7.4-11.0) 11/16/19 09:54 Neut % (Auto) 81.4 % (42.0-75.0) H 11/16/19 09:54 Lymph % (Auto) 13.8 % (21.0-51.0) L 11/16/19 09:54 [place] % (Auto) 4.0 % (0.0-13.0) 11/16/19 09:54 Eos % (Auto) 0.2 % (0.9-2.9) L 11/16/19 09:54 Baso % (Auto) 0.6 % (0.2-1.0) 11/16/19 09:54 Neut # (Auto) 4.4 x10^3/uL (2.2-4.8) 11/16/19 09:54 Lymph # (Auto) 0.8 X10^3/uL (1.3-2.9) L 11/16/19 09:54 [place] # (Auto) 0.2 x10^3/uL (0.3-0.8) L 11/16/19 09:54 Eos # (Auto) 0.0 x10^3/uL (0.0-0.2) 11/16/19 09:54 Baso # (Auto) 0.0 X10^3/uL (0.0-0.1) 11/16/19 09:54 Absolute Nucleated RBC 0.1 /100WBC 11/16/19 09:54 PT 15.2 SECONDS (11.8-14.3) 11/17/19 05:18 INR Target Range - 11/17/19 05:18 INR 1.24 (0.8-1.3) 11/17/19 05:18 APTT 32.3 SECONDS (22.9-36.5) 11/17/19 05:18 PTT Comment - 11/17/19 05:18 Sodium 133 mmol/L (136-145) L 11/17/19 05:18 Corrected Sodium 135 mmol/L (136-145) L 11/17/19 05:18 Potassium 4.1 mmol/L (3.5-5.1) 11/17/19 05:18 Chloride 102 mmol/L (98-107) 11/17/19 05:18 Carbon Dioxide 20.8 mmol/L (21-32) L 11/17/19 05:18 BUN 15 mg/dL (7-18) 11/17/19 05:18 Creatinine 1.01 mg/dL (0.55-1.02) 11/17/19 05:18 Est GFR (MDRD) Af Amer > 60 (>60) 11/17/19 05:18 Est GFR (MDRD) Non-Af 57 (>60) L 11/17/19 05:18 Glucose 195 mg/dL (65-99) H 11/17/19 05:18 Calcium 7.6 mg/dL (8.5-10.1) L 11/17/19 05:18 Corrected Calcium 9.2 mg/dL (8.5-10.1) 11/17/19 05:18 Iron 28 ug/dL (50-175) L 11/17/19 05:18 Transferrin 78 mg/dL (202-364) L 11/17/19 05:18 Ferritin 4123 ng/mL (8-252) H 11/17/19 05:18 Total Bilirubin 0.40 mg/dL (0.2-1.0) 11/17/19 05:18 AST 35 Units/L (15-37) 11/17/19 05:18 ALT 25 Units/L (12-78) 11/17/19 05:18 Alkaline Phosphatase 70 Units/L (46-116) 11/17/19 05:18 Creatine Kinase 60 Units/L (26-192) 11/17/19 05:18 CK-MB (CK-2) 1.6 ng/mL (0-4.0) 11/17/19 05:18 CK/CKMB % Calc 2.7 % (<4) 11/17/19 05:18 Troponin I 0.03 ng/mL (0-1.5) 11/17/19 05:18 Total Protein 5.7 g/dL (6.4-8.2) L 11/17/19 05:18 Albumin 2.0 g/dL (3.4-5.0) L 11/17/19 05:18 Globulin 3.7 g/dL (2.5-4.5) 11/17/19 05:18 Albumin/Globulin Ratio 0.5 Ratio (1.1-2.1) L 11/17/19 05:18 Vitamin B12 473 pg/mL (193-986) 11/17/19 05:18 Folate > 20.0 ng/mL (>8.6) 11/17/19 05:18 TSH 3rd Generation 3.076 uIU/mL (0.358-3.74) 11/16/19 09:54 Specimen Type Clean catch urine 11/16/19 17:35 Urine Color Dark yellow (YELLOW) 11/16/19 17:35 Urine Appearance Clear (CLEAR) 11/16/19 17:35 Urine pH 6.0 (5.0 - 8.0) 11/16/19 17:35 Ur Specific [place] 1.015 (1.000-1.030) 11/16/19 17:35 Urine Protein 2+ (NEGATIVE) 11/16/19 17:35 Urine Glucose (UA) Negative (NEGATIVE) 11/16/19 17:35 Urine Ketones 2+ (NEGATIVE) 11/16/19 17:35 Urine Occult Blood 2+ (NEGATIVE) 11/16/19 17:35 Urine Nitrite Negative (NEGATIVE) 11/16/19 17:35 Urine Bilirubin Negative (NEGATIVE) 11/16/19 17:35 Urine Urobilinogen Normal (NORMAL) 11/16/19 17:35 Ur Leukocyte Esterase 1+ (NEGATIVE) 11/16/19 17:35 Urine RBC 5-10 /HPF (0-3) A 11/16/19 17:35 Urine WBC 3-5 /HPF (0-5) 11/16/19 17:35 Ur Squamous Epith Cells Rare /HPF (NEGATIVE) 11/16/19 17:35 Urine Bacteria Trace /HPF (NEGATIVE) 11/16/19 17:35 Urine Mucus Few /HPF (NEGATIVE) 11/16/19 17:35 Ur Culture Indicated? No/not indicated 11/16/19 17:35 Acetone, Semi-Quant Negative (NEGATIVE) 11/16/19 09:54 SARS-CoV-2 (PCR) Negative (NEGATIVE) 11/16/19 12:00 - Plan (1) Atrial fibrillation with RVR Status: Acute Plan: CARDIZEM DRIP PER PROTOCOL. SERIAL CE AND EKG, SUPPLEMENTAL O2. VIERFY HOME MEDICATION, IV HYDRATION WOUND CULTURE. IV ATBX, BP MONITORING. CONTINUOUS TELEMETRY, CXR AM (2) Cellulitis Status: Acute (3) CAD (coronary artery disease) Status: Acute (4) CHF (congestive heart failure) Status: Acute (5) Anemia Status: Acute (6) Hypertension Status: Chronic (7) Rheumatoid arthritis Status: Chronic Qualifiers: Rheumatoid arthritis location: multiple sites (8) Type 2 diabetes mellitus Status: Chronic Qualifiers: Diabetes mellitus senior care insulin use: without intermediate project manager use Diabetes mellitus complication status: with other specified complication Qualified Code(s): E11.69 - Type 2 diabetes mellitus with other specified complication
[2019-11-17 17:36] LABS: BASOPHILS % (AUTO) 0.1 % (0.2-1.0); HEMATOCRIT 28.2 % (36.0-47.0); HEMOGLOBIN 9.3 g/dL (12.0-16.0); LYMPHOCYTES # (AUTO) 0.6 X10^3/uL (1.3-2.9); LYMPHOCYTES % (AUTO) 11.6 % (21.0-51.0); MEAN CORPUSCULAR HEMOGLOBIN 28.8 pg (27.0-34.0); MEAN CORPUSCULAR VOLUME 87.2 fL (80.0-100.0); MEAN PLATELET VOLUME 8.3 fL (7.4-11.0); MONOCYTES # (AUTO) 0.2 x10^3/uL (0.3-0.8); MONOCYTES % (AUTO) 3.6 % (0.0-13.0); NEUTROPHILS # (AUTO) 4.3 x10^3/uL (2.2-4.8); NEUTROPHILS % (AUTO) 84.7 % (42.0-75.0); PLATELET COUNT 256 X10^3/uL (150.0-450.0); RED BLOOD COUNT 3.24 X10^6/uL (3.5-5.4); RED CELL DISTRIBUTION WIDTH 18.2 % (11.6-16.5)
[2019-11-17 17:52] LABS: ALANINE AMINOTRANSFERASE 26 Units/L (12-78); ALBUMIN 2.1 g/dL (3.4-5.0); ALKALINE PHOSPHATASE 75 Units/L (46-116); ASPARTATE AMINO TRANSFERASE 35 Units/L (15-37); BLOOD UREA NITROGEN 14 mg/dL (7-18); CALCIUM 8.1 mg/dL (8.5-10.1); CARBON DIOXIDE 21.2 mmol/L (21-32); CHLORIDE 101 mmol/L (98-107); COR CA(FOR HYPOALB) 9.6 mg/dL (8.5-10.1); COR NA(FOR HYPERGLY) 135 mmol/L (136-145); CREATININE 0.99 mg/dL (0.55-1.02); SODIUM 132 mmol/L (136-145); TOTAL PROTEIN 6.1 g/dL (6.4-8.2); eGFR NON BLACK RACES 58 (>60)
[2019-11-17] MEDS: NYSTATIN SUSP MT SCH ×2 (18:13→21:50)
[2019-11-17] MEDS: NORCO 10/325 TAB PO PRN (19:25)
[2019-11-17] MEDS: BETAPACE AF PO SCH (21:17)
[2019-11-18] MEDS: CARDIZEM INJ 125 MG VIAL 125 MG in NS 100 ML IV 100 ML IV PRN ×2 (00:15→12:49)
[2019-11-18] MEDS: NORCO 10/325 TAB PO PRN ×2 (02:23→13:15)
[2019-11-18 07:06] LABS: BASOPHILS % (AUTO) 0.1 % (0.2-1.0); HEMOGLOBIN 10.7 g/dL (12.0-16.0); LYMPHOCYTES # (AUTO) 0.6 X10^3/uL (1.3-2.9); LYMPHOCYTES % (AUTO) 8.8 % (21.0-51.0); MEAN CORPUSCULAR HEMOGLOBIN 28.4 pg (27.0-34.0); MEAN CORPUSCULAR HGB CONC 32.3 g/dL (33.0-35.0); MEAN CORPUSCULAR VOLUME 87.9 fL (80.0-100.0); MEAN PLATELET VOLUME 8.2 fL (7.4-11.0); MONOCYTES # (AUTO) 0.2 x10^3/uL (0.3-0.8); MONOCYTES % (AUTO) 2.8 % (0.0-13.0); NEUTROPHILS # (AUTO) 6.3 x10^3/uL (2.2-4.8); NEUTROPHILS % (AUTO) 88.3 % (42.0-75.0); PLATELET COUNT 274 X10^3/uL (150.0-450.0); RED BLOOD COUNT 3.76 X10^6/uL (3.5-5.4); RED CELL DISTRIBUTION WIDTH 18.7 % (11.6-16.5); WHITE BLOOD COUNT 7.1 X10^3/uL (3.6-10.0)
--- NOTE | 2019-11-18 07:23 | RAD ---
HISTORYPneumoniaSTUDYAP [id number] cardiomegaly. No change in appearance of the right chest. There is increasing opacity in the retrocardiac area totally obscuring the diaphragm and descending aorta contour. The left upper lobe remains clear.IMPRESSIONIncreasing left basal density consistent with progressive airspace disease, pneumonia/atelectasis, left lower lobe. Associated pleural fluid may be present.Electronically signed by: ROBERTA QUACH (Nov 18, 2019 07:22:43)
[2019-11-18 07:26] LABS: ALANINE AMINOTRANSFERASE 28 Units/L (12-78); ALBUMIN 2.1 g/dL (3.4-5.0); ALKALINE PHOSPHATASE 80 Units/L (46-116); ASPARTATE AMINO TRANSFERASE 39 Units/L (15-37); BLOOD UREA NITROGEN 14 mg/dL (7-18); CALCIUM 8.2 mg/dL (8.5-10.1); CARBON DIOXIDE 18.7 mmol/L (21-32); CHLORIDE 101 mmol/L (98-107); COR CA(FOR HYPOALB) 9.7 mg/dL (8.5-10.1); COR NA(FOR HYPERGLY) 134 mmol/L (136-145); CREATININE 0.85 mg/dL (0.55-1.02); SODIUM 130 mmol/L (136-145); TOTAL PROTEIN 6.2 g/dL (6.4-8.2); eGFR NON BLACK RACES > 60 (>60)
[2019-11-18] MEDS ORDERED: LOVENOX INJ 40 MG SYR SC SCH (09:00)
[2019-11-18] MEDS: BETAPACE AF PO SCH ×2 (10:27→20:51)
[2019-11-18] MEDS: TEFLARO 600 MG in NS 100 ML IV 100 ML IV SCH ×2 (10:28→20:46)
[2019-11-18] MEDS: PROTONIX INJ 40 MG VIAL IVP SCH (10:28)
[2019-11-18] MEDS: SYNTHROID 88 mcg TAB PO SCH (10:29)
[2019-11-18] MEDS: NYSTATIN SUSP MT SCH ×4 (10:59→20:55)
[2019-11-18] MEDS ORDERED: LASIX ONE (14:05)
[2019-11-18] MEDS ORDERED: TOPROL XL PO ONE (14:05)
[2019-11-18] MEDS ORDERED: BACTRIM DS TAB PO ONE (14:15)
[2019-11-18] MEDS: BACTRIM DS TAB PO SCH ×2 (14:47→20:51)
[2019-11-18] MEDS: LASIX IVP SCH ×2 (14:52→17:27)
[2019-11-18] MEDS: TOPROL XL PO SCH (14:53)
[2019-11-18] MEDS ORDERED: NS 100 ML IV + SPIKE MINIBAG* 0 ML IV ONE (20:04)
[2019-11-18] MEDS: ELIQUIS PO SCH (20:51)
[2019-11-19 05:33] LABS: BASOPHILS % (AUTO) 0.1 % (0.2-1.0); EOSINOPHILS % (AUTO) 0.2 % (0.9-2.9); HEMATOCRIT 31.6 % (36.0-47.0); HEMOGLOBIN 10.3 g/dL (12.0-16.0); LYMPHOCYTES # (AUTO) 0.9 X10^3/uL (1.3-2.9); LYMPHOCYTES % (AUTO) 18.6 % (21.0-51.0); MEAN CORPUSCULAR HEMOGLOBIN 29.1 pg (27.0-34.0); MEAN CORPUSCULAR HGB CONC 32.8 g/dL (33.0-35.0); MEAN CORPUSCULAR VOLUME 88.6 fL (80.0-100.0); MEAN PLATELET VOLUME 8.6 fL (7.4-11.0); MONOCYTES # (AUTO) 0.2 x10^3/uL (0.3-0.8); MONOCYTES % (AUTO) 4.9 % (0.0-13.0); NEUTROPHILS # (AUTO) 3.6 x10^3/uL (2.2-4.8); NEUTROPHILS % (AUTO) 76.2 % (42.0-75.0); PLATELET COUNT 255 X10^3/uL (150.0-450.0); RED BLOOD COUNT 3.56 X10^6/uL (3.5-5.4); RED CELL DISTRIBUTION WIDTH 18.5 % (11.6-16.5); WHITE BLOOD COUNT 4.7 X10^3/uL (3.6-10.0)
[2019-11-19 05:38] LABS: ALANINE AMINOTRANSFERASE 23 Units/L (12-78); ALBUMIN 1.8 g/dL (3.4-5.0); ALKALINE PHOSPHATASE 69 Units/L (46-116); ASPARTATE AMINO TRANSFERASE 29 Units/L (15-37); BLOOD UREA NITROGEN 15 mg/dL (7-18); CALCIUM 7.9 mg/dL (8.5-10.1); CARBON DIOXIDE 21.6 mmol/L (21-32); CHLORIDE 102 mmol/L (98-107); COR CA(FOR HYPOALB) 9.7 mg/dL (8.5-10.1); COR NA(FOR HYPERGLY) 136 mmol/L (136-145); SODIUM 132 mmol/L (136-145); TOTAL PROTEIN 5.6 g/dL (6.4-8.2); eGFR NON BLACK RACES 57 (>60)
--- NOTE | 2019-11-19 07:00 | RAD ---
HISTORYPLEURAL EFFUSIONSTUDYCHEST, PA/LAT [id number]/04/2020FINDINGSStable cardiomediastinal silhouette. Dense retrocardiac opacity unchanged. Hazy bibasilar opacities unchanged. No visible pneumothorax. No acute osseous finding.IMPRESSIONNo significant interval change. Left lower lobe atelectasis or consolidation and probable bilateral effusions.Electronically signed by: Hany Moon (Nov 19, 2019 06:58:38)
[2019-11-19] MEDS ORDERED: TOPROL XL PO ONE ×2 (08:19→15:22)
[2019-11-19] MEDS: BACTRIM DS TAB PO SCH ×2 (09:56→22:32)
[2019-11-19] MEDS: LASIX IVP SCH ×2 (09:57→17:30)
[2019-11-19] MEDS: ELIQUIS PO SCH ×2 (09:57→22:32)
[2019-11-19] MEDS: PROTONIX INJ 40 MG VIAL IVP SCH (09:57)
[2019-11-19] MEDS: SYNTHROID 88 mcg TAB PO SCH (09:58)
[2019-11-19] MEDS: BETAPACE AF PO SCH ×2 (09:58→22:32)
[2019-11-19] MEDS: TOPROL XL PO SCH (09:58)
[2019-11-19] MEDS: NYSTATIN SUSP MT SCH ×4 (09:59→22:33)
[2019-11-19] MEDS: TEFLARO 600 MG in NS 100 ML IV 100 ML IV SCH ×2 (10:43→22:32)
[2019-11-19] MEDS ORDERED: LOPRESSOR INJ 5 MG AMP IVP ONE (15:19)
[2019-11-19] MEDS ORDERED: MAGNESIUM SULFATE 1 GRAM/100 mL PREMIX 4 G/400 ML BAG IV ONE (17:38)
[2019-11-19] MEDS: MAGNESIUM SULFATE 1 GRAM/100 mL PREMIX 1 GM/100 ML BAG IV PRN ×4 (17:42→22:15)
[2019-11-19] MEDS ORDERED: NS 250 ML IV 250 ML IV ONE (17:56)
[2019-11-19] MEDS ORDERED: LOPRESSOR INJ 5 MG AMP ONE (18:23)
[2019-11-19] MEDS: LOPRESSOR INJ 5 MG AMP IVP PRN ×3 (18:31→19:04)
[2019-11-20 05:41] LABS: BASOPHILS % (AUTO) 0.3 % (0.2-1.0); EOSINOPHILS % (AUTO) 0.5 % (0.9-2.9); HEMATOCRIT 32.9 % (36.0-47.0); HEMOGLOBIN 10.9 g/dL (12.0-16.0); LYMPHOCYTES # (AUTO) 0.5 X10^3/uL (1.3-2.9); LYMPHOCYTES % (AUTO) 12.2 % (21.0-51.0); MEAN CORPUSCULAR HEMOGLOBIN 29.3 pg (27.0-34.0); MEAN CORPUSCULAR HGB CONC 33.1 g/dL (33.0-35.0); MEAN CORPUSCULAR VOLUME 88.4 fL (80.0-100.0); MEAN PLATELET VOLUME 8.5 fL (7.4-11.0); MONOCYTES # (AUTO) 0.2 x10^3/uL (0.3-0.8); MONOCYTES % (AUTO) 4.9 % (0.0-13.0); NEUTROPHILS # (AUTO) 3.4 x10^3/uL (2.2-4.8); NEUTROPHILS % (AUTO) 82.1 % (42.0-75.0); PLATELET COUNT 221 X10^3/uL (150.0-450.0); RED BLOOD COUNT 3.72 X10^6/uL (3.5-5.4); RED CELL DISTRIBUTION WIDTH 18.4 % (11.6-16.5); WHITE BLOOD COUNT 4.1 X10^3/uL (3.6-10.0)
[2019-11-20 05:57] LABS: ALANINE AMINOTRANSFERASE 21 Units/L (12-78); ALKALINE PHOSPHATASE 72 Units/L (46-116); ASPARTATE AMINO TRANSFERASE 31 Units/L (15-37); BLOOD UREA NITROGEN 13 mg/dL (7-18); CARBON DIOXIDE 20.4 mmol/L (21-32); CHLORIDE 99 mmol/L (98-107); COR CA(FOR HYPOALB) 9.6 mg/dL (8.5-10.1); COR NA(FOR HYPERGLY) 134 mmol/L (136-145); CREATININE 1.02 mg/dL (0.55-1.02); MAGNESIUM 2.3 mg/dL (1.7-2.9); SODIUM 130 mmol/L (136-145); TOTAL PROTEIN 5.8 g/dL (6.4-8.2); eGFR NON BLACK RACES 56 (>60)
[2019-11-20] MEDS: NORCO 10/325 TAB PO PRN (06:00)
[2019-11-20] MEDS ORDERED: TOPROL XL PO SCH (09:00)
[2019-11-20] MEDS: NYSTATIN SUSP MT SCH ×4 (09:00→21:27)
[2019-11-20] MEDS ORDERED: TOPROL XL PO ONE (09:22)
[2019-11-20] MEDS: PROTONIX INJ 40 MG VIAL IVP SCH ×2 (09:34→21:27)
[2019-11-20] MEDS: TEFLARO 600 MG in NS 100 ML IV 100 ML IV SCH (09:35)
[2019-11-20] MEDS: LASIX IVP SCH ×2 (09:42→17:18)
[2019-11-20] MEDS ORDERED: LANOXIN INJ IVP SCH (10:00)
[2019-11-20] MEDS: BETAPACE AF PO SCH ×2 (13:35→21:27)
[2019-11-20] MEDS: SYNTHROID 88 mcg TAB PO SCH (13:35)
[2019-11-20] MEDS: ELIQUIS PO SCH (13:35)
[2019-11-20] MEDS: BACTRIM DS TAB PO SCH (13:35)
[2019-11-20] MEDS ORDERED: POTASSIUM CHLORIDE LIQ 20 MEQ UDC PO PRN (21:25)
[2019-11-20] MEDS ORDERED: K-RIDER 10 MEQ/NS 100 ML 10 MEQ/100 ML BAG IV PRN (21:25)
[2019-11-20] MEDS ORDERED: KLOR-CON PO PRN (21:25)
[2019-11-20] MEDS ORDERED: MICRO K EXTEN CAP 10 MEQ PO PRN (21:25)
[2019-11-20] MEDS ORDERED: POTASSIUM CHL 40 MEQ/NS 0.45% 500 ML IV PRN (21:25)
[2019-11-20] MEDS ORDERED: POTASSIUM CHL 60 MEQ/NS 0.45% 500 ML IV PRN (21:25)
[2019-11-20] MEDS: K-DUR TAB 20 MEQ PO PRN (22:00)
--- NOTE | 2019-11-20 22:01 | RAD ---
HISTORY:Constipation, distensionStudy: KUBComparison:NoneFINDINGS/IMPRESSION:There is moderate gaseous distention of small and large bowel loops with retained stool in the ascending colon. No evidence of intestinal obstruction. Cholecystectomy clips are noted. There are degenerative changes of the lumbosacral spine.Electronically signed by: REINA MCKEON (Nov 20, 2019 21:59:56)
[2019-11-20] MEDS: SNACK - Diabetic Appropriate PO SCH (22:52)
[2019-11-21 01:51] LABS: BILIRUBIN,URINE NEGATIVE (NEGATIVE); BLOOD/HEMOGLOBIN,URINE 1+ (NEGATIVE); GLUCOSE, URINE NEGATIVE (NEGATIVE); KETONES,URINE NEGATIVE (NEGATIVE); LEUKOCYTE ESTERASE ,URINE NEGATIVE (NEGATIVE); NITRITES,URINE NEGATIVE (NEGATIVE); PROTEIN,URINE NEGATIVE (NEGATIVE); UROBILINOGEN,URINE NORMAL (NORMAL)
[2019-11-21 01:55] LABS: APPEARANCE,URINE CLEAR (CLEAR); BACTERIA,URINE NEGATIVE /HPF (NEGATIVE); COLOR,URINE YELLOW (YELLOW); RBC,URINE 0-2 /HPF (0-3); SQUAMOUS EPITHELIAL CELL,UR RARE /HPF (NEGATIVE)
[2019-11-21 05:37] LABS: BASOPHILS % (AUTO) 0.4 % (0.2-1.0); EOSINOPHILS % (AUTO) 0.6 % (0.9-2.9); HEMATOCRIT 28.3 % (36.0-47.0); HEMOGLOBIN 9.4 g/dL (12.0-16.0); LYMPHOCYTES # (AUTO) 0.6 X10^3/uL (1.3-2.9); LYMPHOCYTES % (AUTO) 13.2 % (21.0-51.0); MEAN CORPUSCULAR HEMOGLOBIN 29.1 pg (27.0-34.0); MEAN CORPUSCULAR HGB CONC 33.4 g/dL (33.0-35.0); MEAN CORPUSCULAR VOLUME 87.1 fL (80.0-100.0); MEAN PLATELET VOLUME 8.7 fL (7.4-11.0); MONOCYTES # (AUTO) 0.2 x10^3/uL (0.3-0.8); MONOCYTES % (AUTO) 4.3 % (0.0-13.0); NEUTROPHILS # (AUTO) 3.8 x10^3/uL (2.2-4.8); NEUTROPHILS % (AUTO) 81.5 % (42.0-75.0); PLATELET COUNT 184 X10^3/uL (150.0-450.0); RED BLOOD COUNT 3.25 X10^6/uL (3.5-5.4); RED CELL DISTRIBUTION WIDTH 18.5 % (11.6-16.5); WHITE BLOOD COUNT 4.6 X10^3/uL (3.6-10.0)
[2019-11-21 05:58] LABS: CALCIUM 7.8 mg/dL (8.5-10.1); CARBON DIOXIDE 23.6 mmol/L (21-32); COR CA(FOR HYPOALB) 9.4 mg/dL (8.5-10.1); CREATININE 1.16 mg/dL (0.55-1.02); TOTAL PROTEIN 5.5 g/dL (6.4-8.2)
[2019-11-21] MEDS: K-DUR TAB 20 MEQ PO PRN (06:29)
[2019-11-21] MEDS ORDERED: TOPROL XL PO ONE (08:28)
[2019-11-21] MEDS ORDERED: TOPROL XL PO SCH (09:00)
[2019-11-21] MEDS: SYNTHROID 88 mcg TAB PO SCH (09:20)
[2019-11-21] MEDS: LASIX IVP SCH (09:20)
[2019-11-21] MEDS: PROTONIX INJ 40 MG VIAL IVP SCH (09:21)
[2019-11-21] MEDS: BETAPACE AF PO SCH ×2 (09:21→21:33)
[2019-11-21] MEDS: NYSTATIN SUSP MT SCH ×4 (09:21→21:32)
--- NOTE | 2019-11-21 11:51 | DR.CONSULT ---
Consult - Consultation for Day of: Date: 11/21/19 - Chief Complaint Chief Complaint: Patient referred for dysphagia and anemia. Patient with AMS oriented to person only, Complaints of dysphagia. - History of Present Illness History of Present Illness: Patient is a 78 yo female who was referred for dysphagia and anemia. Patient with AMS oriented to person only, Complaints of dysphagia.Patient denies dyspepsia, nausea, vomiting, abdominal pain, constipation, diarrhea, melena and hematochezia. Hgb 9.4, Hct 28.3, Plt 184, BUN 17, Creatinine 1.16. last colon was 05/03/14 showed internal hemorrhoids and poor prep. Last EGD was 05/06/17 showed diffuse narrowing of the uper esophagus with concentric rings, distal esophagitis with stricutre and antral gastritis. - Past Medical History Past Medical History: Anxiety, Arthritis, Coronary Artery Disease, Dementia (VASCULAR), Depression, Diabetes, GERD, Hypertension, Hypothyroidism, Renal Disease - Past Surgical History Surgical History: Angioplasty/Stents, Cholecystectomy, , Hysterectomy, Ortho Surgery - Family History Family Medical History: Diabetes Mellitus, Coronary Artery Disease, Heart Failure - Social History Does patient currently use any type of tobacco product: No Have you used tobacco products in the last 12 months: No Type of Tobacco Use: None Does any household member use tobacco: No Alcohol Use: None Drug Use: None - Medications Home Medications: Penicillins Allergy (Verified 10/28/19 17:35) CONTINUE taking the following medications hydrocodone-acetaminophen [[place]] 1 tab PO Q6H PRN 11/16/19 [History] levothyroxine 88 mcg PO DAILY 11/16/19 [History] sulfamethoxazole-trimethoprim [Bactrim DS] 1 tab PO BID 11/16/19 [History] - Review of Systems Gastrointestinal: See HPI - Physical Exam Vital Signs: Temperature 98.1 F Pulse Rate [Apical] 56 Pulse Rate [Right Posterior 130 Tibial] Pulse Rate 121 Respiratory Rate 20 Blood Pressure [Right Leg] 175/79 Blood Pressure [Left Calf] 131/90 Blood Pressure [Right Arm] 147/65 Blood Pressure [Left Arm] 185/75 Blood Pressure [Right Arm] 154/70 Blood Pressure [Left Arm] 133/61 Blood Pressure [Left Arm] 139/68 Blood Pressure 162/118 O2 Sat by Pulse Oximetry 100 Oriented: Person Eyes: Normal Ear: Normal Nose: Normal Throat: Normal Respiratory: Clear Throughout Cardiovascular: Normal Auscultation: Bowel Sounds: Normal Palpation: Normal. negative: Spleen Enlarged, Liver Enlarged, Mass Pulsatile Tenderness: Normal (non tender) Skin: Normal Musculoskeletal: Normal Psychiatric: Normal Mood Description: Calm Affect: Normal Speech Pattern: Clear, Appropriate - Plan Plan: Assessment. 1. Anemia. 2. Dyshagia. Plan. 1. Monitor Hgb, Transfuse as needed, Colonoscopy on . Plan reviewed with Dr. Cobb - Allergies Allergies/Adverse Reactions: Allergies Allergy/AdvReac Type Severity Reaction Status Date / Time Penicillins Allergy Verified 10/28/19 17:35
[2019-11-21] MEDS: ZYVOX 600MG IV 600 MG/300 ML BAG IV SCH ×3 (18:32→21:41)
[2019-11-21] MEDS: NORCO 10/325 TAB PO PRN (21:34)
[2019-11-21] MEDS: SNACK - Diabetic Appropriate PO SCH (21:41)
[2019-11-22 06:12] LABS: BASOPHILS % (AUTO) 0.4 % (0.2-1.0); HEMATOCRIT 31.3 % (36.0-47.0); HEMOGLOBIN 10.4 g/dL (12.0-16.0); LYMPHOCYTES # (AUTO) 0.6 X10^3/uL (1.3-2.9); LYMPHOCYTES % (AUTO) 14.3 % (21.0-51.0); MEAN CORPUSCULAR HGB CONC 33.3 g/dL (33.0-35.0); MEAN CORPUSCULAR VOLUME 87.1 fL (80.0-100.0); MEAN PLATELET VOLUME 8.3 fL (7.4-11.0); MONOCYTES # (AUTO) 0.2 x10^3/uL (0.3-0.8); MONOCYTES % (AUTO) 4.6 % (0.0-13.0); NEUTROPHILS # (AUTO) 3.1 x10^3/uL (2.2-4.8); NEUTROPHILS % (AUTO) 79.7 % (42.0-75.0); PLATELET COUNT 165 X10^3/uL (150.0-450.0); RED BLOOD COUNT 3.59 X10^6/uL (3.5-5.4); RED CELL DISTRIBUTION WIDTH 18.7 % (11.6-16.5); WHITE BLOOD COUNT 3.9 X10^3/uL (3.6-10.0)
[2019-11-22 06:25] LABS: ALANINE AMINOTRANSFERASE 23 Units/L (12-78); ALBUMIN 2.1 g/dL (3.4-5.0); ALKALINE PHOSPHATASE 74 Units/L (46-116); ASPARTATE AMINO TRANSFERASE 34 Units/L (15-37); BLOOD UREA NITROGEN 15 mg/dL (7-18); CALCIUM 8.1 mg/dL (8.5-10.1); CARBON DIOXIDE 20.6 mmol/L (21-32); CHLORIDE 102 mmol/L (98-107); COR CA(FOR HYPOALB) 9.6 mg/dL (8.5-10.1); COR NA(FOR HYPERGLY) 133 mmol/L (136-145); CREATININE 1.01 mg/dL (0.55-1.02); SODIUM 132 mmol/L (136-145); TOTAL PROTEIN 5.6 g/dL (6.4-8.2); eGFR NON BLACK RACES 57 (>60)
[2019-11-22] MEDS: ZESTRIL TAB 5 MG PO SCH (08:51)
[2019-11-22] MEDS: SYNTHROID 88 mcg TAB PO SCH (08:52)
[2019-11-22] MEDS: NYSTATIN SUSP MT SCH ×4 (08:53→21:46)
[2019-11-22] MEDS: BETAPACE AF PO SCH ×2 (08:53→21:46)
[2019-11-22] MEDS: LASIX IVP SCH (08:54)
[2019-11-22] MEDS: TOPROL XL PO SCH (09:00)
[2019-11-22] MEDS: ZYVOX 600MG IV 600 MG/300 ML BAG IV SCH ×2 (09:00→21:46)
[2019-11-22] MEDS ORDERED: SOLU-Medrol 40 MG VIAL IVP ONE (09:42)
--- NOTE | 2019-11-22 11:51 | RAD ---
HISTORYAFib, CAD, hypertensionSTUDYChest x-ray one viewCOMPARISONX-ray 11/19/2019FINDINGSOpacity is seen the left lung base, similar to prior study. This is likely a combination of pleural fluid and atelectasis or pneumonia. Minimal atelectasis is seen in the right lung base. Small right pleural effusion is not excluded. Heart is probably normal in size. Calcification is seen of the aortic arch. No pneumothorax is seen.IMPRESSIONLikely moderate left pleural effusion is similar to prior study. There is probably associated mild atelectasis but pneumonia is not excluded.Electronically signed by: Jovanny Cazares (Nov 22, 2019 11:50:15)
[2019-11-22] MEDS ORDERED: MIRALAX POWDER (255 GRAMS BTL) PO NR ×2 (14:00→17:00)
--- NOTE | 2019-11-22 14:45 | CT ---
HISTORYAMS, CONFUSION, R/O CVASTUDYBRAIN W/O CONCOMPARISONPrevious head CT from 10/28/2019TECHNIQUEAxial imaging was performed from the vertex to the base of skull without intravenous contrast being administered. Sagittal and coronal reformations were generated. Automated exposure control techniques were used with this exam.FINDINGSGeneralized age related atrophic changes are present. However there is no evidence of intracranial hemorrhage or extracerebral fluid collections. Ventricles are symmetric in size and position with no mass effect seen. Patchy low density is present in a periventricular white matter distribution, consistent with chronic small vessel ischemia. On the bone windows, no acute bony abnormality is identified. Visualized aspect of the paranasal sinuses and mastoid air cells are clear.IMPRESSION1. No acute intracranial abnormality is seen on this exam.2. Age related atrophic changes and patchy areas of chronic small vessel ischemia are identified bilaterally.Electronically signed by: WILSON BOONE (Nov 22, 2019 14:42:31)
[2019-11-22] MEDS ORDERED: DULCOLAX TAB EC 5 MG PO ONE ×2 (15:00→21:00)
[2019-11-22] MEDS: DUONEB 0.5 MG/3 MG (3 mL) NEB PRN ×2 (18:00→20:51)
[2019-11-22] MEDS ORDERED: NS 100 ML IV 100 ML IV ONE (22:00)
[2019-11-23] MEDS ORDERED: DULCOLAX TAB EC 5 MG PO ONE (00:47)
[2019-11-23] MEDS: SNACK - Diabetic Appropriate PO SCH ×2 (02:01→20:30)
[2019-11-23 06:10] LABS: BASOPHILS % (AUTO) 0.3 % (0.2-1.0); EOSINOPHILS % (AUTO) 0.1 % (0.9-2.9); HEMATOCRIT 31.6 % (36.0-47.0); HEMOGLOBIN 10.4 g/dL (12.0-16.0); LYMPHOCYTES # (AUTO) 0.4 X10^3/uL (1.3-2.9); MEAN CORPUSCULAR HEMOGLOBIN 28.8 pg (27.0-34.0); MEAN CORPUSCULAR VOLUME 87.3 fL (80.0-100.0); MEAN PLATELET VOLUME 8.4 fL (7.4-11.0); MONOCYTES # (AUTO) 0.1 x10^3/uL (0.3-0.8); NEUTROPHILS % (AUTO) 69.6 % (42.0-75.0); PLATELET COUNT 154 X10^3/uL (150.0-450.0); RED BLOOD COUNT 3.62 X10^6/uL (3.5-5.4); RED CELL DISTRIBUTION WIDTH 18.4 % (11.6-16.5)
[2019-11-23 06:25] LABS: ALANINE AMINOTRANSFERASE 24 Units/L (12-78); ALBUMIN 2.1 g/dL (3.4-5.0); ALKALINE PHOSPHATASE 78 Units/L (46-116); ASPARTATE AMINO TRANSFERASE 27 Units/L (15-37); BLOOD UREA NITROGEN 15 mg/dL (7-18); CALCIUM 7.8 mg/dL (8.5-10.1); CARBON DIOXIDE 21.1 mmol/L (21-32); CHLORIDE 97 mmol/L (98-107); COR CA(FOR HYPOALB) 9.3 mg/dL (8.5-10.1); COR NA(FOR HYPERGLY) 133 mmol/L (136-145); CREATININE 1.01 mg/dL (0.55-1.02); SODIUM 129 mmol/L (136-145); TOTAL PROTEIN 5.8 g/dL (6.4-8.2); WHITE BLOOD COUNT 1.5 X10^3/uL (3.6-10.0); eGFR NON BLACK RACES 57 (>60)
[2019-11-23] MEDS: HumuLIN R SUBCUT PRN ×5 (06:35→21:16)
[2019-11-23 07:01] LABS: PLATELET MORPHOLOGY COMMENT NORMAL (NORMAL)
[2019-11-23] MEDS ORDERED: TOPROL XL PO ONE (09:06)
[2019-11-23] MEDS: LASIX IVP SCH (09:23)
[2019-11-23] MEDS: ZYVOX 600MG IV 600 MG/300 ML BAG IV SCH ×2 (09:24→21:14)
[2019-11-23] MEDS: BETAPACE AF PO SCH ×3 (09:25→21:14)
[2019-11-23] MEDS: NYSTATIN SUSP MT SCH ×4 (09:25→21:14)
[2019-11-23] MEDS: TOPROL XL PO SCH (09:26)
[2019-11-23] MEDS: SYNTHROID 88 mcg TAB PO SCH ×2 (09:26→13:34)
[2019-11-23] MEDS: ZESTRIL TAB 5 MG PO SCH ×2 (09:26→13:34)
[2019-11-23 09:27] LABS: BASOPHILS % (AUTO) 0.2 % (0.2-1.0); EOSINOPHILS % (AUTO) 0.1 % (0.9-2.9); HEMATOCRIT 30.6 % (36.0-47.0); LYMPHOCYTES # (AUTO) 0.5 X10^3/uL (1.3-2.9); LYMPHOCYTES % (AUTO) 19.3 % (21.0-51.0); MEAN CORPUSCULAR HEMOGLOBIN 28.8 pg (27.0-34.0); MEAN CORPUSCULAR HGB CONC 32.5 g/dL (33.0-35.0); MEAN CORPUSCULAR VOLUME 88.4 fL (80.0-100.0); MEAN PLATELET VOLUME 9.6 fL (7.4-11.0); MONOCYTES # (AUTO) 0.1 x10^3/uL (0.3-0.8); MONOCYTES % (AUTO) 5.4 % (0.0-13.0); PLATELET COUNT 144 X10^3/uL (150.0-450.0); RED BLOOD COUNT 3.46 X10^6/uL (3.5-5.4); RED CELL DISTRIBUTION WIDTH 18.5 % (11.6-16.5); WHITE BLOOD COUNT 2.6 X10^3/uL (3.6-10.0)
[2019-11-23] MEDS ORDERED: NS 250 ML IV 250 ML IV ONE (09:32)
[2019-11-23] MEDS ORDERED: NS 1000 ML 1,000 ML ONE (12:03)
[2019-11-23] MEDS ORDERED: NS 1000 ML 1,000 ML IV SCH (16:00)
[2019-11-24 05:49] LABS: BASOPHILS % (AUTO) 0.1 % (0.2-1.0); EOSINOPHILS % (AUTO) 0.3 % (0.9-2.9); HEMOGLOBIN 9.7 g/dL (12.0-16.0); LYMPHOCYTES # (AUTO) 0.5 X10^3/uL (1.3-2.9); LYMPHOCYTES % (AUTO) 15.9 % (21.0-51.0); MEAN CORPUSCULAR HEMOGLOBIN 28.7 pg (27.0-34.0); MEAN CORPUSCULAR HGB CONC 32.4 g/dL (33.0-35.0); MEAN CORPUSCULAR VOLUME 88.5 fL (80.0-100.0); MEAN PLATELET VOLUME 9.1 fL (7.4-11.0); MONOCYTES # (AUTO) 0.4 x10^3/uL (0.3-0.8); MONOCYTES % (AUTO) 11.9 % (0.0-13.0); NEUTROPHILS # (AUTO) 2.3 x10^3/uL (2.2-4.8); NEUTROPHILS % (AUTO) 71.8 % (42.0-75.0); PLATELET COUNT 166 X10^3/uL (150.0-450.0); RED BLOOD COUNT 3.39 X10^6/uL (3.5-5.4); RED CELL DISTRIBUTION WIDTH 18.3 % (11.6-16.5); WHITE BLOOD COUNT 3.2 X10^3/uL (3.6-10.0)
[2019-11-24 05:55] LABS: ALANINE AMINOTRANSFERASE 20 Units/L (12-78); ALBUMIN 1.9 g/dL (3.4-5.0); ALKALINE PHOSPHATASE 65 Units/L (46-116); ASPARTATE AMINO TRANSFERASE 33 Units/L (15-37); BLOOD UREA NITROGEN 13 mg/dL (7-18); CALCIUM 7.7 mg/dL (8.5-10.1); CARBON DIOXIDE 22.7 mmol/L (21-32); CHLORIDE 99 mmol/L (98-107); COR CA(FOR HYPOALB) 9.4 mg/dL (8.5-10.1); COR NA(FOR HYPERGLY) 129 mmol/L (136-145); CREATININE 0.86 mg/dL (0.55-1.02); SODIUM 128 mmol/L (136-145); TOTAL PROTEIN 5.4 g/dL (6.4-8.2); eGFR NON BLACK RACES > 60 (>60)
[2019-11-24 06:46] LABS: PLATELET MORPHOLOGY COMMENT NORMAL (NORMAL)
[2019-11-24] MEDS: NS 1000 ML 1,000 ML IV SCH ×2 (08:00→21:05)
[2019-11-24] MEDS ORDERED: TOPROL XL PO ONE (10:41)
[2019-11-24] MEDS: BETAPACE AF PO SCH ×2 (10:45→20:40)
[2019-11-24] MEDS: TOPROL XL PO SCH (10:45)
[2019-11-24] MEDS: ZESTRIL TAB 5 MG PO SCH (10:46)
[2019-11-24] MEDS: LASIX IVP SCH (10:46)
[2019-11-24] MEDS: SYNTHROID 88 mcg TAB PO SCH (10:46)
[2019-11-24] MEDS: NYSTATIN SUSP MT SCH ×4 (10:46→20:41)
[2019-11-24] MEDS: ZYVOX 600MG IV 600 MG/300 ML BAG IV SCH ×2 (10:47→20:41)
[2019-11-24] MEDS ORDERED: DIPRIVAN VIAL 20 ML ONE (13:12)
[2019-11-24 13:34] LABS: ALANINE AMINOTRANSFERASE 24 Units/L (12-78); ALBUMIN 2.1 g/dL (3.4-5.0); ALKALINE PHOSPHATASE 68 Units/L (46-116); ASPARTATE AMINO TRANSFERASE 51 Units/L (15-37); BLOOD UREA NITROGEN 12 mg/dL (7-18); CALCIUM 7.7 mg/dL (8.5-10.1); CARBON DIOXIDE 22.5 mmol/L (21-32); CHLORIDE 97 mmol/L (98-107); COR CA(FOR HYPOALB) 9.2 mg/dL (8.5-10.1); COR NA(FOR HYPERGLY) 129 mmol/L (136-145); CREATININE 0.88 mg/dL (0.55-1.02); SODIUM 127 mmol/L (136-145); TOTAL PROTEIN 5.8 g/dL (6.4-8.2); eGFR NON BLACK RACES > 60 (>60)
[2019-11-24] MEDS: PEPCID TAB 20 MG PO SCH ×2 (15:02→21:06)
[2019-11-24] MEDS: HumuLIN R SUBCUT PRN ×2 (18:20→20:41)
[2019-11-24] MEDS: SNACK - Diabetic Appropriate PO SCH (20:40)
[2019-11-25] MEDS: PEPCID TAB 20 MG PO SCH ×3 (05:08→21:26)
--- NOTE | 2019-11-25 06:55 | RAD ---
HISTORYAFibSTUDYAP [id number] normal heart size. The right chest is grossly clear. There is a persistent retrocardiac opacity obscuring the left diaphragm and descending aorta. The left upper lung is clear.IMPRESSIONLeft lower lobe opacity suggestive of airspace disease left lower lung. Similar finding was present on recent exam of 3 days ago. No new abnormality is noted.Electronically signed by: ROBERTA QUACH (Nov 25, 2019 06:54:24)
[2019-11-25 09:07] LABS: BASOPHILS % (AUTO) 0.5 % (0.2-1.0); EOSINOPHILS % (AUTO) 0.6 % (0.9-2.9); HEMATOCRIT 31.7 % (36.0-47.0); HEMOGLOBIN 10.6 g/dL (12.0-16.0); LYMPHOCYTES # (AUTO) 0.4 X10^3/uL (1.3-2.9); LYMPHOCYTES % (AUTO) 12.3 % (21.0-51.0); MEAN CORPUSCULAR HEMOGLOBIN 29.1 pg (27.0-34.0); MEAN CORPUSCULAR HGB CONC 33.3 g/dL (33.0-35.0); MEAN CORPUSCULAR VOLUME 87.2 fL (80.0-100.0); MEAN PLATELET VOLUME 8.1 fL (7.4-11.0); MONOCYTES # (AUTO) 0.1 x10^3/uL (0.3-0.8); MONOCYTES % (AUTO) 3.7 % (0.0-13.0); NEUTROPHILS # (AUTO) 2.5 x10^3/uL (2.2-4.8); NEUTROPHILS % (AUTO) 82.9 % (42.0-75.0); PLATELET COUNT 162 X10^3/uL (150.0-450.0); RED BLOOD COUNT 3.64 X10^6/uL (3.5-5.4); RED CELL DISTRIBUTION WIDTH 18.4 % (11.6-16.5); WHITE BLOOD COUNT 3.1 X10^3/uL (3.6-10.0)
[2019-11-25 09:14] LABS: ALANINE AMINOTRANSFERASE 20 Units/L (12-78); ALBUMIN 1.9 g/dL (3.4-5.0); ALKALINE PHOSPHATASE 64 Units/L (46-116); ASPARTATE AMINO TRANSFERASE 25 Units/L (15-37); BLOOD UREA NITROGEN 9 mg/dL (7-18); CALCIUM 7.3 mg/dL (8.5-10.1); CARBON DIOXIDE 22.4 mmol/L (21-32); CHLORIDE 101 mmol/L (98-107); CREATININE 0.76 mg/dL (0.55-1.02); SODIUM 133 mmol/L (136-145); TOTAL PROTEIN 5.1 g/dL (6.4-8.2); eGFR NON BLACK RACES > 60 (>60)
[2019-11-25] MEDS ORDERED: TOPROL XL PO ONE (09:27)
[2019-11-25] MEDS: DUONEB 0.5 MG/3 MG (3 mL) NEB PRN ×2 (10:00→20:10)
[2019-11-25] MEDS: ZYVOX 600MG IV 600 MG/300 ML BAG IV SCH ×2 (10:40→20:49)
[2019-11-25] MEDS: NS 1000 ML 1,000 ML IV SCH (10:41)
[2019-11-25] MEDS: SYNTHROID 88 mcg TAB PO SCH (10:42)
[2019-11-25] MEDS: ZESTRIL TAB 5 MG PO SCH (10:42)
[2019-11-25] MEDS: LASIX IVP SCH (10:42)
[2019-11-25] MEDS: TOPROL XL PO SCH (10:43)
[2019-11-25] MEDS: NYSTATIN SUSP MT SCH ×4 (10:43→20:49)
[2019-11-25] MEDS: BETAPACE AF PO SCH ×2 (10:44→20:49)
--- NOTE | 2019-11-25 11:38 | PCM.PROG ---
Progress Note Progress Note for Day of Date of Exam: 11/25/19 Subjective Subjective: Patient seen at bedside, no acute events overnight. Patient has been admitted for atrial fibrillation with RVR, FOBT positive requiring colonoscopy and EGD. Patient's colonoscopy was normal. EGD showed distal esophagitis with stricture and 2 small antral gastric ulcers. Patient is back in normal sinus rhythm. She is also on Zyvox for MSSA wound. Labs: K: 2.7 Na: 133 Hgb: 10.6 Plan: replace K as per protocol, continue current treatment, continue Pepcid TID as per GI for gastritis and ulcers. Monitor AM labs. CXR: LLL opacity Past Medical Family Social History Past Med/Fam/Surg Hx: No changes since H&P Allergies: Allergies pantoprazole [From Protonix] Allergy (Severe, Verified 11/21/19 21:10) RASH pts son states she gets a rash that covers her entire body when taking any med ending in -zole. 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 Penicillins Allergy (Verified 10/28/19 17:35) Review of Systems ROS: No change since H&P Vital Signs and I&O's Vital Signs: Temperature 97.6 F Pulse Rate [Left Brachial] 55 Pulse Rate [Apical] 54 Pulse Rate [Right Posterior 130 Tibial] Pulse Rate 53 Respiratory Rate 18 Blood Pressure [Right Leg] 195/91 Blood Pressure [Left Calf] 185/88 Blood Pressure [Right Arm] 181/76 Blood Pressure [Left Arm] 185/75 Blood Pressure [Right Arm] 154/70 Blood Pressure [Left Arm] 133/61 Blood Pressure [Left Arm] 163/73 Blood Pressure 162/118 O2 Sat by Pulse Oximetry 100 Intake and Output: Intake & Output 11/22/19 11/23/19 11/24/19 11/25/19 23:59 23:59 23:59 23:59 Intake Total 390 / 390 570 / 570 1600 / 1600 660 / 660 Balance 390 / 390 570 / 570 1600 / 1600 660 / 660 Physical Exam Oriented: Person Eyes: Normal Ear: Normal Nose: Normal Throat: Normal Respiratory: Diminished Cardiovascular: Normal Auscultation: Bowel Sounds: Normal Tenderness: Normal (non tender) Skin: Normal Musculoskeletal: Normal Psychiatric: Normal Mood Description: Calm Affect: Normal Speech Pattern: Clear and Appropriate Laboratory and Diagnostics Result Diagrams: 11/25/19 08:48 11/25/19 08:48 Labs: 11/22/19 20:30 Stool Stool Culture - Final 11/22/19 20:30 Stool - Final 11/16/19 12:42 Blood Blood Culture - Final 11/16/19 12:10 Blood Blood Culture - Final 11/17/19 06:15 Arm - Left Gram Stain - Final 11/17/19 06:15 Arm - Left Wound Culture - Final Staphylococcus Aureus Laboratory WBC 3.1 X10^3/uL (3.6-10.0) L 11/25/19 08:48 RBC 3.64 X10^6/uL (3.5-5.4) 11/25/19 08:48 Hgb 10.6 g/dL (12.0-16.0) L 11/25/19 08:48 Hct 31.7 % (36.0-47.0) L 11/25/19 08:48 MCV 87.2 fL (80.0-100.0) 11/25/19 08:48 MCH 29.1 pg (27.0-34.0) 11/25/19 08:48 MCHC 33.3 g/dL (33.0-35.0) 11/25/19 08:48 RDW 18.4 % (11.6-16.5) H 11/25/19 08:48 Plt Count 162 X10^3/uL (150.0-450.0) 11/25/19 08:48 Plt Count Comment Adequate (ADEQUATE) 11/24/19 04:09 MPV 8.1 fL (7.4-11.0) 11/25/19 08:48 Neut % (Auto) 82.9 % (42.0-75.0) H 11/25/19 08:48 Lymph % (Auto) 12.3 % (21.0-51.0) L 11/25/19 08:48 [place] % (Auto) 3.7 % (0.0-13.0) 11/25/19 08:48 Eos % (Auto) 0.6 % (0.9-2.9) L 11/25/19 08:48 Baso % (Auto) 0.5 % (0.2-1.0) 11/25/19 08:48 Neut # (Auto) 2.5 x10^3/uL (2.2-4.8) 11/25/19 08:48 Lymph # (Auto) 0.4 X10^3/uL (1.3-2.9) L 11/25/19 08:48 [place] # (Auto) 0.1 x10^3/uL (0.3-0.8) L 11/25/19 08:48 Eos # (Auto) 0.0 x10^3/uL (0.0-0.2) 11/25/19 08:48 Baso # (Auto) 0.0 X10^3/uL (0.0-0.1) 11/25/19 08:48 Absolute Nucleated RBC 0.0 /100WBC 11/25/19 08:48 Total Counted 100 11/24/19 04:09 Neutrophils % (Manual) 84 % (39-76) H 11/24/19 04:09 Lymphocytes % (Manual) 15 % (13-43) 11/24/19 04:09 Monocytes % (Manual) 1 % (4-9) L 11/24/19 04:09 Plt Morphology Comment Normal (NORMAL) 11/24/19 04:09 RBC Morphology Normal (NORMAL) 11/24/19 04:09 PT 15.2 SECONDS (11.8-14.3) 11/17/19 05:18 INR Target Range - 11/17/19 05:18 INR 1.24 (0.8-1.3) 11/17/19 05:18 APTT 32.3 SECONDS (22.9-36.5) 11/17/19 05:18 PTT Comment - 11/17/19 05:18 Sodium 133 mmol/L (136-145) L 11/25/19 08:48 Corrected Sodium TNP 11/25/19 08:48 Potassium 2.7 mmol/L (3.5-5.1) L* 11/25/19 08:48 Chloride 101 mmol/L (98-107) 11/25/19 08:48 Carbon Dioxide 22.4 mmol/L (21-32) 11/25/19 08:48 BUN 9 mg/dL (7-18) 11/25/19 08:48 Creatinine 0.76 mg/dL (0.55-1.02) 11/25/19 08:48 Est GFR (MDRD) Af Amer > 60 (>60) 11/25/19 08:48 Est GFR (MDRD) Non-Af > 60 (>60) 11/25/19 08:48 Glucose 105 mg/dL (65-99) H 11/25/19 08:48 POC Glucose (mg/dL) 95 mg/dL (65-99) 11/25/19 05:16 Calcium 7.3 mg/dL (8.5-10.1) L 11/25/19 08:48 Corrected Calcium 9.0 mg/dL (8.5-10.1) 11/25/19 08:48 Magnesium 2.3 mg/dL (1.7-2.9) 11/20/19 04:40 Iron 28 ug/dL (50-175) L 11/17/19 05:18 Transferrin 78 mg/dL (202-364) L 11/17/19 05:18 Ferritin 4123 ng/mL (8-252) H 11/17/19 05:18 Total Bilirubin 0.50 mg/dL (0.2-1.0) 11/25/19 08:48 AST 25 Units/L (15-37) 11/25/19 08:48 ALT 20 Units/L (12-78) 11/25/19 08:48 Alkaline Phosphatase 64 Units/L (46-116) 11/25/19 08:48 Creatine Kinase 60 Units/L (26-192) 11/17/19 05:18 CK-MB (CK-2) 1.6 ng/mL (0-4.0) 11/17/19 05:18 CK/CKMB % Calc 2.7 % (<4) 11/17/19 05:18 Troponin I 0.03 ng/mL (0-1.5) 11/17/19 05:18 Total Protein 5.1 g/dL (6.4-8.2) L 11/25/19 08:48 Albumin 1.9 g/dL (3.4-5.0) L 11/25/19 08:48 Globulin 3.2 g/dL (2.5-4.5) 11/25/19 08:48 Albumin/Globulin Ratio 0.6 Ratio (1.1-2.1) L 11/25/19 08:48 Vitamin B12 473 pg/mL (193-986) 11/17/19 05:18 Folate > 20.0 ng/mL (>8.6) 11/17/19 05:18 TSH 3rd Generation 3.076 uIU/mL (0.358-3.74) 11/16/19 09:54 Specimen Type Catherized urine 11/21/19 00:53 Urine Color Yellow (YELLOW) 11/21/19 00:53 Urine Appearance Clear (CLEAR) 11/21/19 00:53 Urine pH 6.0 (5.0 - 8.0) 11/21/19 00:53 Ur Specific [place] 1.015 (1.000-1.030) 11/21/19 00:53 Urine Protein Negative (NEGATIVE) 11/21/19 00:53 Urine Glucose (UA) Negative (NEGATIVE) 11/21/19 00:53 Urine Ketones Negative (NEGATIVE) 11/21/19 00:53 Urine Occult Blood 1+ (NEGATIVE) 11/21/19 00:53 Urine Nitrite Negative (NEGATIVE) 11/21/19 00:53 Urine Bilirubin Negative (NEGATIVE) 11/21/19 00:53 Urine Urobilinogen Normal (NORMAL) 11/21/19 00:53 Ur Leukocyte Esterase Negative (NEGATIVE) 11/21/19 00:53 Urine RBC 0-2 /HPF (0-3) 11/21/19 00:53 Urine WBC None seen /HPF (0-5) 11/21/19 00:53 Ur Squamous Epith Cells Rare /HPF (NEGATIVE) 11/21/19 00:53 Urine Bacteria Negative /HPF (NEGATIVE) 11/21/19 00:53 Urine Mucus Few /HPF (NEGATIVE) 11/16/19 17:35 Ur Culture Indicated? No/not indicated 11/21/19 00:53 Stool Description 15g,lt.brown,unform 11/22/19 20:30 Stl Occult Blood (IFOB) Positive (NEGATIVE) A 11/22/19 20:30 Acetone, Semi-Quant Negative (NEGATIVE) 11/16/19 09:54 SARS-CoV-2 (PCR) Negative (NEGATIVE) 11/16/19 12:00 Tissue Pathology To follow 11/24/19 13:24 Plan (1) Hypokalemia: Status: Acute (2) Hyponatremia: Status: Acute (3) Esophagitis: Status: Acute (4) Atrial fibrillation with RVR: Status: Acute Plan: CARDIZEM DRIP PER PROTOCOL SERIAL CE AND EKG, SUPPLEMENTAL O2 VIERFY HOME MEDICATION, IV HYDRATION WOUND CULTURE IV ATBX, BP MONITORING CONTINUOUS TELEMETRY, CXR AM (5) Cellulitis: Status: Acute (6) CAD (coronary artery disease): Status: Acute (7) CHF (congestive heart failure): Status: Acute (8) Anemia: Status: Acute (9) Hypertension: Status: Chronic (10) Rheumatoid arthritis: Status: Chronic Qualifiers: Rheumatoid arthritis location: multiple sites (11) Type 2 diabetes mellitus: Status: Chronic Qualifiers: Diabetes mellitus complication status: with other specified complication Diabetes mellitus group home insulin use: without group home use Qualified Code(s): E11.69 - Type 2 diabetes mellitus with other specified complication
[2019-11-25] MEDS: MAGNESIUM SULFATE 1 GRAM/100 mL PREMIX 1 GM/100 ML BAG IV PRN ×5 (16:06→22:46)
[2019-11-25] MEDS ORDERED: APRESOLINE INJ 20 MG VIAL IVP ONE (18:00)
[2019-11-25] MEDS ORDERED: APRESOLINE INJ 20 MG VIAL ONE (18:35)
[2019-11-25] MEDS: SNACK - Diabetic Appropriate PO SCH (20:49)
[2019-11-25] MEDS: HumuLIN R SUBCUT PRN (21:26)
[2019-11-26] MEDS: MAGNESIUM SULFATE 1 GRAM/100 mL PREMIX 1 GM/100 ML BAG IV PRN (00:13)
[2019-11-26] MEDS: PEPCID TAB 20 MG PO SCH ×3 (05:12→21:05)
[2019-11-26 08:14] LABS: ALANINE AMINOTRANSFERASE 19 Units/L (12-78); ALKALINE PHOSPHATASE 72 Units/L (46-116); ASPARTATE AMINO TRANSFERASE 27 Units/L (15-37); BLOOD UREA NITROGEN 7 mg/dL (7-18); CALCIUM 7.2 mg/dL (8.5-10.1); CARBON DIOXIDE 20.5 mmol/L (21-32); CHLORIDE 97 mmol/L (98-107); COR CA(FOR HYPOALB) 8.8 mg/dL (8.5-10.1); COR NA(FOR HYPERGLY) 128 mmol/L (136-145); CREATININE 0.81 mg/dL (0.55-1.02); MAGNESIUM 2.4 mg/dL (1.7-2.9); SODIUM 127 mmol/L (136-145); TOTAL PROTEIN 5.4 g/dL (6.4-8.2); eGFR NON BLACK RACES > 60 (>60)
[2019-11-26] MEDS ORDERED: TOPROL XL PO ONE (08:50)
[2019-11-26] MEDS: LASIX IVP SCH (09:11)
[2019-11-26] MEDS: ZYVOX 600MG IV 600 MG/300 ML BAG IV SCH ×2 (09:11→20:13)
[2019-11-26] MEDS: SYNTHROID 88 mcg TAB PO SCH (09:12)
[2019-11-26] MEDS: TOPROL XL PO SCH (09:12)
[2019-11-26] MEDS: BETAPACE AF PO SCH ×2 (09:12→20:15)
[2019-11-26] MEDS: ZESTRIL TAB 5 MG PO SCH (09:12)
[2019-11-26] MEDS: NYSTATIN SUSP MT SCH ×4 (09:13→20:18)
[2019-11-26] MEDS: NS 1000 ML 1,000 ML IV SCH ×2 (09:14→18:20)
[2019-11-26 09:56] LABS: BASOPHILS % (AUTO) 0.7 % (0.2-1.0); EOSINOPHILS % (AUTO) 0.9 % (0.9-2.9); HEMATOCRIT 32.1 % (36.0-47.0); HEMOGLOBIN 10.5 g/dL (12.0-16.0); LYMPHOCYTES # (AUTO) 0.4 X10^3/uL (1.3-2.9); LYMPHOCYTES % (AUTO) 14.6 % (21.0-51.0); MEAN CORPUSCULAR HGB CONC 32.7 g/dL (33.0-35.0); MEAN CORPUSCULAR VOLUME 88.5 fL (80.0-100.0); MEAN PLATELET VOLUME 8.9 fL (7.4-11.0); MONOCYTES # (AUTO) 0.1 x10^3/uL (0.3-0.8); MONOCYTES % (AUTO) 2.8 % (0.0-13.0); NEUTROPHILS # (AUTO) 2.2 x10^3/uL (2.2-4.8); PLATELET COUNT 144 X10^3/uL (150.0-450.0); RED BLOOD COUNT 3.62 X10^6/uL (3.5-5.4); RED CELL DISTRIBUTION WIDTH 18.5 % (11.6-16.5); WHITE BLOOD COUNT 2.8 X10^3/uL (3.6-10.0)
[2019-11-26] MEDS ORDERED: ZESTRIL TAB 5 MG PO ONE (10:00)
[2019-11-26 10:10] LABS: PLATELET MORPHOLOGY COMMENT NORMAL (NORMAL)
--- NOTE | 2019-11-26 11:41 | PCM.PROG ---
Progress Note Progress Note for Day of Date of Exam: 11/26/19 Subjective Subjective: Patient seen at bedside, no acute events overnight. Patient did have elevated BP yesterday evening, received one dose of IV hydralazine. Patient has been admitted for atrial fibrillation with RVR, FOBT positive requiring colonoscopy and EGD. Patient's colonoscopy was normal. EGD showed distal esophagitis with stricture and 2 small antral gastric ulcers. Patient is in normal sinus rhythm. She is also on Zyvox for MSSA wound. Labs: K: 4.1 Na: 128 M.4 hgb: 10.5 Plan: will increase lisinopril to 10 mg, stop Lasix and given gentle hydration, patient CXR yesterday did not suggest pulmonary congestion. Monitor BP and AM labs. CXR: LLL opacity Past Medical Family Social History Past Med/Fam/Surg Hx: No changes since H&P Allergies: Allergies pantoprazole [From Protonix] Allergy (Severe, Verified 11/21/19 21:10) RASH pts son states she gets a rash that covers her entire body when taking any med ending in -zole. 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 Penicillins Allergy (Verified 10/28/19 17:35) Review of Systems ROS: No change since H&P Vital Signs and I&O's Vital Signs: Temperature 97.8 F Pulse Rate [Left Brachial] 58 Pulse Rate [Apical] 54 Pulse Rate [Right Posterior 130 Tibial] Pulse Rate 76 Respiratory Rate 16 Blood Pressure [Right Leg] 195/91 Blood Pressure [Left Calf] 159/70 Blood Pressure [Right Arm] 181/76 Blood Pressure [Left Arm] 185/75 Blood Pressure [Right Arm] 154/70 Blood Pressure [Left Arm] 133/61 Blood Pressure [Left Arm] 163/73 Blood Pressure 162/118 O2 Sat by Pulse Oximetry 100 Intake and Output: Intake & Output 11/23/19 11/24/19 11/25/19 11/26/19 23:59 23:59 23:59 23:59 Intake Total 570 / 570 1600 / 1600 2099 / 2100 460 / 460 Balance 570 / 570 1600 / 1600 2099 / 2100 460 / 460 Physical Exam Oriented: Person Eyes: Normal Ear: Normal Nose: Normal Throat: Normal Respiratory: Diminished Cardiovascular: Normal Auscultation: Bowel Sounds: Normal Tenderness: Normal (non tender) Skin: Normal Musculoskeletal: Normal Psychiatric: Normal Mood Description: Calm Affect: Normal Speech Pattern: Clear and Appropriate Laboratory and Diagnostics Result Diagrams: 11/26/19 06:45 11/26/19 06:45 Labs: 11/22/19 20:30 Stool Stool Culture - Final 11/22/19 20:30 Stool - Final 11/16/19 12:42 Blood Blood Culture - Final 11/16/19 12:10 Blood Blood Culture - Final 11/17/19 06:15 Arm - Left Gram Stain - Final 11/17/19 06:15 Arm - Left Wound Culture - Final Staphylococcus Aureus Laboratory WBC 2.8 X10^3/uL (3.6-10.0) L 11/26/19 06:45 RBC 3.62 X10^6/uL (3.5-5.4) 11/26/19 06:45 Hgb 10.5 g/dL (12.0-16.0) L 11/26/19 06:45 Hct 32.1 % (36.0-47.0) L 11/26/19 06:45 MCV 88.5 fL (80.0-100.0) 11/26/19 06:45 MCH 29.0 pg (27.0-34.0) 11/26/19 06:45 MCHC 32.7 g/dL (33.0-35.0) L 11/26/19 06:45 RDW 18.5 % (11.6-16.5) H 11/26/19 06:45 Plt Count 144 X10^3/uL (150.0-450.0) L 11/26/19 06:45 Plt Count Comment Adequate (ADEQUATE) 11/26/19 06:45 MPV 8.9 fL (7.4-11.0) 11/26/19 06:45 Neut % (Auto) 81.0 % (42.0-75.0) H 11/26/19 06:45 Lymph % (Auto) 14.6 % (21.0-51.0) L 11/26/19 06:45 [place] % (Auto) 2.8 % (0.0-13.0) 11/26/19 06:45 Eos % (Auto) 0.9 % (0.9-2.9) 11/26/19 06:45 Baso % (Auto) 0.7 % (0.2-1.0) 11/26/19 06:45 Neut # (Auto) 2.2 x10^3/uL (2.2-4.8) 11/26/19 06:45 Lymph # (Auto) 0.4 X10^3/uL (1.3-2.9) L 11/26/19 06:45 [place] # (Auto) 0.1 x10^3/uL (0.3-0.8) L 11/26/19 06:45 Eos # (Auto) 0.0 x10^3/uL (0.0-0.2) 11/26/19 06:45 Baso # (Auto) 0.0 X10^3/uL (0.0-0.1) 11/26/19 06:45 Absolute Nucleated RBC 0.2 /100WBC 11/26/19 06:45 Total Counted 100 11/24/19 04:09 Neutrophils % (Manual) 84 % (39-76) H 11/24/19 04:09 Lymphocytes % (Manual) 15 % (13-43) 11/24/19 04:09 Monocytes % (Manual) 1 % (4-9) L 11/24/19 04:09 Plt Morphology Comment Normal (NORMAL) 11/26/19 06:45 RBC Morphology Normal (NORMAL) 11/26/19 06:45 PT 15.2 SECONDS (11.8-14.3) 11/17/19 05:18 INR Target Range - 11/17/19 05:18 INR 1.24 (0.8-1.3) 11/17/19 05:18 APTT 32.3 SECONDS (22.9-36.5) 11/17/19 05:18 PTT Comment - 11/17/19 05:18 Sodium 127 mmol/L (136-145) L 11/26/19 06:45 Corrected Sodium 128 mmol/L (136-145) L 11/26/19 06:45 Potassium 4.1 mmol/L (3.5-5.1) 11/26/19 06:45 Chloride 97 mmol/L (98-107) L 11/26/19 06:45 Carbon Dioxide 20.5 mmol/L (21-32) L 11/26/19 06:45 BUN 7 mg/dL (7-18) 11/26/19 06:45 Creatinine 0.81 mg/dL (0.55-1.02) 11/26/19 06:45 Est GFR (MDRD) Af Amer > 60 (>60) 11/26/19 06:45 Est GFR (MDRD) Non-Af > 60 (>60) 11/26/19 06:45 Glucose 146 mg/dL (65-99) H 11/26/19 06:45 POC Glucose (mg/dL) 229 mg/dL (65-99) H 11/26/19 10:38 Calcium 7.2 mg/dL (8.5-10.1) L 11/26/19 06:45 Corrected Calcium 8.8 mg/dL (8.5-10.1) 11/26/19 06:45 Magnesium 2.4 mg/dL (1.7-2.9) 11/26/19 06:45 Iron 28 ug/dL (50-175) L 11/17/19 05:18 Transferrin 78 mg/dL (202-364) L 11/17/19 05:18 Ferritin 4123 ng/mL (8-252) H 11/17/19 05:18 Total Bilirubin 0.40 mg/dL (0.2-1.0) 11/26/19 06:45 AST 27 Units/L (15-37) 11/26/19 06:45 ALT 19 Units/L (12-78) 11/26/19 06:45 Alkaline Phosphatase 72 Units/L (46-116) 11/26/19 06:45 Creatine Kinase 60 Units/L (26-192) 11/17/19 05:18 CK-MB (CK-2) 1.6 ng/mL (0-4.0) 11/17/19 05:18 CK/CKMB % Calc 2.7 % (<4) 11/17/19 05:18 Troponin I 0.03 ng/mL (0-1.5) 11/17/19 05:18 Total Protein 5.4 g/dL (6.4-8.2) L 11/26/19 06:45 Albumin 2.0 g/dL (3.4-5.0) L 11/26/19 06:45 Globulin 3.4 g/dL (2.5-4.5) 11/26/19 06:45 Albumin/Globulin Ratio 0.6 Ratio (1.1-2.1) L 11/26/19 06:45 Vitamin B12 473 pg/mL (193-986) 11/17/19 05:18 Folate > 20.0 ng/mL (>8.6) 11/17/19 05:18 TSH 3rd Generation 3.076 uIU/mL (0.358-3.74) 11/16/19 09:54 Specimen Type Catherized urine 11/21/19 00:53 Urine Color Yellow (YELLOW) 11/21/19 00:53 Urine Appearance Clear (CLEAR) 11/21/19 00:53 Urine pH 6.0 (5.0 - 8.0) 11/21/19 00:53 Ur Specific [place] 1.015 (1.000-1.030) 11/21/19 00:53 Urine Protein Negative (NEGATIVE) 11/21/19 00:53 Urine Glucose (UA) Negative (NEGATIVE) 11/21/19 00:53 Urine Ketones Negative (NEGATIVE) 11/21/19 00:53 Urine Occult Blood 1+ (NEGATIVE) 11/21/19 00:53 Urine Nitrite Negative (NEGATIVE) 11/21/19 00:53 Urine Bilirubin Negative (NEGATIVE) 11/21/19 00:53 Urine Urobilinogen Normal (NORMAL) 11/21/19 00:53 Ur Leukocyte Esterase Negative (NEGATIVE) 11/21/19 00:53 Urine RBC 0-2 /HPF (0-3) 11/21/19 00:53 Urine WBC None seen /HPF (0-5) 11/21/19 00:53 Ur Squamous Epith Cells Rare /HPF (NEGATIVE) 11/21/19 00:53 Urine Bacteria Negative /HPF (NEGATIVE) 11/21/19 00:53 Urine Mucus Few /HPF (NEGATIVE) 11/16/19 17:35 Ur Culture Indicated? No/not indicated 11/21/19 00:53 Stool Description 15g,lt.brown,unform 11/22/19 20:30 Stl Occult Blood (IFOB) Positive (NEGATIVE) A 11/22/19 20:30 Acetone, Semi-Quant Negative (NEGATIVE) 11/16/19 09:54 SARS-CoV-2 (PCR) Negative (NEGATIVE) 11/16/19 12:00 Tissue Pathology To follow 11/24/19 13:24 Plan (1) Hypokalemia: Status: Acute (2) Hyponatremia: Status: Acute (3) Esophagitis: Status: Acute (4) Atrial fibrillation with RVR: Status: Acute Plan: CARDIZEM DRIP PER PROTOCOL SERIAL CE AND EKG, SUPPLEMENTAL O2 VIERFY HOME MEDICATION, IV HYDRATION WOUND CULTURE IV ATBX, BP MONITORING CONTINUOUS TELEMETRY, CXR AM (5) Cellulitis: Status: Acute (6) CAD (coronary artery disease): Status: Acute (7) CHF (congestive heart failure): Status: Acute (8) Anemia: Status: Acute (9) Hypertension: Status: Chronic (10) Rheumatoid arthritis: Status: Chronic Qualifiers: Rheumatoid arthritis location: multiple sites (11) Type 2 diabetes mellitus: Status: Chronic Qualifiers: Diabetes mellitus complication status: with other specified complication Diabetes mellitus oysterman insulin use: without oyst[place] use Qualified Code(s): E11.69 - Type 2 diabetes mellitus with other specified complication
[2019-11-26] MEDS: HumuLIN R SUBCUT PRN (12:06)
[2019-11-26] MEDS: SNACK - Diabetic Appropriate PO SCH (21:04)
[2019-11-27] MEDS: NS 1000 ML 1,000 ML IV SCH ×4 (01:18→18:15)
[2019-11-27] MEDS: PEPCID TAB 20 MG PO SCH ×3 (05:26→22:26)
[2019-11-27 06:25] LABS: BASOPHILS % (AUTO) 0.4 % (0.2-1.0); EOSINOPHILS % (AUTO) 1.1 % (0.9-2.9); HEMATOCRIT 30.1 % (36.0-47.0); HEMOGLOBIN 10.1 g/dL (12.0-16.0); LYMPHOCYTES # (AUTO) 0.5 X10^3/uL (1.3-2.9); LYMPHOCYTES % (AUTO) 18.1 % (21.0-51.0); MEAN CORPUSCULAR HEMOGLOBIN 29.3 pg (27.0-34.0); MEAN CORPUSCULAR HGB CONC 33.7 g/dL (33.0-35.0); MEAN CORPUSCULAR VOLUME 86.9 fL (80.0-100.0); MEAN PLATELET VOLUME 8.2 fL (7.4-11.0); MONOCYTES # (AUTO) 0.1 x10^3/uL (0.3-0.8); NEUTROPHILS # (AUTO) 2.2 x10^3/uL (2.2-4.8); NEUTROPHILS % (AUTO) 77.4 % (42.0-75.0); PLATELET COUNT 107 X10^3/uL (150.0-450.0); RED BLOOD COUNT 3.46 X10^6/uL (3.5-5.4); RED CELL DISTRIBUTION WIDTH 18.8 % (11.6-16.5); WHITE BLOOD COUNT 2.8 X10^3/uL (3.6-10.0)
[2019-11-27 06:39] LABS: ALANINE AMINOTRANSFERASE 18 Units/L (12-78); ALBUMIN 1.9 g/dL (3.4-5.0); ALKALINE PHOSPHATASE 73 Units/L (46-116); ASPARTATE AMINO TRANSFERASE 26 Units/L (15-37); BLOOD UREA NITROGEN 8 mg/dL (7-18); CALCIUM 7.3 mg/dL (8.5-10.1); CARBON DIOXIDE 21.3 mmol/L (21-32); CHLORIDE 98 mmol/L (98-107); COR NA(FOR HYPERGLY) 128 mmol/L (136-145); CREATININE 0.76 mg/dL (0.55-1.02); SODIUM 128 mmol/L (136-145); TOTAL PROTEIN 5.2 g/dL (6.4-8.2); eGFR NON BLACK RACES > 60 (>60)
[2019-11-27] MEDS ORDERED: TOPROL XL PO ONE (08:13)
[2019-11-27] MEDS: SYNTHROID 88 mcg TAB PO SCH (08:46)
[2019-11-27] MEDS: ZESTRIL TAB 5 MG PO SCH (08:46)
[2019-11-27] MEDS: K-DUR TAB 20 MEQ PO PRN (08:46)
[2019-11-27] MEDS: BETAPACE AF PO SCH ×2 (08:47→22:21)
[2019-11-27] MEDS: TOPROL XL PO SCH (08:47)
[2019-11-27] MEDS: ZYVOX 600MG IV 600 MG/300 ML BAG IV SCH ×2 (08:48→22:20)
[2019-11-27] MEDS: NYSTATIN SUSP MT SCH ×4 (08:48→22:21)
[2019-11-27] MEDS ORDERED: HumuLIN R SUBCUT PRN (12:00)
[2019-11-27] MEDS: DUONEB 0.5 MG/3 MG (3 mL) NEB PRN (20:40)
--- NOTE | 2019-11-27 22:15 | PCM.PROG ---
Progress Note - Progress Note for Day of Date of Exam: 11/27/19 - Subjective Subjective: Patient seen at bedside, no acute events overnight. Patient has been admitted for atrial fibrillation with RVR, FOBT positive requiring colonoscopy and EGD. Patient's colonoscopy was normal. EGD showed distal esophagitis with stricture and 2 small antral gastric ulcers. Patient is in normal sinus rhythm. She is also on Zyvox for MSSA wound. Sodium 128 today. Patient denies any complants at present. Labs: K: 4.1 Na: 128 M.4 hgb: 10.5. Plan: will increase lisinopril to 10 mg, stop Lasix and given gentle hydration, patient CXR yesterday did not suggest pulmonary congestion. Monitor BP and AM labs. CXR: LLL opacity. - Past Medical Family Social History Past Med/Fam/Surg Hx: No changes since H&P Allergies: Allergies pantoprazole [From Protonix] Allergy (Severe, Verified 11/21/19 21:10) RASH pts son states she gets a rash that covers her entire body when taking any med ending in -zole. 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 Penicillins Allergy (Verified 10/28/19 17:35) - Review of Systems ROS: No change since H&P - Vital Signs and I&O's Vital Signs: Temperature 99.0 F Pulse Rate [Left Brachial] 61 Pulse Rate [Apical] 54 Pulse Rate [Right Posterior 130 Tibial] Pulse Rate 82 Respiratory Rate 20 Blood Pressure [Right Leg] 187/74 Blood Pressure [Left Calf] 169/99 Blood Pressure [Right Arm] 181/76 Blood Pressure [Left Arm] 185/75 Blood Pressure [Right Arm] 154/70 Blood Pressure [Left Arm] 133/61 Blood Pressure [Left Arm] 163/73 Blood Pressure 162/118 O2 Sat by Pulse Oximetry 100 Intake and Output: Intake & Output 11/24/19 11/25/19 11/26/19 11/27/19 23:59 23:59 23:59 23:59 Intake Total 1600 / 1600 2099 / 2100 2377 / 2377 240 / 240 Balance 1600 / 1600 2099 / 2100 2377 / 2377 240 / 240 - Physical Exam Oriented: Person Eyes: Normal Ear: Normal Nose: Normal Throat: Normal Respiratory: Diminished Cardiovascular: Normal : Normal Auscultation: Bowel Sounds: Normal Tenderness: Normal (non tender) Skin: Normal Musculoskeletal: Instability Psychiatric: Normal Mood Description: Calm Affect: Normal Speech Pattern: Clear, Appropriate - Laboratory and Diagnostics Result Diagrams: 11/27/19 05:35 11/27/19 05:35 Labs: 11/22/19 20:30 Stool Stool Culture - Final 11/22/19 20:30 Stool - Final 11/16/19 12:42 Blood Blood Culture - Final 11/16/19 12:10 Blood Blood Culture - Final 11/17/19 06:15 Arm - Left Gram Stain - Final 11/17/19 06:15 Arm - Left Wound Culture - Final Staphylococcus Aureus Laboratory WBC 2.8 X10^3/uL (3.6-10.0) L 11/27/19 05:35 RBC 3.46 X10^6/uL (3.5-5.4) L 11/27/19 05:35 Hgb 10.1 g/dL (12.0-16.0) L 11/27/19 05:35 Hct 30.1 % (36.0-47.0) L 11/27/19 05:35 MCV 86.9 fL (80.0-100.0) 11/27/19 05:35 MCH 29.3 pg (27.0-34.0) 11/27/19 05:35 MCHC 33.7 g/dL (33.0-35.0) 11/27/19 05:35 RDW 18.8 % (11.6-16.5) H 11/27/19 05:35 Plt Count 107 X10^3/uL (150.0-450.0) L 11/27/19 05:35 Plt Count Comment Adequate (ADEQUATE) 11/26/19 06:45 MPV 8.2 fL (7.4-11.0) 11/27/19 05:35 Neut % (Auto) 77.4 % (42.0-75.0) H 11/27/19 05:35 Lymph % (Auto) 18.1 % (21.0-51.0) L 11/27/19 05:35 Walsh % (Auto) 3.0 % (0.0-13.0) 11/27/19 05:35 Eos % (Auto) 1.1 % (0.9-2.9) 11/27/19 05:35 Baso % (Auto) 0.4 % (0.2-1.0) 11/27/19 05:35 Neut # (Auto) 2.2 x10^3/uL (2.2-4.8) 11/27/19 05:35 Lymph # (Auto) 0.5 X10^3/uL (1.3-2.9) L 11/27/19 05:35 Walsh # (Auto) 0.1 x10^3/uL (0.3-0.8) L 11/27/19 05:35 Eos # (Auto) 0.0 x10^3/uL (0.0-0.2) 11/27/19 05:35 Baso # (Auto) 0.0 X10^3/uL (0.0-0.1) 11/27/19 05:35 Absolute Nucleated RBC 0.1 /100WBC 11/27/19 05:35 Total Counted 100 11/24/19 04:09 Neutrophils % (Manual) 84 % (39-76) H 11/24/19 04:09 Lymphocytes % (Manual) 15 % (13-43) 11/24/19 04:09 Monocytes % (Manual) 1 % (4-9) L 11/24/19 04:09 Plt Morphology Comment Normal (NORMAL) 11/26/19 06:45 RBC Morphology Normal (NORMAL) 11/26/19 06:45 PT 15.2 SECONDS (11.8-14.3) 11/17/19 05:18 INR Target Range - 11/17/19 05:18 INR 1.24 (0.8-1.3) 11/17/19 05:18 APTT 32.3 SECONDS (22.9-36.5) 11/17/19 05:18 PTT Comment - 11/17/19 05:18 Sodium 128 mmol/L (136-145) L 11/27/19 05:35 Corrected Sodium 128 mmol/L (136-145) L 11/27/19 05:35 Potassium 3.4 mmol/L (3.5-5.1) L 11/27/19 05:35 Chloride 98 mmol/L (98-107) 11/27/19 05:35 Carbon Dioxide 21.3 mmol/L (21-32) 11/27/19 05:35 BUN 8 mg/dL (7-18) 11/27/19 05:35 Creatinine 0.76 mg/dL (0.55-1.02) 11/27/19 05:35 Est GFR (MDRD) Af Amer > 60 (>60) 11/27/19 05:35 Est GFR (MDRD) Non-Af > 60 (>60) 11/27/19 05:35 Glucose 119 mg/dL (65-99) H 11/27/19 05:35 POC Glucose (mg/dL) 77 mg/dL (65-99) 11/27/19 17:40 Calcium 7.3 mg/dL (8.5-10.1) L 11/27/19 05:35 Corrected Calcium 9.0 mg/dL (8.5-10.1) 11/27/19 05:35 Magnesium 2.4 mg/dL (1.7-2.9) 11/26/19 06:45 Iron 28 ug/dL (50-175) L 11/17/19 05:18 Transferrin 78 mg/dL (202-364) L 11/17/19 05:18 Ferritin 4123 ng/mL (8-252) H 11/17/19 05:18 Total Bilirubin 0.30 mg/dL (0.2-1.0) 11/27/19 05:35 AST 26 Units/L (15-37) 11/27/19 05:35 ALT 18 Units/L (12-78) 11/27/19 05:35 Alkaline Phosphatase 73 Units/L (46-116) 11/27/19 05:35 Creatine Kinase 60 Units/L (26-192) 11/17/19 05:18 CK-MB (CK-2) 1.6 ng/mL (0-4.0) 11/17/19 05:18 CK/CKMB % Calc 2.7 % (<4) 11/17/19 05:18 Troponin I 0.03 ng/mL (0-1.5) 11/17/19 05:18 Total Protein 5.2 g/dL (6.4-8.2) L 11/27/19 05:35 Albumin 1.9 g/dL (3.4-5.0) L 11/27/19 05:35 Globulin 3.3 g/dL (2.5-4.5) 11/27/19 05:35 Albumin/Globulin Ratio 0.6 Ratio (1.1-2.1) L 11/27/19 05:35 Vitamin B12 473 pg/mL (193-986) 11/17/19 05:18 Folate > 20.0 ng/mL (>8.6) 11/17/19 05:18 TSH 3rd Generation 3.076 uIU/mL (0.358-3.74) 11/16/19 09:54 Specimen Type Catherized urine 11/21/19 00:53 Urine Color Yellow (YELLOW) 11/21/19 00:53 Urine Appearance Clear (CLEAR) 11/21/19 00:53 Urine pH 6.0 (5.0 - 8.0) 11/21/19 00:53 Ur Specific [place] 1.015 (1.000-1.030) 11/21/19 00:53 Urine Protein Negative (NEGATIVE) 11/21/19 00:53 Urine Glucose (UA) Negative (NEGATIVE) 11/21/19 00:53 Urine Ketones Negative (NEGATIVE) 11/21/19 00:53 Urine Occult Blood 1+ (NEGATIVE) 11/21/19 00:53 Urine Nitrite Negative (NEGATIVE) 11/21/19 00:53 Urine Bilirubin Negative (NEGATIVE) 11/21/19 00:53 Urine Urobilinogen Normal (NORMAL) 11/21/19 00:53 Ur Leukocyte Esterase Negative (NEGATIVE) 11/21/19 00:53 Urine RBC 0-2 /HPF (0-3) 11/21/19 00:53 Urine WBC None seen /HPF (0-5) 11/21/19 00:53 Ur Squamous Epith Cells Rare /HPF (NEGATIVE) 11/21/19 00:53 Urine Bacteria Negative /HPF (NEGATIVE) 11/21/19 00:53 Urine Mucus Few /HPF (NEGATIVE) 11/16/19 17:35 Ur Culture Indicated? No/not indicated 11/21/19 00:53 Stool Description 15g,lt.brown,unform 11/22/19 20:30 Stl Occult Blood (IFOB) Positive (NEGATIVE) A 11/22/19 20:30 Acetone, Semi-Quant Negative (NEGATIVE) 11/16/19 09:54 SARS-CoV-2 (PCR) Negative (NEGATIVE) 11/16/19 12:00 Tissue Pathology To follow 11/24/19 13:24 - Plan (1) Atrial fibrillation with RVR Status: Acute Plan: Continue current meds. Monitor heart rate. (2) Esophagitis Status: Acute (3) Hyponatremia Status: Acute Plan: Limit water intake. Increase sodium containing foods and beverages. Labs. (4) CKD (chronic kidney disease) stage 3, GFR 30-59 ml/min Status: Chronic Plan: IV hydration, Monitor labs. (5) Hypertension Status: Chronic Qualifiers: Hypertension type: essential hypertension Qualified Code(s): I10 - Essential (primary) hypertension Plan: Monitor BP, Home meds.
[2019-11-27] MEDS: SNACK - Diabetic Appropriate PO SCH (22:19)
[2019-11-28 06:05] LABS: ALANINE AMINOTRANSFERASE 15 Units/L (12-78); ALBUMIN 1.8 g/dL (3.4-5.0); ALKALINE PHOSPHATASE 69 Units/L (46-116); ASPARTATE AMINO TRANSFERASE 21 Units/L (15-37); BLOOD UREA NITROGEN 5 mg/dL (7-18); CARBON DIOXIDE 24.1 mmol/L (21-32); CHLORIDE 100 mmol/L (98-107); COR CA(FOR HYPOALB) 8.8 mg/dL (8.5-10.1); CREATININE 0.68 mg/dL (0.55-1.02); SODIUM 129 mmol/L (136-145); TOTAL PROTEIN 4.7 g/dL (6.4-8.2); eGFR NON BLACK RACES > 60 (>60)
[2019-11-28 06:08] LABS: BASOPHILS % (AUTO) 0.6 % (0.2-1.0); EOSINOPHILS % (AUTO) 1.6 % (0.9-2.9); HEMATOCRIT 29.5 % (36.0-47.0); HEMOGLOBIN 9.8 g/dL (12.0-16.0); LYMPHOCYTES # (AUTO) 0.6 X10^3/uL (1.3-2.9); LYMPHOCYTES % (AUTO) 26.2 % (21.0-51.0); MEAN CORPUSCULAR HEMOGLOBIN 29.2 pg (27.0-34.0); MEAN CORPUSCULAR HGB CONC 33.3 g/dL (33.0-35.0); MEAN CORPUSCULAR VOLUME 87.8 fL (80.0-100.0); MEAN PLATELET VOLUME 8.2 fL (7.4-11.0); MONOCYTES # (AUTO) 0.1 x10^3/uL (0.3-0.8); MONOCYTES % (AUTO) 3.8 % (0.0-13.0); NEUTROPHILS # (AUTO) 1.5 x10^3/uL (2.2-4.8); NEUTROPHILS % (AUTO) 67.8 % (42.0-75.0); PLATELET COUNT 84 X10^3/uL (150.0-450.0); RED BLOOD COUNT 3.36 X10^6/uL (3.5-5.4); RED CELL DISTRIBUTION WIDTH 18.8 % (11.6-16.5); WHITE BLOOD COUNT 2.2 X10^3/uL (3.6-10.0)
[2019-11-28] MEDS: NS 1000 ML 1,000 ML IV SCH (06:30)
[2019-11-28] MEDS: PEPCID TAB 20 MG PO SCH ×3 (06:31→21:31)
[2019-11-28 06:51] LABS: PLATELET MORPHOLOGY COMMENT NORMAL (NORMAL)
[2019-11-28] MEDS ORDERED: TOPROL XL PO ONE (08:36)
[2019-11-28] MEDS: BETAPACE AF PO SCH ×2 (08:52→21:31)
[2019-11-28] MEDS: NYSTATIN SUSP MT SCH ×4 (08:54→21:32)
[2019-11-28] MEDS: TOPROL XL PO SCH (08:54)
[2019-11-28] MEDS: SYNTHROID 88 mcg TAB PO SCH (08:54)
[2019-11-28] MEDS: ZESTRIL TAB 5 MG PO SCH (08:54)
[2019-11-28] MEDS: ZYVOX 600MG IV 600 MG/300 ML BAG IV SCH (08:55)
[2019-11-28] MEDS: DUONEB 0.5 MG/3 MG (3 mL) NEB PRN (09:15)
[2019-11-28] MEDS: THERMOTABS PO SCH ×2 (14:48→21:31)
[2019-11-28] MEDS: MAG-OX TAB PO SCH (17:11)
--- NOTE | 2019-11-28 17:20 | RAD ---
HISTORYSOBSTUDYCHEST, 1 VIEWCOMPARISONPortable chest November 25, 2019.FINDINGSThe trachea is midline. The cardiac silhouette is unremarkable. There is persistent opacity in the left lower lobe retro cardiac region silhouetting the left hemidiaphragm consistent with dense atelectasis or pneumonia in the left lower lobe. There is persistent mild central vascular congestion bilaterally but no definite pleural effusions are observed.. The bony thorax is unremarkable.IMPRESSIONPersistent left lower lobe retrocardiac opacity suspicious for pneumonia. Mild central vascular congestion is also present without findings of CHF. Recommend continued radiographic follow-up. If possible PA and lateral chest would be helpful to evaluate the left lower lobe retrocardiac region.Electronically signed by: MARNIE ETIENNE (Nov 28, 2019 15:54:26)
[2019-11-28] MEDS: ZYVOX TAB 600 MG PO SCH (21:32)
[2019-11-28] MEDS: SNACK - Diabetic Appropriate PO SCH (21:33)
[2019-11-28] MEDS: NORCO 5/325 MG TAB PO PRN (21:38)
--- NOTE | 2019-11-28 22:12 | PCM.PROG ---
Progress Note - Progress Note for Day of Date of Exam: 11/28/19 - Subjective Subjective: Patient in bed, no acute events overnight. Patient has been admitted for atrial fibrillation with RVR, FOBT positive requiring colonoscopy and EGD. Patient's colonoscopy was normal. EGD showed distal esophagitis with stricture and 2 small antral gastric ulcers. Patient is in AFIB rhythm. She is also on Zyvox for MSSA wound. Sodium 129 today. Patient denies any complants at present. Denies any complaints. - Past Medical Family Social History Past Med/Fam/Surg Hx: No changes since H&P Allergies: Allergies pantoprazole [From Protonix] Allergy (Severe, Verified 11/21/19 21:10) RASH pts son states she gets a rash that covers her entire body when taking any med ending in -zole. 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 Penicillins Allergy (Verified 10/28/19 17:35) - Review of Systems ROS: No change since H&P - Vital Signs and I&O's Vital Signs: Temperature 97.9 F Pulse Rate [Left Brachial] 69 Pulse Rate [Apical] 54 Pulse Rate [Right Posterior 130 Tibial] Pulse Rate 55 Respiratory Rate 16 Blood Pressure [Right Leg] 171/92 Blood Pressure [Left Calf] 175/74 Blood Pressure [Right Arm] 181/76 Blood Pressure [Left Arm] 185/75 Blood Pressure [Right Arm] 154/70 Blood Pressure [Left Arm] 133/61 Blood Pressure [Left Arm] 136/68 Blood Pressure 162/118 O2 Sat by Pulse Oximetry 98 Intake and Output: Intake & Output 11/25/19 11/26/19 11/27/19 11/28/19 23:59 23:59 23:59 23:59 Intake Total 2099 2377 / 2377 510 / 510 860 / 860 Balance 2099 2377 / 2377 510 / 510 860 / 860 - Physical Exam Oriented: Person Eyes: Normal Ear: Normal Nose: Normal Throat: Normal Respiratory: Diminished Cardiovascular: Irregular : Normal Auscultation: Bowel Sounds: Normal Tenderness: Normal (non tender) Skin: Normal Musculoskeletal: Instability Psychiatric: Normal Mood Description: Calm Affect: Normal Speech Pattern: Clear, Inappropriate - Laboratory and Diagnostics Result Diagrams: 11/28/19 05:27 11/28/19 05:27 Labs: 11/22/19 20:30 Stool Stool Culture - Final 11/22/19 20:30 Stool - Final 11/16/19 12:42 Blood Blood Culture - Final 11/16/19 12:10 Blood Blood Culture - Final 11/17/19 06:15 Arm - Left Gram Stain - Final 11/17/19 06:15 Arm - Left Wound Culture - Final Staphylococcus Aureus Laboratory WBC 2.2 X10^3/uL (3.6-10.0) L 11/28/19 05:27 RBC 3.36 X10^6/uL (3.5-5.4) L 11/28/19 05:27 Hgb 9.8 g/dL (12.0-16.0) L 11/28/19 05:27 Hct 29.5 % (36.0-47.0) L 11/28/19 05:27 MCV 87.8 fL (80.0-100.0) 11/28/19 05:27 MCH 29.2 pg (27.0-34.0) 11/28/19 05:27 MCHC 33.3 g/dL (33.0-35.0) 11/28/19 05:27 RDW 18.8 % (11.6-16.5) H 11/28/19 05:27 Plt Count 84 X10^3/uL (150.0-450.0) L 11/28/19 05:27 Plt Count Comment Decreased (ADEQUATE) A 11/28/19 05:27 MPV 8.2 fL (7.4-11.0) 11/28/19 05:27 Neut % (Auto) 67.8 % (42.0-75.0) 11/28/19 05:27 Lymph % (Auto) 26.2 % (21.0-51.0) 11/28/19 05:27 Emanuel % (Auto) 3.8 % (0.0-13.0) 11/28/19 05:27 Eos % (Auto) 1.6 % (0.9-2.9) 11/28/19 05:27 Baso % (Auto) 0.6 % (0.2-1.0) 11/28/19 05:27 Neut # (Auto) 1.5 x10^3/uL (2.2-4.8) L 11/28/19 05:27 Lymph # (Auto) 0.6 X10^3/uL (1.3-2.9) L 11/28/19 05:27 Emanuel # (Auto) 0.1 x10^3/uL (0.3-0.8) L 11/28/19 05:27 Eos # (Auto) 0.0 x10^3/uL (0.0-0.2) 11/28/19 05:27 Baso # (Auto) 0.0 X10^3/uL (0.0-0.1) 11/28/19 05:27 Absolute Nucleated RBC 0.1 /100WBC 11/28/19 05:27 Total Counted 100 11/28/19 05:27 Neutrophils % (Manual) 68 % (39-76) 11/28/19 05:27 Lymphocytes % (Manual) 27 % (13-43) 11/28/19 05:27 Monocytes % (Manual) 5 % (4-9) 11/28/19 05:27 Plt Morphology Comment Normal (NORMAL) 11/28/19 05:27 RBC Morphology Normal (NORMAL) 11/28/19 05:27 PT 15.2 SECONDS (11.8-14.3) 11/17/19 05:18 INR Target Range - 11/17/19 05:18 INR 1.24 (0.8-1.3) 11/17/19 05:18 APTT 32.3 SECONDS (22.9-36.5) 11/17/19 05:18 PTT Comment - 11/17/19 05:18 Sodium 129 mmol/L (136-145) L 11/28/19 05:27 Corrected Sodium TNP 11/28/19 05:27 Potassium 3.6 mmol/L (3.5-5.1) 11/28/19 05:27 Chloride 100 mmol/L (98-107) 11/28/19 05:27 Carbon Dioxide 24.1 mmol/L (21-32) 11/28/19 05:27 BUN 5 mg/dL (7-18) L 11/28/19 05:27 Creatinine 0.68 mg/dL (0.55-1.02) 11/28/19 05:27 Est GFR (MDRD) Af Amer > 60 (>60) 11/28/19 05:27 Est GFR (MDRD) Non-Af > 60 (>60) 11/28/19 05:27 Glucose 96 mg/dL (65-99) 11/28/19 05:27 POC Glucose (mg/dL) 207 mg/dL (65-99) H 11/28/19 21:05 Calcium 7.0 mg/dL (8.5-10.1) L 11/28/19 05:27 Corrected Calcium 8.8 mg/dL (8.5-10.1) 11/28/19 05:27 Magnesium 1.3 mg/dL (1.7-2.9) L 11/28/19 05:27 Iron 28 ug/dL (50-175) L 11/17/19 05:18 Transferrin 78 mg/dL (202-364) L 11/17/19 05:18 Ferritin 4123 ng/mL (8-252) H 11/17/19 05:18 Total Bilirubin 0.30 mg/dL (0.2-1.0) 11/28/19 05:27 AST 21 Units/L (15-37) 11/28/19 05:27 ALT 15 Units/L (12-78) 11/28/19 05:27 Alkaline Phosphatase 69 Units/L (46-116) 11/28/19 05:27 Creatine Kinase 60 Units/L (26-192) 11/17/19 05:18 CK-MB (CK-2) 1.6 ng/mL (0-4.0) 11/17/19 05:18 CK/CKMB % Calc 2.7 % (<4) 11/17/19 05:18 Troponin I 0.03 ng/mL (0-1.5) 11/17/19 05:18 Total Protein 4.7 g/dL (6.4-8.2) L 11/28/19 05:27 Albumin 1.8 g/dL (3.4-5.0) L 11/28/19 05:27 Globulin 2.9 g/dL (2.5-4.5) 11/28/19 05:27 Albumin/Globulin Ratio 0.6 Ratio (1.1-2.1) L 11/28/19 05:27 Vitamin B12 473 pg/mL (193-986) 11/17/19 05:18 Folate > 20.0 ng/mL (>8.6) 11/17/19 05:18 TSH 3rd Generation 3.076 uIU/mL (0.358-3.74) 11/16/19 09:54 Specimen Type Catherized urine 11/21/19 00:53 Urine Color Yellow (YELLOW) 11/21/19 00:53 Urine Appearance Clear (CLEAR) 11/21/19 00:53 Urine pH 6.0 (5.0 - 8.0) 11/21/19 00:53 Ur Specific [place] 1.015 (1.000-1.030) 11/21/19 00:53 Urine Protein Negative (NEGATIVE) 11/21/19 00:53 Urine Glucose (UA) Negative (NEGATIVE) 11/21/19 00:53 Urine Ketones Negative (NEGATIVE) 11/21/19 00:53 Urine Occult Blood 1+ (NEGATIVE) 11/21/19 00:53 Urine Nitrite Negative (NEGATIVE) 11/21/19 00:53 Urine Bilirubin Negative (NEGATIVE) 11/21/19 00:53 Urine Urobilinogen Normal (NORMAL) 11/21/19 00:53 Ur Leukocyte Esterase Negative (NEGATIVE) 11/21/19 00:53 Urine RBC 0-2 /HPF (0-3) 11/21/19 00:53 Urine WBC None seen /HPF (0-5) 11/21/19 00:53 Ur Squamous Epith Cells Rare /HPF (NEGATIVE) 11/21/19 00:53 Urine Bacteria Negative /HPF (NEGATIVE) 11/21/19 00:53 Urine Mucus Few /HPF (NEGATIVE) 11/16/19 17:35 Ur Culture Indicated? No/not indicated 11/21/19 00:53 Stool Description 15g,lt.brown,unform 11/22/19 20:30 Stl Occult Blood (IFOB) Positive (NEGATIVE) A 11/22/19 20:30 Acetone, Semi-Quant Negative (NEGATIVE) 11/16/19 09:54 SARS-CoV-2 (PCR) Negative (NEGATIVE) 11/16/19 12:00 Tissue Pathology To follow 11/24/19 13:24 - Plan (1) Atrial fibrillation with RVR Status: Acute Plan: Continue current meds. Monitor heart rate. (2) Esophagitis Status: Acute (3) Hyponatremia Status: Acute Plan: Limit water intake. Increase sodium containing foods and beverages. Labs. (4) CKD (chronic kidney disease) stage 3, GFR 30-59 ml/min Status: Chronic Plan: IV hydration, Monitor labs. (5) Hypertension Status: Chronic Qualifiers: Hypertension type: essential hypertension Qualified Code(s): I10 - Essential (primary) hypertension Plan: Monitor BP, Home meds. (6) Pneumonia Status: Acute Plan: Levaquin added
[2019-11-28] MEDS ORDERED: LEVAQUIN TAB 500 MG PO SCH (23:00)
[2019-11-29 06:09] LABS: BASOPHILS % (AUTO) 0.4 % (0.2-1.0); EOSINOPHILS # (AUTO) 0.1 x10^3/uL (0.0-0.2); EOSINOPHILS % (AUTO) 2.6 % (0.9-2.9); HEMATOCRIT 29.1 % (36.0-47.0); HEMOGLOBIN 9.8 g/dL (12.0-16.0); LYMPHOCYTES # (AUTO) 0.6 X10^3/uL (1.3-2.9); MEAN CORPUSCULAR HEMOGLOBIN 29.3 pg (27.0-34.0); MEAN CORPUSCULAR HGB CONC 33.6 g/dL (33.0-35.0); MEAN CORPUSCULAR VOLUME 87.3 fL (80.0-100.0); MEAN PLATELET VOLUME 8.3 fL (7.4-11.0); MONOCYTES # (AUTO) 0.1 x10^3/uL (0.3-0.8); MONOCYTES % (AUTO) 3.6 % (0.0-13.0); NEUTROPHILS # (AUTO) 1.6 x10^3/uL (2.2-4.8); NEUTROPHILS % (AUTO) 67.4 % (42.0-75.0); PLATELET COUNT 87 X10^3/uL (150.0-450.0); RED BLOOD COUNT 3.33 X10^6/uL (3.5-5.4); WHITE BLOOD COUNT 2.4 X10^3/uL (3.6-10.0)
[2019-11-29 06:18] LABS: ALANINE AMINOTRANSFERASE 18 Units/L (12-78); ALBUMIN 1.9 g/dL (3.4-5.0); ALKALINE PHOSPHATASE 78 Units/L (46-116); ASPARTATE AMINO TRANSFERASE 29 Units/L (15-37); BLOOD UREA NITROGEN 11 mg/dL (7-18); CALCIUM 7.7 mg/dL (8.5-10.1); CARBON DIOXIDE 21.5 mmol/L (21-32); CHLORIDE 101 mmol/L (98-107); COR CA(FOR HYPOALB) 9.4 mg/dL (8.5-10.1); COR NA(FOR HYPERGLY) 130 mmol/L (136-145); CREATININE 0.82 mg/dL (0.55-1.02); SODIUM 130 mmol/L (136-145); TOTAL PROTEIN 4.9 g/dL (6.4-8.2); eGFR NON BLACK RACES > 60 (>60)
[2019-11-29] MEDS: PEPCID TAB 20 MG PO SCH ×3 (06:33→21:12)
[2019-11-29] MEDS: THERMOTABS PO SCH ×3 (06:35→21:13)
[2019-11-29] MEDS: MAG-OX TAB PO SCH ×3 (06:35→17:31)
[2019-11-29 06:47] LABS: PLATELET MORPHOLOGY COMMENT NORMAL (NORMAL)
[2019-11-29] MEDS ORDERED: TOPROL XL PO ONE (08:26)
[2019-11-29] MEDS: DUONEB 0.5 MG/3 MG (3 mL) NEB PRN ×4 (08:40→20:09)
[2019-11-29] MEDS: TOPROL XL PO SCH (08:47)
[2019-11-29] MEDS: SYNTHROID 88 mcg TAB PO SCH (08:47)
[2019-11-29] MEDS: ZESTRIL TAB 5 MG PO SCH (08:48)
[2019-11-29] MEDS: BETAPACE AF PO SCH ×2 (08:51→21:11)
[2019-11-29] MEDS: ZYVOX TAB 600 MG PO SCH ×2 (08:52→21:12)
[2019-11-29] MEDS: NYSTATIN SUSP MT SCH ×4 (08:52→21:12)
[2019-11-29] MEDS: NORCO 5/325 MG TAB PO PRN ×2 (09:58→21:13)
[2019-11-29] MEDS: SNACK - Diabetic Appropriate PO SCH (21:11)
[2019-11-30 06:15] LABS: ALANINE AMINOTRANSFERASE 19 Units/L (12-78); ALKALINE PHOSPHATASE 87 Units/L (46-116); ASPARTATE AMINO TRANSFERASE 32 Units/L (15-37); BLOOD UREA NITROGEN 7 mg/dL (7-18); CALCIUM 7.7 mg/dL (8.5-10.1); CARBON DIOXIDE 22.5 mmol/L (21-32); CHLORIDE 97 mmol/L (98-107); COR CA(FOR HYPOALB) 9.3 mg/dL (8.5-10.1); CREATININE 0.79 mg/dL (0.55-1.02); SODIUM 127 mmol/L (136-145); TOTAL PROTEIN 5.1 g/dL (6.4-8.2); eGFR NON BLACK RACES > 60 (>60)
[2019-11-30 06:21] LABS: BASOPHILS % (AUTO) 0.9 % (0.2-1.0); EOSINOPHILS # (AUTO) 0.1 x10^3/uL (0.0-0.2); EOSINOPHILS % (AUTO) 2.6 % (0.9-2.9); HEMATOCRIT 29.5 % (36.0-47.0); HEMOGLOBIN 9.6 g/dL (12.0-16.0); LYMPHOCYTES # (AUTO) 0.7 X10^3/uL (1.3-2.9); LYMPHOCYTES % (AUTO) 25.9 % (21.0-51.0); MEAN CORPUSCULAR HEMOGLOBIN 28.9 pg (27.0-34.0); MEAN CORPUSCULAR HGB CONC 32.7 g/dL (33.0-35.0); MEAN CORPUSCULAR VOLUME 88.4 fL (80.0-100.0); MEAN PLATELET VOLUME 8.6 fL (7.4-11.0); MONOCYTES # (AUTO) 0.1 x10^3/uL (0.3-0.8); MONOCYTES % (AUTO) 3.2 % (0.0-13.0); NEUTROPHILS # (AUTO) 1.8 x10^3/uL (2.2-4.8); NEUTROPHILS % (AUTO) 67.4 % (42.0-75.0); PLATELET COUNT 78 X10^3/uL (150.0-450.0); RED BLOOD COUNT 3.33 X10^6/uL (3.5-5.4); RED CELL DISTRIBUTION WIDTH 18.7 % (11.6-16.5); WHITE BLOOD COUNT 2.7 X10^3/uL (3.6-10.0)
[2019-11-30] MEDS: THERMOTABS PO SCH ×2 (06:34→14:04)
[2019-11-30] MEDS: PEPCID TAB 20 MG PO SCH ×2 (06:34→14:04)
[2019-11-30] MEDS: MAG-OX TAB PO SCH ×2 (06:35→11:54)
--- NOTE | 2019-11-30 07:44 | RAD ---
HISTORYWeaknessSTUDYChest AP [id number]/14/2020FINDINGSThe heart is within normal limits in size. The saulo are normal. The aorta is calcified. The right lung and left upper lung jenkins are clear. There is persistent increased density in the retrocardiac area of the left lower lobe obscuring the left hemidiaphragm. This could be on the basis of atelectasis, infiltrate, effusion or combination. Bony thorax is unremarkable.IMPRESSIONNo change increased density retrocardiac area left lower lobe obscuring left hemidiaphragm. Differential diagnosis as aboveElectronically signed by: JAIMIE LAZO (Nov 30, 2019 07:42:15)
[2019-11-30] MEDS ORDERED: ZITHROMAX TAB 250 MG PO ONE (07:56)
[2019-11-30] MEDS ORDERED: TOPROL XL PO ONE (08:44)
[2019-11-30] MEDS: SYNTHROID 88 mcg TAB PO SCH (09:44)
[2019-11-30] MEDS: TOPROL XL PO SCH (09:44)
[2019-11-30] MEDS: ZESTRIL TAB 5 MG PO SCH (09:44)
[2019-11-30] MEDS: NYSTATIN SUSP MT SCH ×2 (09:45→14:04)
[2019-11-30] MEDS: BETAPACE AF PO SCH (09:45)
[2019-11-30] MEDS: ZYVOX TAB 600 MG PO SCH (09:46)
[2019-11-30] MEDS ORDERED: ELIQUIS PO SCH (10:45)
[2019-11-30 15:54] VITALS: BP 164/78
== END 2019-11-30 16:30 | disposition home health service (06) | DRG 308 ==
LOC: SUPCPDRO → ER 09:19 → MED/SURG 11:18
PROVIDERS: ADMIT Internal Medicine; ATTEND Internal Medicine
DX: E87.1 Hypo-osmolality and hyponatremia; B95.61 Methicillin susceptible Staphylococcus aureus infection as the cause of diseases classified elsewhere; Z53.09 Procedure and treatment not carried out because of other contraindication; E87.6 Hypokalemia; K92.0 Hematemesis; I12.9 Hypertensive chronic kidney disease with stage 1 through stage 4 chronic kidney disease, or unspecified chronic kidney disease; R13.10 Dysphagia, unspecified; R62.7 Adult failure to thrive; K22.2 Esophageal obstruction; K92.2 Gastrointestinal hemorrhage, unspecified; Z11.59 Encounter for screening for other viral diseases; E11.8 Type 2 diabetes mellitus with unspecified complications; L89.629 Pressure ulcer of left heel, unspecified stage; F01.50 Vascular dementia, unspecified severity, without behavioral disturbance, psychotic disturbance, mood disturbance, and anxiety; D64.89 Other specified anemias; L89.159 Pressure ulcer of sacral region, unspecified stage; L89.619 Pressure ulcer of right heel, unspecified stage; I48.91 Unspecified atrial fibrillation; D50.9 Iron deficiency anemia, unspecified; I25.10 Atherosclerotic heart disease of native coronary artery without angina pectoris; N18.3 Chronic kidney disease, stage 3 (moderate); M06.9 Rheumatoid arthritis, unspecified; E11.22 Type 2 diabetes mellitus with diabetic chronic kidney disease; R63.4 Abnormal weight loss; R41.82 Altered mental status, unspecified; K22.10 Ulcer of esophagus without bleeding; L03.114 Cellulitis of left upper limb; K59.00 Constipation, unspecified; J18.9 Pneumonia, unspecified organism; J44.9 Chronic obstructive pulmonary disease, unspecified
CPT/HCPCS: 36415; 70450; 71010; 71020; 71045; 71046; 74000; 74018; 80053; 81001; 82009; 82270; 82550; 82553; 82607; 82728; 82746; 83540; 83735; 84132; 84443; 84466; 84484; 85025; 85610; 85730; 87040; 87045; 87070; 87075; 87076; 87077; 87186; 87205; 87449; 87635; 87899; 88305; 92526; 92610; 93005; 94640; 94760; 96365; 96374; 96375; 97110; 97162; 97167; 97530; 97535; 99100; 99285; A4216; A4222; C9113; J0360; J0712; J1650; J1815; J1940; J1956; J2020; J2704; J2920; J3475; J3480; J3490; J7030; J7050; J7620

== ENCOUNTER 2020-01-15 01:29 | Inpatient (IN) ==
[2020-01-15] MEDS ORDERED: D50W ABBOJECT SYR IV ONE ×2 (01:42→08:13)
--- NOTE | 2020-01-15 01:50 | DR.AMS ---
HPI Time Seen Time Seen by Provider: 01/15/20 01:50 HPI Comment HPI Comment: PATIENT IS 79 YR OLD FEMALE IS IN ER VIA EMS FOR AMS AND LOW GLUCOSE LEVEL. PATIENTS GLUCOSE WAS 25 WHEN EMS ARRIVE AT HER HOME. D50 GIVEN AND PATIENT ALERT IN ER.SHE HAS HISTORY OF DM, HTN AND CAD. DENIES FEVER, COUGH, CONGESTION AND CHEST OR ABDOMINAL PAIN. DENIES DYSURIA OR TRAUMA. HAVE NOT BEING IN CONTACT WITH COVID 19 PATIENT. Complaint Cheif Complaint Doctors Comments: AMS, LOW BLOOD GLUCOSE. COVID-19 Coronavirus risk:travel/contact w/high risk person: No Has patient experienced Coronavirus symptoms: No Reviewed Nurses Notes Reviewed: Yes Source History Provided: Patient Mode of Arrival Mode of Arrival: EMS Timing Came On: Suddenly Symptoms: Improving Duration Duration: Since Onset Duration: Minutes Quality Quality: Decreased Alertness and Confusion Severity Severity: Severe Context Recent: None History Of: Dementia, Hypoglycemia, Diabetes and On Insulin Associated Signs and Symptoms Associated Signs and Symptoms: Generalized Weakness, Change in Behavior and Confusion Other History Other History: HISTORY DM AND HTN. PMH PMH Past Medical History: Anxiety, Arthritis, Coronary Artery Disease, Dementia (VASCULAR), Depression, Diabetes, GERD, Hypertension, Hypothyroidism and Renal Disease Past Surgical History: Yes Surgical History: Angioplasty/Stents, , Cholecystectomy, Hysterectomy and Ortho Surgery Family History Family Medical History: Diabetes Mellitus, Coronary Artery Disease and Heart Failure Social History Do you use any recreational Drugs:: No Travel Risk Coronavirus risk:travel/contact w/high risk person: No Has patient experienced Coronavirus symptoms: No ROS Review of Systems Constitutional: See HPI, Weakness and Fatigue; negative Fever Eyes: See HPI and Blurred Vision; negative Photophobia and Diplopia ENTM: No Symptoms Reported and See HPI; negative Ear Pain, Nose Discharge, Nose Congestion and Throat Pain Respiratoy: No Symptoms Reported and See HPI; negative Moist Cough, Short of Breath and Wheezing Cardiovascular: See HPI and Palpitations (A FIB.); negative Chest Pain and Edema Gastrointestinal/Abdominal: No Symptoms Reported and See HPI; negative Abdominal Pain, Diarrhea, Nausea and Vomiting Genitourinary: No Symptoms Reported and See HPI; negative Dysuria and Hematuria Neurological: No Symptoms Reported, See HPI, Weakness and Dizziness; negative Headache Musculoskeletal: No Symptoms Reported and See HPI; negative Back Pain and Muscle Pain Integumentary: No Symptoms Reported and See HPI; negative Change in Color, Rash and Juandice Hematologic/Lymphatic: No Symptoms Reported and See HPI; negative Easy Bruising and Swollen Glands Endocrine: No Symptoms Reported and See HPI; negative Increased Thirst and Increased Urine Psychiatric: No Symptoms Reported and See HPI All Other Systems: Reviewed and Negative PE Vitals Vital Signs: Temp Pulse Pulse Resp BP BP BP 01/15/20 07:45 91 H 01/15/20 07:35 104 H 109/62 01/15/20 07:32 111 H 106/69 01/15/20 07:30 109 H 128/83 01/15/20 07:15 86 01/15/20 07:09 01/15/20 06:45 111 H 01/15/20 06:30 114 H 131/76 01/15/20 06:15 01/15/20 06:00 123 H 01/15/20 05:45 01/15/20 05:31 115 H 137/64 01/15/20 05:30 119 H 01/15/20 05:15 111 H 01/15/20 05:00 119/66 01/15/20 04:45 120 H 01/15/20 04:30 116 H 18 121/84 121/84 01/15/20 04:15 125 H 01/15/20 04:00 114 H 121/90 01/15/20 03:58 18 01/15/20 03:45 121 H 01/15/20 03:30 98.7 F 126 H 18 153/74 153/74 01/15/20 03:15 128 H 01/15/20 03:00 173 H 132/87 01/15/20 02:58 20 01/15/20 02:45 01/15/20 02:30 130 H 18 143/76 143/76 01/15/20 02:27 166 H 01/15/20 01:30 98.9 F 94 H 20 127/81 11/30/19 15:53 164/78 Pulse Ox 01/15/20 07:45 100 01/15/20 07:35 99 01/15/20 07:32 100 01/15/20 07:30 100 01/15/20 07:15 99 01/15/20 07:09 96 01/15/20 06:45 96 01/15/20 06:30 95 01/15/20 06:15 87 L 01/15/20 06:00 97 01/15/20 05:45 96 01/15/20 05:31 98 01/15/20 05:30 97 01/15/20 05:15 98 01/15/20 05:00 99 01/15/20 04:45 100 01/15/20 04:30 96 01/15/20 04:15 95 01/15/20 04:00 100 01/15/20 03:58 01/15/20 03:45 100 01/15/20 03:30 97 01/15/20 03:15 85 L 01/15/20 03:00 95 01/15/20 02:58 01/15/20 02:45 98 01/15/20 02:30 97 01/15/20 02:27 96 01/15/20 01:30 99 11/30/19 15:53 General Limitations: Altered Mental Status General Appearance: Alert and In No Apparent Distress Head Head Exam: Normal Inspection and Atraumatic Head Exam Physical: Other (NONE REPORTED.) Eyes Eye exam: Normal Appearance and PERRL; negative Scleral Icterus and Conjunctival Injection Pupils: Regular, Round: Bilateral and Reactive: Bilateral ENT ENT Exam: Normal Exam, Normal Oropharynx, Normal External Ear Exam and TM's Normal Bilaterally External Ear Exam: Normal External Inspection; negative Mastoid Tenderness TM/Canal Exam: Bilateral: Normal Nose Exam: Normal Nose Exam Mouth Exam: Normal Inspection; negative Lip Swelling and Tongue Swelling Throat Exam: Normal Inspection; negative Tonsillar Erythema, Tonsillomegaly and Tonsillar Exudate Neck Neck Exam: Normal Inspection and Trachea Midline; negative Tenderness and Lymphadenopathy Chest Chest Inspection: Normal Inspection and Symmetric Chest Wall Rise; negative Tenderness Respiratory Respiratory Exam: Normal Lung Sounds Bilat; negative Accessory Muscle Use, Chest Wall Tenderness and Respiratory Distress Respiratory Exam: Bilateral: Rhonchi and Lower: Rhonchi Cardiovascular Cardiovascular Exam: Tachycardia and Irregular Rhythm; negative Systolic Murmur and Diastolic Murmur Abdominal Exam Abdominal Exam: Normal Inspection, Normal Bowel Sounds and Soft; negative Tenderness Extremities Extremities Exam: Normal Inspection and Normal Capillary Refill; negative Tender ness, Edema and Calf Tenderness Back Back Exam: Normal Inspection; negative (R) CVA Tenderness and (L) CVA Tenderness Neurological Neurological Exam: Alert, Oriented X3 and CN II-XII Intact; negative Motor Sensory Deficit Patient Oriented To: Person, Place and Time Speech: Fluid Speech Cranial Nerve Exam: EOM Function (II, III, IV, ): Normal, Facial Sensation (V): Normal, Facial Palsy (VII): Normal, Gag reflex (XI): Normal and Tongue Deviation: Normal Motor Strength - LUE: 5/5 Motor Strength - RUE: 5/5 Motor Strength - LLE: 5/5 Motor Strength - RLE: 5/5 Upper Motor Neuron Exam: Babinski Sign: Normal Psychological Psychiatric Exam: Normal Affect and Normal Mood Skin Skin Exam: Warm, Dry, Intact and Normal Color MDM Differential Diagnosis Metabolic: Dehydration (A FIB.), DKA, Hypercalcemia, Hypernatremia, Hypoglycemia and Hyponatremia Structural: CVA and Mass Lesion Infectious: Sepsis and UTI COURSE Treatment Treatment: SEE ORDERS. D50 IV, PATIENT MORE ALERT IN ER. HYDROCODONE 5 MG/325 MG PO. GLUCOSE DECREASING AGAIN AND REPEAT D50 IV GIVEN AND PATIENT IS ALERT AGAIN. Consultation Consultation Comments: DISCUSSED PATIENT WITH DR. JACOB, HE WILL ADMIT PATIENT. Education/Counseling Education/Counseling: Patient Educated On: Diagnosis ROR Labs Reviewed Laboratory Results Reviewed?: Yes Result Diagrams: 01/21/20 05:39 01/21/20 05:39 Laboratory: WBC 5.4 X10^3/uL (3.6-10.0) 01/15/20 02:27 RBC 2.45 X10^6/uL (3.5-5.4) L 01/15/20 02:27 Hgb 7.7 g/dL (12.0-16.0) L 01/15/20 02:27 Hct 22.9 % (36.0-47.0) L 01/15/20 02:27 MCV 93.4 fL (80.0-100.0) 01/15/20 02:27 MCH 31.3 pg (27.0-34.0) 01/15/20 02:27 MCHC 33.6 g/dL (33.0-35.0) 01/15/20 02:27 RDW 18.1 % (11.6-16.5) H 01/15/20 02:27 Plt Count 125 X10^3/uL (150.0-450.0) L 01/15/20 02:27 Plt Count Comment Adequate (ADEQUATE) 01/15/20 02:27 MPV 8.3 fL (7.4-11.0) 01/15/20 02:27 Neut % (Auto) 88.4 % (42.0-75.0) H 01/15/20 02:27 Lymph % (Auto) 6.6 % (21.0-51.0) L 01/15/20 02:27 [place] % (Auto) 4.8 % (0.0-13.0) 01/15/20 02:27 Eos % (Auto) 0.0 % (0.9-2.9) L 01/15/20 02:27 Baso % (Auto) 0.2 % (0.2-1.0) 01/15/20 02:27 Neut # (Auto) 4.8 x10^3/uL (2.2-4.8) 01/15/20 02:27 Lymph # (Auto) 0.4 X10^3/uL (1.3-2.9) L 01/15/20 02:27 [place] # (Auto) 0.3 x10^3/uL (0.3-0.8) 01/15/20 02:27 Eos # (Auto) 0.0 x10^3/uL (0.0-0.2) 01/15/20 02:27 Baso # (Auto) 0.0 X10^3/uL (0.0-0.1) 01/15/20 02:27 Absolute Nucleated RBC 0.0 /100WBC 01/15/20 02:27 Plt Morphology Comment Normal (NORMAL) 01/15/20 02:27 RBC Morphology Abnormal (NORMAL) A 01/15/20 02:27 Hypochromasia Slight A 01/15/20 02:27 Sodium 137 mmol/L (136-145) 01/15/20 02:27 Corrected Sodium 137 mmol/L (136-145) 01/15/20 02:27 Potassium 4.2 mmol/L (3.5-5.1) 01/15/20 02:27 Chloride 101 mmol/L (98-107) 01/15/20 02:27 Carbon Dioxide 28.0 mmol/L (21-32) 01/15/20 02:27 BUN 19 mg/dL (7-18) H 01/15/20 02:27 Creatinine 0.94 mg/dL (0.55-1.02) 01/15/20 02:27 Est GFR (MDRD) Af Amer > 60 (>60) 01/15/20 02:27 Est GFR (MDRD) Non-Af > 60 (>60) 01/15/20 02:27 Glucose 111 mg/dL (65-99) H 01/15/20 02:27 Calcium 8.2 mg/dL (8.5-10.1) L 01/15/20 02:27 Corrected Calcium 9.2 mg/dL (8.5-10.1) 01/15/20 02:27 Total Bilirubin 1.00 mg/dL (0.2-1.0) 01/15/20 02:27 AST 30 Units/L (15-37) 01/15/20 02:27 ALT 31 Units/L (12-78) 01/15/20 02:27 Alkaline Phosphatase 135 Units/L (46-116) H 01/15/20 02:27 Creatine Kinase 18 Units/L (26-192) L 01/15/20 02:27 CK-MB (CK-2) < 1.0 ng/mL (0-4.0) 01/15/20 02:27 CK/CKMB % Calc 5.6 % (<4) 01/15/20 02:27 Troponin I < 0.02 ng/mL (0-1.5) 01/15/20 02:27 Total Protein 5.9 g/dL (6.4-8.2) L 01/15/20 02:27 Albumin 2.8 g/dL (3.4-5.0) L 01/15/20 02:27 Globulin 3.1 g/dL (2.5-4.5) 01/15/20 02:27 Albumin/Globulin Ratio 0.9 Ratio (1.1-2.1) L 01/15/20 02:27 Blood Type O POSITIVE 01/15/20 06:25 Antibody Screen Negative 01/15/20 06:25 XRAY XRAY Interpreted by: Radiologist (REPORTS NOTED AND DISCUSSED WITH PATIENT.) and Self EKG Rate: 112 [place]: Normal Rhythm: Afib Hypertrophy: None ST: Old, Ant, Infarct and Nonsp Opioid Opioid Risk Tool Age (Nate box if 16-45): No History of Preadolescent Sexual Abuse: No Total: 0 Total Score Risk Category: Low Risk Copyright: Daniel HICKEY predicting aberrant behaviors Diagnosis Discharge Problem: Hypoglycemia Pneumonia Qualifiers: Pneumonia type: due to unspecified organism Laterality: bilateral Lung loca tion: lower lobe of lung Qualified Code(s): J18.9 - Pneumonia, unspecified organism Anemia Qualifiers: Anemia type: unspecified type Qualified Code(s): D64.9 - Anemia, unspecified AMS (altered mental status) Qualifiers: Altered mental status type: transient alteration of awareness Qualified Code(s): R40.4 - Transient alteration of awareness Instructions Instructions: Anemia Confusion Type 2 Diabetes Mellitus, Self Care, Adult, Mjlw-bb-Ghhg Chronic Kidney Disease, Adult, Maxo-mx-Dflr Hypertension, Nnix-kc-Nxvt Heart Failure, Lubu-tu-Qcjs Atrial Fibrillation, Ezqt-bo-Bxps Community-Acquired Pneumonia, Adult Hypoglycemia, Kssh-if-Rsod Forms: Precautions for COVID19 Patient Portal Social Distancing
[2020-01-15 01:56] VITALS: BMI 20.7
[2020-01-15 02:38] LABS: BASOPHILS % (AUTO) 0.2 % (0.2-1.0); HEMATOCRIT 22.9 % (36.0-47.0); HEMOGLOBIN 7.7 g/dL (12.0-16.0); LYMPHOCYTES # (AUTO) 0.4 X10^3/uL (1.3-2.9); LYMPHOCYTES % (AUTO) 6.6 % (21.0-51.0); MEAN CORPUSCULAR HEMOGLOBIN 31.3 pg (27.0-34.0); MEAN CORPUSCULAR HGB CONC 33.6 g/dL (33.0-35.0); MEAN CORPUSCULAR VOLUME 93.4 fL (80.0-100.0); MEAN PLATELET VOLUME 8.3 fL (7.4-11.0); MONOCYTES # (AUTO) 0.3 x10^3/uL (0.3-0.8); MONOCYTES % (AUTO) 4.8 % (0.0-13.0); NEUTROPHILS # (AUTO) 4.8 x10^3/uL (2.2-4.8); NEUTROPHILS % (AUTO) 88.4 % (42.0-75.0); PLATELET COUNT 125 X10^3/uL (150.0-450.0); RED BLOOD COUNT 2.45 X10^6/uL (3.5-5.4); RED CELL DISTRIBUTION WIDTH 18.1 % (11.6-16.5); WHITE BLOOD COUNT 5.4 X10^3/uL (3.6-10.0)
[2020-01-15 02:50] LABS: BLOOD UREA NITROGEN 19 mg/dL (7-18); CALCIUM 8.2 mg/dL (8.5-10.1); CHLORIDE 101 mmol/L (98-107); COR NA(FOR HYPERGLY) 137 mmol/L (136-145); CREATININE 0.94 mg/dL (0.55-1.02); SODIUM 137 mmol/L (136-145); TROPONIN I < 0.02 ng/mL (0-1.5); eGFR NON BLACK RACES > 60 (>60)
[2020-01-15 02:54] LABS: ALANINE AMINOTRANSFERASE 31 Units/L (12-78); ALBUMIN 2.8 g/dL (3.4-5.0); ALKALINE PHOSPHATASE 135 Units/L (46-116); ASPARTATE AMINO TRANSFERASE 30 Units/L (15-37); CKMB % 5.6 % (<4); COR CA(FOR HYPOALB) 9.2 mg/dL (8.5-10.1); CREATINE KINASE 18 Units/L (26-192); CREATINE KINASE MB < 1.0 ng/mL (0-4.0); TOTAL PROTEIN 5.9 g/dL (6.4-8.2)
[2020-01-15] MEDS ORDERED: NORCO 5/325 MG TAB PO ONE (02:54)
[2020-01-15] MEDS ORDERED: NORCO 5/325 MG TAB ONE (02:55)
[2020-01-15 02:57] LABS: HYPOCHROMASIA SLIGHT; PLATELET MORPHOLOGY COMMENT NORMAL (NORMAL)
--- NOTE | 2020-01-15 03:39 | RAD ---
STUDY: CHEST, 1 VIEWCOMPARISON: November 30, 2019HISTORY: AMSFINDINGS:There is airspace disease in the right mid and right lower lung zone. This appears slightly worsened when compared to the prior examination. Cardiomediastinal contour is stable. No evidence of pneumothorax. Trachea is midline.IMPRESSION:Airspace disease is seen in the right mid and right lower lung zone. Based on the imaging features, differential diagnosis should include, but is not limited to consolidation due to infection versus atelectasis / lung collapse.Electronically signed by: Aiden Escobar (Jan 15, 2020 03:39:01)
--- NOTE | 2020-01-15 07:19 | CT ---
HISTORYAMSSTUDYBRAIN W/O CONCOMPARISONCT brain from 07/28/2018.TECHNIQUEMultiple axial images of the head were performed from the skullbase to the vertex using standard departmental protocol. Sagittal and coronal reformatted images were performed. Dose reduction techniques including Automated Exposure Control (AEC) and adjustment of mA and kV were utilized.FINDINGSThe lateral ventricles and basilar cisterns appear patent. No parenchymal mass or hematoma. No extra-axial collection. Brain volume is appropriate for patient age. Phan-white differentiation appears acutely preserved. Globes are intact. Paranasal sinuses and mastoid air cells appear clear. Mild motion artifact.IMPRESSIONNo acute intracranial abnormality.Electronically signed by: Sumanth Carrillo (Jan 15, 2020 07:19:29)
[2020-01-15] MEDS ORDERED: D50W ABBOJECT SYR ONE (08:13)
[2020-01-15] MEDS ORDERED: NS 1000 ML 1,000 ML ONE (10:34)
[2020-01-15] MEDS: NS 1000 ML 1,000 ML IV SCH ×2 (10:47→23:09)
[2020-01-15] MEDS ORDERED: TESSALON PERLES PO PRN (13:46)
[2020-01-15] MEDS ORDERED: TESSALON PERLES PO ONE (13:48)
[2020-01-15] MEDS ORDERED: LOPRESSOR INJ 5 MG AMP IVP ONE (15:47)
[2020-01-15] MEDS ORDERED: LOPRESSOR INJ 5 MG AMP ONE (15:49)
--- NOTE | 2020-01-15 15:56 | DR.AMS ---
HPI Time Seen Time Seen by Provider: 01/15/20 01:50 PCP Primary Care Physician: LISA Complaint Chief Complaint:: EMS OUT TO AMS PT'S BLOOD SUGAR WAS 25 PER EMS COVID-19 Coronavirus risk:travel/contact w/high risk person: No Has patient experienced Coronavirus symptoms: No Source History Provided: EMS Mode of Arrival Mode of Arrival: EMS Timing Onset of Chief Complaint: 01/15/20 PMH PMH Past Medical History: Yes Past Medical History: Anxiety, Arthritis, Coronary Artery Disease, Dementia (VASCULAR), Depression, Diabetes, GERD, Hypertension, Hypothyroidism and Renal Disease Past Surgical History: Yes Surgical History: Angioplasty/Stents, , Cholecystectomy, Hysterectomy and Ortho Surgery Family History History of Family Medical Conditions: Yes Family Medical History: Diabetes Mellitus, Coronary Artery Disease and Heart Failure Social History Does any household member use tobacco: No Do you use any recreational Drugs:: No Lives With: Family Lives Where: Home Travel Risk Coronavirus risk:travel/contact w/high risk person: No Has patient experienced Coronavirus symptoms: No Infectious screening In the last 2 months have you had wt loss of >10#?: NO Have you had fever, night sweats or hemotysis?: No Have you traveled outside the country in the last 6 months?: No Isolation: Standard PE Vitals Vital Signs: Temp Pulse Pulse Resp BP BP BP 01/15/20 15:52 168/96 01/15/20 13:30 103 H 17 136/63 01/15/20 13:15 110 H 20 157/58 01/15/20 13:00 128 H 23 139/71 01/15/20 12:46 168 H 24 131/67 01/15/20 12:45 137 H 27 H 01/15/20 12:30 113 H 25 H 143/69 01/15/20 12:15 104 H 22 148/70 01/15/20 12:00 106 H 21 131/65 01/15/20 11:45 103 H 19 120/70 01/15/20 11:31 107 H 20 123/64 01/15/20 11:30 98 H 17 01/15/20 11:15 101 H 15 100/58 01/15/20 11:00 101 H 17 126/61 01/15/20 10:45 99 H 17 126/66 01/15/20 10:34 102 H 15 128/64 01/15/20 10:30 107 H 14 01/15/20 10:15 100 H 17 01/15/20 10:00 103 H 24 01/15/20 09:45 103 H 21 01/15/20 09:30 156 H 21 01/15/20 09:15 92 H 01/15/20 09:00 98 H 01/15/20 08:45 140 H 01/15/20 08:30 98 H 01/15/20 08:15 111 H 01/15/20 08:00 97 H 01/15/20 07:45 91 H 01/15/20 07:35 104 H 109/62 01/15/20 07:32 111 H 106/69 01/15/20 07:30 109 H 128/83 01/15/20 07:15 86 01/15/20 07:09 01/15/20 06:45 111 H 01/15/20 06:30 114 H 131/76 01/15/20 06:15 01/15/20 06:00 123 H 01/15/20 05:45 01/15/20 05:31 115 H 137/64 01/15/20 05:30 119 H 01/15/20 05:15 111 H 01/15/20 05:00 119/66 01/15/20 04:45 120 H 01/15/20 04:30 116 H 18 121/84 121/84 01/15/20 04:15 125 H 01/15/20 04:00 114 H 121/90 01/15/20 03:45 121 H 01/15/20 03:30 98.7 F 126 H 18 153/74 153/74 01/15/20 03:15 128 H 01/15/20 03:00 173 H 132/87 01/15/20 02:58 20 01/15/20 02:45 01/15/20 02:30 130 H 18 143/76 143/76 01/15/20 02:27 166 H 01/15/20 01:30 98.9 F 94 H 20 127/81 11/30/19 15:53 164/78 Pulse Ox 01/15/20 15:52 01/15/20 13:30 96 01/15/20 13:15 100 01/15/20 13:00 100 01/15/20 12:46 94 L 01/15/20 12:45 88 L 01/15/20 12:30 85 L 01/15/20 12:15 100 01/15/20 12:00 100 01/15/20 11:45 100 01/15/20 11:31 100 01/15/20 11:30 99 01/15/20 11:15 99 01/15/20 11:00 100 01/15/20 10:45 100 01/15/20 10:34 100 01/15/20 10:30 100 01/15/20 10:15 100 01/15/20 10:00 100 01/15/20 09:45 100 01/15/20 09:30 93 L 01/15/20 09:15 100 01/15/20 09:00 82 L 01/15/20 08:45 89 L 01/15/20 08:30 100 01/15/20 08:15 100 01/15/20 08:00 100 01/15/20 07:45 100 01/15/20 07:35 99 01/15/20 07:32 100 01/15/20 07:30 100 01/15/20 07:15 99 01/15/20 07:09 96 01/15/20 06:45 96 01/15/20 06:30 95 01/15/20 06:15 87 L 01/15/20 06:00 97 01/15/20 05:45 96 01/15/20 05:31 98 01/15/20 05:30 97 01/15/20 05:15 98 01/15/20 05:00 99 01/15/20 04:45 100 01/15/20 04:30 96 01/15/20 04:15 95 01/15/20 04:00 100 01/15/20 03:45 100 01/15/20 03:30 97 01/15/20 03:15 85 L 01/15/20 03:00 95 01/15/20 02:58 01/15/20 02:45 98 01/15/20 02:30 97 01/15/20 02:27 96 01/15/20 01:30 99 11/30/19 15:53 ROR Labs Reviewed Result Diagrams: 01/15/20 02:27 01/15/20 08:25 Laboratory: WBC 5.4 X10^3/uL (3.6-10.0) 01/15/20 02: RBC 2.45 X10^6/uL (3.5-5.4) L 01/15/20 02:27 Hgb 7.7 g/dL (12.0-16.0) L 01/15/20 02:27 Hct 22.9 % (36.0-47.0) L 01/15/20 02: MCV 93.4 fL (80.0-100.0) 01/15/20 02: MCH 31.3 pg (27.0-34.0) 01/15/20 02: MCHC 33.6 g/dL (33.0-35.0) 01/15/20 02: RDW 18.1 % (11.6-16.5) H 01/15/20 02: Plt Count 125 X10^3/uL (150.0-450.0) L 01/15/20 02: Plt Count Comment Adequate (ADEQUATE) 01/15/20 02: MPV 8.3 fL (7.4-11.0) 01/15/20 02: Neut % (Auto) 88.4 % (42.0-75.0) H 01/15/20 02: Lymph % (Auto) 6.6 % (21.0-51.0) L 01/15/20 02: [place] % (Auto) 4.8 % (0.0-13.0) 01/15/20 02: Eos % (Auto) 0.0 % (0.9-2.9) L 01/15/20 02: Baso % (Auto) 0.2 % (0.2-1.0) 01/15/20 02: Neut # (Auto) 4.8 x10^3/uL (2.2-4.8) 01/15/20 02: Lymph # (Auto) 0.4 X10^3/uL (1.3-2.9) L 01/15/20 02:27 [place] # (Auto) 0.3 x10^3/uL (0.3-0.8) 01/15/20 02: Eos # (Auto) 0.0 x10^3/uL (0.0-0.2) 01/15/20 02:27 Baso # (Auto) 0.0 X10^3/uL (0.0-0.1) 01/15/20 02:27 Absolute Nucleated RBC 0.0 /100WBC 01/15/20 02:27 Plt Morphology Comment Normal (NORMAL) 01/15/20 02:27 RBC Morphology Abnormal (NORMAL) A 01/15/20 02:27 Hypochromasia Slight A 01/15/20 02:27 Sodium 137 mmol/L (136-145) 01/15/20 02:27 Corrected Sodium 137 mmol/L (136-145) 01/15/20 02:27 Potassium 4.2 mmol/L (3.5-5.1) 01/15/20 02:27 Chloride 101 mmol/L (98-107) 01/15/20 02:27 Carbon Dioxide 28.0 mmol/L (21-32) 01/15/20 02:27 BUN 19 mg/dL (7-18) H 01/15/20 02:27 Creatinine 0.94 mg/dL (0.55-1.02) 01/15/20 02:27 Est GFR (MDRD) Af Amer > 60 (>60) 01/15/20 02:27 Est GFR (MDRD) Non-Af > 60 (>60) 01/15/20 02:27 Glucose 40 mg/dL (65-99) L* 01/15/20 08:25 POC Glucose (mg/dL) 150 mg/dL (65-99) H 01/15/20 14:37 Calcium 8.2 mg/dL (8.5-10.1) L 01/15/20 02:27 Corrected Calcium 9.2 mg/dL (8.5-10.1) 01/15/20 02:27 Total Bilirubin 1.00 mg/dL (0.2-1.0) 01/15/20 02:27 AST 30 Units/L (15-37) 01/15/20 02:27 ALT 31 Units/L (12-78) 01/15/20 02:27 Alkaline Phosphatase 135 Units/L (46-116) H 01/15/20 02:27 Creatine Kinase 18 Units/L (26-192) L 01/15/20 02:27 CK-MB (CK-2) < 1.0 ng/mL (0-4.0) 01/15/20 02:27 CK/CKMB % Calc 5.6 % (<4) 01/15/20 02:27 Troponin I < 0.02 ng/mL (0-1.5) 01/15/20 02:27 Total Protein 5.9 g/dL (6.4-8.2) L 01/15/20 02:27 Albumin 2.8 g/dL (3.4-5.0) L 01/15/20 02:27 Globulin 3.1 g/dL (2.5-4.5) 01/15/20 02:27 Albumin/Globulin Ratio 0.9 Ratio (1.1-2.1) L 01/15/20 02:27 SARS-CoV-2 (PCR) Negative (NEGATIVE) 01/15/20 09:57 Blood Type O POSITIVE 01/15/20 06:25 Antibody Screen Negative 01/15/20 06:25 Opioid Opioid Risk Tool Age (Nate box if 16-45): No History of Preadolescent Sexual Abuse: No Total: 0 Total Score Risk Category: Low Risk Copyright: Daniel HICKEY predicting aberrant behaviors Diagnosis Discharge Problem: Hypoglycemia Pneumonia Qualifiers: Pneumonia type: due to unspecified organism Laterality: bilateral Lung location: lower lobe of lung Qualified Code(s): J18.9 - Pneumonia, unspecified organism Instructions Instructions: Community-Acquired Pneumonia, Adult Hypoglycemia, [id number] Forms: Precautions for COVID19 Patient Portal Social Distancing
[2020-01-15 17:23] LABS: HEMATOCRIT 23.3 % (36.0-47.0); HEMOGLOBIN 7.8 g/dL (12.0-16.0)
[2020-01-15] MEDS ORDERED: LOPRESSOR TAB 50 MG PO ONE (18:32)
[2020-01-16] MEDS: NS 1000 ML 1,000 ML IV SCH ×2 (01:43→12:03)
[2020-01-16] MEDS: NORMODYNE INJ 20 MG VIAL IV PRN ×2 (06:04→06:14)
[2020-01-16 07:11] LABS: ALBUMIN 2.7 g/dL (3.4-5.0); ALKALINE PHOSPHATASE 289 Units/L (46-116); BLOOD UREA NITROGEN 23 mg/dL (7-18); CALCIUM 7.6 mg/dL (8.5-10.1); CARBON DIOXIDE 22.8 mmol/L (21-32); CHLORIDE 104 mmol/L (98-107); COR CA(FOR HYPOALB) 8.6 mg/dL (8.5-10.1); CREATININE 0.99 mg/dL (0.55-1.02); SODIUM 137 mmol/L (136-145); TOTAL PROTEIN 5.8 g/dL (6.4-8.2); eGFR NON BLACK RACES 58 (>60)
[2020-01-16 07:22] LABS: FREE T4 (FREE THYROXINE) 1.36 ng/dL (0.76-1.46); TSH (3RD GENERATION) 4.635 uIU/mL (0.358-3.74)
[2020-01-16 07:23] LABS: BASOPHILS % (AUTO) 0.3 % (0.2-1.0); EOSINOPHILS % (AUTO) 0.2 % (0.9-2.9); HEMATOCRIT 21.4 % (36.0-47.0); HEMOGLOBIN 7.1 g/dL (12.0-16.0); LYMPHOCYTES # (AUTO) 0.4 X10^3/uL (1.3-2.9); LYMPHOCYTES % (AUTO) 8.9 % (21.0-51.0); MEAN CORPUSCULAR HEMOGLOBIN 31.8 pg (27.0-34.0); MEAN CORPUSCULAR HGB CONC 33.4 g/dL (33.0-35.0); MEAN CORPUSCULAR VOLUME 95.4 fL (80.0-100.0); MEAN PLATELET VOLUME 8.6 fL (7.4-11.0); MONOCYTES # (AUTO) 0.2 x10^3/uL (0.3-0.8); MONOCYTES % (AUTO) 5.3 % (0.0-13.0); NEUTROPHILS % (AUTO) 85.3 % (42.0-75.0); PLATELET COUNT 77 X10^3/uL (150.0-450.0); RED BLOOD COUNT 2.25 X10^6/uL (3.5-5.4); RED CELL DISTRIBUTION WIDTH 18.2 % (11.6-16.5); WHITE BLOOD COUNT 4.7 X10^3/uL (3.6-10.0)
[2020-01-16 07:33] LABS: ALANINE AMINOTRANSFERASE 1062 Units/L (12-78); ASPARTATE AMINO TRANSFERASE 2606 Units/L (15-37)
[2020-01-16 07:42] LABS: HYPOCHROMASIA SLIGHT; PLATELET MORPHOLOGY COMMENT NORMAL (NORMAL)
[2020-01-16] MEDS: CARDIZEM INJ 125 MG VIAL 125 MG in NS 100 ML IV 100 ML IV PRN ×2 (08:02→21:00)
--- NOTE | 2020-01-16 08:02 | RAD ---
HISTORYELEVATED HR, SOBSTUDYCHEST, 1 VIEWCOMPARISONChest film January 15, 2020FINDINGSThe trachea is midline. The cardiac silhouette is mildly enlarged but stable compared to yesterdays film.. There are bilateral vascular congestion infiltrates and effusions in the lung bases with mild worsening compared to yesterday's exam. Findings have the appearance most consistent with CHF.. The bony thorax is unremarkable.IMPRESSIONMild cardiomegaly worsening effusions and airspace disease and central vascular congestion compared to yesterdays film findings most consistent with CHF.Electronically signed by: MARNIE ETIENNE (Jan 16, 2020 08:01:56)
[2020-01-16 08:19] LABS: CKMB % 1.7 % (<4); CREATINE KINASE 59 Units/L (26-192); CREATINE KINASE MB < 1.0 ng/mL (0-4.0); TROPONIN I < 0.02 ng/mL (0-1.5)
[2020-01-16] MEDS ORDERED: BUTT CREAM (COMPOUND) TOP PRN (11:48)
[2020-01-16] MEDS: BETAPACE AF PO SCH ×2 (12:01→20:47)
[2020-01-16] MEDS: LASIX IVP SCH ×2 (12:01→18:10)
[2020-01-16] MEDS: HEMOCYTE-PLUS PO SCH (12:02)
[2020-01-16] MEDS: ALDACTONE TAB 25 MG PO SCH (12:02)
--- NOTE | 2020-01-16 12:55 | DR.H&P ---
H&P - History & Physical for Day of: H&P Date: 01/15/20 - Chief Complaint Chief Complaint: AMS, LOW BLOOD SUGAR - History of Present Illness History of Present Illness: PT IS 79 WF ER ADMISSION AFTER EMS PAGED OUT FOR AMS, HYPOGLYCEMIA. PT WAS GIVEN D50, WITH IV HYDRATION AND EVALUATION ON ARRIVAL TO ER. PT HAS PMH OF AFIB, ANEMIA, CHF, HTN, OA, RA. PT WAS ANEMIC ON ER LABS. PT RECENTLY HAD UPPER AND LOWER GI WORK UP PER DR MTZ HERE [facility]. PT ADMITTED FOR TREATMENT OF ACUTE ILLNESS. - Past Medical History Past Medical History: Coronary Artery Disease, Hypertension, Diabetes, Renal Disease, Dementia (VASCULAR), Depression, Anxiety, Hypothyroidism, GERD, Arthritis - Past Surgical History Surgical History: Angioplasty/Stents, Cholecystectomy, , Hysterectomy, Ortho Surgery - Family History Family Medical History: Diabetes Mellitus, Coronary Artery Disease, Heart Failure - Social History Does patient currently use any type of tobacco product: No Have you used tobacco products in the last 12 months: No Does any household member use tobacco: No Alcohol Use: None Drug Use: None Prescription drug monitoring program results: PDMP reviewed and no concerns identified - Medications Home Medications: pantoprazole [From Protonix] Allergy (Severe, Verified 11/21/19 21:10) RASH Penicillins Allergy (Verified 10/28/19 17:35) CONTINUE taking the following medications insulin glargine [Lantus U-100 Insulin] 20 unit SUBCUT HS 01/15/20 [History] spironolactone 25 mg PO DAILY 01/15/20 [History] New Prescriptions azithromycin [Zithromax Z-Javier] See Rx Instructions .ROUTE .COMPLEX #6 tab 01/15/20 [Rx] - Review of Systems Constitutional: Weakness Eyes: No Symptoms Reported Respiratory: Shortness of Breath Cardiovascular: Palpitations, Light Headedness Gastrointestinal: Nausea Genitourinary: No Symptoms Reported Skin: Bruising Neurological: Weakness, Confusion - Physical Exam Vital Signs: Temperature 98.6 F Pulse Rate [Left Brachial] 165 Pulse Rate [Apical] 106 Pulse Rate 143 Respiratory Rate 26 Blood Pressure [Right Leg] 164/78 Blood Pressure [Left Arm] 149/89 Blood Pressure 150/81 O2 Sat by Pulse Oximetry 80 Oriented: Person Eyes: Normal Ear: Normal Nose: Normal Throat: Dry Respiratory: Diminished Throughout Cardiovascular: Irregular : Normal Auscultation: Bowel Sounds: Normal Palpation: Normal Tenderness: Epigastric, Mild Skin: Decreased [place] Musculoskeletal: Back:Thoracic, Back:Lumbar, Motor Deficit Speech Pattern: Delayed - Assessment/Plan (1) AMS (altered mental status) Status: Acute Plan: ADMIT, CE AND EKG ON ADMISSION,CT HEAD IN ER. BS CONTROL, CONTINUOUS SUPPLEMENTAL O2. VERIFY HOME MEDICATION, ANEMIA PANEL. OCCULT STOOL, SEPTIC WORK UP. STYPE AND SCREEN ON ADMISSION (2) Afib Status: Acute (3) Hypoglycemia Status: Acute (4) CAD (coronary artery disease) Status: Acute (5) CHF (congestive heart failure) Status: Acute (6) Pneumonia Status: Acute (7) CRF (chronic renal failure) Qualifiers: Chronic kidney disease stage: stage 2 (mild) Qualified Code(s): N18.2 - Chronic kidney disease, stage 2 (mild) Status: Chronic (8) Hypertension Qualifiers: Hypertension type: essential hypertension Qualified Code(s): I10 - Essential (primary) hypertension Status: Chronic (9) Rheumatoid arthritis Qualifiers: Rheumatoid arthritis location: multiple sites Status: Chronic - Allergies Allergies/Adverse Reactions: Allergies Allergy/AdvReac Type Severity Reaction Status Date / Time pantoprazole [From Protonix] Allergy Severe RASH Verified 11/21/19 21:10 Penicillins Allergy Verified 10/28/19 17:35
[2020-01-16] MEDS ORDERED: INFeD or DEXFERRUM 25 MG in NS 100 ML IV 100 ML IV NR (13:00)
[2020-01-16] MEDS ORDERED: LEVAQUIN PREMIX IV 500 MG 500 MG/100 ML BAG IV SCH (13:00)
[2020-01-16 13:09] LABS: AMYLASE 94 Units/L (25-115); LIPASE 355 Units/L (73-393)
[2020-01-16] MEDS ORDERED: INFeD or DEXFERRUM 975 MG in NS 500 ML IV 500 ML IV ONE (14:00)
--- NOTE | 2020-01-16 14:39 | CT ---
HISTORYABD PAINSTUDYABDOMEN/PELVIS WITH [id number] axial images of the abdomen and pelvis were obtained from the lung bases to the pubic symphysis after the administration of IV contrast. Dose reduction techniques including Automated Exposure Control (AEC) and adjustment of mA and kV were utilized.FINDINGSThere are moderate pleural effusions with scattered bilateral ground-glass and interstitial opacities visualized lung bases. The heart is mildly enlarged with coronary artery disease. No pericardial effusion. Heterogeneous perfusion of the liver. No suspicious liver lesions. Post cholecystectomy. The spleen, pancreas, adrenal glands have a benign appearance. There is mild left renal cortical thinning. No renal calculus or hydronephrosis. Nondependent gas in the urinary bladder. Mild free fluid in the pelvis. Status post hysterectomy. Presumed appendix is normal in the right hemipelvis image 61 axial. Negative for bowel obstruction. Normal caliber moderately atherosclerotic abdominal aorta. No pathologic adenopathy. Is mild mesenteric edema and moderate body wall edema. No acute osseous abnormality. Severe lower lumbar spine facet arthropathy.IMPRESSIONCardiomegaly. Moderate bilateral pleural effusions with interstitial opacities in ground glass opacities that may represent pulmonary edema. There is moderate body wall edema and mild mesenteric edema. Mild free fluid in the pelvis. Heterogeneous perfusion of the liver may be related to right heart dysfunction.Punctate gas in the urinary bladder. Correlate for cystitis or recent instrumentation.Electronically signed by: Sumanth Carrillo (Jan 16, 2020 14:38:02)
[2020-01-16] MEDS ORDERED: VISTARIL PO ONE (16:43)
[2020-01-16] MEDS: VISTARIL PO PRN (16:52)
[2020-01-16 17:13] LABS: BILIRUBIN,URINE NEGATIVE (NEGATIVE); BLOOD/HEMOGLOBIN,URINE 2+ (NEGATIVE); GLUCOSE, URINE NEGATIVE (NEGATIVE); KETONES,URINE NEGATIVE (NEGATIVE); LEUKOCYTE ESTERASE ,URINE NEGATIVE (NEGATIVE); NITRITES,URINE NEGATIVE (NEGATIVE); PH,URINE 6.5 (5.0 - 8.0); PROTEIN,URINE 1+ (NEGATIVE); UROBILINOGEN,URINE NORMAL (NORMAL)
[2020-01-16 17:21] LABS: APPEARANCE,URINE SLIGHTLY HAZY (CLEAR); COLOR,URINE YELLOW (YELLOW)
[2020-01-16 17:22] LABS: BACTERIA,URINE TRACE /HPF (NEGATIVE); SQUAMOUS EPITHELIAL CELL,UR RARE /HPF (NEGATIVE); YEAST,URINE RARE /HPF (NEGATIVE)
[2020-01-17] MEDS: NS 1000 ML 1,000 ML IV SCH (01:30)
[2020-01-17] MEDS ORDERED: ULTRAM ONE (02:31)
[2020-01-17] MEDS: ULTRAM PO PRN ×2 (02:40→20:40)
[2020-01-17] MEDS: VISTARIL PO PRN (02:40)
[2020-01-17] MEDS ORDERED: D50W ABBOJECT SYR IV ONE (04:53)
[2020-01-17] MEDS ORDERED: D50W ABBOJECT SYR ONE (04:55)
[2020-01-17 06:23] LABS: LACTIC ACID 4.8 mmol/L (0.4-2.0)
[2020-01-17 06:34] LABS: BASOPHILS % (AUTO) 0.3 % (0.2-1.0); EOSINOPHILS % (AUTO) 0.3 % (0.9-2.9); HEMATOCRIT 22.3 % (36.0-47.0); HEMOGLOBIN 7.5 g/dL (12.0-16.0); LYMPHOCYTES % (AUTO) 18.2 % (21.0-51.0); MEAN CORPUSCULAR HEMOGLOBIN 32.1 pg (27.0-34.0); MEAN CORPUSCULAR HGB CONC 33.8 g/dL (33.0-35.0); MEAN PLATELET VOLUME 9.7 fL (7.4-11.0); MONOCYTES # (AUTO) 0.3 x10^3/uL (0.3-0.8); MONOCYTES % (AUTO) 5.5 % (0.0-13.0); NEUTROPHILS # (AUTO) 4.2 x10^3/uL (2.2-4.8); NEUTROPHILS % (AUTO) 75.7 % (42.0-75.0); PLATELET COUNT 98 X10^3/uL (150.0-450.0); RED BLOOD COUNT 2.35 X10^6/uL (3.5-5.4); RED CELL DISTRIBUTION WIDTH 18.3 % (11.6-16.5); WHITE BLOOD COUNT 5.6 X10^3/uL (3.6-10.0)
[2020-01-17 06:36] LABS: ALBUMIN 2.9 g/dL (3.4-5.0); CALCIUM 7.6 mg/dL (8.5-10.1); COR CA(FOR HYPOALB) 8.5 mg/dL (8.5-10.1); CREATININE 1.22 mg/dL (0.55-1.02)
[2020-01-17 07:33] LABS: HYPOCHROMASIA SLIGHT; PLATELET MORPHOLOGY COMMENT NORMAL (NORMAL)
--- NOTE | 2020-01-17 09:14 | RAD ---
HISTORYSOBSTUDYCHEST x-ray, 1 VIEWCOMPARISONX-ray from previous dayFINDINGSBilateral lung infiltrates are similar to prior study. Likely mild improvement of CHF. Persistent linear atelectasis in the right lower lung. Likely small pleural effusions are present. No pneumothorax is seen.IMPRESSIONLikely mild improvement of CHF with likely decrease in left pleural fluid. Probable pulmonary edema is similar to prior study.Electronically signed by: Jovanny Cazares (Jan 17, 2020 09:14:18)
[2020-01-17] MEDS: HEMOCYTE-PLUS PO SCH ×2 (09:55→10:14)
[2020-01-17] MEDS: ALDACTONE TAB 25 MG PO SCH ×2 (09:56→10:13)
[2020-01-17] MEDS: LEVAQUIN PREMIX IV 250 MG 250 MG/50 ML BAG IV SCH (09:56)
[2020-01-17] MEDS: LASIX IVP SCH ×2 (09:57→18:00)
[2020-01-17] MEDS: BETAPACE AF PO SCH (20:40)
[2020-01-18] MEDS: NS 1000 ML 1,000 ML IV SCH (03:21)
[2020-01-18 06:36] LABS: BASOPHILS % (AUTO) 0.6 % (0.2-1.0); EOSINOPHILS # (AUTO) 0.1 x10^3/uL (0.0-0.2); EOSINOPHILS % (AUTO) 2.1 % (0.9-2.9); HEMATOCRIT 23.2 % (36.0-47.0); HEMOGLOBIN 7.8 g/dL (12.0-16.0); LYMPHOCYTES # (AUTO) 0.6 X10^3/uL (1.3-2.9); LYMPHOCYTES % (AUTO) 16.4 % (21.0-51.0); MEAN CORPUSCULAR HEMOGLOBIN 30.9 pg (27.0-34.0); MEAN CORPUSCULAR HGB CONC 33.6 g/dL (33.0-35.0); MEAN CORPUSCULAR VOLUME 92.1 fL (80.0-100.0); MEAN PLATELET VOLUME 8.3 fL (7.4-11.0); MONOCYTES # (AUTO) 0.1 x10^3/uL (0.3-0.8); MONOCYTES % (AUTO) 3.1 % (0.0-13.0); NEUTROPHILS # (AUTO) 2.7 x10^3/uL (2.2-4.8); NEUTROPHILS % (AUTO) 77.8 % (42.0-75.0); PLATELET COUNT 116 X10^3/uL (150.0-450.0); RED BLOOD COUNT 2.52 X10^6/uL (3.5-5.4); RED CELL DISTRIBUTION WIDTH 18.1 % (11.6-16.5); WHITE BLOOD COUNT 3.5 X10^3/uL (3.6-10.0)
[2020-01-18 06:47] LABS: ALBUMIN 2.5 g/dL (3.4-5.0); ALKALINE PHOSPHATASE 356 Units/L (46-116); BLOOD UREA NITROGEN 25 mg/dL (7-18); CALCIUM 7.3 mg/dL (8.5-10.1); CARBON DIOXIDE 24.7 mmol/L (21-32); CHLORIDE 105 mmol/L (98-107); COR CA(FOR HYPOALB) 8.5 mg/dL (8.5-10.1); CREATININE 1.06 mg/dL (0.55-1.02); SODIUM 139 mmol/L (136-145); TOTAL PROTEIN 5.5 g/dL (6.4-8.2); eGFR NON BLACK RACES 53 (>60)
[2020-01-18 07:17] LABS: ALANINE AMINOTRANSFERASE 1610 Units/L (12-78); ASPARTATE AMINO TRANSFERASE 2145 Units/L (15-37)
[2020-01-18 07:30] LABS: HYPOCHROMASIA SLIGHT; PLATELET MORPHOLOGY COMMENT NORMAL (NORMAL)
[2020-01-18] MEDS: HEMOCYTE-PLUS PO SCH (10:00)
[2020-01-18] MEDS: LEVAQUIN PREMIX IV 250 MG 250 MG/50 ML BAG IV SCH (10:00)
[2020-01-18] MEDS: LASIX IVP SCH ×2 (10:00→17:15)
[2020-01-18] MEDS: ALDACTONE TAB 25 MG PO SCH (10:00)
[2020-01-18] MEDS: TOPROL XL PO SCH (10:00)
[2020-01-18] MEDS: BETAPACE AF PO SCH ×2 (10:00→21:16)
[2020-01-18] MEDS ORDERED: K-DUR TAB 20 MEQ PO PRN (10:47)
[2020-01-18] MEDS ORDERED: KLOR-CON PO PRN (10:47)
[2020-01-18] MEDS ORDERED: MICRO K EXTEN CAP 10 MEQ PO PRN (10:47)
[2020-01-18] MEDS ORDERED: POTASSIUM CHLORIDE LIQ 20 MEQ UDC PO PRN (10:47)
[2020-01-18] MEDS ORDERED: POTASSIUM CHL 40 MEQ/NS 0.45% 500 ML IV PRN (10:47)
[2020-01-18] MEDS ORDERED: POTASSIUM CHL 60 MEQ/NS 0.45% 500 ML IV PRN (10:47)
[2020-01-18] MEDS ORDERED: K-DUR TAB 20 MEQ PO ONE (10:54)
[2020-01-18] MEDS: ULTRAM PO PRN (21:17)
[2020-01-19] MEDS ORDERED: MAGNESIUM SULFATE 1 GRAM/100 mL PREMIX 1 G/100 ML BAG IV ONE (02:12)
[2020-01-19] MEDS: MAGNESIUM SULFATE 1 GRAM/100 mL PREMIX 1 GM/100 ML BAG IV PRN ×3 (02:30→06:11)
[2020-01-19] MEDS: NS 1000 ML 1,000 ML IV SCH ×3 (06:09→18:09)
[2020-01-19] MEDS: VISTARIL PO PRN ×2 (07:48→18:22)
[2020-01-19 08:28] LABS: ALANINE AMINOTRANSFERASE 887 Units/L (12-78); ALBUMIN 2.7 g/dL (3.4-5.0); ALKALINE PHOSPHATASE 327 Units/L (46-116); BLOOD UREA NITROGEN 21 mg/dL (7-18); CALCIUM 7.5 mg/dL (8.5-10.1); CARBON DIOXIDE 23.8 mmol/L (21-32); COR CA(FOR HYPOALB) 8.5 mg/dL (8.5-10.1); COR NA(FOR HYPERGLY) 138 mmol/L (136-145); CREATININE 1.05 mg/dL (0.55-1.02); MAGNESIUM 2.1 mg/dL (1.7-2.9); SODIUM 137 mmol/L (136-145); TOTAL PROTEIN 5.8 g/dL (6.4-8.2); eGFR NON BLACK RACES 54 (>60)
[2020-01-19 08:37] LABS: CHLORIDE 102 mmol/L (98-107)
[2020-01-19 08:41] LABS: BASOPHILS % (AUTO) 0.7 % (0.2-1.0); EOSINOPHILS % (AUTO) 0.9 % (0.9-2.9); HEMATOCRIT 24.7 % (36.0-47.0); HEMOGLOBIN 8.3 g/dL (12.0-16.0); LYMPHOCYTES % (AUTO) 36.4 % (21.0-51.0); MEAN CORPUSCULAR HEMOGLOBIN 31.5 pg (27.0-34.0); MEAN CORPUSCULAR HGB CONC 33.6 g/dL (33.0-35.0); MEAN CORPUSCULAR VOLUME 93.7 fL (80.0-100.0); MEAN PLATELET VOLUME 8.9 fL (7.4-11.0); MONOCYTES # (AUTO) 0.3 x10^3/uL (0.3-0.8); MONOCYTES % (AUTO) 5.1 % (0.0-13.0); NEUTROPHILS # (AUTO) 3.2 x10^3/uL (2.2-4.8); NEUTROPHILS % (AUTO) 56.9 % (42.0-75.0); PLATELET COUNT 160 X10^3/uL (150.0-450.0); RED BLOOD COUNT 2.64 X10^6/uL (3.5-5.4); RED CELL DISTRIBUTION WIDTH 18.4 % (11.6-16.5); WHITE BLOOD COUNT 5.6 X10^3/uL (3.6-10.0)
[2020-01-19 08:54] LABS: ASPARTATE AMINO TRANSFERASE 651 Units/L (15-37)
[2020-01-19] MEDS: LEVAQUIN PREMIX IV 250 MG 250 MG/50 ML BAG IV SCH (09:03)
[2020-01-19] MEDS: LASIX IVP SCH ×2 (09:03→17:00)
[2020-01-19] MEDS: BETAPACE AF PO SCH ×2 (09:03→21:05)
[2020-01-19] MEDS: ALDACTONE TAB 25 MG PO SCH (09:03)
[2020-01-19] MEDS: TOPROL XL PO SCH (09:04)
[2020-01-19] MEDS: HEMOCYTE-PLUS PO SCH (09:04)
[2020-01-19 09:07] LABS: BAND NEUTROPHILS % 3 % (0-10); HYPOCHROMASIA SLIGHT; PLATELET MORPHOLOGY COMMENT NORMAL (NORMAL)
--- NOTE | 2020-01-19 14:28 | RAD ---
HISTORYCHFSTUDYCHEST, 1 VIEWCOMPARISONChest film January 17, 2020 and December 16, 2019FINDINGSThe trachea is midline. The cardiac silhouette is mildly enlarged. There are bibasilar effusions unchanged from January 16 and January 14.. The lungs are clear without focal infiltrate or effusion. The bony thorax is unremarkable.IMPRESSIONPersistent cardiomegaly central vascular congestion right greater than left which does appear improved compared to January 14 but there are persistent bibasilar effusions and left lower lobe retrocardiac airspace disease possibly atelectasis that has not changed. Findings are most consistent slowly resolving CHF.Electronically signed by: MARNIE ETIENNE (Jan 19, 2020 14:27:35)
[2020-01-19] MEDS: ZESTRIL TAB 5 MG PO SCH (14:35)
[2020-01-19] MEDS: ULTRAM PO PRN (18:15)
[2020-01-20] MEDS: ULTRAM PO PRN (00:35)
[2020-01-20 06:54] LABS: BASOPHILS % (AUTO) 0.3 % (0.2-1.0); EOSINOPHILS # (AUTO) 0.1 x10^3/uL (0.0-0.2); EOSINOPHILS % (AUTO) 1.9 % (0.9-2.9); HEMATOCRIT 25.2 % (36.0-47.0); HEMOGLOBIN 8.4 g/dL (12.0-16.0); LYMPHOCYTES # (AUTO) 1.5 X10^3/uL (1.3-2.9); LYMPHOCYTES % (AUTO) 32.2 % (21.0-51.0); MEAN CORPUSCULAR HEMOGLOBIN 31.2 pg (27.0-34.0); MEAN CORPUSCULAR HGB CONC 33.3 g/dL (33.0-35.0); MEAN CORPUSCULAR VOLUME 93.6 fL (80.0-100.0); MEAN PLATELET VOLUME 8.4 fL (7.4-11.0); MONOCYTES # (AUTO) 0.3 x10^3/uL (0.3-0.8); MONOCYTES % (AUTO) 6.1 % (0.0-13.0); NEUTROPHILS # (AUTO) 2.8 x10^3/uL (2.2-4.8); NEUTROPHILS % (AUTO) 59.5 % (42.0-75.0); PLATELET COUNT 149 X10^3/uL (150.0-450.0); RED BLOOD COUNT 2.69 X10^6/uL (3.5-5.4); RED CELL DISTRIBUTION WIDTH 18.8 % (11.6-16.5); WHITE BLOOD COUNT 4.8 X10^3/uL (3.6-10.0)
[2020-01-20 07:13] LABS: ALANINE AMINOTRANSFERASE 561 Units/L (12-78); ALBUMIN 2.4 g/dL (3.4-5.0); ALKALINE PHOSPHATASE 258 Units/L (46-116); ASPARTATE AMINO TRANSFERASE 220 Units/L (15-37); BLOOD UREA NITROGEN 16 mg/dL (7-18); CALCIUM 7.6 mg/dL (8.5-10.1); CARBON DIOXIDE 26.1 mmol/L (21-32); CHLORIDE 103 mmol/L (98-107); COR CA(FOR HYPOALB) 8.9 mg/dL (8.5-10.1); COR NA(FOR HYPERGLY) 139 mmol/L (136-145); CREATININE 0.82 mg/dL (0.55-1.02); SODIUM 138 mmol/L (136-145); TOTAL PROTEIN 5.3 g/dL (6.4-8.2); eGFR NON BLACK RACES > 60 (>60)
[2020-01-20 07:56] LABS: PLATELET MORPHOLOGY COMMENT NORMAL (NORMAL)
[2020-01-20] MEDS: ALDACTONE TAB 25 MG PO SCH (09:20)
[2020-01-20] MEDS: BETAPACE AF PO SCH ×2 (09:21→20:43)
[2020-01-20] MEDS: HEMOCYTE-PLUS PO SCH (09:22)
[2020-01-20] MEDS: LEVAQUIN PREMIX IV 250 MG 250 MG/50 ML BAG IV SCH (09:23)
[2020-01-20] MEDS: ZESTRIL TAB 5 MG PO SCH (09:23)
[2020-01-20] MEDS: TOPROL XL PO SCH (09:24)
[2020-01-20] MEDS ORDERED: ATIVAN INJ 2 MG VIAL ONE (10:33)
[2020-01-20] MEDS ORDERED: MORPHINE SULFATE INJ 2 MG INJ ONE (10:35)
--- NOTE | 2020-01-20 11:26 | PCM.PROG ---
Progress Note Progress Note for Day of Date of Exam: 01/20/20 Subjective Subjective: Patient seen at bedside, no acute overnight events. Patient is alert and oriented to self and partial location. She has a hx of vascular dementia. She presented with AMS, anemia and atrial fibrillation with RVR. She was also in acute CHF exacerbation. Patient's HR has been stable. She states she is feeling better and would like to go home. Her liver enzymes are trending down. She denies N/V/D or abdominal pain. Labs: Hgb 8.4, Mg 1.6 K: 2.9 CTAP: b/l opacities and pleural effusions. Mild mesenteric edema Plan: continue current treatment, replace K and Mg as per protocol. Monitor AM labs. Strict I/Os, daily weights Past Medical Family Social History Past Med/Fam/Surg Hx: Changes noted (describe) Allergies: Allergies pantoprazole [From Protonix] Allergy (Severe, Verified 11/21/19 21:10) RASH pts son states she gets a rash that covers her entire body when taking any med ending in -zole. 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 Penicillins Allergy (Verified 10/28/19 17:35) Review of Systems ROS: No change since H&P Vital Signs and I&O's Vital Signs: Temperature 98.4 F Pulse Rate [Left Brachial] 112 Pulse Rate [Apical] 106 Pulse Rate 143 Respiratory Rate 20 Blood Pressure [Right Leg] 164/78 Blood Pressure [Right Arm] 151/93 Blood Pressure [Left Arm] 187/99 Blood Pressure 150/81 O2 Sat by Pulse Oximetry 99 Intake and Output: Intake & Output 01/17/20 01/18/20 01/19/20 01/20/20 23:59 23:59 23:59 23:59 Intake Total 730 / 730 660 / 660 1293 / 1293 230 / 230 Output Total 1450 / 1450 1350 / 1350 3400 / 3400 250 / 250 Balance -720 / -720 -690 / -690 -2107 / -210 - Physical Exam Oriented: Person Eyes: Normal Ear: Normal Nose: Normal Throat: Dry Cardiovascular: Irregular Auscultation: Bowel Sounds: Normal Tenderness: Normal Skin: Decreased Turgur Musculoskeletal: Back:Thoracic, Back:Lumbar and Motor Deficit Psychiatric: Anxiety Mood Description: Calm Speech Pattern: Clear and Appropriate Laboratory and Diagnostics Result Diagrams: 01/20/20 05:56 01/20/20 05:56 Labs: 01/16/20 14:25 Buttock Gram Stain - Final 01/16/20 14:25 Buttock Wound Culture - Final 01/16/20 12:20 Blood Blood Culture - Preliminary 01/16/20 11:35 Blood Blood Culture - Preliminary 01/16/20 14:17 Urine,Clean Catch Urine Culture - Final Laboratory WBC 4.8 X10^3/uL (3.6-10.0) 01/20/20 05:56 RBC 2.69 X10^6/uL (3.5-5.4) L 01/20/20 05:56 Hgb 8.4 g/dL (12.0-16.0) L 01/20/20 05:56 Hct 25.2 % (36.0-47.0) L 01/20/20 05:56 MCV 93.6 fL (80.0-100.0) 01/20/20 05:56 MCH 31.2 pg (27.0-34.0) 01/20/20 05:56 MCHC 33.3 g/dL (33.0-35.0) 01/20/20 05:56 RDW 18.8 % (11.6-16.5) H 01/20/20 05:56 Plt Count 149 X10^3/uL (150.0-450.0) L 01/20/20 05:56 Plt Count Comment Adequate (ADEQUATE) 01/20/20 05:56 MPV 8.4 fL (7.4-11.0) 01/20/20 05:56 Neut % (Auto) 59.5 % (42.0-75.0) 01/20/20 05:56 Lymph % (Auto) 32.2 % (21.0-51.0) 01/20/20 05:56 [place] % (Auto) 6.1 % (0.0-13.0) 01/20/20 05:56 Eos % (Auto) 1.9 % (0.9-2.9) 01/20/20 05:56 Baso % (Auto) 0.3 % (0.2-1.0) 01/20/20 05:56 Neut # (Auto) 2.8 x10^3/uL (2.2-4.8) 01/20/20 05:56 Lymph # (Auto) 1.5 X10^3/uL (1.3-2.9) 01/20/20 05:56 [place] # (Auto) 0.3 x10^3/uL (0.3-0.8) 01/20/20 05:56 Eos # (Auto) 0.1 x10^3/uL (0.0-0.2) 01/20/20 05:56 Baso # (Auto) 0.0 X10^3/uL (0.0-0.1) 01/20/20 05:56 Absolute Nucleated RBC 2.9 /100WBC 01/20/20 05:56 Total Counted 100 01/20/20 05:56 Neutrophils % (Manual) 69 % (39-76) 01/20/20 05:56 Band Neutrophils % 3 % (0-10) 01/19/20 08:08 Lymphocytes % (Manual) 26 % (13-43) 01/20/20 05:56 Monocytes % (Manual) 4 % (4-9) 01/20/20 05:56 Nucleated RBCs 6 01/20/20 05:56 Plt Morphology Comment Normal (NORMAL) 01/20/20 05:56 RBC Morphology Normal (NORMAL) 01/20/20 05:56 Hypochromasia Slight A 01/19/20 08:08 Sodium 138 mmol/L (136-145) 01/20/20 05:56 Corrected Sodium 139 mmol/L (136-145) 01/20/20 05:56 Potassium 2.9 mmol/L (3.5-5.1) L* 01/20/20 05:56 Chloride 103 mmol/L (98-107) 01/20/20 05:56 Carbon Dioxide 26.1 mmol/L (21-32) 01/20/20 05:56 BUN 16 mg/dL (7-18) 01/20/20 05:56 Creatinine 0.82 mg/dL (0.55-1.02) 01/20/20 05:56 Est GFR (MDRD) Af Amer > 60 (>60) 01/20/20 05:56 Est GFR (MDRD) Non-Af > 60 (>60) 01/20/20 05:56 Glucose 151 mg/dL (65-99) H 01/20/20 05:56 POC Glucose (mg/dL) 146 mg/dL (65-99) H 01/20/20 04:44 Lactic Acid 1.5 mmol/L (0.4-2.0) 01/17/20 15:00 Calcium 7.6 mg/dL (8.5-10.1) L 01/20/20 05:56 Corrected Calcium 8.9 mg/dL (8.5-10.1) 01/20/20 05:56 Magnesium 1.6 mg/dL (1.7-2.9) L 01/20/20 05:56 Iron 17 ug/dL (50-175) L 01/15/20 19:34 Transferrin 81 mg/dL (202-364) L 01/15/20 19:34 Ferritin 2993 ng/mL (8-252) H 01/15/20 19:34 Total Bilirubin 0.70 mg/dL (0.2-1.0) 01/20/20 05:56 AST 220 Units/L (15-37) H 01/20/20 05:56 ALT 561 Units/L (12-78) H 01/20/20 05:56 Alkaline Phosphatase 258 Units/L (46-116) H 01/20/20 05:56 Creatine Kinase 59 Units/L (26-192) 01/16/20 07:45 CK-MB (CK-2) < 1.0 ng/mL (0-4.0) 01/16/20 07:45 CK/CKMB % Calc 1.7 % (<4) 01/16/20 07:45 Troponin I < 0.02 ng/mL (0-1.5) 01/16/20 07:45 Total Protein 5.3 g/dL (6.4-8.2) L 01/20/20 05:56 Albumin 2.4 g/dL (3.4-5.0) L 01/20/20 05:56 Globulin 2.9 g/dL (2.5-4.5) 01/20/20 05:56 Albumin/Globulin Ratio 0.8 Ratio (1.1-2.1) L 01/20/20 05:56 Amylase 94 Units/L (25-115) 01/16/20 07:45 Lipase 355 Units/L (73-393) 01/16/20 07:45 Vitamin B12 1929 pg/mL (193-986) H 01/15/20 19:34 Folate 13.7 ng/mL (>8.6) 01/15/20 19:34 Free T4 1.36 ng/dL (0.76-1.46) 01/16/20 06:30 TSH 3rd Generation 4.635 uIU/mL (0.358-3.74) H 01/16/20 06:30 Specimen Type Catherized urine 01/16/20 14:17 Urine Color Yellow (YELLOW) 01/16/20 14:17 Urine Appearance Slightly hazy (CLEAR) 01/16/20 14:17 Urine pH 6.5 (5.0 - 8.0) 01/16/20 14:17 Ur Specific [place] 1.010 (1.000-1.030) 01/16/20 14:17 Urine Protein 1+ (NEGATIVE) 01/16/20 14:17 Urine Glucose (UA) Negative (NEGATIVE) 01/16/20 14:17 Urine Ketones Negative (NEGATIVE) 01/16/20 14:17 Urine Occult Blood 2+ (NEGATIVE) 01/16/20 14:17 Urine Nitrite Negative (NEGATIVE) 01/16/20 14:17 Urine Bilirubin Negative (NEGATIVE) 01/16/20 14:17 Urine Urobilinogen Normal (NORMAL) 01/16/20 14:17 Ur Leukocyte Esterase Negative (NEGATIVE) 01/16/20 14:17 Urine RBC 5-10 /HPF (0-3) A 01/16/20 14:17 Urine WBC 3-5 /HPF (0-5) 01/16/20 14:17 Ur Squamous Epith Cells Rare /HPF (NEGATIVE) 01/16/20 14:17 Urine Bacteria Trace /HPF (NEGATIVE) 01/16/20 14:17 Urine Yeast Rare /HPF (NEGATIVE) 01/16/20 14:17 Ur Culture Indicated? Yes/culture set up 01/16/20 14:17 Stool Description 30g,brown,soft form 01/15/20 22:05 Stl Occult Blood (IFOB) Negative (NEGATIVE) 01/15/20 22:05 SARS-CoV-2 (PCR) Negative (NEGATIVE) 01/15/20 09:57 Blood Type O POSITIVE 01/15/20 06:25 Antibody Screen Negative 01/15/20 06:25 Plan (1) AMS (altered mental status): Status: Acute Plan: ADMIT, CE AND EKG ON ADMISSION,CT HEAD IN ER BS CONTROL, CONTINUOUS SUPPLEMENTAL O2 VERIFY HOME MEDICATION, ANEMIA PANEL OCCULT STOOL, SEPTIC WORK UP STYPE AND SCREEN ON ADMISSION (2) Afib: Status: Acute (3) CAD (coronary artery disease): Status: Acute (4) CHF (congestive heart failure): Status: Acute (5) Pneumonia: Status: Acute (6) CRF (chronic renal failure): Status: Chronic Qualifiers: Chronic kidney disease stage: stage 2 (mild) Qualified Code(s): N18.2 - Chronic kidney disease, stage 2 (mild) (7) Hypertension: Status: Chronic Qualifiers: Hypertension type: essential hypertension Qualified Code(s): I10 - Essential (primary) hypertension (8) Rheumatoid arthritis: Status: Chronic Qualifiers: Rheumatoid arthritis location: multiple sites (9) Hypokalemia: Status: Acute (10) Hypomagnesemia: Status: Acute (11) Vascular dementia: Status: Acute
[2020-01-20] MEDS ORDERED: MORPHINE SULFATE INJ 2 MG INJ IVP PRN (11:40)
[2020-01-20] MEDS ORDERED: ATIVAN INJ 2 MG VIAL IVP PRN (11:40)
[2020-01-20] MEDS: LASIX IVP SCH ×2 (14:49→16:20)
[2020-01-20] MEDS: K-RIDER 10 MEQ/NS 100 ML 10 MEQ/100 ML BAG IV PRN ×6 (15:30→23:13)
[2020-01-20] MEDS: NS 1000 ML 1,000 ML IV SCH (20:44)
[2020-01-21 06:43] LABS: ALANINE AMINOTRANSFERASE 411 Units/L (12-78); ALBUMIN 2.6 g/dL (3.4-5.0); ALKALINE PHOSPHATASE 224 Units/L (46-116); ASPARTATE AMINO TRANSFERASE 126 Units/L (15-37); BLOOD UREA NITROGEN 15 mg/dL (7-18); CALCIUM 7.4 mg/dL (8.5-10.1); CARBON DIOXIDE 24.2 mmol/L (21-32); CHLORIDE 104 mmol/L (98-107); COR CA(FOR HYPOALB) 8.5 mg/dL (8.5-10.1); CREATININE 0.94 mg/dL (0.55-1.02); SODIUM 137 mmol/L (136-145); TOTAL PROTEIN 5.5 g/dL (6.4-8.2); eGFR NON BLACK RACES > 60 (>60)
[2020-01-21 07:04] LABS: BASOPHILS % (AUTO) 0.4 % (0.2-1.0); EOSINOPHILS # (AUTO) 0.1 x10^3/uL (0.0-0.2); EOSINOPHILS % (AUTO) 1.3 % (0.9-2.9); HEMATOCRIT 23.9 % (36.0-47.0); HEMOGLOBIN 7.9 g/dL (12.0-16.0); LYMPHOCYTES # (AUTO) 1.4 X10^3/uL (1.3-2.9); LYMPHOCYTES % (AUTO) 29.5 % (21.0-51.0); MEAN CORPUSCULAR HEMOGLOBIN 31.8 pg (27.0-34.0); MEAN CORPUSCULAR HGB CONC 33.1 g/dL (33.0-35.0); MEAN PLATELET VOLUME 8.8 fL (7.4-11.0); MONOCYTES # (AUTO) 0.2 x10^3/uL (0.3-0.8); MONOCYTES % (AUTO) 5.2 % (0.0-13.0); NEUTROPHILS % (AUTO) 63.6 % (42.0-75.0); PLATELET COUNT 115 X10^3/uL (150.0-450.0); RED BLOOD COUNT 2.49 X10^6/uL (3.5-5.4); RED CELL DISTRIBUTION WIDTH 19.6 % (11.6-16.5); WHITE BLOOD COUNT 4.8 X10^3/uL (3.6-10.0)
[2020-01-21 07:54] LABS: BAND NEUTROPHILS % 1 % (0-10); PLATELET MORPHOLOGY COMMENT NORMAL (NORMAL)
[2020-01-21] MEDS: ALDACTONE TAB 25 MG PO SCH (09:24)
[2020-01-21] MEDS: BETAPACE AF PO SCH (09:25)
[2020-01-21] MEDS ORDERED: ATIVAN TAB 1 MG PO PRN (09:44)
[2020-01-21] MEDS ORDERED: ATIVAN TAB 1 MG ONE (09:49)
[2020-01-21] MEDS ORDERED: LEVAQUIN TAB 750 MG PO SCH (10:00)
[2020-01-21] MEDS: HEMOCYTE-PLUS PO SCH (10:02)
[2020-01-21] MEDS: TOPROL XL PO SCH (10:03)
[2020-01-21] MEDS: ZESTRIL TAB 5 MG PO SCH (10:03)
[2020-01-21] MEDS ORDERED: HALDOL INJ IM PRN (10:22)
[2020-01-21] MEDS ORDERED: HALDOL INJ ONE (10:24)
--- NOTE | 2020-01-21 11:30 | PCM.PROG ---
Progress Note Progress Note for Day of Date of Exam: 01/21/20 Subjective Subjective: Patient seen at bedside, has been agitated since yesterday evening. She did receive IV Ativan and Morphine. Patient does not have IV access this morning, unable to obtain another one after several attempts. On exam, she is disoriented, calling for help. She denies pain or discomfort. Labs: Hgb 7.9 K: 4.1 LFTs trending down Plan: will switch to PO medications, give IM Haldol 2 mg as patient is agitated, pulling at things and trying to get out of bed. Monitor AM labs. Past Medical Family Social History Past Med/Fam/Surg Hx: Changes noted (describe) Allergies: Allergies pantoprazole [From Protonix] Allergy (Severe, Verified 11/21/19 21:10) RASH pts son states she gets a rash that covers her entire body when taking any med ending in -zole. 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 Penicillins Allergy (Verified 10/28/19 17:35) Review of Systems ROS: No change since H&P Vital Signs and I&O's Vital Signs: Temperature 98.1 F Pulse Rate [Left Brachial] 62 Pulse Rate [Apical] 106 Pulse Rate 143 Respiratory Rate 18 Blood Pressure [Right Leg] 164/78 Blood Pressure [Right Arm] 152/60 Blood Pressure [Left Arm] 187/99 Blood Pressure 150/81 O2 Sat by Pulse Oximetry 100 Intake and Output: Intake & Output 01/18/20 01/19/20 01/20/20 01/21/20 23:59 23:59 23:59 23:59 Intake Total 660 / 660 1293 / 1293 340 / 340 0 / 0 Output Total 1350 / 1350 3400 / 3400 950 / 950 200 / 200 Balance -690 / -690 -2107 / -2107 -610 / -610 -200 / -200 Physical Exam Oriented: Person Eyes: Normal Ear: Normal Nose: Normal Throat: Dry Cardiovascular: Irregular : Normal Auscultation: Bowel Sounds: Normal Tenderness: Normal Skin: Decreased Turgur Musculoskeletal: Back:Thoracic, Back:Lumbar and Motor Deficit Psychiatric: Anxiety Mood Description: Calm Speech Pattern: Delayed Laboratory and Diagnostics Result Diagrams: 01/21/20 05:39 01/21/20 05:39 Labs: 01/16/20 14:25 Buttock Gram Stain - Final 01/16/20 14:25 Buttock Wound Culture - Final 01/16/20 12:20 Blood Blood Culture - Preliminary 01/16/20 11:35 Blood Blood Culture - Preliminary 01/16/20 14:17 Urine,Clean Catch Urine Culture - Final Laboratory WBC 4.8 X10^3/uL (3.6-10.0) 01/21/20 05:39 RBC 2.49 X10^6/uL (3.5-5.4) L 01/21/20 05:39 Hgb 7.9 g/dL (12.0-16.0) L 01/21/20 05:39 Hct 23.9 % (36.0-47.0) L 01/21/20 05:39 MCV 96.0 fL (80.0-100.0) 01/21/20 05:39 MCH 31.8 pg (27.0-34.0) 01/21/20 05:39 MCHC 33.1 g/dL (33.0-35.0) 01/21/20 05:39 RDW 19.6 % (11.6-16.5) H 01/21/20 05:39 Plt Count 115 X10^3/uL (150.0-450.0) L 01/21/20 05:39 Plt Count Comment Decreased (ADEQUATE) A 01/21/20 05:39 MPV 8.8 fL (7.4-11.0) 01/21/20 05:39 Neut % (Auto) 63.6 % (42.0-75.0) 01/21/20 05:39 Lymph % (Auto) 29.5 % (21.0-51.0) 01/21/20 05:39 [place] % (Auto) 5.2 % (0.0-13.0) 01/21/20 05:39 Eos % (Auto) 1.3 % (0.9-2.9) 01/21/20 05:39 Baso % (Auto) 0.4 % (0.2-1.0) 01/21/20 05:39 Neut # (Auto) 3.0 x10^3/uL (2.2-4.8) 01/21/20 05:39 Lymph # (Auto) 1.4 X10^3/uL (1.3-2.9) 01/21/20 05:39 [place] # (Auto) 0.2 x10^3/uL (0.3-0.8) L 01/21/20 05:39 Eos # (Auto) 0.1 x10^3/uL (0.0-0.2) 01/21/20 05:39 Baso # (Auto) 0.0 X10^3/uL (0.0-0.1) 01/21/20 05:39 Absolute Nucleated RBC 1.7 /100WBC 01/21/20 05:39 Total Counted 100 01/21/20 05:39 Neutrophils % (Manual) 63 % (39-76) 01/21/20 05:39 Band Neutrophils % 1 % (0-10) 01/21/20 05:39 Lymphocytes % (Manual) 30 % (13-43) 01/21/20 05:39 Monocytes % (Manual) 6 % (4-9) 01/21/20 05:39 Nucleated RBCs 6 01/20/20 05:56 Plt Morphology Comment Normal (NORMAL) 01/21/20 05:39 RBC Morphology Normal (NORMAL) 01/21/20 05:39 Hypochromasia Slight A 01/19/20 08:08 Sodium 137 mmol/L (136-145) 01/21/20 05:39 Corrected Sodium TNP 01/21/20 05:39 Potassium 4.1 mmol/L (3.5-5.1) 01/21/20 05:39 Chloride 104 mmol/L (98-107) 01/21/20 05:39 Carbon Dioxide 24.2 mmol/L (21-32) 01/21/20 05:39 BUN 15 mg/dL (7-18) 01/21/20 05:39 Creatinine 0.94 mg/dL (0.55-1.02) 01/21/20 05:39 Est GFR (MDRD) Af Amer > 60 (>60) 01/21/20 05:39 Est GFR (MDRD) Non-Af > 60 (>60) 01/21/20 05:39 Glucose 93 mg/dL (65-99) 01/21/20 05:39 POC Glucose (mg/dL) 79 mg/dL (65-99) 01/21/20 05:30 Lactic Acid 1.5 mmol/L (0.4-2.0) 01/17/20 15:00 Calcium 7.4 mg/dL (8.5-10.1) L 01/21/20 05:39 Corrected Calcium 8.5 mg/dL (8.5-10.1) 01/21/20 05:39 Magnesium 1.6 mg/dL (1.7-2.9) L 01/20/20 05:56 Iron 17 ug/dL (50-175) L 01/15/20 19:34 Transferrin 81 mg/dL (202-364) L 01/15/20 19:34 Ferritin 2993 ng/mL (8-252) H 01/15/20 19:34 Total Bilirubin 0.70 mg/dL (0.2-1.0) 01/21/20 05:39 AST 126 Units/L (15-37) H 01/21/20 05:39 ALT 411 Units/L (12-78) H 01/21/20 05:39 Alkaline Phosphatase 224 Units/L (46-116) H 01/21/20 05:39 Creatine Kinase 59 Units/L (26-192) 01/16/20 07:45 CK-MB (CK-2) < 1.0 ng/mL (0-4.0) 01/16/20 07:45 CK/CKMB % Calc 1.7 % (<4) 01/16/20 07:45 Troponin I < 0.02 ng/mL (0-1.5) 01/16/20 07:45 Total Protein 5.5 g/dL (6.4-8.2) L 01/21/20 05:39 Albumin 2.6 g/dL (3.4-5.0) L 01/21/20 05:39 Globulin 2.9 g/dL (2.5-4.5) 01/21/20 05:39 Albumin/Globulin Ratio 0.9 Ratio (1.1-2.1) L 01/21/20 05:39 Amylase 94 Units/L (25-115) 01/16/20 07:45 Lipase 355 Units/L (73-393) 01/16/20 07:45 Vitamin B12 1929 pg/mL (193-986) H 01/15/20 19:34 Folate 13.7 ng/mL (>8.6) 01/15/20 19:34 Free T4 1.36 ng/dL (0.76-1.46) 01/16/20 06:30 TSH 3rd Generation 4.635 uIU/mL (0.358-3.74) H 01/16/20 06:30 Specimen Type Catherized urine 01/16/20 14:17 Urine Color Yellow (YELLOW) 01/16/20 14:17 Urine Appearance Slightly hazy (CLEAR) 01/16/20 14:17 Urine pH 6.5 (5.0 - 8.0) 01/16/20 14:17 Ur Specific [place] 1.010 (1.000-1.030) 01/16/20 14:17 Urine Protein 1+ (NEGATIVE) 01/16/20 14:17 Urine Glucose (UA) Negative (NEGATIVE) 01/16/20 14:17 Urine Ketones Negative (NEGATIVE) 01/16/20 14:17 Urine Occult Blood 2+ (NEGATIVE) 01/16/20 14:17 Urine Nitrite Negative (NEGATIVE) 01/16/20 14:17 Urine Bilirubin Negative (NEGATIVE) 01/16/20 14:17 Urine Urobilinogen Normal (NORMAL) 01/16/20 14:17 Ur Leukocyte Esterase Negative (NEGATIVE) 01/16/20 14:17 Urine RBC 5-10 /HPF (0-3) A 01/16/20 14:17 Urine WBC 3-5 /HPF (0-5) 01/16/20 14:17 Ur Squamous Epith Cells Rare /HPF (NEGATIVE) 01/16/20 14:17 Urine Bacteria Trace /HPF (NEGATIVE) 01/16/20 14:17 Urine Yeast Rare /HPF (NEGATIVE) 01/16/20 14:17 Ur Culture Indicated? Yes/culture set up 01/16/20 14:17 Stool Description 30g,brown,soft form 01/15/20 22:05 Stl Occult Blood (IFOB) Negative (NEGATIVE) 01/15/20 22:05 SARS-CoV-2 (PCR) Negative (NEGATIVE) 01/15/20 09:57 Blood Type O POSITIVE 01/15/20 06:25 Antibody Screen Negative 01/15/20 06:25 Plan (1) AMS (altered mental status): Status: Acute Plan: ADMIT, CE AND EKG ON ADMISSION,CT HEAD IN ER BS CONTROL, CONTINUOUS SUPPLEMENTAL O2 VERIFY HOME MEDICATION, ANEMIA PANEL OCCULT STOOL, SEPTIC WORK UP STYPE AND SCREEN ON ADMISSION (2) Afib: Status: Acute (3) CAD (coronary artery disease): Status: Acute (4) CHF (congestive heart failure): Status: Acute (5) Pneumonia: Status: Acute (6) CRF (chronic renal failure): Status: Chronic Qualifiers: Chronic kidney disease stage: stage 2 (mild) Qualified Code(s): N18.2 - Chronic kidney disease, stage 2 (mild) (7) Hypertension: Status: Chronic Qualifiers: Hypertension type: essential hypertension Qualified Code(s): I10 - Essential (primary) hypertension (8) Rheumatoid arthritis: Status: Chronic Qualifiers: Rheumatoid arthritis location: multiple sites (9) Hypokalemia: Status: Acute (10) Hypomagnesemia: Status: Acute (11) Vascular dementia: Status: Acute
[2020-01-21 12:11] VITALS: BP 188/92
--- NOTE | 2020-01-21 12:15 | W.DIS.FURT ---
Summary of Discharge Discharge Summary of Date Date of Exam: 01/21/20 Admission Date Date of Admission: 01/15/20 Admission Diagnosis Hospital Course: Ms. Patterson is a 79 y/o female who presented with altered mental status, anemia and wekaness. She was noted to have elevated liver function tests. Cultures and CXR were done and patient was started on IV antibiotics. She has a hx of atrial fibrillation and went into RVR and was started on Cardizem drip. CXR was suggestive of CHF exacerbation and she was given IV lasix. Patient's labs were monitored daily, strict intake and output as well as daily weights. Patient has underlyinng dementia and did have episodes of agitation during her stay. She was given haldol for one of these episodes. Patient's daughter at bedside stated that patient has been evaluated by home hospice due to worsening severe dementia and will be starting that when she goes home. Patient was stable and was discharged with home hospice services. Vital Signs: Vital Signs (72 hours) 01/18/20 14:00 01/18/20 15:00 01/18/20 16:00 Temperature 98.0 F Pulse Rate [Apical] 106 H Pulse Rate [Left Brachial] 102 H 102 H 114 H Respiratory Rate 20 20 20 Blood Pressure [Left Arm] 165/94 159/97 169/92 Blood Pressure [Right Arm] Blood Pressure [Right Leg] O2 Sat by Pulse Oximetry 100 100 100 01/18/20 17:00 01/18/20 18:00 01/18/20 19:00 Temperature 98.0 F 98.0 F Pulse Rate [Apical] 106 H 106 H Pulse Rate [Left Brachial] 110 H 110 H 110 H Respiratory Rate 20 20 20 Blood Pressure [Left Arm] 188/97 188/107 167/98 Blood Pressure [Right Arm] Blood Pressure [Right Leg] O2 Sat by Pulse Oximetry 100 100 96 01/18/20 20:00 01/18/20 21:00 01/18/20 21:17 Temperature 98.0 F 98.0 F Pulse Rate [Apical] 106 H 106 H Pulse Rate [Left Brachial] 110 H 110 H Respiratory Rate 20 20 20 Blood Pressure [Left Arm] 175/106 188/107 Blood Pressure [Right Arm] Blood Pressure [Right Leg] O2 Sat by Pulse Oximetry 98 100 01/18/20 22:00 01/18/20 22:17 01/18/20 23:00 Temperature 98.0 F 99.0 F Pulse Rate [Apical] 106 H 111 H Pulse Rate [Left Brachial] 110 H 108 H Respiratory Rate 20 20 20 Blood Pressure [Left Arm] Blood Pressure [Right Arm] 194/91 187/99 Blood Pressure [Right Leg] O2 Sat by Pulse Oximetry 100 100 01/19/20 00:00 01/19/20 01:00 01/19/20 02:00 Temperature 99.0 F 99.0 F Pulse Rate [Apical] 115 H 106 H 106 H Pulse Rate [Left Brachial] 115 H 108 H 108 H Respiratory Rate 22 20 20 Blood Pressure [Left Arm] Blood Pressure [Right Arm] 175/93 170/97 181/89 Blood Pressure [Right Leg] O2 Sat by Pulse Oximetry 100 100 100 01/19/20 03:00 01/19/20 04:00 01/19/20 05:00 Temperature 98.5 F Pulse Rate [Apical] Pulse Rate [Left Brachial] 113 H 118 H 97 H Respiratory Rate 18 16 20 Blood Pressure [Left Arm] Blood Pressure [Right Arm] 148/91 162/95 172/91 Blood Pressure [Right Leg] 164/78 O2 Sat by Pulse Oximetry 01/19/20 06:00 01/19/20 07:00 01/19/20 08:00 Temperature 97.7 F Pulse Rate [Apical] Pulse Rate [Left Brachial] 116 H 117 H 117 H Respiratory Rate 18 20 20 Blood Pressure [Left Arm] Blood Pressure [Right Arm] 157/103 187/112 173/106 Blood Pressure [Right Leg] 164/78 O2 Sat by Pulse Oximetry 96 98 01/19/20 09:00 01/19/20 10:00 01/19/20 11:00 Temperature 97.7 F Pulse Rate [Apical] Pulse Rate [Left Brachial] 125 H 125 H 116 H Respiratory Rate 20 20 20 Blood Pressure [Left Arm] Blood Pressure [Right Arm] 168/93 183/102 162/84 Blood Pressure [Right Leg] O2 Sat by Pulse Oximetry 96 97 97 01/19/20 12:00 01/19/20 13:00 01/19/20 14:00 Temperature 97.8 F Pulse Rate [Apical] Pulse Rate [Left Brachial] 117 H 115 H 112 H Respiratory Rate 18 18 18 Blood Pressure [Left Arm] Blood Pressure [Right Arm] 163/98 173/108 149/91 Blood Pressure [Right Leg] O2 Sat by Pulse Oximetry 96 97 99 01/19/20 15:00 01/19/20 16:00 01/19/20 17:00 Temperature 98.3 F Pulse Rate [Apical] Pulse Rate [Left Brachial] 126 H 127 H 119 H Respiratory Rate 18 18 20 Blood Pressure [Left Arm] Blood Pressure [Right Arm] 138/87 145/93 184/98 Blood Pressure [Right Leg] O2 Sat by Pulse Oximetry 99 99 95 01/19/20 18:00 01/19/20 18:15 01/19/20 19:00 Temperature Pulse Rate [Apical] Pulse Rate [Left Brachial] 123 H 136 H Respiratory Rate 18 20 18 Blood Pressure [Left Arm] Blood Pressure [Right Arm] 175/113 166/111 Blood Pressure [Right Leg] O2 Sat by Pulse Oximetry 95 97 01/19/20 19:15 01/19/20 20:00 01/19/20 21:00 Temperature 98.8 F Pulse Rate [Apical] Pulse Rate [Left Brachial] 121 H 115 H Respiratory Rate 20 18 20 Blood Pressure [Left Arm] Blood Pressure [Right Arm] 165/104 139/91 Blood Pressure [Right Leg] O2 Sat by Pulse Oximetry 93 L 100 01/19/20 22:00 01/19/20 23:00 01/20/20 00:00 Temperature 98.3 F Pulse Rate [Apical] Pulse Rate [Left Brachial] 116 H 124 H 117 H Respiratory Rate 20 20 20 Blood Pressure [Left Arm] Blood Pressure [Right Arm] 151/93 155/99 165/92 Blood Pressure [Right Leg] O2 Sat by Pulse Oximetry 99 98 100 01/20/20 00:35 01/20/20 01:00 01/20/20 01:35 Temperature Pulse Rate [Apical] Pulse Rate [Left Brachial] 129 H Respiratory Rate 20 20 18 Blood Pressure [Left Arm] Blood Pressure [Right Arm] 177/102 Blood Pressure [Right Leg] O2 Sat by Pulse Oximetry 98 01/20/20 02:00 01/20/20 03:00 01/20/20 04:00 Temperature 98.4 F Pulse Rate [Apical] Pulse Rate [Left Brachial] 128 H 126 H 114 H Respiratory Rate 20 20 22 Blood Pressure [Left Arm] Blood Pressure [Right Arm] 140/86 165/96 149/91 Blood Pressure [Right Leg] O2 Sat by Pulse Oximetry 97 100 98 01/20/20 05:00 01/20/20 06:00 01/20/20 07:00 Temperature 98.4 F Pulse Rate [Apical] Pulse Rate [Left Brachial] 122 H 112 H 80 Respiratory Rate 20 20 16 Blood Pressure [Left Arm] Blood Pressure [Right Arm] 151/100 151/93 144/95 Blood Pressure [Right Leg] O2 Sat by Pulse Oximetry 98 99 95 01/20/20 08:00 01/20/20 09:00 01/20/20 10:15 Temperature Pulse Rate [Apical] Pulse Rate [Left Brachial] 112 H 137 H 130 H Respiratory Rate 16 18 22 Blood Pressure [Left Arm] Blood Pressure [Right Arm] 136/89 128/94 149/107 Blood Pressure [Right Leg] O2 Sat by Pulse Oximetry 98 95 98 01/20/20 10:30 01/20/20 11:00 01/20/20 12:00 Temperature Pulse Rate [Apical] Pulse Rate [Left Brachial] 123 H Respiratory Rate 20 20 18 Blood Pressure [Left Arm] Blood Pressure [Right Arm] 127/88 Blood Pressure [Right Leg] O2 Sat by Pulse Oximetry 98 01/20/20 13:00 01/20/20 14:00 01/20/20 15:00 Temperature Pulse Rate [Apical] Pulse Rate [Left Brachial] 124 H 61 60 Respiratory Rate 18 18 18 Blood Pressure [Left Arm] Blood Pressure [Right Arm] 139/91 169/78 172/75 Blood Pressure [Right Leg] O2 Sat by Pulse Oximetry 97 99 100 01/20/20 16:00 01/20/20 17:00 01/20/20 18:00 Temperature 97.8 F Pulse Rate [Apical] Pulse Rate [Left Brachial] 59 L 60 60 Respiratory Rate 18 18 18 Blood Pressure [Left Arm] Blood Pressure [Right Arm] 174/82 162/75 168/74 Blood Pressure [Right Leg] O2 Sat by Pulse Oximetry 100 100 100 01/20/20 19:00 01/20/20 20:00 01/20/20 21:00 Temperature 98.2 F Pulse Rate [Apical] Pulse Rate [Left Brachial] 62 59 L 61 Respiratory Rate 18 16 18 Blood Pressure [Left Arm] Blood Pressure [Right Arm] 191/86 166/71 196/97 Blood Pressure [Right Leg] O2 Sat by Pulse Oximetry 100 100 97 01/20/20 21:38 01/20/20 22:00 01/20/20 22:08 Temperature Pulse Rate [Apical] Pulse Rate [Left Brachial] 60 Respiratory Rate 18 18 18 Blood Pressure [Left Arm] Blood Pressure [Right Arm] 141/75 Blood Pressure [Right Leg] O2 Sat by Pulse Oximetry 100 01/20/20 23:00 01/21/20 00:00 01/21/20 01:00 Temperature 97.6 F Pulse Rate [Apical] Pulse Rate [Left Brachial] 59 L 116 H 60 Respiratory Rate 16 16 18 Blood Pressure [Left Arm] Blood Pressure [Right Arm] 173/74 145/66 143/63 Blood Pressure [Right Leg] O2 Sat by Pulse Oximetry 100 100 100 01/21/20 02:00 01/21/20 03:00 01/21/20 04:00 Temperature 98.1 F Pulse Rate [Apical] Pulse Rate [Left Brachial] 59 L 59 L 60 Respiratory Rate 16 16 18 Blood Pressure [Left Arm] Blood Pressure [Right Arm] 165/74 156/62 156/71 Blood Pressure [Right Leg] O2 Sat by Pulse Oximetry 100 100 100 01/21/20 05:00 01/21/20 06:00 01/21/20 08:00 Temperature 98.1 F Pulse Rate [Apical] Pulse Rate [Left Brachial] 62 64 62 Respiratory Rate 20 20 18 Blood Pressure [Left Arm] Blood Pressure [Right Arm] 188/81 176/92 152/60 Blood Pressure [Right Leg] O2 Sat by Pulse Oximetry 99 100 100 01/21/20 12:00 Temperature 97.7 F Pulse Rate [Apical] Pulse Rate [Left Brachial] 72 Respiratory Rate 20 Blood Pressure [Left Arm] Blood Pressure [Right Arm] 188/92 Blood Pressure [Right Leg] O2 Sat by Pulse Oximetry 98 Labs: Laboratory Last Values WBC 4.8 X10^3/uL (3.6-10.0) 01/21/20 05:39 RBC 2.49 X10^6/uL (3.5-5.4) L 01/21/20 05:39 Hgb 7.9 g/dL (12.0-16.0) L 01/21/20 05:39 Hct 23.9 % (36.0-47.0) L 01/21/20 05:39 MCV 96.0 fL (80.0-100.0) 01/21/20 05:39 MCH 31.8 pg (27.0-34.0) 01/21/20 05:39 MCHC 33.1 g/dL (33.0-35.0) 01/21/20 05:39 RDW 19.6 % (11.6-16.5) H 01/21/20 05:39 Plt Count 115 X10^3/uL (150.0-450.0) L 01/21/20 05:39 Plt Count Comment Decreased (ADEQUATE) A 01/21/20 05:39 MPV 8.8 fL (7.4-11.0) 01/21/20 05:39 Neut % (Auto) 63.6 % (42.0-75.0) 01/21/20 05:39 Lymph % (Auto) 29.5 % (21.0-51.0) 01/21/20 05:39 Carver % (Auto) 5.2 % (0.0-13.0) 01/21/20 05:39 Eos % (Auto) 1.3 % (0.9-2.9) 01/21/20 05:39 Baso % (Auto) 0.4 % (0.2-1.0) 01/21/20 05:39 Neut # (Auto) 3.0 x10^3/uL (2.2-4.8) 01/21/20 05:39 Lymph # (Auto) 1.4 X10^3/uL (1.3-2.9) 01/21/20 05:39 Carver # (Auto) 0.2 x10^3/uL (0.3-0.8) L 01/21/20 05:39 Eos # (Auto) 0.1 x10^3/uL (0.0-0.2) 01/21/20 05:39 Baso # (Auto) 0.0 X10^3/uL (0.0-0.1) 01/21/20 05:39 Absolute Nucleated RBC 1.7 /100WBC 01/21/20 05:39 Total Counted 100 01/21/20 05:39 Neutrophils % (Manual) 63 % (39-76) 01/21/20 05:39 Band Neutrophils % 1 % (0-10) 01/21/20 05:39 Lymphocytes % (Manual) 30 % (13-43) 01/21/20 05:39 Monocytes % (Manual) 6 % (4-9) 01/21/20 05:39 Nucleated RBCs 6 01/20/20 05:56 Plt Morphology Comment Normal (NORMAL) 01/21/20 05:39 RBC Morphology Normal (NORMAL) 01/21/20 05:39 Hypochromasia Slight A 01/19/20 08:08 Sodium 137 mmol/L (136-145) 01/21/20 05:39 Corrected Sodium TNP 01/21/20 05:39 Potassium 4.1 mmol/L (3.5-5.1) 01/21/20 05:39 Chloride 104 mmol/L (98-107) 01/21/20 05:39 Carbon Dioxide 24.2 mmol/L (21-32) 01/21/20 05:39 BUN 15 mg/dL (7-18) 01/21/20 05:39 Creatinine 0.94 mg/dL (0.55-1.02) 01/21/20 05:39 Est GFR (MDRD) Af Amer > 60 (>60) 01/21/20 05:39 Est GFR (MDRD) Non-Af > 60 (>60) 01/21/20 05:39 Glucose 93 mg/dL (65-99) 01/21/20 05:39 POC Glucose (mg/dL) 79 mg/dL (65-99) 01/21/20 05:30 Lactic Acid 1.5 mmol/L (0.4-2.0) 01/17/20 15:00 Calcium 7.4 mg/dL (8.5-10.1) L 01/21/20 05:39 Corrected Calcium 8.5 mg/dL (8.5-10.1) 01/21/20 05:39 Magnesium 1.6 mg/dL (1.7-2.9) L 01/20/20 05:56 Iron 17 ug/dL (50-175) L 01/15/20 19:34 Transferrin 81 mg/dL (202-364) L 01/15/20 19:34 Ferritin 2993 ng/mL (8-252) H 01/15/20 19:34 Total Bilirubin 0.70 mg/dL (0.2-1.0) 01/21/20 05:39 AST 126 Units/L (15-37) H 01/21/20 05:39 ALT 411 Units/L (12-78) H 01/21/20 05:39 Alkaline Phosphatase 224 Units/L (46-116) H 01/21/20 05:39 Creatine Kinase 59 Units/L (26-192) 01/16/20 07:45 CK-MB (CK-2) < 1.0 ng/mL (0-4.0) 01/16/20 07:45 CK/CKMB % Calc 1.7 % (<4) 01/16/20 07:45 Troponin I < 0.02 ng/mL (0-1.5) 01/16/20 07:45 Total Protein 5.5 g/dL (6.4-8.2) L 01/21/20 05:39 Albumin 2.6 g/dL (3.4-5.0) L 01/21/20 05:39 Globulin 2.9 g/dL (2.5-4.5) 01/21/20 05:39 Albumin/Globulin Ratio 0.9 Ratio (1.1-2.1) L 01/21/20 05:39 Amylase 94 Units/L (25-115) 01/16/20 07:45 Lipase 355 Units/L (73-393) 01/16/20 07:45 Vitamin B12 1929 pg/mL (193-986) H 01/15/20 19:34 Folate 13.7 ng/mL (>8.6) 01/15/20 19:34 Free T4 1.36 ng/dL (0.76-1.46) 01/16/20 06:30 TSH 3rd Generation 4.635 uIU/mL (0.358-3.74) H 01/16/20 06:30 Specimen Type Catherized urine 01/16/20 14:17 Urine Color Yellow (YELLOW) 01/16/20 14:17 Urine Appearance Slightly hazy (CLEAR) 01/16/20 14:17 Urine pH 6.5 (5.0 - 8.0) 01/16/20 14:17 Ur Specific Panther Burn 1.010 (1.000-1.030) 01/16/20 14:17 Urine Protein 1+ (NEGATIVE) 01/16/20 14:17 Urine Glucose (UA) Negative (NEGATIVE) 01/16/20 14:17 Urine Ketones Negative (NEGATIVE) 01/16/20 14:17 Urine Occult Blood 2+ (NEGATIVE) 01/16/20 14:17 Urine Nitrite Negative (NEGATIVE) 01/16/20 14:17 Urine Bilirubin Negative (NEGATIVE) 01/16/20 14:17 Urine Urobilinogen Normal (NORMAL) 01/16/20 14:17 Ur Leukocyte Esterase Negative (NEGATIVE) 01/16/20 14:17 Urine RBC 5-10 /HPF (0-3) A 01/16/20 14:17 Urine WBC 3-5 /HPF (0-5) 01/16/20 14:17 Ur Squamous Epith Cells Rare /HPF (NEGATIVE) 01/16/20 14:17 Urine Bacteria Trace /HPF (NEGATIVE) 01/16/20 14:17 Urine Yeast Rare /HPF (NEGATIVE) 01/16/20 14:17 Ur Culture Indicated? Yes/culture set up 01/16/20 14:17 Stool Description 30g,brown,soft form 01/15/20 22:05 Stl Occult Blood (IFOB) Negative (NEGATIVE) 01/15/20 22:05 SARS-CoV-2 (PCR) Negative (NEGATIVE) 01/15/20 09:57 Blood Type O POSITIVE 01/15/20 06:25 Antibody Screen Negative 01/15/20 06:25 Reason For Visit: ANEMIA, HYPOGLYCEMIA,AMS Discharge Date Discharge Date: 01/21/20 Discharge Diagnosis All Active Problems (Updated 01/25/20 @ 19:55 by TROY GARCIA) Anemia (Acute) AMS (altered mental status) (Acute) Vascular dementia (Acute) Hypomagnesemia (Acute) Pneumonia (Acute) Hypoglycemia (Acute) Pneumonia (Acute) AMS (altered mental status) (Acute) Afib (Acute) Esophagitis (Acute) Hyponatremia (Acute) Hypokalemia (Acute) Cellulitis (Acute) Atrial fibrillation with RVR (Acute) CAD (coronary artery disease) (Acute) CHF (congestive heart failure) (Acute) Anemia (Acute) Atrial fibrillation with rapid ventricular response (Acute) Type 2 diabetes mellitus (Chronic) Rheumatoid arthritis (Chronic) CRF (chronic renal failure) (Chronic) Hypertension (Chronic) Degenerative joint disease of wrist (Chronic) CKD (chronic kidney disease) stage 3, GFR 30-59 ml/min (Chronic) Osteoarthritis involving joints of upper arms, bilateral (Chronic) Degenerative lumbar spinal stenosis (Chronic) Plan of Treatment: Continue with present treatment and follow up plan. Pt is to keep follow up appointment as instructed and take medications as ordered. Discharge Medications Discharge Medications: pantoprazole [From Protonix] Allergy (Severe, Verified 11/21/19 21:10) RASH Penicillins Allergy (Verified 10/28/19 17:35) CONTINUE taking the following medications Lantus U-100 Insulin 20 unit SUBCUT HS 01/15/20 [History] spironolactone 25 mg PO DAILY 01/15/20 [History] New Prescriptions furosemide 40 mg PO QAM 30 Days #30 tab 01/21/20 [Rx] Discharge Disposition Discharge Disposition: Home S Discharge Condition: Stable
[2020-01-22] MEDS ORDERED: LASIX PO SCH (09:00)
== END 2020-01-21 15:04 | disposition hospice, home (50) | DRG 308 ==
LOC: ER 01:42 → MED/SURG 07:50 → ER 17:33 → MED/SURG 01-16 15:56
PROVIDERS: ADMIT Internal Medicine; ATTEND Internal Medicine